=== PATIENT | male | born 1965 | race Caucasian/White ===

== ENCOUNTER 2021-04-04 04:09 | Inpatient (IN) | payer MEDICAID, SELFPAY ==
[2021-04-04] VITALS (10 sets, daily range): BP systolic 115–186; BP diastolic 68–103; PULSE 69–91; RESP 16–21; TEMP 36.3–36.4; O2SAT 98–100; BMI 26.3
--- NOTE | ~2021-04-04 | CT_ITS ---
EXAMINATION: CT CHEST WITH CONTRAST CT THORACIC SPINE CLINICAL INFORMATION: Reason for Exam Fall, intoxicated subcutaneous emphysema . COMPARISON: No pertinent prior studies are available for comparison. TECHNIQUE: Multidetector volumetric imaging was performed from the thoracic inlet to below the diaphragm following the administration of 100 mL Omnipaque 350 intravenous contrast. No contrast reaction reported Sagittal and coronal reformatted images were obtained on the technologist workstation. Additional targeted reformatted images of the thoracic spine are performed in axial, sagittal, and coronal planes. This CT examination was performed using dose optimization techniques as appropriate, variously including the following: *Automated exposure control *Adjustment of mA and/or kV according to patient size (this includes techniques or standardized protocols for targeted exams where dose is matched to indication/reason for exam; i.e. extremities or head) *Use of iterative reconstruction technique Total exam dose-length product 1444 mGy-cm in conjunction with the neck CT FINDINGS: LUNG: The central airways are patent. There is a moderate to large right-sided pneumothorax. Small left pneumothorax. Minimal groundglass opacification seen in both lungs which could represent contusion. Dependent atelectasis on the left posteriorly. No pleural effusion. MEDIASTINUM: Normal heart size. There is extensive pneumomediastinum. No pericardial effusion. No mediastinal lymphadenopathy. Pneumomediastinum extends into the neck as subcutaneous emphysema. VASCULAR: No thoracic aortic aneurysm or dissection. Central pulmonary arteries opacify normally. CHEST WALL/AXILLA: No axillary or internal mammary lymphadenopathy. Extensive subcutaneous emphysema throughout the chest wall. This extends into the left upper extremity and neck. UPPER ABDOMEN: Low-attenuation of the liver suggestive of hepatic steatosis. Colonic diverticulosis noted. OSSEOUS STRUCTURES/THORACIC SPINE: No sternal fracture. Vertebral body height and alignment maintained. Disc spaces are maintained with small multilevel endplate osteophytes. The posterior elements are intact and well aligned. Acute comminuted left posterior third and fourth rib fractures. Healing right lateral seventh and eighth rib fractures. No scapular fracture. CT/CT thoracic spine wo con IMPRESSION: Moderate to large right pneumothorax. Small left pneumothorax. Extensive pneumomediastinum and subcutaneous emphysema. Comminuted fractures of the posterior left third and fourth ribs. No acute right-sided rib fractures are seen. Healing right lateral rib fractures noted. No acute fracture or malalignment of the thoracic spine. This critical result was discussed with Muna Brink MD by telephone at 04/04/2021 5:23 AM and it was ascertained that the content and urgency of the report was understood at the time of direct communication.
--- NOTE | ~2021-04-04 | XR_ITS ---
EXAMINATION: XR CHEST CLINICAL INFORMATION: Follow-up right pleural effusion and left pneumothorax COMPARISON: Previous chest CT from yesterday and chest x-ray most recent 04/14/2021 TECHNIQUE: Frontal view of the chest was obtained. FINDINGS: The cardiac and mediastinal contours are stable. Bilateral chest tubes are unchanged in position. There is elevation of the right hemidiaphragm and right pleural effusion that appears unchanged. There is atelectasis or consolidation at the right lung base as well. There is a small left apical pneumothorax. This measures 1.5 cm in greatest thickness at the lung apex. There is no significant left pleural effusion. The left lung is clear. There is mild emphysema seen in the soft tissues of the left lower neck and chest wall. There are bilateral rib fractures of varying ages. XR/XR chest 1V IMPRESSION: Stable position of bilateral chest tubes. Stable elevation of the right hemidiaphragm/right pleural effusion. Small left apical pneumothorax.
--- NOTE | ~2021-04-04 | XR_ITS ---
EXAMINATION: XR CHEST CLINICAL INFORMATION: Chest tube placement COMPARISON: CT from today TECHNIQUE: Frontal view of the chest was obtained. FINDINGS: Right-sided chest tube extending to the apex. No definite pneumothorax seen, the extent of the subcutaneous emphysema limits evaluation.. Small left-sided pneumothorax. No pleural effusion. The cardiomediastinal silhouette is normal in size with diffuse pneumomediastinum. Subcutaneous emphysema tracks into the neck and along the chest. Left third and fourth rib fractures are again noted. XR/XR chest 1V IMPRESSION: Right-sided chest tube in place with no definite pneumothorax seen. Small left apical pneumothorax remains. Extensive subcutaneous emphysema and pneumomediastinum. Left-sided rib fractures again noted.
--- NOTE | ~2021-04-04 | CT_ITS ---
EXAMINATION: CT HEAD WITHOUT CONTRAST CLINICAL INFORMATION: Fall. Intoxicated. COMPARISON: None. TECHNIQUE: Contiguous axial imaging was performed from the skull base to vertex without intravenous contrast. This CT examination was performed using dose optimization techniques as appropriate, variously including the following: * Automated exposure control * Adjustment of mA and/or kV according to patient size (this includes techniques or standardized protocols for targeted exams where dose is matched to indication/reason for exam; i.e. extremities or head) Use of iterative reconstruction technique DLP: 756 mGy-cm. FINDINGS: There is no evidence of acute intracranial hemorrhage or territorial infarction. No abnormal mass effect or midline shift is seen. Farrell to white matter differentiation is well preserved. No extra-axial fluid collections are identified. No hydrocephalus. Proportional prominence of the ventricles and sulcal spaces is consistent with mild volume loss. Patchy periventricular and deep white matter hypoattenuation is consistent with mild small vessel ischemic changes. Soft tissue gas is again noted at the neck and extending into the left facial region. No acute calvarial fracture. The mastoid air cells and visualized portions of the paranasal sinuses are well aerated. CT/CT head/brain wo con IMPRESSION: No acute intracranial pathology. Volume loss with small vessel ischemic change.
--- NOTE | ~2021-04-04 | XR_ITS ---
EXAMINATION: XR CHEST CLINICAL INFORMATION: Bilateral pneumothorax with right-sided chest tube. COMPARISON: 04/04/2021 TECHNIQUE: Frontal view of the chest was obtained. FINDINGS: Right-sided chest tube in place. Cardiac leads overlie the chest. Extensive subcutaneous emphysema is again noted, limiting the evaluation. Pneumomediastinum present. The lungs are well expanded. No definite right-sided pneumothorax seen. The left-sided pneumothorax is also not well seen. No pleural effusion. The cardiomediastinal silhouette is unchanged. Multiple left-sided rib fractures. XR/XR chest 1V IMPRESSION: Extensive subcutaneous emphysema again noted, limiting evaluation. No pneumothorax visualized on this study.
--- NOTE | ~2021-04-04 | XR_ITS ---
EXAMINATION: XR CHEST CLINICAL INFORMATION: Bilateral pneumothoraces 6. Follow-up after chest tube placement. COMPARISON: Chest radiograph done earlier today at 3:12 PM. TECHNIQUE: AP view of the chest was obtained. FINDINGS: Unchanged appearance of the cardiomediastinal silhouette with similar amount of pneumomediastinum. Stable positioning of a right apically oriented chest tube. No significant residual right apical pneumothorax. Small left apical pneumothorax appears decreased since a few hours earlier. Unchanged mild asymmetric elevation of the right hemidiaphragm with patchy opacities in the medial aspect of the right lower lobe and streaky opacities in the retrocardiac region. Extensive subcutaneous emphysema, minimally decreased since prior. Redemonstration of multiple left-sided rib fractures. XR/XR chest 1V IMPRESSION: Small left apical pneumothorax is decreased. There is no significant right pneumothorax. Mildly decreased pates emphysema. Otherwise, stable study.
--- NOTE | ~2021-04-04 | XR_ITS ---
EXAMINATION: XR CHEST CLINICAL INFORMATION: Bilateral pneumothorax. Subcutaneous air. Left rib fractures. COMPARISON: 04/06/2021 TECHNIQUE: Frontal view of the chest was obtained. FINDINGS: Right-sided chest tube remains in place. Subcutaneous emphysema seen diffusely, similar to prior. The lungs are well expanded. Persistent retrocardiac opacity. Possible small left pleural effusion. Small left-sided pneumothorax is noted. Comparison to prior imaging is limited given the extensive subcutaneous emphysema. This is likely without significant change. The cardiomediastinal silhouette is unchanged with pneumomediastinum again noted. Multiple left-sided rib fractures. XR/XR chest 1V IMPRESSION: Small left-sided pneumothorax is likely without significant change from previous imaging. Extensive subcutaneous emphysema is similar. Pneumomediastinum remains. Right-sided chest tube in place.
--- NOTE | ~2021-04-04 | XR_ITS ---
EXAMINATION: XR CHEST CLINICAL INFORMATION: Follow-up pneumothorax and other multiple findings. COMPARISON: 04/05/2021 and 04/04/2021 portable chest. TECHNIQUE: Frontal view of the chest was obtained. FINDINGS: Support devices: A right-sided chest tube is again seen with tip terminating medially in the right apex without interval change. Extensive subcutaneous emphysema is again seen but appears similar. This confounds evaluation of the underlying lungs. No definitive pneumothorax is seen. The heart and mediastinal structures are unremarkable. Multilevel left rib fractures are again noted. XR/XR chest 1V IMPRESSION: Extensive subcutaneous emphysema without significant change confounding evaluation. No significant new abnormality.
--- NOTE | ~2021-04-04 | XR_ITS ---
EXAMINATION: XR CHEST CLINICAL INFORMATION: Right-sided pneumothorax status post chest tube placement COMPARISON: 04/07/2021 TECHNIQUE: Frontal view of the chest was obtained. FINDINGS: Right-sided chest tube extends towards the apex at the midline, similar to prior. Subcutaneous emphysema wrist along the left chest wall and into the neck. The lungs are well expanded. Persistent retrocardiac opacity. No significant pleural effusion. Small left apical pneumothorax remains, decreased from prior. No definite right pneumothorax. The cardiomediastinal silhouette is unchanged. Pneumomediastinum again noted. Multiple left-sided rib fractures. XR/XR chest 1V IMPRESSION: Small left-sided pneumothorax, decreased from prior. Right-sided chest tube remains in place. No definite right pneumothorax.
--- NOTE | ~2021-04-04 | XR_ITS ---
EXAMINATION: XR CHEST CLINICAL INFORMATION: Right chest tube and bilateral pneumothoraces COMPARISON: Previous chest x-ray from earlier the same day TECHNIQUE: Frontal view of the chest was obtained. FINDINGS: There is a right apical chest tube that appears unchanged in position. There is a tiny right apical pneumothorax. There is a small left pneumothorax. This measures 2.5 cm in greatest thickness at the lung apex. This appears slightly increased in size from exam from earlier the same day. There is pneumomediastinum. There is a extensive subcutaneous emphysema seen. The cardiac and mediastinal contours are stable. There is atelectasis at the left lung base. There is no pleural effusion. There are left posterior third and fourth rib fractures. XR/XR chest 1V IMPRESSION: Stable position of right chest tube. Tiny right apical pneumothorax. Small left pneumothorax increased from exam from earlier today measuring maximum 2.5 cm in thickness at the lung apex. Pneumomediastinum. Extensive subcutaneous emphysema. Subsegmental atelectasis at the left lung base.
--- NOTE | ~2021-04-04 | XR_ITS ---
EXAMINATION: XR CHEST CLINICAL INFORMATION: Shortness of breath COMPARISON: 04/08/2021 TECHNIQUE: Frontal view of the chest was obtained. FINDINGS: Cardiac leads overlie the chest. Removal of the previous right-sided chest tube. Elevated right hemidiaphragm. Persistent extensive subcutaneous emphysema, greatest in the neck and left chest wall. This is slightly improved. Small left-sided pneumothorax is similar to prior. No definite right pneumothorax. Pneumomediastinum remains with the cardiomediastinal silhouette appearing unchanged. Multiple left-sided rib fractures again noted. XR/XR chest 1V IMPRESSION: Similar tiny left pneumothorax. Extensive subcutaneous emphysema is slightly improved.
--- NOTE | ~2021-04-04 | XR_ITS ---
EXAMINATION: XR CHEST CLINICAL INFORMATION: Acute shortness of breath. COMPARISON: Multiple priors, most recent chest radiograph done earlier the same day. TECHNIQUE: Frontal view of the chest was obtained. FINDINGS: Small left apical pneumothorax, unchanged when compared to the prior examination. Prominent diffuse soft tissue emphysema is redemonstrated. Small bilateral pleural effusions with bibasilar airspace opacities, similar when compared to the prior examination. Stable cardiomediastinal silhouette. XR/XR chest 1V IMPRESSION: Small left apical pneumothorax and prominent chest wall emphysema, unchanged. Small bilateral pleural effusions and bibasilar airspace opacities are unchanged.
--- NOTE | ~2021-04-04 | CT_ITS ---
EXAMINATION: CT SOFT TISSUE NECK WITH CONTRAST CLINICAL INFORMATION: Fall with pain COMPARISON: Chest CT from today TECHNIQUE: Following the intravenous administration of 100 mL of Omnipaque 350 intravenous contrast, helical imaging was performed in the axial plane with generation of coronal and sagittal reformatted images. This CT examination was performed using dose optimization techniques as appropriate, variously including the following: *Automated exposure control *Adjustment of mA and/or kV according to patient size (this includes techniques or standardized protocols for targeted exams where dose is matched to indication/reason for exam; i.e. extremities or head) *Use of iterative reconstruction technique DLP: 1444 mGy-cm in conjunction with the chest CT FINDINGS: Extensive subcutaneous emphysema throughout the cervical soft tissues. This tracks along the deep fascial planes. No cervical adenopathy is identified. The parotid glands are homogeneous in attenuation. The submandibular glands are normal. No contour abnormality or pathologic enhancement is seen within the oral cavity or pharyngeal mucosal space. The laryngeal structures are normal. The parapharyngeal fat is preserved. The carotid sheath vasculature opacify normally. No extra mucosal soft tissue mass or fluid collection is seen. No retropharyngeal fluid collection is seen. The thyroid gland is normal. Mediastinum again noted. Bilateral pneumothoraces. The mastoid air cells and visualized portions of the paranasal sinuses are well-aerated. The temporomandibular joints are normal. No periapical disease is identified. No acute cervical spine fracture seen. Posterior left-sided rib fractures again noted.. The imaged portions of the brain parenchyma are unremarkable. CT/CT soft tissue neck w con IMPRESSION: Extensive subcutaneous emphysema throughout the cervical soft tissues. Redemonstration of the bilateral pneumothoraces. Pneumomediastinum.
--- NOTE | 2021-04-04 04:24 | ECG_ITS ---
Test Reason : SOB Blood Pressure : / mmHG Vent. Rate : 072 BPM Atrial Rate : 072 BPM P-R Int : 152 ms QRS Dur : 086 ms QT Int : 476 ms P-R-T Axes : 064 -24 031 degrees QTc Int : 521 ms Normal sinus rhythm Nonspecific ST and T wave abnormality QT Prolongation Abnormal ECG No previous ECGs available Referred By: Muna Brink Electronically Signed By:CHRIS DANIELS
[2021-04-04 05:02] LABS: MANUAL DIFF FLAG NO
[2021-04-04] MEDS: iohexoL 350 MG/ML 100 ML INFUS..BTL IV (05:06)
--- NOTE | 2021-04-04 05:06 | PC.RT ---
pt. s/p fall at home secondary to ETOH. pt found to have bilateral Pneumothorax on Chest CT. Pt on 2 l NC and sats 97% C02 29 HR 73 bp 130/79. pt does not to appear in any resp distress. Will be on standby for ? intubation for airway protection as pt has alot of crepitus upper chest to his neck.
[2021-04-04 05:10] LABS: Basophils Absolute Auto 0.1 X10*3/uL (0.0-0.2); Basophils Percent Auto 0.5 % (0-2); Eosinophils Absolute Auto 0.1 X10*3/uL (0.0-0.4); Eosinophils Percent Auto 0.4 % (0-4); Hematocrit 44.4 % (42-52); Imm Gran Abs Auto 0.12 X10*3/uL (0.00-0.03); Imm Gran Pct Auto 0.9 % (0.0-0.4); Lymphocytes Absolute Auto 1.9 X10*3/uL (1.2-4.9); Lymphocytes Percent Auto 14.6 % (20-40); Mean Corpuscular Hemoglobin 37.9 pg (27.0-33.0); Mean Corpuscular Volume 105.2 fL (80-98); Mean Platelet Volume 8.9 fL (9.4-12.4); Monocytes Absolute Auto 1.1 X10*3/uL (0.1-1.2); Monocytes Percent Auto 8.6 % (2-11); Neutrophils Absolute Auto 9.6 X10*3/uL (2.0-8.3); Platelet Count 239 X10*3/uL (160-400); Red Blood Count 4.22 X10*6/uL (4.60-5.80); Red Cell Distribution Width 11.9 % (11.0-16.0); White Blood Count 12.9 X10*3/uL (4.8-10.8)
[2021-04-04 05:17] LABS: Ethanol 219 mg/dL
[2021-04-04 05:20] LABS: Alanine Aminotransferase 21 U/L (0-40); Albumin Level 3.3 g/dL (3.5-5.0); Alkaline Phosphatase 111 U/L (39-117); Anion Gap 18 (12-20); Aspartate Amino Transferase 43 U/L (5-37); Bilirubin Total 0.9 mg/dL (0.0-1.0); Blood Urea Nitrogen 5 mg/dL (9-16); Calcium 8.7 mg/dL (8.4-10.2); Carbon Dioxide 19 mmol/L (22-29); Chloride 100 mmol/L (96-108); Creatinine Clr Calc Pharmacy 79.6; Estimated Glomerular Filt Rate > 60; Glucose Random 151 mg/dL (60-115); Sodium 134 mmol/L (135-145); Total Protein 5.9 g/dL (6.5-8.0)
[2021-04-04 05:25] LABS: COVID-19 Test Negative (Negative)
--- NOTE | 2021-04-04 05:26 | PC.NURSE ---
this nurse remaining at bedside. pt in bed in low fowlers, pt denies pain at rest but says pain increases to 7/10 during movement-pain located mostly in back and L ribs. pt denies any SOB at this time. able to speak in full sentences. MD at bedside obtaining consent for procedure
--- NOTE | 2021-04-04 05:28 | ED_ITS ---
HPI - Fall General Chief Complaint: Fall Stated Complaint: fall/swollen neck Time Seen by Provider: 04/04/21 04:24 Source: patient and family (Sister) Mode of arrival: ambulatory History of Present Illness HPI Narrative: 56-year-old male with known alcohol dependence and reports a fall earlier in the evening and his sister with whom he lives noted that patient asked her to take him to the emergency room stating that he fell in has signif icant pain and she noted that there was ?a lot of swelling around his neck and patient had taken Motrin?. Patient denies any toothache or dental pain, shortness of breath or chest pain but states he does have significant amount of back pain and denies any difficulty with swallowing but states he does feel like he has a sore throat. Related Data Allergies Allergy/AdvReac Type Severity Reaction Status Date / Time Penicillins Allergy Unknown Verified 04/04/21 04:19 Review of Systems Review of Systems: Pertinent positives and negatives as stated in HPI 10 point review of systems is otherwise negative. [facility] Past Medical History Source: nursing notes reviewed Social History Social History Advance Directives: No Advance Directives Information Provided: Yes Physical Exam Vital Signs: Vital Signs: Last Vital Signs Pulse 78 04/04/21 06:36 Resp 16 04/04/21 06:36 BP 116/72 04/04/21 06:36 Pulse Ox 98 04/04/21 06:36 Body Mass Index 26.3 VITAL SIGNS: Reviewed. GENERAL: Well developed, well nourished, in no acute distress. HEAD: Normocephalic/atraumatic EYES: PERRLA, EOMI EARS: Ext canals without abnormality, TMs non-bulging and non-erythematous NOSE: Nares patent bilateral OROPHARYNX: no oral lesions noted, posterior pharynx clear and without noted edema, no dental caries/abscesses, no lip/tongue swelling NECK: Supple, no adenopathy, but significant subcutaneous emphysema noted circumferentially to neck LUNGS: Normal breath sounds. No adventitious sounds or accessory muscle use. SpO2<98>, sec cutaneous emphysema noted to anterior chest wall and tracking along bilateral shoulders CARDIOVASCULAR: Regular rate and rhythm without noted murmurs ABDOMEN: Soft, non-tender, non-distended with bowel sounds. MUSCULOSKELETAL: No tenderness, deformities, or effusions noted on gross inspection. EXTREMITIES: No cyanosis, clubbing or edema. SKIN: Inspection of the skin reveals no rashes NEUROLOGIC: Alert and oriented x 4. Strength and sensation to light touch were grossly intact x 4. Course Course Course Narrative: This is a 56-year-old male with history and clinical presentation consistent with subcutaneous emphysema and on quick bedside ultrasound suspect pneumothorax but unknown whether due to rib fractures or ruptured bleb. On review of all investigations CT scan showing large right- sided pneumothorax as well as small left-sided pneumothorax in conjunction with fractures left 3rd and 4th ribs that are comminuted and displaced. Patient has remained entirely hemodynamically stable and tolerated chest tube placement well. This case was discussed with the thoracic surgery team who agrees to manage patient in a consultation capacity, and statistical clerk was consulted for appropriateness of admission to the floor. Patient provided with pain medication. Thoracic surgery to follow-up patient on the floor and recommends admission. Showroom Salesperson recommends admission to the floor as well as 100% FiO2 for resolution of left pneumothorax. All updates and recommendations from consultants were provided to the inpatient hospitalist who accepts admission. Procedures Chest Tube Chest Tube 1: Chest Tube Location: right and mid axillary line Size of Tube (cm): 28 Chest Tube Prep: Yes betadine prep and sterile drapes applied Local Anesthetic: lidocaine 2% and with epi Amount of anesthesia used (mL): 10 Incision Made With: #10 blade Post Procedure: sutured to skin and sterile dressing applied Tube Drainage: none Post Procedure CXR?: Yes Patient Tolerated Procedure: Yes MDM - Fall Lab Data Result diagrams: 04/04/21 04:55 04/04/21 04:55 Labs: Lab Results 04/04/21 04/04/21 04/04/21 Range/Units 04:55 04:55 04:55 WBC 12.9 H (4.8-10.8) X10*3/uL RBC 4.22 L (4.60-5.80) X10*6/uL Hgb 16.0 (14.0-18.0) g/dl Hct 44.4 (42-52) % MCV 105.2 H (80-98) fL MCH 37.9 H (27.0-33.0) pg MCHC 36.0 (31.0-36.0) g/dl RDW 11.9 (11.0-16.0) % Plt Count 239 (160-400) X10*3/uL MPV 8.9 L (9.4-12.4) fL Immature Gran % (Auto) 0.9 H (0.0-0.4) % Neut % (Auto) 75.0 H (45-73) % Lymph % (Auto) 14.6 L (20-40) % [place] % (Auto) 8.6 (2-11) % Eos % (Auto) 0.4 (0-4) % Baso % (Auto) 0.5 (0-2) % Lymph # (Auto) 1.9 (1.2-4.9) X10*3/uL [place] # (Auto) 1.1 (0.1-1.2) X10*3/uL Eos # (Auto) 0.1 (0.0-0.4) X10*3/uL Baso # (Auto) 0.1 (0.0-0.2) X10*3/uL Abs Immat Gran (auto) 0.12 H (0.00-0.03) X10*3/uL Absolute Neuts (auto) 9.6 H (2.0-8.3) X10*3/uL Absolute Nucleated RBC 0.000 (0.0-0.012) X10*3/uL Nucleated RBC % (auto) 0.0 (0.0-0.2) /100WBC Sodium 134 L (135-145) mmol/L Potassium 3.0 L (3.3-5.1) mmol/L Chloride 100 (96-108) mmol/L Carbon Dioxide 19 L (22-29) mmol/L Anion Gap 18 (12-20) BUN 5 L (9-16) mg/dL Creatinine 0.98 (0.5-1.4) mg/dL Estim Creat Clear Calc 79.6 Estimated GFR > 60 Random Glucose 151 H (60-115) mg/dL Calcium 8.7 (8.4-10.2) mg/dL Total Bilirubin 0.9 (0.0-1.0) mg/dL AST 43 H (5-37) U/L ALT 21 (0-40) U/L Alkaline Phosphatase 111 (39-117) U/L Total Protein 5.9 L (6.5-8.0) g/dL Albumin 3.3 L (3.5-5.0) g/dL Ethyl Alcohol 219 mg/dL COVID-19 ([facility]UL) (Negative) COVID-19 Clin Com 04/04/21 Range/Units 05:03 WBC (4.8-10.8) X10*3/uL RBC (4.60-5.80) X10*6/uL Hgb (14.0-18.0) g/dl Hct (42-52) % MCV (80-98) fL MCH (27.0-33.0) pg MCHC (31.0-36.0) g/dl RDW (11.0-16.0) % Plt Count (160-400) X10*3/uL MPV (9.4-12.4) fL Immature Gran % (Auto) (0.0-0.4) % Neut % (Auto) (45-73) % Lymph % (Auto) (20-40) % [place] % (Auto) (2-11) % Eos % (Auto) (0-4) % Baso % (Auto) (0-2) % Lymph # (Auto) (1.2-4.9) X10*3/uL [place] # (Auto) (0.1-1.2) X10*3/uL Eos # (Auto) (0.0-0.4) X10*3/uL Baso # (Auto) (0.0-0.2) X10*3/uL Abs Immat Gran (auto) (0.00-0.03) X10*3/uL Absolute Neuts (auto) (2.0-8.3) X10*3/uL Absolute Nucleated RBC (0.0-0.012) X10*3/uL Nucleated RBC % (auto) (0.0-0.2) /100WBC Sodium (135-145) mmol/L Potassium (3.3-5.1) mmol/L Chloride (96-108) mmol/L Carbon Dioxide (22-29) mmol/L Anion Gap (12-20) BUN (9-16) mg/dL Creatinine (0.5-1.4) mg/dL Estim Creat Clear Calc Estimated GFR Random Glucose (60-115) mg/dL Calcium (8.4-10.2) mg/dL Total Bilirubin (0.0-1.0) mg/dL AST (5-37) U/L ALT (0-40) U/L Alkaline Phosphatase (39-117) U/L Total Protein (6.5-8.0) g/dL Albumin (3.5-5.0) g/dL Ethyl Alcohol mg/dL COVID-19 ([facility]UL) Negative (Negative) COVID-19 Clin Com See Note Discharge Plan Discharge Clinical Impression: Bilateral pneumothoraces, Multiple fractures of ribs of left side, Alcohol dependence Patient Disposition: Admitted As Inpatient
--- NOTE | 2021-04-04 06:15 | PC.NURSE ---
MD, RT, care technicianelicia Lees and this nurse at bedside for chest tube insertion. Time out done by staff and confirmed correct pt, correct equipment and size, correct side for chest tube insertion
--- NOTE | 2021-04-04 06:20 | PC.NURSE ---
MD at bedside securing chest tube after insertion pt tolerated procedure well xray ordered to confirm chest tube placement
--- NOTE | 2021-04-04 06:33 | PM.CCN ---
Critical Care Event Note Summary Date of Service: 04/04/21 Code activated: No Narrative: Chart reviewed, case discussed with ER physician Dr. Juarez. In brief, 56 y/o gentleman with alcohol abuse presenting with subcutaneous emphysema, large right , and small left pneumothorax after a fall. Now s/p right sided chest tube with re-expansion of the right lung. Hemodynamically stable. On 2l of supplemental O2 with O2 sat of 98%. Agree with 100% supplemental O2 for small left pneumothorax. At this time does not require ICU level of care. Please notify for re-evaluation, if patient condition changes. Critical Care Time (minutes): 0
[2021-04-04] MEDS: Ketorolac Tromethamine 15 MG/ML VIAL IVPUSH (06:35)
[2021-04-04] MEDS: Lidocaine HCl 2%/Epi 1:100,000 20 ML VIAL INFILTRATI (06:35)
[2021-04-04] MEDS: fentaNYL citrate/PF 100 MCG/2 ML VIAL 25 MCG IVPUSH ×2 (07:13→16:09)
--- NOTE | 2021-04-04 07:34 | PC.NURSE ---
Pt is alert/oriented, reports falling frequently at home with fall last night after leaning forward to far. Pt reports 8/10 back pain and chest discomfort, fentanyl given as ordered for pain control. Pt speaking full sentences. Chest tube in place to right chest on low wall suction. NRB on 100% 02 placed on pt per Dr Brink to improve left lung. Skin pwd. Pt does report etoh use daily, no h/o etoh withdrawal. 0 on CIWA at this time. Sister at bedside. Awaiting admission
[2021-04-04] MEDS: PHENobarbitaL sodium 130 MG/ML VIAL 264 MG IM (08:23)
--- NOTE | 2021-04-04 10:14 | PC.NURSE ---
NSR on monitor
--- NOTE | 2021-04-04 10:24 | PC.NURSE ---
Pt back and forth to stretcher and chair, reports inability to become comfortable. Non compliant with nrb mask, redirected with good effect. Chest tube remains in place with no changes
--- NOTE | 2021-04-04 10:53 | PC.NURSE ---
cardiothoracic pa at bedside at this time
--- NOTE | 2021-04-04 11:15 | PC.NURSE ---
Incentive spirometer given/instructed. Pt noted with clear ls on right throughout, left sided with crackles throughout. crepitus and swelling around neck and chest has improved but mild crepitus remains on palpation
[2021-04-04] MEDS: PHENobarbitaL sodium 130 MG/ML VIAL 198 MG IM ×2 (11:42→16:10)
--- NOTE | 2021-04-04 11:53 | P.HPHOSP_ITS ---
History of Present Illness Date of Service: 04/04/21 Chief Complaint: pain and neck swelling This is a 56 yo M with a PMH of HTN, Heavy alcohol use, Tobacco use, prior falls, Depression/anxiety who presents to the hospital with complaints of neck pain and generalized chest pains for several hours duration. The history of is obtained from the patient as well as the patients sister (and HCP), whom he lives with. Pt endorses that around 10-11pm on the evening prior to ED arrival, he sustained a mechanical fall after he tripped over something. He denies any loss of consciousness. He reports that he had some pain on the L side after this fall, but it was not severe so he took some Motirin. However, as the night progressed, he began having trouble breathing, worsening pain and when his neck started swelling up significantly, he presented to the ED. In the ED his work up showed a large R pneumothorax/pneumomediastinum/small apical L pneumo with acute rib fractures on the L and chronic on the R. A chest tube was placed by the ED provider and subsequently imaging showed resoluation of the R-sided pneuo, but persistent L small apical pneumothorax. A level of care eval was completed by the intensivitst and he deemded not to require ICU level of care at this time. 100% NRM mask was recommended to help with resolution of any residdual pneumothorax. He was subsequently evaluated by Thoracic Surgery in the ED who recommended admission to the medical services and they will folow the patient for management of his chest tube. Patient is seen and examined in the ED around 1130 AM. He appears to be in no respiratory distress. Vitals are stable. He does complain of left sided chest pain near the rib fractures. His sister reports that his neck swelling is significantly reduced. Review of Systems Review of Systems: General - denies fevers or chills, denies weakness or fatigue HEENT -denies blurred vision, denies headache, denies sore throat, +neck swelling Cardiovascular - denies chest pain or palpitations, denies edema Respiratory - breathing improved post chest pain Gastrointestinal - denies abdominal pain, nausea, vomiting, diarrhea - denies flank pain, denies dysuria, denies frequency or urgency Musculoskeletal - denies back pain, denies hip pain, denies knee pain, denies shoulder pain; +falls; L sided chest pain, MSK in nature Neurological - denies any focal weakness or numbness Skin, denies any bruising or redness Psychiatric - denies any suicidal ideation, hallucinations, homicidal ideation Endocrinology - denies intolerance to hot / cold temperatures [facility] Medical History (Updated 04/04/21 @ 12:53 by Devon Huang MD) Alcohol dependence Bilateral pneumothoraces (~04/2021) Multiple fractures of ribs of left side (~04/2021) Personal history of nicotine dependence Family History (Updated 04/04/21 @ 12:36 by Devon Huang MD) Father No problems noted. Mother No problems noted. Pertinent family history: . Surgical History (Updated 04/04/21 @ 12:37 by Devon Huang MD) H/O rhinoplasty History of chest tube placement (~04/2021) Social History (Updated 04/04/21 @ 12:37 by Devon Huang MD) Alcohol intake: current Alcohol intake frequency: 3 or more drinks per day Patient Tobacco Use Status: Current everyday Tobacco user Use of substances other than those prescribed or required for medical reasons: No Advance Directives: No Advance Directives Information Provided: Yes Meds Allergies Allergy/AdvReac Type Severity Reaction Status Date / Time Penicillins Allergy Unknown Verified 04/04/21 04:19 Active Medications: Current Medications Acetaminophen (Acetaminophen 325 Mg Tablet) 650 mg PO Q6H PRN PRN Reason: Pain, Mild (Pain Scale 1-3) Fentanyl (Fentanyl Citrate/Pf 100 Mcg/2 Ml Vial) 25 mcg IVPUSH Q2H PRN; Protocol PRN Reason: Pain, Severe (Pain Scale 7-10) Dextrose/Sodium Chloride (D5ns) 1,000 mls @ 100 mls/hr IVCONT .Q10H IESHA Ketorolac Tromethamine (Ketorolac Tromethamine 30 Mg/Ml Vial) 30 mg IVPUSH Q6H IESHA Stop: 04/05/21 06:01 Medication (No Benzodiazepines) 1 each MISCELLANE DAILY [facility] Ondansetron HCl (Ondansetron Hcl 4 Mg/2 Ml Vial) 4 mg IVPUSH Q8H PRN PRN Reason: Nausea and Vomiting Pharmacy Consult (Consult Rx Perform Med Rec) 1 each MISCELLANE STAT STA Stop: 04/04/21 11:45 Phenobarbital (Phenobarbital 15 Mg Tablet) 45 mg PO BID IESHA; Protocol Stop: 04/06/21 09:01 Phenobarbital (Phenobarbital 15 Mg Tablet) 15 mg PO BID [facility]; Protocol Stop: 04/08/21 09:01 Phenobarbital (Phenobarbital 15 Mg Tablet) 15 mg PO DAILY [facility]; Protocol Stop: 04/10/21 09:01 Phenobarbital Sodium (Phenobarbital Sodium 130 Mg/Ml Vial) 198 mg IM Q3H [facility]; Protocol Stop: 04/04/21 14:01 Last Admin: 04/04/21 11:42 Dose: 198 mg Documented by: Potassium Chloride (Potassium Chloride Er 20 Meq Tab.Er.Prt) 40 meq PO ONCE ONE Stop: 04/04/21 11:51 Sodium Chloride (0.9 % Sodium Chloride Flush 3 Ml Syringe) 3 ml IVFLUSH QSHIFT [facility] Thiamine HCl (Thiamine Hcl 100 Mg Tablet) 100 mg PO DAILY [facility] Home Medications Medication Instructions Recorded Confirmed Last Taken Type atenolol 50 mg tablet 1 tab PO DAILY 04/04/21 04/04/21 04/03/21 History citalopram 40 mg tablet 1 tab PO DAILY 04/04/21 04/04/21 04/03/21 History lisinopril 40 mg tablet 1 tab PO DAILY 04/04/21 04/04/21 04/03/21 History Physical Exam Vital Signs and Narrative: Vital Signs: Last Vital Signs Pulse 85 04/04/21 10:22 Resp 20 04/04/21 10:22 BP 138/85 04/04/21 10:22 Pulse Ox 99 04/04/21 10:22 Body Mass Index 26.3 Const: Other: Constitutional - Awake and Alert, No apparent distress HEENT - PERRLA, EOMI, neck swelling, +minimal subcut. emphysema; Trachea midline Cardiovascular - S1S2, RRR, No edema Respiratory - +subcut. emphysema palpable on the back; no respiratory distress, on 100% NRM with saturations 99; Pig tail catheter R chest with dressing c/d/i attached to [employer] device Gastrointestinal - NT / ND; +BS; No rebound or guarding - No CVA tenderness Extremities - no calf tenderness bilaterally, no swelling Musculoskeletal - Normal inspection, normal ROM Skin - Warm/Dry Neurological - Alert & oriented x3, No focal deficit Psychological - Appropriate affect Results Labs CBC and Chem 7: 04/04/21 04:55 04/04/21 04:55 Labs: Laboratory Results - last 24 hr 04/04/21 04/04/21 04/04/21 04:55 04:55 04:55 MCV 105.2 H MCH 37.9 H MCHC 36.0 RDW 11.9 Plt Count 239 MPV 8.9 L Immature Gran % (Auto) 0.9 H Neut % (Auto) 75.0 H Lymph % (Auto) 14.6 L [place] % (Auto) 8.6 Eos % (Auto) 0.4 Baso % (Auto) 0.5 Lymph # (Auto) 1.9 [place] # (Auto) 1.1 Eos # (Auto) 0.1 Baso # (Auto) 0.1 Abs Immat Gran (auto) 0.12 H Absolute Neuts (auto) 9.6 H Absolute Nucleated RBC 0.000 Nucleated RBC % (auto) 0.0 Anion Gap 18 Estim Creat Clear Calc 79.6 Estimated GFR > 60 Random Glucose 151 H Calcium 8.7 Total Bilirubin 0.9 AST 43 H ALT 21 Alkaline Phosphatase 111 Total Protein 5.9 L Albumin 3.3 L Ethyl Alcohol 219 COVID-19 ([facility]) COVID-19 Clin Com 04/04/21 05:03 MCV MCH MCHC RDW Plt Count MPV Immature Gran % (Auto) Neut % (Auto) Lymph % (Auto) [place] % (Auto) Eos % (Auto) Baso % (Auto) Lymph # (Auto) [place] # (Auto) Eos # (Auto) Baso # (Auto) Abs Immat Gran (auto) Absolute Neuts (auto) Absolute Nucleated RBC Nucleated RBC % (auto) Anion Gap Estim Creat Clear Calc Estimated GFR Random Glucose Calcium Total Bilirubin AST ALT Alkaline Phosphatase Total Protein Albumin Ethyl Alcohol COVID-19 ([facility]UL) Negative COVID-19 Clin Com See Note Imaging Radiologist's Impressions: Impressions Chest CT 04/04/21 04:24 IMPRESSION: Moderate to large right pneumothorax. Small left pneumothorax. Extensive pneumomediastinum and subcutaneous emphysema. Comminuted fractures of the posterior left third and fourth ribs. No acute right-sided rib fractures are seen. Healing right lateral rib fractures noted. No acute fracture or malalignment of the thoracic spine. This critical result was discussed with Muna Brink MD by telephone at 04/04/2021 5:23 AM and it was ascertained that the content and urgency of the report was understood at the time of direct communication. Head CT 04/04/21 04:24 IMPRESSION: No acute intracranial pathology. Volume loss with small vessel ischemic change. Thoracic Spine CT 04/04/21 04:27 IMPRESSION: Moderate to large right pneumothorax. Small left pneumothorax. Extensive pneumomediastinum and subcutaneous emphysema. Comminuted fractures of the posterior left third and fourth ribs. No acute right-sided rib fractures are seen. Healing right lateral rib fractures noted. No acute fracture or malalignment of the thoracic spine. This critical result was discussed with Muna Brink MD by telephone at 04/04/2021 5:23 AM and it was ascertained that the content and urgency of the report was understood at the time of direct communication. Soft Tissue Neck CT 04/04/21 04:34 IMPRESSION: Extensive subcutaneous emphysema throughout the cervical soft tissues. Redemonstration of the bilateral pneumothoraces. Pneumomediastinum. Chest X-Ray 04/04/21 06:25 IMPRESSION: Right-sided chest tube in place with no definite pneumothorax seen. Small left apical pneumothorax remains. Extensive subcutaneous emphysema and pneumomediastinum. Left-sided rib fractures again noted. Assessment and Plan (1) Bilateral pneumothoraces: Status: Acute This is a 56 yo M with a PMH of heavy daily alcohol use (denies any prior withdrawal symptoms), anxiety/depression, tobacco smoking, hypertension who presents to the hospital after a mechanical fall (no LOC) resulting in acute L rib fractures, a small apical L pneumothorax, large R pneumothorax with evidence of tension pneumo on imaging. He is s/p pig tail cath placement on the R with resolution of his pneumon. He will be admitted for further treatment. 1. Traumatic R tension pneumothorax and L small apical pneumothorax 1a. Pneumomediastinum s/p pig tail cath on R with resolution of pneumothroax. L small apical pneu mothorax persists CT surg managing his chest tube. See their notes for full details. Repeat CXR tomorrow (or sooner if thoracic recommends) 100 % NRM mask to help with any residual pneumo IV fentayl (shorter acting) for pain control. Scheduled IV toradol 30mg x 4 doses q6 hours. Continue telemonitor, continue continuous pulse ox 2. Alcohol abuse and dependence EtOH level >200 upon ED arrival. Not in active withdrawal now, but high risk for decomepnsation. Has been started on phenobarb -- will continue Complete alcohol cessation as been encouraged. 3. Mechanical Fall suspected due to EtOH intoxication at home. Consider PT eval prior to discharge if any issues 4. HTN med rec pending, but BP normotensive thus far. Will hold antihypertensives for now 5. Anxiety/Depression med rec pending, continue home meds once completed Full Code DVT pptx, mechanical device Quality Stroke Does the patient have a stroke diagnosis?: No VTE Prior VTE?: No VTE Risk Level:: Medical - moderate - high VTE Device Contraindication: N/A - Device Ordered VTE Drug Contraindication: Treatment Not Indicated
--- NOTE | 2021-04-04 11:57 | PM.CNGS ---
History of Present Illness Consult details Consult date: 04/04/21 Reason for consult: other (Bilateral pneumothorax) Narrative: Patient is a 56-year-old male with a past medical history of alcohol dependence who drinks approximately 1 pt of liquor per day, current smoker 0.5 packs per day reports that he fell while drinking yesterday, reports it was a forward fall, denies any head or neck trauma, or LOC. who presented to the emergency department today with complaints of a swollen neck. Patient had denied any shortness of breath at rest or with exertion upon arrival to had oxygen saturations in the mid 90s on room air. A CT of the chest was performed which showed bilateral pneumothoraces with right side being large and left side being small. Also left 3rd and 4th posterior comminuted rib fractures and right lateral 7th and 8th healing rib fractures. Also noted was extensive subcutaneous emphysema and pneumomediastinum. A right-sided chest tube was placed with a follow-up chest x-ray showing resolution of right-sided pneumothorax. Patient remains on non-rebreather to evacuate remaining left-sided pneumothoraces. Upon my interview with patient patient was found to have a right-sided pigtail catheter attached to Atrium device on -20 low wall suction with minimal serous fluid output. No detectable air leak noted. He denies any shortness of breath however admits to some tenderness surrounding chest tube site as well as left side of the chest. Patient denies any dizziness, lightheadedness, fever, chills, abdominal pain. Review of Systems Review of Systems: Twelve point review of systems negative except for what is listed in the [facility] Past Medical History Medical History (Updated 04/12/21 @ 14:53 by Ana Solares MD) Alcohol dependence Bilateral pneumothoraces (~04/2021) Hypertension Multiple fractures of ribs of left side (~04/2021) Personal history of nicotine dependence Family History Family History Father No problems noted. Mother No problems noted. Surgical History Surgical History H/O rhinoplasty History of chest tube placement (~04/2021) Social History Social History Household Members: Other Household Members Other:: sister Housing: House Do you presently have visiting nurse or other home services: No Alcohol intake: current Alcohol intake frequency: 3 or more drinks per day Patient Tobacco Use Status: Current everyday Tobacco user Tobacco use type: Cigarette Use of substances other than those prescribed or required for medical reasons: No Currently Displaying Signs/Symptoms of Drug Intoxication Withdrawal: No Have you been hit, kicked, punched, or otherwise hurt by someone within the past year? If so, by whom?: No Do you feel safe in your current relationship?: Yes Is there a partner from a previous relationship who is making you feel unsafe now?: No Are you made to feel afraid or neglected: No Advance Directives: No Advance Directives Information Provided: No Advance Directives on File: No Do you have thoughts of harming others: None Do you have a plan to hurt others: No Plan Recently lost weight without trying: No Nutrition Risks: No Nutritional Risk Poor oral hygiene: No service: No Current occupational status: unemployed Meds Allergies Allergy/AdvReac Type Severity Reaction Status Date / Time Penicillins Allergy Unknown Verified 04/11/21 16:08 Active Medications: Current Medications Acetaminophen (Acetaminophen 325 Mg Tablet) 650 mg PO Q6H PRN PRN Reason: Pain, Mild (Pain Scale 1-3) Fentanyl (Fentanyl Citrate/Pf 100 Mcg/2 Ml Vial) 25 mcg IVPUSH Q2H PRN; Protocol PRN Reason: Pain, Severe (Pain Scale 7-10) Dextrose/Sodium Chloride (D5ns) 1,000 mls @ 100 mls/hr IVCONT .Q10H [facility] Ketorolac Tromethamine (Ketorolac Tromethamine 30 Mg/Ml Vial) 30 mg IVPUSH Q6H [facility] Stop: 04/05/21 06:01 Medication (No Benzodiazepines) 1 each MISCELLANE DAILY [facility] Ondansetron HCl (Ondansetron Hcl 4 Mg/2 Ml Vial) 4 mg IVPUSH Q8H PRN PRN Reason: Nausea and Vomiting Pharmacy Consult (Consult Rx Perform Med Rec) 1 each MISCELLANE STAT STA Stop: 04/04/21 11:45 Phenobarbital (Phenobarbital 15 Mg Tablet) 45 mg PO BID [facility]; Protocol Stop: 04/06/21 09:01 Phenobarbital (Phenobarbital 15 Mg Tablet) 15 mg PO BID [facility]; Protocol Stop: 04/08/21 09:01 Phenobarbital (Phenobarbital 15 Mg Tablet) 15 mg PO DAILY [facility]; Protocol Stop: 04/10/21 09:01 Phenobarbital Sodium (Phenobarbital Sodium 130 Mg/Ml Vial) 198 mg IM Q3H [facility]; Protocol Stop: 04/04/21 14:01 Last Admin: 04/04/21 11:42 Dose: 198 mg Documented by: Potassium Chloride (Potassium Chloride Er 20 Meq Tab.Er.Prt) 40 meq PO ONCE ONE Stop: 04/04/21 11:51 Sodium Chloride (0.9 % Sodium Chloride Flush 3 Ml Syringe) 3 ml IVFLUSH QSHIFT [facility] Thiamine HCl (Thiamine Hcl 100 Mg Tablet) 100 mg PO DAILY [facility] Home Medications Medication Instructions Recorded Confirmed Last Taken Type atenolol 50 mg tablet 1 tab PO DAILY 04/04/21 04/12/21 04/10/21 History citalopram 40 mg tablet 1 tab PO DAILY 04/04/21 04/12/21 04/10/21 History lisinopril 40 mg tablet 1 tab PO DAILY 04/04/21 04/12/21 04/10/21 History Physical Exam Vital Signs: Vital Signs: Last Vital Signs Pulse 85 04/04/21 10:22 Resp 20 04/04/21 10:22 BP 138/85 04/04/21 10:22 Pulse Ox 99 04/04/21 10:22 Body Mass Index 26.3 Const: General: cooperative and no acute distress; No acute distress Orientation/consciousness: patient oriented x3 HENMT: Other: Neck appears swollen with bilateral subcutaneous emphysema appreciated along neck, left and right anterior chest which terminates at left and right shoulder. Trachea midline. Head: Yes normal to inspection and Yes normocephalic Eyes: General: appearance normal, both eyes and all related structures Conjunctivae: conjunctivae normal Sclerae: sclerae normal Chest: Other: Left and right anterior/lateral subcutaneous emphysema appreciated along chest wall. A right-sided pigtail catheter remains indwelling and secure with dressing which is clean dry and intact. Atrium device is attached to -20 low wall suction with minimal serous fluid output pleural vac tubing. No detectable air leak. Resp: Other: Breath sounds are clear bilaterally throughout all lung canseco. Cardio: Other: Regular rate and rhythm with S1-S2 appreciated. GI: Inspection: Yes normal to inspection Auscultation: normal bowel sounds Neuro: General: patient oriented x3 Results Labs Result diagrams: 04/07/21 07:58 04/07/21 07:58 Labs: Abnormal lab results 04/04/21 04/04/21 Range/Units 04:55 04:55 WBC 12.9 H (4.8-10.8) X10*3/uL RBC 4.22 L (4.60-5.80) X10*6/uL MCV 105.2 H (80-98) fL MCH 37.9 H (27.0-33.0) pg MPV 8.9 L (9.4-12.4) fL Immature Gran % (Auto) 0.9 H (0.0-0.4) % Neut % (Auto) 75.0 H (45-73) % Lymph % (Auto) 14.6 L (20-40) % Abs Immat Gran (auto) 0.12 H (0.00-0.03) X10*3/uL Absolute Neuts (auto) 9.6 H (2.0-8.3) X10*3/uL Sodium 134 L (135-145) mmol/L Potassium 3.0 L (3.3-5.1) mmol/L Carbon Dioxide 19 L (22-29) mmol/L BUN 5 L (9-16) mg/dL Random Glucose 151 H (60-115) mg/dL AST 43 H (5-37) U/L Total Protein 5.9 L (6.5-8.0) g/dL Albumin 3.3 L (3.5-5.0) g/dL Short CBC 04/04/21 Range/Units 04:55 WBC 12.9 H (4.8-10.8) X10*3/uL Hgb 16.0 (14.0-18.0) g/dl Hct 44.4 (42-52) % Plt Count 239 (160-400) X10*3/uL BMP 04/04/21 04:55 Sodium 134 L Potassium 3.0 L Chloride 100 Carbon Dioxide 19 L BUN 5 L Creatinine 0.98 Calcium 8.7 Liver Function 04/04/21 Range/Units 04:55 Total Bilirubin 0.9 (0.0-1.0) mg/dL AST 43 H (5-37) U/L ALT 21 (0-40) U/L Alkaline Phosphatase 111 (39-117) U/L Albumin 3.3 L (3.5-5.0) g/dL All other labs normal. Imaging Chest x-ray: image reviewed CT scan - chest: image reviewed Assessment and Plan (1) Bilateral pneumothoraces: Status: Acute (2) Multiple fractures of ribs of left side: Status: Acute (3) Alcohol dependence: Status: Acute Patient is a 56-year-old male with a past medical history of alcohol dependence who presents to the emergency department with left-sided posterior 3rd and 4th comminuted rib fractures, bilateral pneumothoraces with right greater than left, pneumomediastinum and extensive subcutaneous emphysema which extends into neck. A right-sided chest tube was placed in emergency department with resolution of right-sided pneumothorax. Patient admitted to [facility] under medicine services. Right-sided pneumothorax. Right-sided Chest tube to remain on -20 low wall suction throughout today and overnight. Chest tube currently has no detectable air leak. Okay for ambulation on water seal. Serial chest x-rays to be obtained to ensure stability of left-sided pneumothorax which is currently being treated with non-rebreather to assist in CO2 evacuation. Patient should be OB in chair for every meal. Patient should ambulate in hallway 3-4 times per day minimum. Nursing should assess the record for air leak as well as monitor fluid output every 8 hours. Left-sided posterior 3rd and 4th comminuted rib fractures. Patient states his pain has been well controlled. Recommend conservative measures. Rib fractures are too posterior for any surgical intervention. Monitor for any sign of hemothorax with chest x-ray. Incentive spirometry and pain analgesics. Recommend CIWA scale for heavy alcohol abuse. This case was discussed with Dr. Jacqui Thakur. Thank you very much for this consult. We will continue to follow each morning over the weekend until the pigtail catheter is removed. Procedures Date of Service Date of Service: 04/04/21
[2021-04-04 12:11] LABS: Magnesium 1.9 mg/dL (1.6-2.6)
[2021-04-04] MEDS: Dextrose 5 % and 0.9 % NaCl 1,000 ML 100 ML IVCONT ×2 (12:58→23:31)
[2021-04-04] MEDS: Potassium Chloride ER 20 MEQ TAB.ER.PRT 40 MEQ PO (13:00)
[2021-04-04] MEDS: Thiamine HCL 100 MG TABLET PO ×2 (13:01→16:09)
[2021-04-04] MEDS: Cyclobenzaprine HCl 5 MG TABLET PO ×2 (13:09→20:17)
[2021-04-04] MEDS: Escitalopram Oxalate 20 MG TABLET PO (13:09)
[2021-04-04] MEDS: Omeprazole 20 MG CAPSULE.DR PO (13:09)
[2021-04-04] MEDS: Ketorolac Tromethamine 30 MG/ML VIAL IVPUSH ×3 (13:09→23:33)
[2021-04-04 14:08] LABS: Folate < 1.6 ng/mL (> or = 4.0); Vitamin B12 495 pg/mL (200-900)
[2021-04-04] MEDS: Folic Acid 1 MG TABLET PO (16:09)
[2021-04-04] MEDS: PHENobarbitaL 15 MG TABLET 45 MG PO (20:17)
[2021-04-04] MEDS: 0.9 % Sodium Chloride Flush 3 ML SYRINGE IVFLUSH (20:17)
[2021-04-05] VITALS (13 sets, daily range): BP systolic 112–172; BP diastolic 77–112; PULSE 58–80; RESP 16–24; TEMP 36.2–36.7; O2SAT 92–100
[2021-04-05] MEDS: fentaNYL citrate/PF 100 MCG/2 ML VIAL 25 MCG IVPUSH ×3 (02:16→17:29)
[2021-04-05] MEDS: Ketorolac Tromethamine 30 MG/ML VIAL IVPUSH (05:26)
[2021-04-05] MEDS: Omeprazole 20 MG CAPSULE.DR PO (05:26)
[2021-04-05 07:00] LABS: MANUAL DIFF FLAG NO
[2021-04-05 07:10] LABS: Basophils Absolute Auto 0.1 X10*3/uL (0.0-0.2); Basophils Percent Auto 0.6 % (0-2); Eosinophils Absolute Auto 0.2 X10*3/uL (0.0-0.4); Eosinophils Percent Auto 2.6 % (0-4); Hematocrit 40.8 % (42-52); Hemoglobin 14.2 g/dl (14.0-18.0); Imm Gran Abs Auto 0.03 X10*3/uL (0.00-0.03); Imm Gran Pct Auto 0.4 % (0.0-0.4); Lymphocytes Absolute Auto 1.4 X10*3/uL (1.2-4.9); Lymphocytes Percent Auto 17.5 % (20-40); Mean Corpuscular HGB Conc 34.8 g/dl (31.0-36.0); Mean Corpuscular Hemoglobin 36.9 pg (27.0-33.0); Mean Platelet Volume 9.3 fL (9.4-12.4); Monocytes Absolute Auto 0.6 X10*3/uL (0.1-1.2); Monocytes Percent Auto 8.3 % (2-11); Neutrophils Absolute Auto 5.4 X10*3/uL (2.0-8.3); Neutrophils Percent Auto 70.6 % (45-73); Platelet Count 174 X10*3/uL (160-400); Red Blood Count 3.85 X10*6/uL (4.60-5.80); Red Cell Distribution Width 11.7 % (11.0-16.0); White Blood Count 7.7 X10*3/uL (4.8-10.8)
[2021-04-05 07:29] LABS: Anion Gap 10 (12-20); Blood Urea Nitrogen 6 mg/dL (9-16); Calcium 8.1 mg/dL (8.4-10.2); Carbon Dioxide 24 mmol/L (22-29); Chloride 103 mmol/L (96-108); Creatinine Clr Calc Pharmacy 102.6; Estimated Glomerular Filt Rate > 60; Glucose Random 102 mg/dL (60-115); Magnesium 1.5 mg/dL (1.6-2.6); Potassium 3.2 mmol/L (3.3-5.1); Sodium 134 mmol/L (135-145)
[2021-04-05] MEDS: Magnesium Sulfate/H2O 2 GM/50 ML PIGGYBACK IV (09:14)
[2021-04-05] MEDS: lisinopriL 40 MG TABLET PO (09:17)
[2021-04-05] MEDS: Potassium Chloride ER 20 MEQ TAB.ER.PRT 40 MEQ PO (09:19)
[2021-04-05] MEDS: atenoloL 50 MG TABLET PO (09:19)
[2021-04-05] MEDS: 0.9 % Sodium Chloride Flush 3 ML SYRINGE IVFLUSH ×2 (09:21→17:31)
[2021-04-05] MEDS: Escitalopram Oxalate 20 MG TABLET PO (11:37)
[2021-04-05] MEDS: PHENobarbitaL 15 MG TABLET 45 MG PO ×2 (11:37→20:21)
[2021-04-05] MEDS: Folic Acid 1 MG TABLET PO (11:38)
[2021-04-05] MEDS: Thiamine HCL 100 MG TABLET PO ×2 (11:38→11:39)
--- NOTE | 2021-04-05 11:44 | P.PNTS_ITS ---
Subjective Subjective Date of Service: 04/05/21 Interval history: Patient remains with right sided chest tube to -20 wall suction without issue. Also continues on NRB not for hypoxia but to aide with reabsorption of air. Patient denies any SOB, cough, sputum production. Only complaint is back pain which is worse with deep breathing, movement, and coughing. Denies any F/C, abdominal pain. Physical Exam Vital Signs: Vital Signs: Last Vital Signs Temp 97.8 F 04/05/21 08:00 Pulse 58 04/05/21 11:21 Resp 22 H 04/05/21 08:00 BP 140/89 H 04/05/21 11:21 Pulse Ox 100 04/05/21 08:00 Body Mass Index 26.3 General: No acute distress, resting comfortably in bed, on NRB Head: Normocephalic, atraumatic, symmetric Eyes: Sclera anicteric, eyelids without edema or erythema, +EOMS intact ENT: Oral mucosa and tongue are moist without lesions or exudates Neck: Soft, supple, symmetric, trachea midline, +crepitus Cardiovascular: Regular rate and rhythm, no murmur/rubs/gallops, BUE and BLE without edema, no calf tenderness bilaterally Respiratory: Lungs CTA B, breathing nonlabored, speaking in full sentences, on oxygen via NRB. No use of accessory muscles. Right chest tube x 1 to [facility] on -20 suction, 40cc total serosang drainage, no air leak. +TTP over left posterior chest wall just inferior to the scapula. No flail chest noted, but there is some abnormal movement to this same tender area with deep breathing corresponding with the known left sided rib fractures. Patient appears to have an abrasion over this area as well. +crepitus anterior chest wall extening to upper arms bilaterally and up to neck bilaterally. Skin: Warm and dry throughout, no rashes. Scattered healing abrasions and scabs. Neurological: Alert and oriented x 3, no focal neurological deficit noted Psychiatric: No agitation, appropriate affect Procedures Date of Service Date of Service: 04/05/21 Progress Note: A&P Assessment and plan (1) Bilateral pneumothoraces: Status: Acute (2) Multiple fractures of ribs of left side: Status: Acute Assessment and Plan: Mr. Andersen is a 56 year old male with EtOH dependence who sustained a fall at home resulting in multiple left sided rib fractures, bilateral pneumothorax R>L, and extensive subcutaneous emphysema. Right sided chest tube placed by ER physician. Bilateral pneumothorax and SQ air * Right chest tube without air leak. CXR today shows no pneumothorax, although study is limited due to the extensive SQ air. * Will change chest tube to water seal today. * Check morning CXR. * Monitor for any increased SOB, hypoxia, or increased SQ air. * SQ air appears to be slowly improving from previous reports and this will take some time to fully reabsorb. * Can take off NRB today from our perspective. Multiple left sided rib fractures, comminuted / * We need to optimize conservative management which includes pulmonary toilet, pain control, and ambulation. Patient is at higher risk for pneumonia based on rib fractures alone. * Fentanyl IV as needed currently ordered. May need to consider increasing this if pain remains to be not managed well. * Added Tylenol ATC, Toradol ATC, and lidocaine patch to be placed at the site of the fractures on the left chest. * Patient needs to be OOB ambulating in the hallways at least 3-4 times daily (if able based on possible EtOH withdrawal) * Patient needs to be OOB to the chair for all meals. * Patient needs to be using IS routinely throughout the day. Fall Risk Details Current Medications: Current Medications Acetaminophen (Acetaminophen 325 Mg Tablet) 650 mg PO Q6H [facility] Atenolol (Atenolol 50 Mg Tablet) 50 mg PO DAILY [facility]; Protocol Last Admin: 04/05/21 09:19 Dose: 50 mg Documented by: Cyclobenzaprine HCl (Cyclobenzaprine Hcl 10 Mg Tablet) 10 mg PO TID PRN PRN Reason: back msucle spasm Escitalopram Oxalate (Escitalopram Oxalate 20 Mg Tablet) 20 mg PO DAILY [facility] Last Admin: 04/05/21 11:37 Dose: 20 mg Documented by: Fentanyl (Fentanyl Citrate/Pf 100 Mcg/2 Ml Vial) 25 mcg IVPUSH Q2H PRN; Protocol PRN Reason: Pain, Severe (Pain Scale 7-10) Last Admin: 04/05/21 02:16 Dose: 25 mcg Documented by: Folic Acid (Folic Acid 1 Mg Tablet) 1 mg PO DAILY [facility] Last Admin: 04/05/21 11:38 Dose: 1 mg Documented by: Dextrose/Sodium Chloride (D5ns) 1,000 mls @ 100 mls/hr IVCONT .Q10H [facility] Last Admin: 04/05/21 09:24 Dose: Not Given Documented by: Ketorolac Tromethamine (Ketorolac Tromethamine 15 Mg/Ml Vial) 15 mg IVPUSH Q6H [facility] Stop: 04/08/21 11:59 Lidocaine (Lidocaine 4 % Patch Adh..Patch) 1 patch TRANSDERMA DAILY [facility]; Protocol Lisinopril (Lisinopril 40 Mg Tablet) 40 mg PO DAILY [facility]; Protocol Last Admin: 04/05/21 09:17 Dose: 40 mg Documented by: Medication (No Benzodiazepines) 1 each MISCELLANE DAILY [facility] Omeprazole (Omeprazole 20 Mg Capsule.Dr) 20 mg PO DAILY@0630 [facility] Last Admin: 04/05/21 05:26 Dose: 20 mg Documented by: Ondansetron HCl (Ondansetron Hcl 4 Mg/2 Ml Vial) 4 mg IVPUSH Q8H PRN PRN Reason: Nausea and Vomiting Phenobarbital (Phenobarbital 15 Mg Tablet) 45 mg PO BID [facility]; Protocol Stop: 04/06/21 09:01 Last Admin: 04/05/21 11:37 Dose: 45 mg Documented by: Phenobarbital (Phenobarbital 15 Mg Tablet) 15 mg PO BID [facility]; Protocol Stop: 04/08/21 09:01 Phenobarbital (Phenobarbital 15 Mg Tablet) 15 mg PO DAILY [facility]; Protocol Stop: 04/10/21 09:01 Sodium Chloride (0.9 % Sodium Chloride Flush 3 Ml Syringe) 3 ml IVFLUSH QSHIFT [facility] Last Admin: 04/05/21 09:21 Dose: 3 ml Documented by: Thiamine HCl (Thiamine Hcl 100 Mg Tablet) 100 mg PO DAILY [facility] Last Admin: 04/05/21 11:38 Dose: 100 mg Documented by: Thiamine HCl (Thiamine Hcl 100 Mg Tablet) 100 mg PO DAILY [facility] Last Admin: 04/05/21 11:39 Dose: 100 mg Documented by: Time Spent With Patient Time: Total time spent is greater than 50% in coordination of care (as documented) at patient's floor/unit and/or counseling patient: Time with patient: 15 - 24 minutes Quality Stroke Does the patient have a stroke diagnosis?: No VTE Prior VTE?: No VTE Risk Level:: Medical - moderate - high VTE Device Contraindication: N/A - Device Ordered VTE Drug Contraindication: Treatment Not Indicated
--- NOTE | 2021-04-05 12:31 | MHC.CM.PN ---
met with pt who lives with his sister pt reports having no ins referal made to [facility] counselor ,hcp filed naming ,[facility] his agency [phone] pt has transportaion home he will be seen by care nteam prior to dc
--- NOTE | 2021-04-05 12:39 | MHC.CM.PN ---
referral sent to [facility] counselor barber simmons
[2021-04-05] MEDS: Ketorolac Tromethamine 15 MG/ML VIAL IVPUSH ×2 (13:55→17:28)
[2021-04-05] MEDS: Acetaminophen 325 MG TABLET 650 MG PO ×2 (13:56→20:22)
[2021-04-05] MEDS: Lidocaine 4 % Patch ADH..PATCH 1 PATCH TRANSDERMA (13:57)
--- NOTE | 2021-04-05 15:05 | PM.IMPN ---
Progress Note: A&P (1) Hypertension: Status: Acute (2) Alcohol dependence: Status: Acute (3) Multiple fractures of ribs of left side: Status: Acute (4) Bilateral pneumothoraces: Status: Acute Assessment and Plan: This is a 56 yo M with a PMH of heavy daily alcohol use (denies any prior withdrawal symptoms), anxiety/depression, tobacco smoking, hypertension who presents to the hospital after a mechanical fall (no LOC) resulting in acute L rib fractures, a small apical L pneumothorax, large R pneumothorax with evidence of tension pneumo on imaging. He is s/p pig tail cath placement on the R with resolution of his pneumon. He will be admitted for further treatment. Traumatic R tension pneumothorax and L small apical pneumothorax 1a. Pneumomediastinum s/p pig tail cath on R with resolution of pneumothroax. L small apical pneumothorax persists CT surg managing his chest tube. See their notes for full details. Repeat CXR daily 100 % NRB mask to help with air reabsorbtion IV fentayl (shorter acting) for pain control. Scheduled IV toradol 30mg x 4 doses q6 hours. Continue telemonitor, continue continuous pulse ox Alcohol abuse and dependence EtOH level >200 upon ED arrival. Not in active withdrawal now, but high risk for decompensation. Has been started on phenobarb Complete alcohol cessation as been encouraged. Mechanical Fall suspected due to EtOH intoxication at home. Consider PT eval prior to discharge if any issues HTN Continue atenol and Lisinopril Anxiety/Depression continue celexa Full Code DVT pptx, mechanical device Attending Dr. Santana Subjective Subjective Date of Service: 04/05/21 Review of Systems Follow up pneumothorax, rib fx, etoh Feeling ok today pain to back breathing is fine Physical Exam Vital Signs: Vital Signs: Last Vital Signs Temp 97.9 F 04/05/21 12:29 Pulse 60 04/05/21 12:29 Resp 24 H 04/05/21 12:29 BP 147/97 H 04/05/21 12:29 Pulse Ox 96 04/05/21 12:29 Body Mass Index 26.3 Appearing in no acute distress lung sounds are clear to auscultation, CT in place, extensive crepitus to the upper chest and bilateral shoulders, some going up the neck on both sides heart regular rate rhythm, clear S1, S2 positive bowel sounds, abdomen is soft, nontender neuro patient is alert x3, no focal deficits Extrem: Shoulder/upper arm images: 1. Chest tube Objective Data Current Medications Acetaminophen (Acetaminophen 325 Mg Tablet) 650 mg PO Q6H [facility] Last Admin: 04/05/21 13:56 Dose: 650 mg Documented by: Atenolol (Atenolol 50 Mg Tablet) 50 mg PO DAILY [facility]; Protocol Last Admin: 04/05/21 09:19 Dose: 50 mg Documented by: Cyclobenzaprine HCl (Cyclobenzaprine Hcl 10 Mg Tablet) 10 mg PO TID PRN PRN Reason: back msucle spasm Escitalopram Oxalate (Escitalopram Oxalate 20 Mg Tablet) 20 mg PO DAILY [facility] Last Admin: 04/05/21 11:37 Dose: 20 mg Documented by: Fentanyl (Fentanyl Citrate/Pf 100 Mcg/2 Ml Vial) 25 mcg IVPUSH Q2H PRN; Protocol PRN Reason: Pain, Severe (Pain Scale 7-10) Last Admin: 04/05/21 11:49 Dose: 25 mcg Documented by: Folic Acid (Folic Acid 1 Mg Tablet) 1 mg PO DAILY [facility] Last Admin: 04/05/21 11:38 Dose: 1 mg Documented by: Dextrose/Sodium Chloride (D5ns) 1,000 mls @ 100 mls/hr IVCONT .Q10H [facility] Last Admin: 04/05/21 09:24 Dose: Not Given Documented by: Ketorolac Tromethamine (Ketorolac Tromethamine 15 Mg/Ml Vial) 15 mg IVPUSH Q6H [facility] Stop: 04/08/21 11:59 Last Admin: 04/05/21 13:55 Dose: 15 mg Documented by: Lidocaine (Lidocaine 4 % Patch Adh..Patch) 1 patch TRANSDERMA DAILY [facility]; Protocol Last Admin: 04/05/21 13:57 Dose: 1 patch Documented by: Lisinopril (Lisinopril 40 Mg Tablet) 40 mg PO DAILY [facility]; Protocol Last Admin: 04/05/21 09:17 Dose: 40 mg Documented by: Medication (No Benzodiazepines) 1 each MISCELLANE DAILY [facility] Omeprazole (Omeprazole 20 Mg Capsule.Dr) 20 mg PO DAILY@0630 [facility] Last Admin: 04/05/21 05:26 Dose: 20 mg Documented by: Ondansetron HCl (Ondansetron Hcl 4 Mg/2 Ml Vial) 4 mg IVPUSH Q8H PRN PRN Reason: Nausea and Vomiting Phenobarbital (Phenobarbital 15 Mg Tablet) 45 mg PO BID [facility]; Protocol Stop: 04/06/21 09:01 Last Admin: 04/05/21 11:37 Dose: 45 mg Documented by: Phenobarbital (Phenobarbital 15 Mg Tablet) 15 mg PO BID [facility]; Protocol Stop: 04/08/21 09:01 Phenobarbital (Phenobarbital 15 Mg Tablet) 15 mg PO DAILY [facility]; Protocol Stop: 04/10/21 09:01 Sodium Chloride (0.9 % Sodium Chloride Flush 3 Ml Syringe) 3 ml IVFLUSH QSHIFT [facility] Last Admin: 04/05/21 09:21 Dose: 3 ml Documented by: Thiamine HCl (Thiamine Hcl 100 Mg Tablet) 100 mg PO DAILY [facility] Last Admin: 04/05/21 11:38 Dose: 100 mg Documented by: Thiamine HCl (Thiamine Hcl 100 Mg Tablet) 100 mg PO DAILY [facility] Last Admin: 04/05/21 11:39 Dose: 100 mg Documented by: Labs CBC & Chem 7: 04/05/21 06:12 04/05/21 06:12 Labs: Laboratory Results - last 24 hr 04/05/21 04/05/21 04/05/21 06:12 06:12 06:12 MCV Cancelled 106.0 H MCH Cancelled 36.9 H MCHC Cancelled 34.8 RDW Cancelled 11.7 Plt Count Cancelled 174 D MPV Cancelled 9.3 L Immature Gran % (Auto) 0.4 Neut % (Auto) 70.6 Lymph % (Auto) 17.5 L [place] % (Auto) 8.3 Eos % (Auto) 2.6 Baso % (Auto) 0.6 Lymph # (Auto) 1.4 [place] # (Auto) 0.6 Eos # (Auto) 0.2 Baso # (Auto) 0.1 Abs Immat Gran (auto) 0.03 Absolute Neuts (auto) 5.4 Absolute Nucleated RBC Cancelled 0.000 Nucleated RBC % (auto) Cancelled 0.0 Anion Gap 10 L Estim Creat Clear Calc 102.6 Estimated GFR > 60 Random Glucose 102 Calcium 8.1 L D Magnesium 1.5 L 04/05/21 06:12 MCV MCH MCHC RDW Plt Count MPV Immature Gran % (Auto) Neut % (Auto) Lymph % (Auto) [place] % (Auto) Eos % (Auto) Baso % (Auto) Lymph # (Auto) [place] # (Auto) Eos # (Auto) Baso # (Auto) Abs Immat Gran (auto) Absolute Neuts (auto) Absolute Nucleated RBC Nucleated RBC % (auto) Anion Gap Cancelled Estim Creat Clear Calc Cancelled Estimated GFR Cancelled Random Glucose Cancelled Calcium Cancelled Magnesium Quality Stroke Does the patient have a stroke diagnosis?: No VTE Prior VTE?: No VTE Risk Level:: Medical - moderate - high VTE Device Contraindication: N/A - Device Ordered VTE Drug Contraindication: Treatment Not Indicated
[2021-04-05] MEDS: fentaNYL citrate/PF 100 MCG/2 ML VIAL 50 MCG IVPUSH (20:25)
[2021-04-06] VITALS (11 sets, daily range): BP systolic 134–160; BP diastolic 86–98; PULSE 51–120; RESP 16–20; TEMP 36.1–36.4; O2SAT 92–97
[2021-04-06] MEDS: Acetaminophen 325 MG TABLET 650 MG PO ×4 (00:38→17:28)
[2021-04-06] MEDS: 0.9 % Sodium Chloride Flush 3 ML SYRINGE IVFLUSH ×3 (00:38→20:37)
[2021-04-06] MEDS: Ketorolac Tromethamine 15 MG/ML VIAL IVPUSH ×5 (00:38→23:16)
[2021-04-06] MEDS: fentaNYL citrate/PF 100 MCG/2 ML VIAL 50 MCG IVPUSH ×7 (00:49→23:27)
--- NOTE | 2021-04-06 00:50 | PC.NURSE ---
ambulated 5 times around unit. CIWA 0. Changed chest tube dressing per PA because it was soiled. CT not tidaling, PA aware. Only 4 ccs of serosanguineous drainage, shift production associate aware. Crepitus to the left upper clavicle area palpable. Lung sounds have a crepitus sounding fine crackles to bilat bases. 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
[2021-04-06] MEDS: Omeprazole 20 MG CAPSULE.DR PO (05:47)
--- NOTE | 2021-04-06 09:53 | MHC.RECOVSUP ---
Recovery Support note: Patient is a 56 year old [place] speaking male who presented to [facility] ED intoxicated after a recent fall. Patient was medically admitted. This aligner typewriter met with patient in to discuss his alcohol use and recovery support options. Patient reports drinking a pint of alcohol a day. Patient states I think its time to cut that down. Discussed with patient the negative health consequences of consuming large amounts of alcohol daily and patient acknowledged. Patient reports this is not the first fall that he has had. Patient reports he attended an AA meeting in the past and did not find it helpful. Patient reports having an outpatient therapist for around ten years and that it was very helpful however the therapist has reduced his case load and no longer able to see patient. Encouraged patient to consider establishing contact with a new therapist to support him in his pursuit to reduce his alcohol consumption. Discussed IOP with patient and provided information on this resource. Patient reports attending an IOP/PHP through [facility] in the past and that it was helpful. Discussed medications for alcohol use disorder and provided patient with information on this. Discussed [facility] and patient accepted information on this resource. Patient asked what brought this consultation on and this aligner typewriter explained the role of the Recovery Support Team. Patient reports no further questions. Provided patient with contact information for this aligner typewriter in the event that he has additional questions after discharge. Discussed case with patient's RN and Bessie Guillen NP.
[2021-04-06] MEDS: PHENobarbitaL 15 MG TABLET 45 MG PO (09:57)
[2021-04-06] MEDS: lisinopriL 40 MG TABLET PO (10:03)
[2021-04-06] MEDS: Thiamine HCL 100 MG TABLET PO ×2 (10:03)
[2021-04-06] MEDS: Cyclobenzaprine HCl 10 MG TABLET PO ×2 (10:06→20:42)
[2021-04-06] MEDS: Lidocaine 4 % Patch ADH..PATCH 1 PATCH TRANSDERMA (10:06)
[2021-04-06] MEDS: Escitalopram Oxalate 20 MG TABLET PO (10:06)
[2021-04-06] MEDS: Folic Acid 1 MG TABLET PO (10:06)
[2021-04-06 10:07] LABS: Anion Gap 11 (12-20); Blood Urea Nitrogen 10 mg/dL (9-16); Calcium 7.9 mg/dL (8.4-10.2); Carbon Dioxide 23 mmol/L (22-29); Chloride 102 mmol/L (96-108); Creatinine Clr Calc Pharmacy 98.7; Estimated Glomerular Filt Rate > 60; Glucose Random 106 mg/dL (60-115); Magnesium 1.9 mg/dL (1.6-2.6); Sodium 133 mmol/L (135-145)
--- NOTE | 2021-04-06 10:28 | PM.IMPN ---
Progress Note: A&P (1) Bilateral pneumothoraces: Status: Acute (2) Alcohol dependence: Status: Acute (3) Hypertension: Status: Acute Assessment and Plan: This is a 56 yo M with a PMH of heavy daily alcohol use (denies any prior withdrawal symptoms), anxiety/depression, tobacco smoking, hypertension who presents to the hospital after a mechanical fall (no LOC) resulting in acute L rib fractures, a small apical L pneumothorax, large R pneumothorax with evidence of tension pneumo on imaging. He is s/p pig tail cath placement on the R with resolution of his pneumon. He will be admitted for further treatment. Traumatic R tension pneumothorax and L small apical pneumothorax still with extensive crepitus Pneumomediastinum s/p pig tail cath on R with resolution of pneumothroax. CT surg managing his chest tube. See their notes for full details. Repeat CXR daily 100 % NRB mask to help with air reabsorbtion IV fentayl (shorter acting) for pain control. Scheduled IV toradol 30mg x 4 doses q6 hours. Continue telemonitor, continue continuous pulse ox Alcohol abuse and dependence EtOH level >200 upon ED arrival. Not in active withdrawal now, but high risk for decompensation. Has been started on phenobarb Complete alcohol cessation as been encouraged. Mechanical Fall suspected due to EtOH intoxication at home. Consider PT eval prior to discharge if any issues HTN Continue atenol and Lisinopril Anxiety/Depression continue celexa Full Code DVT pptx, mechanical device Attending Dr. Santana Subjective Subjective Date of Service: 04/06/21 Review of Systems follow-up pneumothorax Feels better Breathing is better Still with extensive crepitus Physical Exam Vital Signs: Vital Signs: Last Vital Signs Temp 97.4 F 04/06/21 07:35 Pulse 54 04/06/21 10:03 Resp 16 04/06/21 07:35 BP 145/98 H 04/06/21 10:03 Pulse Ox 93 04/06/21 07:35 Body Mass Index 26.3 Appearing in no acute distress lung sounds are clear to auscultation, CT intact heart regular rate rhythm, clear S1, S2 positive bowel sounds, abdomen is soft, nontender neuro patient is alert x3, no focal deficits Objective Data Current Medications Acetaminophen (Acetaminophen 325 Mg Tablet) 650 mg PO Q6H [facility] Last Admin: 04/06/21 05:45 Dose: 650 mg Documented by: Atenolol (Atenolol 50 Mg Tablet) 50 mg PO DAILY [facility]; Protocol Last Admin: 04/06/21 10:05 Dose: Not Given Documented by: Cyclobenzaprine HCl (Cyclobenzaprine Hcl 10 Mg Tablet) 10 mg PO TID PRN PRN Reason: back msucle spasm Last Admin: 04/06/21 10:06 Dose: 10 mg Documented by: Escitalopram Oxalate (Escitalopram Oxalate 20 Mg Tablet) 20 mg PO DAILY [facility] Last Admin: 04/06/21 10:06 Dose: 20 mg Documented by: Fentanyl (Fentanyl Citrate/Pf 100 Mcg/2 Ml Vial) 50 mcg IVPUSH Q2H PRN; Protocol PRN Reason: Pain, Severe (Pain Scale 7-10) Last Admin: 04/06/21 10:01 Dose: 50 mcg Documented by: Folic Acid (Folic Acid 1 Mg Tablet) 1 mg PO DAILY [facility] Last Admin: 04/06/21 10:06 Dose: 1 mg Documented by: Ketorolac Tromethamine (Ketorolac Tromethamine 15 Mg/Ml Vial) 15 mg IVPUSH Q6H [facility] Stop: 04/08/21 11:59 Last Admin: 04/06/21 05:45 Dose: 15 mg Documented by: Lidocaine (Lidocaine 4 % Patch Adh..Patch) 1 patch TRANSDERMA DAILY [facility]; Protocol Last Admin: 04/06/21 10:06 Dose: 1 patch Documented by: Lisinopril (Lisinopril 40 Mg Tablet) 40 mg PO DAILY [facility]; Protocol Last Admin: 04/06/21 10:03 Dose: 40 mg Documented by: Medication (No Benzodiazepines) 1 each MISCELLANE DAILY [facility] Omeprazole (Omeprazole 20 Mg Capsule.Dr) 20 mg PO DAILY@0630 [facility] Last Admin: 04/06/21 05:47 Dose: 20 mg Documented by: Ondansetron HCl (Ondansetron Hcl 4 Mg/2 Ml Vial) 4 mg IVPUSH Q8H PRN PRN Reason: Nausea and Vomiting Phenobarbital (Phenobarbital 15 Mg Tablet) 15 mg PO BID [facility]; Protocol Stop: 04/08/21 09:01 Phenobarbital (Phenobarbital 15 Mg Tablet) 15 mg PO DAILY [facility]; Protocol Stop: 04/10/21 09:01 Sodium Chloride (0.9 % Sodium Chloride Flush 3 Ml Syringe) 3 ml IVFLUSH QSHIFT [facility] Last Admin: 04/06/21 10:05 Dose: 3 ml Documented by: Thiamine HCl (Thiamine Hcl 100 Mg Tablet) 100 mg PO DAILY [facility] Last Admin: 04/06/21 10:03 Dose: 100 mg Documented by: Thiamine HCl (Thiamine Hcl 100 Mg Tablet) 100 mg PO DAILY [facility] Last Admin: 04/06/21 10:03 Dose: 100 mg Documented by: Labs CBC & Chem 7: 04/05/21 06:12 04/06/21 09:09 Labs: Laboratory Results - last 24 hr 04/06/21 09:09 Anion Gap 11 L Estim Creat Clear Calc 98.7 Estimated GFR > 60 Random Glucose 106 Calcium 7.9 L Magnesium 1.9 Quality Stroke Does the patient have a stroke diagnosis?: No VTE Prior VTE?: No VTE Risk Level:: Medical - moderate - high VTE Device Contraindication: N/A - Device Ordered VTE Drug Contraindication: Treatment Not Indicated
[2021-04-06] MEDS: Potassium Chloride ER 20 MEQ TAB.ER.PRT 40 MEQ PO (11:00)
--- NOTE | 2021-04-06 11:24 | MHC.CM.PN ---
spoke with pts brother and pt explined that referral had been made to [facility] ,gave them her phone number to follow up with on mon
[2021-04-06] MEDS: PHENobarbitaL 15 MG TABLET PO (20:36)
[2021-04-07] VITALS (13 sets, daily range): BP systolic 145–178; BP diastolic 88–102; PULSE 54–78; RESP 18–20; TEMP 36.2–37; O2SAT 95–97
[2021-04-07] MEDS: fentaNYL citrate/PF 100 MCG/2 ML VIAL 50 MCG IVPUSH ×5 (03:59→23:29)
[2021-04-07] MEDS: Cyclobenzaprine HCl 10 MG TABLET PO ×2 (04:05→16:16)
[2021-04-07] MEDS: Acetaminophen 325 MG TABLET 650 MG PO ×4 (06:12→23:27)
[2021-04-07] MEDS: Omeprazole 20 MG CAPSULE.DR PO (06:12)
[2021-04-07] MEDS: Ketorolac Tromethamine 15 MG/ML VIAL IVPUSH ×4 (06:12→23:28)
[2021-04-07 08:17] LABS: Hematocrit 37.2 % (42-52); Hemoglobin 13.4 g/dl (14.0-18.0); Mean Corpuscular Volume 105.4 fL (80-98); Mean Platelet Volume 9.2 fL (9.4-12.4); Platelet Count 183 X10*3/uL (160-400); Red Blood Count 3.53 X10*6/uL (4.60-5.80); Red Cell Distribution Width 11.5 % (11.0-16.0)
[2021-04-07 08:32] LABS: Anion Gap 11 (12-20); Blood Urea Nitrogen 9 mg/dL (9-16); Calcium 8.6 mg/dL (8.4-10.2); Carbon Dioxide 24 mmol/L (22-29); Chloride 103 mmol/L (96-108); Creatinine Clr Calc Pharmacy 102.6; Estimated Glomerular Filt Rate > 60; Glucose Random 88 mg/dL (60-115); Potassium 3.7 mmol/L (3.3-5.1); Sodium 134 mmol/L (135-145)
[2021-04-07] MEDS: Lidocaine 4 % Patch ADH..PATCH 1 PATCH TRANSDERMA (08:43)
[2021-04-07] MEDS: Folic Acid 1 MG TABLET PO (08:44)
[2021-04-07] MEDS: PHENobarbitaL 15 MG TABLET PO ×2 (08:44→20:26)
[2021-04-07] MEDS: lisinopriL 40 MG TABLET PO (08:44)
[2021-04-07] MEDS: Thiamine HCL 100 MG TABLET PO (08:45)
[2021-04-07] MEDS: atenoloL 50 MG TABLET PO (08:45)
[2021-04-07] MEDS: Escitalopram Oxalate 20 MG TABLET PO (08:45)
[2021-04-07] MEDS: 0.9 % Sodium Chloride Flush 3 ML SYRINGE IVFLUSH ×3 (08:48→23:31)
--- NOTE | 2021-04-07 10:55 | P.PNIM_ITS ---
Progress Note: A&P (1) Alcohol dependence: Status: Acute (2) Multiple fractures of ribs of left side: Status: Acute (3) Bilateral pneumothoraces: Status: Acute (4) Hypertension: Status: Acute Assessment and Plan: This is a 56 yo M with a PMH of heavy daily alcohol use (denies any prior withdrawal symptoms), anxiety/depression, tobacco smoking, hypertension who presents to the hospital after a mechanical fall (no LOC) resulting in acute L rib fractures, a small apical L pneumothorax, large R pneumothorax with evidence of tension pneumo on imaging. He is s/p pig tail cath placement on the R with resolution of his pneumon. He will be admitted for further treatment. Traumatic R tension pneumothorax and L small apical pneumothorax still with extensive crepitus Pneumomediastinum, s/p pig tail cath on R with resolution of pneumothroax. Repeat CXR daily 100 % NRB mask to help with air reabsorbtion IV fentayl (shorter acting) for pain control. Scheduled IV toradol 30mg x 4 doses q6 hours. Continue telemonitor, continue continuous pulse ox, no hypoxia noted Plan is for CT surgery to clamp chest tube and repeat CXR in the morning Alcohol abuse and dependence EtOH level >200 upon ED arrival. Not in active withdrawal now, but high risk for decompensation. Has been started on phenobarb Complete alcohol cessation as been encouraged. Mechanical Fall suspected due to EtOH intoxication at home. Consider PT eval prior to discharge if any issues HTN Continue atenol and Lisinopril Anxiety/Depression continue celexa Full Code DVT pptx, mechanical device Attending Dr. Huang Subjective Subjective Date of Service: 04/07/21 Review of Systems Follow up pneumothorax No sob Feeling not as good as yesterday OOB to chair and ambulating Physical Exam Vital Signs: Vital Signs: Last Vital Signs Temp 98.2 F 04/07/21 07:48 Pulse 78 04/07/21 09:04 Resp 18 04/07/21 09:04 BP 178/96 H 04/07/21 08:45 Pulse Ox 96 04/07/21 07:48 Body Mass Index 26.3 Appearing in no acute distress lung sounds are clear to auscultation heart regular rate rhythm, clear S1, S2 positive bowel sounds, abdomen is soft, nontender neuro patient is alert x3, no focal deficits Objective Data Current Medications Acetaminophen (Acetaminophen 325 Mg Tablet) 650 mg PO Q6H [facility] Last Admin: 04/07/21 06:12 Dose: 650 mg Documented by: Atenolol (Atenolol 50 Mg Tablet) 50 mg PO DAILY [facility]; Protocol Last Admin: 04/07/21 08:45 Dose: 50 mg Documented by: Cyclobenzaprine HCl (Cyclobenzaprine Hcl 10 Mg Tablet) 10 mg PO TID PRN PRN Reason: back msucle spasm Last Admin: 04/07/21 04:05 Dose: 10 mg Documented by: Escitalopram Oxalate (Escitalopram Oxalate 20 Mg Tablet) 20 mg PO DAILY [facility] Last Admin: 04/07/21 08:45 Dose: 20 mg Documented by: Fentanyl (Fentanyl Citrate/Pf 100 Mcg/2 Ml Vial) 50 mcg IVPUSH Q2H PRN; Protocol PRN Reason: Pain, Severe (Pain Scale 7-10) Last Admin: 04/07/21 08:43 Dose: 50 mcg Documented by: Folic Acid (Folic Acid 1 Mg Tablet) 1 mg PO DAILY [facility] Last Admin: 04/07/21 08:44 Dose: 1 mg Documented by: Ketorolac Tromethamine (Ketorolac Tromethamine 15 Mg/Ml Vial) 15 mg IVPUSH Q6H [facility] Stop: 04/08/21 11:59 Last Admin: 04/07/21 06:12 Dose: 15 mg Documented by: Lidocaine (Lidocaine 4 % Patch Adh..Patch) 1 patch TRANSDERMA DAILY [facility]; Protocol Last Admin: 04/07/21 08:43 Dose: 1 patch Documented by: Lisinopril (Lisinopril 40 Mg Tablet) 40 mg PO DAILY [facility]; Protocol Last Admin: 04/07/21 08:44 Dose: 40 mg Documented by: Medication (No Benzodiazepines) 1 each MISCELLANE DAILY [facility] Omeprazole (Omeprazole 20 Mg Capsule.Dr) 20 mg PO DAILY@0630 [facility] Last Admin: 04/07/21 06:12 Dose: 20 mg Documented by: Ondansetron HCl (Ondansetron Hcl 4 Mg/2 Ml Vial) 4 mg IVPUSH Q8H PRN PRN Reason: Nausea and Vomiting Phenobarbital (Phenobarbital 15 Mg Tablet) 15 mg PO BID [facility]; Protocol Stop: 04/08/21 09:01 Last Admin: 04/07/21 08:44 Dose: 15 mg Documented by: Phenobarbital (Phenobarbital 15 Mg Tablet) 15 mg PO DAILY [facility]; Protocol Stop: 04/10/21 09:01 Sodium Chloride (0.9 % Sodium Chloride Flush 3 Ml Syringe) 3 ml IVFLUSH QSHIFT [facility] Last Admin: 04/07/21 08:48 Dose: 3 ml Documented by: Thiamine HCl (Thiamine Hcl 100 Mg Tablet) 100 mg PO DAILY [facility] Last Admin: 04/07/21 08:45 Dose: 100 mg Documented by: Thiamine HCl (Thiamine Hcl 100 Mg Tablet) 100 mg PO DAILY [facility] Last Admin: 04/07/21 08:46 Dose: Not Given Documented by: Labs CBC & Chem 7: 04/07/21 07:58 04/07/21 07:58 Labs: Laboratory Results - last 24 hr 04/07/21 04/07/21 07:58 07:58 MCV 105.4 H MCH 38.0 H MCHC 36.0 RDW 11.5 Plt Count 183 MPV 9.2 L Absolute Nucleated RBC 0.000 Nucleated RBC % (auto) 0.0 Anion Gap 11 L Estim Creat Clear Calc 102.6 Estimated GFR > 60 Random Glucose 88 Calcium 8.6 D Quality Stroke Does the patient have a stroke diagnosis?: No VTE Prior VTE?: No VTE Risk Level:: Medical - moderate - high VTE Device Contraindication: N/A - Device Ordered VTE Drug Contraindication: Treatment Not Indicated
--- NOTE | 2021-04-07 12:42 | MHC.CM.PN ---
Male 56 DX s/p fall L pneumothorax. Patient is not yet ready for discharge. He will have the CT clamped today, per MD. A F/U CXR tomorrow. DP Home with resouce information provided by care team. Pt will arrange for transport. CM will follow.
--- NOTE | 2021-04-07 13:45 | PM.PNTS ---
Subjective Subjective Date of Service: 04/07/21 Interval history: Patient seen and examined this am. Doing well. No events overnight. Right chest tube to waterseal. Using I/S as instructed. Up to 1750 per patient report. Ambulating frequently in hallways. Patient reports he has 8/10 pain to left ribs , well managed with current pain regimen. Physical Exam Vital Signs: Vital Signs: Last Vital Signs Temp 97.5 F 04/07/21 11:08 Pulse 55 04/07/21 11:08 Resp 18 04/07/21 11:08 BP 155/88 H 04/07/21 11:08 Pulse Ox 95 04/07/21 11:08 Body Mass Index 26.3 Const: General: cooperative, healthy appearing, comfortable and no acute distress Nutritional Appearance: well nourished Orientation/consciousness: oriented to person, oriented to place, oriented to time and patient oriented x3 Limitations: no limitations HENMT: Head: Yes normal to inspection, Yes normocephalic and Yes atraumatic Mouth: Normal oral and palatal mucosa present Eyes: Visual Canseco: normal visual canseco by confrontation Alignment and Position: alignment normal Periorbital: periorbital findings normal Conjunctivae: conjunctivae normal Sclerae: sclerae normal Pupils: Equal, round and reactive pupils present and Pupil accommodation reflex normal EOM: EOMs intact bilaterally Neck: Neck: Yes normal visual inspection, Yes full ROM, Yes no lymphadenopathy, Yes trachea midline, Yes supple, No lymphadenopathy, No tender and No tracheal deviation Lymphatic: no lymphadenopathy noted Chest: Chest palpation & inspection: normal inspection of the chest and no crepitus Resp: Other: Right chest tube to waterseal. No air leak detected. Draining serousanguinous drainage. SQ air to anterior, posterior, and lateral chest. SQ air extends to neck and down left arm to elbow. No SQ air to right arm. No extension of SQ air to cheeks or mandaeism. No flail chest noted. Effort & Inspection: normal respiratory effort, able to speak in complete sentences, normal respiratory pattern, no audible wheezes, no cough, no pursed lip breathing, no respiratory distress, no stridor, not tachypneic and no tracheal deviation Auscultation: clear to auscultation bilaterally Cardio: Jugular venous distension: no JVD Palpation: normal PMI Rate: regular rate Rhythm: regular rhythm Heart sounds: S1 normal heart sound present, S2 normal heart sound present, no click, no gallops, no murmurs and no rubs GI: Inspection: Yes normal to inspection Auscultation: normal bowel sounds : General: Yes no CVA tenderness Back/Spine/Pelvis: Back: no CVA tenderness Thoracic/Lumbar Spine: thoracic and lumbar spine normal to inspection Skin: General skin exam: no rashes or lesions noted and dry skin Lesions: no lesions Rashes: no rashes Neuro: General: oriented to person, oriented to place, oriented to time, patient oriented x3 and gait normal Cranial nerves: Yes Equal, round and reactive pupils present Extrem: General: Yes normal to inspection, Yes full ROM, Yes capillary refill normal, Yes no clubbing, cyanosis or edema, Yes no pedal edema and Yes normal gait Psych: Appearance: grossly normal and well kempt Mental Status: mental status grossly normal Speech and movement: Normal speech and movement present and Clear speech present Affect: normal affect Attitude: cooperative Thought process: Normal thought process present Thought content: Normal thought content present Procedures Date of Service Date of Service: 04/07/21 Progress Note: A&P Assessment and plan (1) Bilateral pneumothoraces: Status: Acute (2) Multiple fractures of ribs of left side: Status: Acute Assessment and Plan: Mr. Andersen is a 56 year old male with EtOH dependence who sustained a fall at home resulting in multiple left sided rib fractures, bilateral pneumothorax R>L, and extensive subcutaneous emphysema.? Right sided chest tube placed by ER physician. Bilateral pneumothorax and SQ air Right chest tube without air leak.? CXR today shows small left stable pneumothorax w/o significant change. Extensive SQ air. Pneumomediastinum remains. Right chest tube in place. Chest tube to waterseal. Plan to clamp chest tube at midnight. Check morning CXR. Monitor for any increased SOB, hypoxia, or increased SQ air. SQ air appears to be slowly improving from previous reports and this will take some time to fully reabsorb. Multiple left sided rib fractures, comminuted 3rd / 4th We need to optimize conservative management which includes pulmonary toilet, pain control, and ambulation.? Patient is at higher risk for pneumonia based on rib fractures alone. Currently on IV Fentanyl as needed currently. Will need to transition to oral pain medication prior to discharge. So far, patient states his pain is being well managed with this. Added Tylenol ATC, Toradol ATC, and lidocaine patch to be placed at the site of the fractures on the left chest. Patient needs to be OOB ambulating in the hallways at least 3-4 times daily Patient needs to be OOB to the chair for all meals. Patient needs to be using IS routinely throughout the day. No plan for surgery, reviewed CT of chest with Dr Thakur today and no thoracic surgical intervention recommended at this time. Fall Risk Details Current Medications: Current Medications Acetaminophen (Acetaminophen 325 Mg Tablet) 650 mg PO Q6H [facility] Last Admin: 04/07/21 13:18 Dose: 650 mg Documented by: Atenolol (Atenolol 50 Mg Tablet) 50 mg PO DAILY [facility]; Protocol Last Admin: 04/07/21 08:45 Dose: 50 mg Documented by: Cyclobenzaprine HCl (Cyclobenzaprine Hcl 10 Mg Tablet) 10 mg PO TID PRN PRN Reason: back msucle spasm Last Admin: 04/07/21 04:05 Dose: 10 mg Documented by: Escitalopram Oxalate (Escitalopram Oxalate 20 Mg Tablet) 20 mg PO DAILY [facility] Last Admin: 04/07/21 08:45 Dose: 20 mg Documented by: Fentanyl (Fentanyl Citrate/Pf 100 Mcg/2 Ml Vial) 50 mcg IVPUSH Q2H PRN; Protocol PRN Reason: Pain, Severe (Pain Scale 7-10) Last Admin: 04/07/21 08:43 Dose: 50 mcg Documented by: Folic Acid (Folic Acid 1 Mg Tablet) 1 mg PO DAILY [facility] Last Admin: 04/07/21 08:44 Dose: 1 mg Documented by: Ketorolac Tromethamine (Ketorolac Tromethamine 15 Mg/Ml Vial) 15 mg IVPUSH Q6H [facility] Stop: 04/08/21 11:59 Last Admin: 04/07/21 13:19 Dose: 15 mg Documented by: Lidocaine (Lidocaine 4 % Patch Adh..Patch) 1 patch TRANSDERMA DAILY [facility]; Protocol Last Admin: 04/07/21 08:43 Dose: 1 patch Documented by: Lisinopril (Lisinopril 40 Mg Tablet) 40 mg PO DAILY [facility]; Protocol Last Admin: 04/07/21 08:44 Dose: 40 mg Documented by: Medication (No Benzodiazepines) 1 each MISCELLANE DAILY [facility] Omeprazole (Omeprazole 20 Mg Capsule.) 20 mg PO DAILY@0630 [facility] Last Admin: 04/07/21 06:12 Dose: 20 mg Documented by: Ondansetron HCl (Ondansetron Hcl 4 Mg/2 Ml Vial) 4 mg IVPUSH Q8H PRN PRN Reason: Nausea and Vomiting Phenobarbital (Phenobarbital 15 Mg Tablet) 15 mg PO BID [facility]; Protocol Stop: 04/08/21 09:01 Last Admin: 04/07/21 08:44 Dose: 15 mg Documented by: Phenobarbital (Phenobarbital 15 Mg Tablet) 15 mg PO DAILY [facility]; Protocol Stop: 04/10/21 09:01 Sodium Chloride (0.9 % Sodium Chloride Flush 3 Ml Syringe) 3 ml IVFLUSH QSHIFT [facility] Last Admin: 04/07/21 08:48 Dose: 3 ml Documented by: Thiamine HCl (Thiamine Hcl 100 Mg Tablet) 100 mg PO DAILY [facility] Last Admin: 04/07/21 08:45 Dose: 100 mg Documented by: Thiamine HCl (Thiamine Hcl 100 Mg Tablet) 100 mg PO DAILY [facility] Last Admin: 04/07/21 08:46 Dose: Not Given Documented by: Time Spent With Patient Time: Total time spent is greater than 50% in coordination of care (as documented) at patient's floor/unit and/or counseling patient: Time with patient: less than 15 minutes Quality Stroke Does the patient have a stroke diagnosis?: No VTE Prior VTE?: No VTE Risk Level:: Medical - moderate - high VTE Device Contraindication: N/A - Device Ordered VTE Drug Contraindication: Treatment Not Indicated
[2021-04-08] VITALS (10 sets, daily range): BP systolic 116–126; BP diastolic 63–84; PULSE 64–75; RESP 16–20; TEMP 36.2–37; O2SAT 90–96
[2021-04-08] MEDS: Cyclobenzaprine HCl 10 MG TABLET PO ×2 (01:51→11:50)
[2021-04-08] MEDS: fentaNYL citrate/PF 100 MCG/2 ML VIAL 50 MCG IVPUSH (01:52)
[2021-04-08] MEDS: Acetaminophen 325 MG TABLET 650 MG PO ×3 (05:40→18:16)
[2021-04-08] MEDS: Ketorolac Tromethamine 15 MG/ML VIAL IVPUSH (05:40)
[2021-04-08] MEDS: Omeprazole 20 MG CAPSULE.DR PO (05:40)
[2021-04-08] MEDS: HYDROmorphone HCl 1 MG/ML SYRINGE IVPUSH (06:06)
[2021-04-08] MEDS: atenoloL 50 MG TABLET PO (08:02)
[2021-04-08] MEDS: PHENobarbitaL 15 MG TABLET PO ×2 (08:03)
[2021-04-08] MEDS: lisinopriL 40 MG TABLET PO (08:04)
[2021-04-08] MEDS: Thiamine HCL 100 MG TABLET PO (08:04)
[2021-04-08] MEDS: 0.9 % Sodium Chloride Flush 3 ML SYRINGE IVFLUSH ×2 (08:04→14:24)
[2021-04-08] MEDS: Escitalopram Oxalate 20 MG TABLET PO (08:04)
[2021-04-08] MEDS: Folic Acid 1 MG TABLET PO (08:04)
[2021-04-08] MEDS: Lidocaine 4 % Patch ADH..PATCH 1 PATCH TRANSDERMA (08:07)
--- NOTE | 2021-04-08 09:42 | PM.IMPN ---
Progress Note: A&P (1) Bilateral pneumothoraces: Status: Acute (2) Alcohol dependence: Status: Acute (3) Multiple fractures of ribs of left side: Status: Acute Assessment and Plan: This is a 56 yo M with a PMH of heavy daily alcohol use (denies any prior withdrawal symptoms), anxiety/depression, tobacco smoking, hypertension who presents to the hospital after a mechanical fall (no LOC) resulting in acute L rib fractures, a small apical L pneumothorax, large R pneumothorax with evidence of tension pneumo on imaging. He is s/p pig tail cath placement on the R with resolution of his pneumon. He will be admitted for further treatment. Traumatic R tension pneumothorax and L small apical pneumothorax still with extensive crepitus Pneumomediastinum, s/p pig tail cath on R with resolution of pneumothroax. Repeat CXR daily 100 % NRB mask to help with air reabsorbtion Scheduled IV toradol 30mg x 4 doses q6 hours and dilaudid Continue telemonitor, continue continuous pulse ox, no hypoxia noted Chest tube clamped. cxr showing Small left-sided pneumothorax, decreased from prior. Right-sided chest tube remains in place. No definite right pneumothorax. Rib fractures Pain management splinting techniques ? Alcohol abuse and dependence EtOH level >200 upon ED arrival. Not in active withdrawal now, but high risk for decompensation. Has been started on phenobarb Complete alcohol cessation as been encouraged. Mechanical Fall suspected due to EtOH intoxication at home. Consider PT eval prior to discharge if any issues HTN Continue atenol and Lisinopril Anxiety/Depression continue celexa DISPO possible dc tomorrow if medically stable Full Code DVT pptx, mechanical device Attending Dr. Zhu Subjective Subjective Date of Service: 04/08/21 Review of Systems Follow up pneumothorax Feeling better today sitting up on side of bed chest tube clamped Physical Exam Vital Signs: Vital Signs: Last Vital Signs Temp 97.8 F 04/08/21 07:26 Pulse 71 04/08/21 08:04 Resp 20 04/08/21 07:26 BP 125/81 04/08/21 08:04 Pulse Ox 95 04/08/21 07:26 Body Mass Index 26.3 Appearing in no acute distress lung sounds are clear to auscultation, right side CT clamped heart regular rate rhythm, clear S1, S2 positive bowel sounds, abdomen is soft, nontender neuro patient is alert x3, no focal deficits Objective Data Current Medications Acetaminophen (Acetaminophen 325 Mg Tablet) 650 mg PO Q6H [facility] Last Admin: 04/08/21 05:40 Dose: 650 mg Documented by: Atenolol (Atenolol 50 Mg Tablet) 50 mg PO DAILY [facility]; Protocol Last Admin: 04/08/21 08:02 Dose: 50 mg Documented by: Cyclobenzaprine HCl (Cyclobenzaprine Hcl 10 Mg Tablet) 10 mg PO TID PRN PRN Reason: back msucle spasm Last Admin: 04/08/21 01:51 Dose: 10 mg Documented by: Escitalopram Oxalate (Escitalopram Oxalate 20 Mg Tablet) 20 mg PO DAILY [facility] Last Admin: 04/08/21 08:04 Dose: 20 mg Documented by: Fentanyl (Fentanyl Citrate/Pf 100 Mcg/2 Ml Vial) 50 mcg IVPUSH Q2H PRN; Protocol PRN Reason: Pain, Severe (Pain Scale 7-10) Last Admin: 04/08/21 01:52 Dose: 50 mcg Documented by: Folic Acid (Folic Acid 1 Mg Tablet) 1 mg PO DAILY [facility] Last Admin: 04/08/21 08:04 Dose: 1 mg Documented by: Ketorolac Tromethamine (Ketorolac Tromethamine 15 Mg/Ml Vial) 15 mg IVPUSH Q6H [facility] Stop: 04/08/21 11:59 Last Admin: 04/08/21 05:40 Dose: 15 mg Documented by: Lidocaine (Lidocaine 4 % Patch Adh..Patch) 1 patch TRANSDERMA DAILY [facility]; Protocol Last Admin: 04/08/21 08:07 Dose: 1 patch Documented by: Lisinopril (Lisinopril 40 Mg Tablet) 40 mg PO DAILY [facility]; Protocol Last Admin: 04/08/21 08:04 Dose: 40 mg Documented by: Medication (No Benzodiazepines) 1 each MISCELLANE DAILY [facility] Omeprazole (Omeprazole 20 Mg Capsule.Dr) 20 mg PO DAILY@0630 [facility] Last Admin: 04/08/21 05:40 Dose: 20 mg Documented by: Ondansetron HCl (Ondansetron Hcl 4 Mg/2 Ml Vial) 4 mg IVPUSH Q8H PRN PRN Reason: Nausea and Vomiting Phenobarbital (Phenobarbital 15 Mg Tablet) 15 mg PO DAILY [facility]; Protocol Stop: 04/10/21 09:01 Last Admin: 04/08/21 08:03 Dose: 15 mg Documented by: Sodium Chloride (0.9 % Sodium Chloride Flush 3 Ml Syringe) 3 ml IVFLUSH QSHIFT [facility] Last Admin: 04/08/21 08:04 Dose: 3 ml Documented by: Thiamine HCl (Thiamine Hcl 100 Mg Tablet) 100 mg PO DAILY [facility] Last Admin: 04/08/21 08:04 Dose: 100 mg Documented by: Thiamine HCl (Thiamine Hcl 100 Mg Tablet) 100 mg PO DAILY [facility] Last Admin: 04/08/21 08:11 Dose: Not Given Documented by: Labs CBC & Chem 7: 04/07/21 07:58 04/07/21 07:58 Quality Stroke Does the patient have a stroke diagnosis?: No VTE Prior VTE?: No VTE Risk Level:: Medical - moderate - high VTE Device Contraindication: N/A - Device Ordered VTE Drug Contraindication: Treatment Not Indicated
[2021-04-08] MEDS: HYDROmorphone HCl 2 MG/ML VIAL IVPUSH ×4 (10:17→22:35)
--- NOTE | 2021-04-08 14:04 | P.PNTS_ITS ---
Subjective Subjective Date of Service: 04/08/21 Interval history: Patient seen and examined. Doing well. Right chest tube clamped at midnight. Tolerated well. No respiratory distress or difficulty breathing following chest tube clamping. Physical Exam Vital Signs: Vital Signs: Last Vital Signs Temp 98.5 F 04/08/21 10:56 Pulse 68 04/08/21 10:56 Resp 20 04/08/21 10:56 BP 116/63 04/08/21 10:56 Pulse Ox 92 04/08/21 10:56 Body Mass Index 26.3 Const: General: cooperative, healthy appearing, comfortable and no acute distress Nutritional Appearance: well nourished Orientation/consciousness: oriented to person, oriented to place, oriented to time and patient oriented x3 Limitations: no limitations HENMT: Head: Yes normal to inspection, Yes normocephalic and Yes atraumatic Mouth: Normal oral and palatal mucosa present Eyes: Visual Kauffman: normal visual kauffman by confrontation Alignment and Position: alignment normal Periorbital: periorbital findings normal Conjunctivae: conjunctivae normal Sclerae: sclerae normal Pupils: Equal, round and reactive pupils present and Pupil accommodation reflex normal EOM: EOMs intact bilaterally Neck: Neck: Yes normal visual inspection, Yes full ROM, Yes no lymphadenopathy, Yes trachea midline, Yes supple, No lymphadenopathy, No tender and No tracheal deviation Lymphatic: no lymphadenopathy noted Chest: Chest palpation & inspection: normal inspection of the chest and no crepitus Resp: Other: Right lateral chest tube clamped. No ocampo of air leak noted following unclamping of tube prior to chest tube removal. Chest tube removed without incident. Dry sterile occlusive dressing applied to chest tube site. SQ emphysema to bilateral anterior, lateral, and posterior chest extending down to left elbow and neck. No extension to face or rastafari. No flail chest noted or fluctuance in chest expansion. Effort & Inspection: normal respiratory effort, able to speak in complete sentences, normal respiratory pattern, no audible wheezes, no cough, no pursed lip breathing, no respiratory distress, no stridor, not tachypneic and no tracheal deviation Auscultation: clear to auscultation bilaterally Cardio: Jugular venous distension: no JVD Palpation: normal PMI Rate: regular rate Rhythm: regular rhythm Heart sounds: S1 normal heart sound present, S2 normal heart sound present, no click, no gallops, no murmurs and no rubs GI: Inspection: Yes normal to inspection Auscultation: normal bowel sounds : General: Yes no CVA tenderness Back/Spine/Pelvis: Back: no CVA tenderness Thoracic/Lumbar Spine: thoracic and lumbar spine normal to inspection Skin: General skin exam: no rashes or lesions noted and dry skin Lesions: no lesions Rashes: no rashes Neuro: General: oriented to person, oriented to place, oriented to time, patient oriented x3 and gait normal Cranial nerves: Yes Equal, round and reactive pupils present Extrem: General: Yes normal to inspection, Yes full ROM, Yes capillary refill normal, Yes no clubbing, cyanosis or edema, Yes no pedal edema and Yes normal gait Psych: Appearance: grossly normal and well kempt Mental Status: mental status grossly normal Speech and movement: Normal speech and movement present and Clear speech present Affect: normal affect Attitude: cooperative Thought process: Normal thought process present Thought content: Normal thought content present Procedures Date of Service Date of Service: 04/08/21 Progress Note: A&P Assessment and plan (1) Multiple fractures of ribs of left side: Status: Acute (2) Bilateral pneumothoraces: Status: Acute Assessment and Plan: Mr. Andersen is a 56 year old male with EtOH dependence who sustained a fall at home resulting in multiple left sided rib fractures, bilateral pneumothorax R>L, and extensive subcutaneous emphysema.? Right sided chest tube placed by ER physician. Bilateral pneumothorax and SQ air * Right chest tube clamped at midnight 04/08/21 0000. Chest x-ray reviewed this am showed small left-sided pneumothorax, decreased from prior. Right-sided chest tube remains in place. No definite right pneumothorax.. * SQ air appears to be slowly improving from previous reports and this will take some time to fully reabsorb. * Right chest tube removed today with dry occlusive dressing placed at chest tube site. May remove chest tube dressing in 48 hours (04/10/21) and leave open to air. Sponge bath only until then. May shower once chest tube dressing is removed. * Patient has a silk stitch in place. Will need removal of this stitch in 1 week. An appointment has been made at the [facility] Thoracic Surgery office ([address] [place] [address], [address], [place] [address]) on 04/15/21 with Christopher Dean, PA-C @ 3pm Multiple left sided rib fractures, comminuted / 4th * We need to optimize conservative management which includes pulmonary toilet, pain control, and ambulation.? Patient is at higher risk for pneumonia based on rib fractures alone. * Currently on IV pain medications. Will need to transition to oral pain medication prior to discharge. So far, patient states his pain is being well managed with this. * Continue pain meds as needed * Patient needs to be OOB ambulating in the hallways at least 3-4 times daily * Patient needs to be OOB to the chair for all meals. * Patient needs to be using IS routinely throughout the day. * No plan for surgery, reviewed CT of chest with Dr Thakur today and no thoracic surgical intervention recommended at this time. Case discussed with Dr. Thakur. Will sign off at this time. Fall Risk Details Current Medications: Current Medications Acetaminophen (Acetaminophen 325 Mg Tablet) 650 mg PO Q6H [facility] Last Admin: 04/08/21 11:48 Dose: 650 mg Documented by: Atenolol (Atenolol 50 Mg Tablet) 50 mg PO DAILY [facility]; Protocol Last Admin: 04/08/21 08:02 Dose: 50 mg Documented by: Cyclobenzaprine HCl (Cyclobenzaprine Hcl 10 Mg Tablet) 10 mg PO TID PRN PRN Reason: back msucle spasm Last Admin: 04/08/21 11:50 Dose: 10 mg Documented by: Escitalopram Oxalate (Escitalopram Oxalate 20 Mg Tablet) 20 mg PO DAILY [facility] Last Admin: 04/08/21 08:04 Dose: 20 mg Documented by: Folic Acid (Folic Acid 1 Mg Tablet) 1 mg PO DAILY [facility] Last Admin: 04/08/21 08:04 Dose: 1 mg Documented by: Hydromorphone HCl (Hydromorphone Hcl 2 Mg/Ml Vial) 2 mg IVPUSH Q4H PRN; Protocol PRN Reason: Pain, Mild (Pain Scale 1-3) Last Admin: 04/08/21 10:17 Dose: 2 mg Documented by: Lidocaine (Lidocaine 4 % Patch Adh..Patch) 1 patch TRANSDERMA DAILY [facility]; Protocol Last Admin: 04/08/21 08:07 Dose: 1 patch Documented by: Lisinopril (Lisinopril 40 Mg Tablet) 40 mg PO DAILY [facility]; Protocol Last Admin: 04/08/21 08:04 Dose: 40 mg Documented by: Medication (No Benzodiazepines) 1 each MISCELLANE DAILY [facility] Omeprazole (Omeprazole 20 Mg Capsule.Dr) 20 mg PO DAILY@0630 [facility] Last Admin: 04/08/21 05:40 Dose: 20 mg Documented by: Ondansetron HCl (Ondansetron Hcl 4 Mg/2 Ml Vial) 4 mg IVPUSH Q8H PRN PRN Reason: Nausea and Vomiting Phenobarbital (Phenobarbital 15 Mg Tablet) 15 mg PO DAILY [facility]; Protocol Stop: 04/10/21 09:01 Last Admin: 04/08/21 08:03 Dose: 15 mg Documented by: Sodium Chloride (0.9 % Sodium Chloride Flush 3 Ml Syringe) 3 ml IVFLUSH QSHIFT [facility] Last Admin: 04/08/21 08:04 Dose: 3 ml Documented by: Thiamine HCl (Thiamine Hcl 100 Mg Tablet) 100 mg PO DAILY [facility] Last Admin: 04/08/21 08:04 Dose: 100 mg Documented by: Thiamine HCl (Thiamine Hcl 100 Mg Tablet) 100 mg PO DAILY [facility] Last Admin: 04/08/21 08:11 Dose: Not Given Documented by: Time Spent With Patient Time: Total time spent is greater than 50% in coordination of care (as documented) at patient's floor/unit and/or counseling patient: Time with patient: less than 15 minutes Quality Stroke Does the patient have a stroke diagnosis?: No VTE Prior VTE?: No VTE Risk Level:: Medical - moderate - high VTE Device Contraindication: N/A - Device Ordered VTE Drug Contraindication: Treatment Not Indicated
[2021-04-09] VITALS (10 sets, daily range): BP systolic 124–140; BP diastolic 63–77; PULSE 70–86; RESP 18–24; TEMP 36.4–37.1; O2SAT 93–96
[2021-04-09] MEDS: 0.9 % Sodium Chloride Flush 3 ML SYRINGE IVFLUSH ×4 (00:45→23:33)
[2021-04-09] MEDS: Acetaminophen 325 MG TABLET 650 MG PO ×4 (01:28→23:32)
[2021-04-09] MEDS: HYDROmorphone HCl 2 MG/ML VIAL IVPUSH ×6 (01:30→23:49)
[2021-04-09] MEDS: Benzonatate 100 MG CAPSULE PO (01:54)
[2021-04-09] MEDS: Omeprazole 20 MG CAPSULE.DR PO (05:58)
[2021-04-09 07:28] LABS: Glucose, Whole Blood 115 mg/dL (60-115)
[2021-04-09] MEDS: Escitalopram Oxalate 20 MG TABLET PO (09:56)
[2021-04-09] MEDS: lisinopriL 40 MG TABLET PO (09:56)
[2021-04-09] MEDS: Folic Acid 1 MG TABLET PO (10:00)
[2021-04-09] MEDS: atenoloL 50 MG TABLET PO (10:00)
[2021-04-09] MEDS: Lidocaine 4 % Patch ADH..PATCH 1 PATCH TRANSDERMA (10:01)
[2021-04-09] MEDS: Thiamine HCL 100 MG TABLET PO (10:03)
--- NOTE | 2021-04-09 11:28 | MHC.CM.PN ---
Male 56 DX Fall rib fx CT DC He is discharged to home today. He has arranged for transportation.
[2021-04-09] MEDS: Cyclobenzaprine HCl 10 MG TABLET PO ×3 (12:21→20:13)
[2021-04-09] MEDS: PHENobarbitaL 15 MG TABLET PO (13:26)
--- NOTE | 2021-04-09 14:40 | HO.PM.IMPN ---
Subjective Subjective Date of Service: 04/09/21 Review of Systems Complains of mild chest pain with deep inspiration Mild short of breath with exertion No nausea vomiting diarrhea Physical Exam Vital Signs: Vital Signs: Last Vital Signs Temp 98.8 F 04/09/21 11:14 Pulse 82 04/09/21 11:14 Resp 24 H 04/09/21 11:14 BP 140/68 H 04/09/21 11:14 Pulse Ox 96 04/09/21 11:14 Body Mass Index 26.3 Const: Other: Somnolent but arousable. Able speak in full sentences lying supine. HENMT: Other: Mucous membranes moist; Chest: Other: Mild crepitance anterior and lateral chest wall Resp: Other: Diminished breath sounds with rhonchi and coarse crackles right base. Bilateral lobes with diffuse expiratory wheezes Cardio: Other: No S4; positive S1-S2; no S3; no murmurs rubs or gallops GI: Other: Soft nontender nondistended; normoactive bowel sounds x4 quadrants no rebound Neuro: Other: Age-appropriate nonfocal Extrem: Other: No edema bilaterally Objective Data Active Medications Acetaminophen (Acetaminophen 325 Mg Tablet) 650 mg PO Q6H [facility] Last Admin: 04/09/21 12:17 Dose: 650 mg Documented by: DEVON Albuterol/Ipratropium (Albuterol/Iprat 2.5/0.5mg 3 Ml Ampul.Neb) 3 ml INHALE RQ4H PRN PRN Reason: Shortness of Breath Atenolol (Atenolol 50 Mg Tablet) 50 mg PO DAILY [facility]; Protocol Last Admin: 04/09/21 10:00 Dose: 50 mg Documented by: MARIELLA Benzonatate (Benzonatate 100 Mg Capsule) 100 mg PO TID PRN PRN Reason: Cough Last Admin: 04/09/21 01:54 Dose: 100 mg Documented by: PADMA Cyclobenzaprine HCl (Cyclobenzaprine Hcl 10 Mg Tablet) 10 mg PO TID PRN PRN Reason: back msucle spasm Last Admin: 04/09/21 12:21 Dose: 10 mg Documented by: DEVON Escitalopram Oxalate (Escitalopram Oxalate 20 Mg Tablet) 20 mg PO DAILY [facility] Last Admin: 04/09/21 09:56 Dose: 20 mg Documented by: MARIELLA Folic Acid (Folic Acid 1 Mg Tablet) 1 mg PO DAILY [facility] Last Admin: 04/09/21 10:00 Dose: 1 mg Documented by: MARIELLA Hydromorphone HCl (Hydromorphone Hcl 2 Mg/Ml Vial) 2 mg IVPUSH Q4H PRN; Protocol PRN Reason: Pain, Mild (Pain Scale 1-3) Last Admin: 04/09/21 10:15 Dose: 2 mg Documented by: MARIELLA Lidocaine (Lidocaine 4 % Patch Adh..Patch) 1 patch TRANSDERMA DAILY [facility]; Protocol Last Admin: 04/09/21 10:01 Dose: 1 patch Documented by: MARIELLA Lisinopril (Lisinopril 40 Mg Tablet) 40 mg PO DAILY [facility]; Protocol Last Admin: 04/09/21 09:56 Dose: 40 mg Documented by: MARIELLA Medication (No Benzodiazepines) 1 each MISCELLANE DAILY [facility] Omeprazole (Omeprazole 20 Mg Capsule.Dr) 20 mg PO DAILY@0630 [facility] Last Admin: 04/09/21 05:58 Dose: 20 mg Documented by: PADMA Ondansetron HCl (Ondansetron Hcl 4 Mg/2 Ml Vial) 4 mg IVPUSH Q8H PRN PRN Reason: Nausea and Vomiting Phenobarbital (Phenobarbital 15 Mg Tablet) 15 mg PO DAILY [facility]; Protocol Stop: 04/10/21 09:01 Last Admin: 04/09/21 13:26 Dose: 15 mg Documented by: MARIELLA Comments: per pharm, adm unscheduled dose in place this am Sodium Chloride (0.9 % Sodium Chloride Flush 3 Ml Syringe) 3 ml IVFLUSH QSHIFT [facility] Last Admin: 04/09/21 10:02 Dose: 3 ml Documented by: MARIELLA Thiamine HCl (Thiamine Hcl 100 Mg Tablet) 100 mg PO DAILY [facility] Last Admin: 04/09/21 10:03 Dose: 100 mg Documented by: MARIELLA Thiamine HCl (Thiamine Hcl 100 Mg Tablet) 100 mg PO DAILY [facility] Last Admin: 04/09/21 10:03 Dose: Not Given Documented by: MARIELLA Non-Admin Reason: Duplicate Order Labs CBC & Chem 7: 04/07/21 07:58 04/07/21 07:58 Labs: Laboratory Results - last 24 hr 04/09/21 07:24 POC Glucose 115 Assessment and Plan (1) Bilateral pneumothoraces: Status: Acute (2) Alcohol dependence: Status: Acute Assessment and Plan: This is a 56 yo M with a PMH of heavy daily alcohol use (denies any prior withdrawal symptoms), anxiety/depression, tobacco smoking, hypertension who presents to the hospital after a mechanical fall (no LOC) resulting in acute L rib fractures, a small apical L pneumothorax, large R pneumothorax with evidence of tension pneumo on imaging. He is s/p pig tail cath placement on the Right.. 1.Traumatic R tension pneumothorax and L small apical pneumothorax still with extensive crepitus: Chest tube removed on right last evening without incident. Repeat chest x-ray done today secondary to symptoms of worsening shortness of breath: No acute changes Encouraged albuterol inhaler and its incentive spirometry . 2.Rib fractures: Pain management Splinting techniques ? 3.Alcohol abuse and dependence: Continues on phenobarb protocol without active signs of withdrawal. Counseled on alcohol cessation. Not interesting 4.HTN: Continue Atenolol andLisinopril as per outpatient dosing 5.Anxiety/Depression continue celexa Full Code DVT pptx, mechanical device Quality Stroke Does the patient have a stroke diagnosis?: No VTE Prior VTE?: No VTE Risk Level:: Medical - moderate - high VTE Device Contraindication: N/A - Device Ordered VTE Drug Contraindication: Treatment Not Indicated
[2021-04-09] MEDS: Albuterol/Iprat 2.5/0.5MG 3 ML AMPUL.NEB INHALE (17:44)
[2021-04-10] MEDS: HYDROmorphone HCl 2 MG/ML VIAL IVPUSH ×2 (03:43→08:55)
[2021-04-10 04:00] VITALS: PULSE 76; O2SAT 93
[2021-04-10] MEDS: Acetaminophen 325 MG TABLET 650 MG PO ×2 (05:02→11:57)
[2021-04-10] MEDS: Omeprazole 20 MG CAPSULE.DR PO (05:02)
[2021-04-10] MEDS: Cyclobenzaprine HCl 10 MG TABLET PO (05:06)
[2021-04-10 07:45] VITALS: BP 129/68; PULSE 80; RESP 20; TEMP 36.7; O2SAT 92
[2021-04-10] MEDS: Lidocaine 4 % Patch ADH..PATCH 1 PATCH TRANSDERMA (08:52)
[2021-04-10] MEDS: 0.9 % Sodium Chloride Flush 3 ML SYRINGE IVFLUSH (08:54)
[2021-04-10] MEDS: Thiamine HCL 100 MG TABLET PO ×2 (08:54)
[2021-04-10 08:55] VITALS: BP 129/68; PULSE 80
[2021-04-10] MEDS: Folic Acid 1 MG TABLET PO (08:55)
[2021-04-10] MEDS: lisinopriL 40 MG TABLET PO (08:55)
[2021-04-10] MEDS: Escitalopram Oxalate 20 MG TABLET PO (08:55)
[2021-04-10 08:56] VITALS: BP 129/68; PULSE 80
[2021-04-10] MEDS: atenoloL 50 MG TABLET PO (08:56)
[2021-04-10 11:10] VITALS: BP 120/69; PULSE 76; RESP 18; TEMP 36.8; O2SAT 91
[2021-04-10] MEDS: predniSONE 20 MG TABLET 60 MG PO (11:57)
--- NOTE | 2021-04-10 12:37 | P.DS_ITS ---
DS: Providers Provider Date of Service: 04/10/21 Date of admission: 04/04/21 11:46 Date of discharge: 04/10/21 Primary care physician: Holden Bailey MD Consults: 04/04/21 11:47 Consult to Care Team Routine Comment: Reason for consultation: etoh 04/04/21 11:49 Consult to Thoracic Surgery Routine Consulting Provider: Kevin Moran Reason for consultation: pneumothorax/pneumomediastinum Consult to Thoracic Surgery Routine Consulting Provider: [facility] Reason for consultation: pneumothorax, pneumomediastinum, chest tube DS: Diagnosis Discharge Diagnosis (1) Bilateral pneumothoraces: Status: Acute (2) Alcohol dependence: Status: Acute DS: Summary Hospital Course Hospital Course: This is a 56 yo M with a PMH of heavy daily alcohol use (denies any prior withdrawal symptoms), anxiety/depression, tobacco smoking, hypertension who presents to the hospital after a mechanical fall (no LOC) resulting in acute L rib fractures, a small apical L pneumothorax, large R pneumothorax with evidence of tension pneumo on imaging. He is s/p pig tail cath placement on the Right.. ?1.Traumatic R tension pneumothorax and L small apical pneumothorax still with extensive crepitus: ? ?Bilateral pneumothorax and SQ air * Right chest tube clamped at midnight 04/08/21 0000. Chest x-ray reviewed this am showed small left-sided pneumothorax, decreased from prior. Right-sided chest tube remains in place. No definite right pneumothorax.. * SQ air appears to be slowly improving from previous reports and this will take some time to fully reabsorb. * Right chest tube removed today with dry occlusive dressing placed at chest tube site. May remove chest tube dressing in 48 hours (04/10/21) and leave open to air. Sponge bath only until then. May shower once chest tube dressing is removed. * Patient has a silk stitch in place. Will need removal of this stitch in 1 week. An appointment has been made at the [facility] Thoracic Surgery office ([address] [place] [address], [address], [place] [address]) on 04/15/21 with Mustapha Moran PA-C @ 3pm Multiple left sided rib fractures, comminuted 3rd / 4th * We need to optimize conservative management which includes pulmonary toilet, pain control, and ambulation.? Patient is at higher risk for pneumonia based on rib fractures alone. * Currently on IV pain medications. Will need to transition to oral pain medica tion prior to discharge. So far, patient states his pain is being well managed with this. * Continue pain meds as needed * Patient needs to be OOB ambulating in the hallways at least 3-4 times daily * Patient needs to be OOB to the chair for all meals. * Patient needs to be using IS routinely throughout the day. * No plan for surgery, reviewed CT of chest with Dr Thakur today and no thoracic surgical intervention recommended at this time. . ?2.Rib fractures: ? ? Pain management... Oral oxycodone ? ? Splinting techniques ? ?3.Alcohol abuse and dependence: ? ? Counseled on cessation ?4.HTN: ?? Continue Atenolol andLisinopril as per outpatient dosing ?5.Anxiety/Depression continue celexa ? Status at Discharge Cognitive/behavioral status at discharge: Improved Time Spent with Patient Time attestation: Total time spent providing and/or coordinating discharge services: Discharge coordination time: Greater than 30 minutes Quality: Stroke Does the patient have a stroke diagnosis?: No Physical Exam Vital Signs: Vital Signs: Last Vital Signs Temp 98.2 F 04/10/21 11:10 Pulse 76 04/10/21 11:10 Resp 18 04/10/21 11:10 BP 120/69 04/10/21 11:10 Pulse Ox 91 L 04/10/21 11:10 Body Mass Index 26.3 Const: Other: Awake alert oriented x3 no acute distress. Able speak in full sentences while supine HENMT: Other: Mucous membranes moist; oropharynx clear Resp: Other: Diminished throughout with dense expiratory wheezes. Coarse rhonchi that clear with cough Cardio: Other: No S4; positive S1-S2; no S3 murmurs rubs or gallops GI: Other: Soft nontender nondistended with normoactive bowel sounds. There is no appreciable hepatosplenomegaly Neuro: Other: Age-appropriate nonfocal Extrem: Other: No edema Discharge Plan Discharge Patient Disposition: Home, Self-Care Discharge Diagnosis: Bilateral Pneumothorax Referrals: Holden Bailey MD [Primary Care Provider] - 1 Week Discharge Medications: New oxycodone 10 mg tablet 10 mg PO Q6H PRN (Reason: pain) Qty: 20 RF: 0 albuterol sulfate [Ventolin HFA] 90 mcg/actuation HFA aerosol inhaler 2 puff inhalation Q6H PRN (Reason: shortness of breath or wheezing) Qty: 8.5 RF: 0 prednisone 10 mg tablet See Rx Instructions .ROUTE .COMPLEX Qty: 45 RF: 0 Continued citalopram 40 mg tablet 1 tab PO DAILY RF: 0 lisinopril 40 mg tablet 1 tab PO DAILY RF: 0 atenolol 50 mg tablet 1 tab PO DAILY RF: 0 Discharge Orders: Discharge Order (Routine); Ordered 04/10/21 Ordered By: Jon Salguero Activity on Discharge: As tolerated Stand Alone Forms: Patient Portal Discharge page Care Plan Goals: pain control Health Concerns: Abstain from alcohol Plan of Treatment: Pain management Assessment: Improved
[2021-04-10] MEDS: oxyCODONE HCl Immed Release 5 MG TABLET 10 MG PO (13:25)
--- NOTE | 2021-04-10 15:01 | MHC.CM.PN ---
Male 56 s/p fall rib fxs pneumothorax. He is discharged today to home. No services have been ordered. Family provided transportation.
--- NOTE | 2021-04-15 15:53 | P.PNTS_ITS ---
Subjective Subjective Date of Service: 04/16/21 Interval history: Patient seen and examined this afternoon. No events overnight. Doing well. Denies fevers, chills, or resp distress. Bilateral chest tubes in place, left tube to waterseal, right tube to -20cm continuous LWS. using I/S. Continues to report 8/10 pain to left ribs. Physical Exam Vital Signs: Vital Signs: Last Vital Signs Temp 98.2 F 04/10/21 11:10 Pulse 76 04/10/21 11:10 Resp 18 04/10/21 11:10 BP 120/69 04/10/21 11:10 Pulse Ox 91 L 04/10/21 11:10 Body Mass Index 26.3 Const: General: cooperative, healthy appearing, comfortable and no acute distress Nutritional Appearance: well nourished Orientation/consciousness: oriented to person, oriented to place, oriented to time and patient oriented x3 Limitations: no limitations HENMT: Head: Yes normal to inspection, Yes normocephalic and Yes atraumatic Mouth: Normal oral and palatal mucosa present Eyes: Visual Canseco: normal visual canseco by confrontation Alignment and Position: alignment normal Periorbital: periorbital findings normal Conjunctivae: conjunctivae normal Sclerae: sclerae normal Pupils: Equal, round and reactive pupils present and Pupil accommodation reflex normal EOM: EOMs intact bilaterally Neck: Neck: Yes normal visual inspection, Yes full ROM, Yes no lymphadenopathy, Yes trachea midline, Yes supple, No lymphadenopathy, No tender and No tracheal deviation Lymphatic: no lymphadenopathy noted Chest: Chest palpation & inspection: normal inspection of the chest and no crepitus Resp: Other: Right chest tube to -20cm continuous LWS. Left chest tube to wate rseal. No air leak noted to either atrium at rest or with cough. 700cc of yellow serous/cream colored drainage in right chest tube atrium, 790cc of serousanguinous drainage in left chest tube atrium. Chest tube flushed to maintain patency. SQ air noted to anterior chest, L>R. No extension to neck, face, or arms. Lung sounds diminished to right lung base. Right previous chest tube site appears to be reddened but blanchable. No visible drainage to chest tube site. Stay stitch in place. Effort & Inspection: normal respiratory effort, able to speak in complete sentences, normal respiratory pattern, no audible wheezes, no cough, no pursed lip breathing, no respiratory distress, no stridor, not tachypneic and no tracheal deviation Cardio: Jugular venous distension: no JVD Palpation: normal PMI Rate: regular rate Rhythm: regular rhythm Heart sounds: S1 normal heart sound present, S2 normal heart sound present, no click, no gallops, no murmurs and no rubs GI: Inspection: Yes normal to inspection Auscultation: normal bowel sounds : General: Yes no CVA tenderness Back/Spine/Pelvis: Back: no CVA tenderness Thoracic/Lumbar Spine: thoracic and lumbar spine normal to inspection Skin: General skin exam: no rashes or lesions noted and dry skin Lesions: no lesions Rashes: no rashes Neuro: General: oriented to person, oriented to place, oriented to time, patient oriented x3 and gait normal Cranial nerves: Yes Equal, round and reactive pupils present Extrem: General: Yes normal to inspection, Yes full ROM, Yes capillary refill normal, Yes no clubbing, cyanosis or edema, Yes no pedal edema and Yes normal gait Psych: Appearance: grossly normal and well kempt Mental Status: mental status grossly normal Speech and movement: Normal speech and movement present and Clear speech present Affect: normal affect Attitude: cooperative Thought process: Normal thought process present Thought content: Normal thought content present Procedures Date of Service Date of Service: 04/15/21 Progress Note: A&P Assessment and plan (1) Empyema lung: Status: Acute Assessment and Plan: Mr. Andersen is a 56-year-old male with a past medical history of alcohol dependence.? Sustained a fall on April 03 and was admitted to [facility] on 04/04 for treatment of a right-sided pneumothorax and sub sequently discharged.? Patient returns to [facility] with worsening of left-sided pneumothorax, comminuted left-sided posterior rib fractures which were present on previous admission, and right-sided pleural effusion. Left-sided pneumothorax: * Left anterior pigtail to waterseal. Drained 790cc dark serousanguinous drainage. * Chest x-ray yesterday shows resolution of left-sided pneumothorax. * Keep to waterseal at this time Right-sided pleural effusion. * Pleural fluid culture positive for streptococci likely a result from his right-sided chest wound from previous chest tube site. * Right-sided chest tube remains on -20 low wall suction and should remain on - 20 low wall suction. Flushed to maintain patency. No visible air leak. 700cc of serous/cream colored drainage in atrium * Chest CT scan this am showed New right chest tube anterior to the atelectatic right lower lobe. Loculated right pleural effusion not appreciably changed. Stable oval-shaped density in the posterior medial right upper lobe, question related to old chest tube tract. Stable position of left chest tube. Trace left apical pneumothorax measuring 3 mm in thickness. Small stable left pleural effusion. Pneumomediastinum and subcutaneous and chest wall emphysema decreased from 04/11/2021 exam . * Will plan for tPA and DNase instillation intrapleurally tomorrow * Currently on vancomycin IV. Left-sided comminuted rib fractures. * No surgical intervention is justified at this time due to the posterior position of rib fractures lying close to the spine and behind left scapula. * Conservative measures with adequate pain control and incentive spirometry. Case discussed with Dr. Thakur. Thank you for this consult. will continue to follow along. Time Spent With Patient Time: Total time spent is greater than 50% in coordination of care (as documented) at patient's floor/unit and/or counseling patient: Time with patient: less than 15 minutes Quality Stroke Does the patient have a stroke diagnosis?: No VTE Prior VTE?: No VTE Risk Level:: Medical - moderate - high VTE Device Contraindication: N/A - Device Ordered VTE Drug Contraindication: Treatment Not Indicated
== END 2021-04-10 14:42 | disposition home or self-care (01) | DRG 135 ==
LOC: HO.ED 07:17 → HO.EDOVER 12:19 → HO.IMC 13:19
PROVIDERS: Family Medicine; Nurse Practitioner Acute Care; Admitting Provider Family Medicine; Emergency Provider Student in an Organized Health Care Education/Training Program; PCP Internal Medicine; Visit Provider Hospitalist
DX: S27.0XXA Traumatic pneumothorax, initial encounter (principal); S22.42XA Multiple fractures of ribs, left side, initial encounter for closed fracture; T79.7XXA Traumatic subcutaneous emphysema, initial encounter; F10.20 Alcohol dependence, uncomplicated; W19.XXXA Unspecified fall, initial encounter; I10 Essential (primary) hypertension; F41.9 Anxiety disorder, unspecified; F32.9 Major depressive disorder, single episode, unspecified; Y93.9 Activity, unspecified; Y92.009 Unspecified place in unspecified non-institutional (private) residence as the place of occurrence of the external cause; Y99.9 Unspecified external cause status; F17.210 Nicotine dependence, cigarettes, uncomplicated; Z20.822 Contact with and (suspected) exposure to COVID-19; Z71.6 Tobacco abuse counseling; Z79.899 Other long term (current) drug therapy
CPT/HCPCS: 36415; 70450; 70491; 71045; 71260; 72128; 80048; 80053; 82077; 82607; 82746; 82947; 83735; 85025; 85027; 87635; 93005; 94640; 96372; 96374; 96375; 99285; J1170; J1885; J2560; J3010; J3475; Q9967

== ENCOUNTER 2021-04-11 16:02 | Inpatient (IN) | payer MEDICAID, SELFPAY ==
[2021-04-11] VITALS (15 sets, daily range): BP systolic 115–137; BP diastolic 69–90; PULSE 65–126; RESP 16–34; TEMP 36.6–41.2; O2SAT 93–100; BMI 27.3
--- NOTE | ~2021-04-11 | XR_ITS ---
EXAMINATION: XR CHEST CLINICAL INFORMATION: Post chest tube placement COMPARISON: Previous chest x-rays from most recent from earlier the same day TECHNIQUE: Frontal view of the chest was obtained. FINDINGS: The cardiac and mediastinal contours are stable. There is a new pigtail chest tube at the right lung base. There is a left chest tube with pigtail projecting over the mid left lung that appears unchanged. The cardiac and mediastinal contours are stable. There is elevation of the right hemidiaphragm. There is blunting of the right lateral costophrenic angle suggestive of a pleural effusion. There is no pneumothorax. There is chest wall and neck subcutaneous emphysema on the left. There are bilateral rib fractures. XR/XR chest 1V IMPRESSION: New chest tube at the right lung base. No pneumothorax seen. Stable elevation of the right hemidiaphragm and right pleural effusion. Stable left chest and neck soft tissue emphysema.
--- NOTE | ~2021-04-11 | US_ITS ---
EXAMINATION: US CHEST CLINICAL INFORMATION: Right-sided pneumothorax. COMPARISON: Chest radiograph done earlier today at 5:[address] chest done earlier today at 4:27 PM. TECHNIQUE: Targeted sonographic evaluation of the right chest wall. FINDINGS: There is moderate amount of right-sided pleural fluid with some internal echogenicities of uncertain etiology. The left pleural spaces clear. US/US chest IMPRESSION: Moderate volume of right-sided pleural fluid which is somewhat complicated in appearance with internal debris. Differentials include proteinaceous debris, blood products or pus. Correlate clinically. Very small amount of left-sided pleural fluid.
--- NOTE | ~2021-04-11 | XR_ITS ---
EXAMINATION: XR CHEST CLINICAL INFORMATION: Follow-up right effusion COMPARISON: Previous chest x-rays most recent from yesterday TECHNIQUE: Frontal view of the chest was obtained. FINDINGS: Bilateral chest tubes are unchanged in position. The cardiac and mediastinal contours are stable. There is elevation of the right hemidiaphragm and blunting at the right lateral costophrenic angle suggestive of a pleural effusion. 2. This represents elevation of the right hemidiaphragm versus effusion is difficult to assess on chest x-ray. There is atelectasis at the lung bases. There is left small amount of left chest wall edema. This appears decreased from previous exam. No pneumothorax is seen. There is no appreciable left pleural effusion. Bilateral rib fractures are noted. XR/XR chest 1V IMPRESSION: Stable position of bilateral chest tubes. Persistent elevation of the right hemidiaphragm and blunting at the right lateral costophrenic angle. How much of this represents right pleural effusion versus elevation of the right hemidiaphragm and atelectasis is difficult to determine by chest x-ray. No pneumothorax.
--- NOTE | ~2021-04-11 | XR_ITS ---
EXAMINATION: XR CHEST CLINICAL INFORMATION: Chest tube COMPARISON: 04/12/2021 TECHNIQUE: Frontal view of the chest was obtained. FINDINGS: Left-sided chest tube remains in place. Right basilar chest tube noted. Persistent elevation of the right hemidiaphragm. Hazy opacity at both lung bases. Small right pleural effusion. No definite pneumothorax identified. The cardiomediastinal silhouette is unchanged. Improving subcutaneous emphysema. XR/XR chest 1V IMPRESSION: Bilateral chest tubes in place. No pneumothorax identified. Persistent small right effusion with basilar opacity.
--- NOTE | ~2021-04-11 | XR_ITS ---
EXAMINATION: XR CHEST CLINICAL INFORMATION: Evaluation of pneumothorax, effusion. COMPARISON: Chest x-ray April 19, 2021 TECHNIQUE: Frontal view of the chest was obtained. FINDINGS: Cardiac silhouette is mildly enlarged, likely accentuated due to technique and low lung volumes. Lung volumes have decreased from yesterday's x-ray. Subtle linear bibasilar opacities are most suggestive of atelectasis. Unchanged blunting of both costophrenic angles suggests tiny pleural effusions bilaterally. No pneumothorax appreciated. Bilateral rib fractures again identified. XR/XR chest 1V IMPRESSION: -Hypoinflated lungs. -Tiny bilateral pleural effusions again suspected. -No pneumothorax appreciated.
--- NOTE | ~2021-04-11 | CT_ITS ---
EXAMINATION: CT CHEST WITHOUT CONTRAST CLINICAL INFORMATION: Follow-up right pleural effusion and left pneumothorax COMPARISON: Previous chest CT 04/11/2021 and chest x-rays most recent from yesterday TECHNIQUE: Multidetector volumetric CT imaging of the chest was done. Axial MIP volume rendering provided. Sagittal and coronal reformatted images were obtained. This CT examination was performed using dose optimization techniques as appropriate, variously including the following: *Automated exposure control *Adjustment of mA and/or kV according to patient size (this includes techniques or standardized protocols for targeted exams where dose is matched to indication/reason for exam; i.e. extremities or head) *Use of iterative reconstruction technique DLP: 450 mGy-cm FINDINGS: LUNGS: There is a new pigtail chest tube at the right lung base. Pigtail is positioned anterior to the atelectatic right lower lobe. There is a left chest tube adjacent to the left pleural fissure. There is a complete atelectasis of the right lower lobe. There is a peripheral or subpleural oval-shaped density in the medial right upper lobe measuring 2.5 x 3 cm with air bronchograms. This is similar to previous exam and again may be related to prior right chest tube. There is some groundglass attenuation seen anteriorly in the left upper lobe. The lungs are otherwise clear. MEDIASTINUM: There is a small amount of pneumomediastinum. There are small mediastinal lymph nodes. No enlarged lymph nodes are seen. The heart does not appear enlarged. There is no pericardial effusion. PLEURA: There is a loculated right pleural effusion. This does not appear appreciably changed from 04/11/2021 exam. There is a very small left pleural effusion that is unchanged. There is a tiny left apical pneumothorax. This measures 3 mm in greatest thickness. No right pneumothorax is seen. AXILLA: No lymphadenopathy. There is left chest wall subcutaneous emphysema. UPPER ABDOMEN: There is fatty infiltration of the liver. OSSEOUS STRUCTURES: There are multiple bilateral rib fractures of varying ages. These appear unchanged. There are degenerative changes of the spine. CT/CT chest wo con IMPRESSION: New right chest tube anterior to the atelectatic right lower lobe. Loculated right pleural effusion not appreciably changed. Stable oval-shaped density in the posterior medial right upper lobe, question related to old chest tube tract. Stable position of left chest tube. Trace left apical pneumothorax measuring 3 mm in thickness. Small stable left pleural effusion. Pneumomediastinum and subcutaneous and chest wall emphysema decreased from 04/11/2021 exam.
--- NOTE | ~2021-04-11 | CT_ITS ---
EXAMINATION: CT CHEST WITHOUT CONTRAST CLINICAL INFORMATION: Right-sided pleural effusion. COMPARISON: Multiple priors, most recent chest radiograph done earlier the same day. Most recent CT chest dated 04/15/2021. TECHNIQUE: Multidetector volumetric CT imaging of the chest was done. Axial MIP volume rendering provided. Sagittal and coronal reformatted images were obtained. This CT examination was performed using dose optimization techniques as appropriate, variously including the following: *Automated exposure control *Adjustment of mA and/or kV according to patient size (this includes techniques or standardized protocols for targeted exams where dose is matched to indication/reason for exam; i.e. extremities or head) *Use of iterative reconstruction technique DLP: 476 mGy-cm FINDINGS: GUIDANCE SERVICES COORDINATOR: Small bilateral pleural effusions. LUNGS/PLEURA: Small, somewhat loculated right-sided pleural effusion, decreased when compared to the recent chest CT. Small foci of air within the right-sided pleural effusion. The posterior right-sided chest tube has been retracted with the tip of the tube approximately 2.3 cm deep to the chest wall. Advancement of the tube is recommended. Patchy right lower lobe atelectasis versus infiltrates, slightly decreased when compared to the prior examination. Interval removal of the previously seen left-sided chest tube. Small left-sided pleural effusion, increased when compared to the prior examination. No new large pulmonary mass or confluent airspace consolidation. MEDIASTINUM: No cardiomegaly. No pericardial effusion. No thoracic aortic dilatation. No superior mediastinal or hilar lymphadenopathy. CHEST WALL/AXILLA: Left chest wall soft tissue emphysema, decreased when compared to the prior examination and likely related to the left-sided chest tube. UPPER ABDOMEN: Heterogeneous parenchymal hypoattenuation redemonstrated throughout the liver, unchanged. OSSEOUS STRUCTURES: Redemonstration of left 3rd and 4th rib fractures. Redemonstration of healing right 7th and 8th rib fractures. CT/CT chest wo con IMPRESSION: 1. Small, slightly loculated right-sided pleural effusion, decreased when compared to the chest CT dated 04/15/2021. Small foci of air within the effusion, increased. Redemonstration of a right basilar chest tube which appears to have been retracted when compared to the prior examination. Adjacent right lung airspace opacities have decreased. 2. Interval removal of the previously seen left-sided chest tube. Small left-sided pleural effusion, increased when compared to the prior examination. Left chest wall soft tissue emphysema, decreased when compared to the prior examination. This critical result was discussed with MCKENNA Moran at 3:03 PM on 04/18/2021 and it was ascertained that the content and urgency of the report was understood at the time of direct communication.
--- NOTE | ~2021-04-11 | CT_ITS ---
EXAMINATION: CT CHEST WITHOUT CONTRAST CLINICAL INFORMATION: Low O2 sat saturation. Post chest tube. Pneumothorax. COMPARISON: Previous chest x-rays most recent from earlier the same day and chest CT 04/04/2021 TECHNIQUE: Multidetector volumetric CT imaging of the chest was done. Axial MIP volume rendering provided. Sagittal and coronal reformatted images were obtained. This CT examination was performed using dose optimization techniques as appropriate, variously including the following: *Automated exposure control *Adjustment of mA and/or kV according to patient size (this includes techniques or standardized protocols for targeted exams where dose is matched to indication/reason for exam; i.e. extremities or head) *Use of iterative reconstruction technique DLP: 376 mGy-cm FINDINGS: LUNGS: There is a [id number] left pneumothorax. This measures 3 cm at the left lung apex and left lung base. There is a atelectasis and consolidation seen in the left lower lobe. There is dependent atelectasis seen in the right lower lobe. There is a peripheral or subpleural density seen in the medial peripheral or subpleural right upper lobe. This may be related to previous chest tube tract. MEDIASTINUM: There is pneumomediastinum. There are no enlarged lymph nodes. The heart does not appear enlarged. There is no pericardial effusion. There is no pneumopericardium. PLEURA: There is a moderate-sized right pleural effusion and a small left pleural effusion. There is no right pneumothorax. There is a small to moderate left pneumothorax and collapse of the left upper lobe measuring 3 cm at the left lung apex 2.5 cm the left heart border. No chest tube is seen. AXILLA: There is extensive chest wall subcutaneous emphysema. There is extensive bilateral chest wall emphysema. There is emphysema seen in the bilateral lower neck. This greater on the left. UPPER ABDOMEN: There is fatty infiltration of the liver. OSSEOUS STRUCTURES: There are comminuted displaced left posterior third and fourth rib fractures. There is adjacent pleural thickening. There are left anterior 6- 8 rib fractures that do not appear as acute. There are recent appearing right lateral seventh and eighth rib fractures. CT/CT chest wo con IMPRESSION: [id number] left pneumothorax. No right pneumothorax. Bilateral pleural effusions, right greater than left. Extensive chest wall emphysema and pneumomediastinum. Bilateral rib fractures of varying ages. Bilateral lower lobe atelectasis/consolidation. Atelectasis or consolidation in the medial right upper lobe, question related to old chest tube tract.
--- NOTE | ~2021-04-11 | XR_ITS ---
EXAMINATION: XR CHEST CLINICAL INFORMATION: Right pleural effusion. Left pneumothorax. Bilateral pigtail chest tubes. COMPARISON: Previous chest x-ray most recent from earlier the same day TECHNIQUE: Frontal view of the chest was obtained. FINDINGS: The cardiac and mediastinal contours are stable. There is a pigtail chest tube at the right lung base. This is not appear appreciably changed from chest x-ray from earlier the same day. There is elevation of the right hemidiaphragm and right pleural effusion. There is atelectasis or consolidation in the right lower lung. Left pigtail chest tube projects over the left upper lung. Small left apical pneumothorax seen earlier today is not appreciated. The left lung is clear. There is no left pleural effusion. There are bilateral rib fractures of varying ages. XR/XR chest 1V IMPRESSION: No change from earlier exam. Stable position of bilateral chest tubes.
--- NOTE | ~2021-04-11 | XR_ITS ---
EXAMINATION: XR CHEST CLINICAL INFORMATION: Right-sided pleural effusion. COMPARISON: 04/18/[address] and portable chest. TECHNIQUE: Frontal view of the chest was obtained. FINDINGS: There is persistent mild bibasilar opacification and superjacent linear opacities. The upper lung canseco are clear. There is no definitive pneumothorax. Bilateral left superior and right inferior rib fractures are again noted. XR/XR chest 1V IMPRESSION: Small bilateral pleural effusions and superjacent atelectasis without significant interval change.
--- NOTE | ~2021-04-11 | XR_ITS ---
EXAMINATION: XR CHEST CLINICAL INFORMATION: Status post pigtail catheter COMPARISON: 04/17/2021 TECHNIQUE: Frontal view of the chest was obtained. FINDINGS: Low lung volumes. Bibasilar streaky airspace opacities, likely subsegmental atelectasis. Trace bilateral pleural effusions. No pneumothorax. Normal heart size and pulmonary vascularity. XR/XR chest 1V IMPRESSION: Stable exam demonstrating low lung volumes, bibasilar subsegmental atelectasis and trace bilateral pleural effusions
--- NOTE | ~2021-04-11 | XR_ITS ---
EXAMINATION: XR CHEST CLINICAL INFORMATION: Chest tube placement. Respiratory distress. COMPARISON: None TECHNIQUE: Frontal view of the chest was obtained. FINDINGS: Again visualized is a pigtail at the right lung base with moderate opacity in the right lower lobe the left lung is expanded with minimal blunting of left CP angle. Heart size and pulmonary vascularity is normal. No gross bony abnormality. XR/XR chest 1V IMPRESSION: Position of pigtail catheter along the right lung base with the moderate opacity right lung base and elevated right hemidiaphragm, stable compared to earlier exam at 6:08:AM
--- NOTE | ~2021-04-11 | XR_ITS ---
EXAMINATION: XR CHEST CLINICAL INFORMATION: Status post chest tube placement. COMPARISON: Chest radiograph dated from 04/11/2021. TECHNIQUE: AP view of the chest was obtained. FINDINGS: Unchanged appearance of the cardiomediastinal silhouette. Interval placement of a left chest tube projecting over the medial aspect of the left lower lobe. The left pneumothorax is decreased in size. Stable right greater than left pleural effusions and bibasilar opacities. Redemonstration of multiple left-sided rib fractures with subcutaneous emphysema predominantly in the left chest wall. XR/XR chest 1V IMPRESSION: Decreased left pneumothorax following placement of a chest tube. Otherwise, stable study.
--- NOTE | ~2021-04-11 | XR_ITS ---
EXAMINATION: XR CHEST CLINICAL INFORMATION: SOB. COMPARISON: None TECHNIQUE: Frontal view of the chest was obtained. FINDINGS: The lungs are hypoexpanded with small to moderate pneumothorax approximately 20% of left lung volume.. There is no midline shift. The right lung is hypoexpanded with atelectatic changes in the right lung base. Heart size and the great vessels are normal caliber. There are fractures involving left third and fourth lateral ribs with extensive subcutaneous emphysema extending to the superior neck. No other bony abnormality seen. XR/XR chest 1V IMPRESSION: Slight increased left pneumothorax. Now approximately 20% of left lung volume. There are left third and fourth rib fractures visualized. Bilateral subcutaneous emphysema is present and unchanged.
--- NOTE | ~2021-04-11 | XR_ITS ---
EXAMINATION: XR CHEST CLINICAL INFORMATION: Chest tube. Pneumothorax. COMPARISON: 04/11/2021 TECHNIQUE: AP portable upright view of the chest was obtained. FINDINGS: Left-sided pigtail catheter remains in place. Lung volumes are low. No definite pneumothorax seen at this time. Persistent hazy opacity of the left base. No pleural effusion. Subcutaneous emphysema along the left chest wall most prominently. XR/XR chest 1V IMPRESSION: Left-sided pigtail catheter remains in place with no definite pneumothorax seen. Lung volumes are low.
--- NOTE | ~2021-04-11 | XR_ITS ---
EXAMINATION: XR CHEST CLINICAL INFORMATION: Pain COMPARISON: Earlier same date TECHNIQUE: Frontal view of the chest was obtained. FINDINGS: Low lung volumes. Left pleural catheter is been removed. Right pleural catheter remains. Bibasilar subsegmental atelectasis. Small bilateral pleural effusions suspected. Trace left apical pneumothorax is stable. Normal heart size and pulmonary vascularity. No acute or suspicious osseous abnormalities. XR/XR chest 1V IMPRESSION: * Left pleural catheter is been removed. Trace left apical pneumothorax, stable from the prior chest x-ray performed at 12:30 PM same date, but decrease in size from chest x-ray performed at 5:55 AM same date. * Small bilateral pleural effusions with accompanying atelectasis, stable from prior.
--- NOTE | ~2021-04-11 | XR_ITS ---
EXAMINATION: XR CHEST CLINICAL INFORMATION: Right pleural effusion COMPARISON: Previous chest x-rays most recent from yesterday TECHNIQUE: Frontal view of the chest was obtained. FINDINGS: The cardiac and mediastinal contours are stable. Pigtail catheter at the right lung base is unchanged in position. There is still elevation of the right hemidiaphragm. There is interval decrease in the right pleural effusion. There is no pneumothorax. There is atelectasis at the right lung base. The left lung is clear. There are bilateral rib fractures of varying ages. XR/XR chest 1V IMPRESSION: Stable position of right pigtail chest tube. Stable elevation of the right hemidiaphragm. There will decrease in the right pleural effusion.
--- NOTE | 2021-04-11 16:13 | ED_ITS ---
HPI - SOB/Dyspnea General Chief Complaint: Dyspnea Stated Complaint: diff breathing Time Seen by Provider: 04/11/21 16:08 Source: patient and EMS Mode of arrival: EMS Limitations: no limitations History of Present Illness HPI Narrative: 56-year-old male presents via EMS for shortness of breath. Patient presented to the ED on 04/04/2021 for a fall with multiple rib fractures and left-sided pneumothorax requiring chest tube placement. MD elicited complaint: shortness of breath Pertinent past history: other (Pneumothorax) Onset (ago): day(s) (1) Timing: constant Severity: severe Relieving factors: nothing Associated symptoms: denies other symptoms Treatment prior to arrival: oxygen and other (Solu-Medrol) Related Data Home oxygen amount: none Home Medications Medication Instructions Recorded Confirmed atenolol 50 mg tablet 1 tab PO DAILY 04/04/21 04/04/21 citalopram 40 mg tablet 1 tab PO DAILY 04/04/21 04/04/21 lisinopril 40 mg tablet 1 tab PO DAILY 04/04/21 04/04/21 Previous Rx's Medication Instructions Recorded albuterol sulfate 90 mcg/actuation 2 puff INHALATION Q6H PRN #8.5 g 04/10/21 aerosol inhaler (Ventolin HFA) oxycodone 10 mg tablet 10 mg PO Q6H PRN #20 tab 04/10/21 prednisone 10 mg tablet See Rx Instructions .ROUTE 04/10/21 .COMPLEX #45 tab Allergies Allergy/AdvReac Type Severity Reaction Status Date / Time Penicillins Allergy Unknown Verified 04/11/21 16:08 Review of Systems Review of Systems: Constitutional: No Fever, No Chills, positive diaphoresis ENT/Mouth: No sore throat, No Rhinorrhea, No Swallowing Difficulty Eyes: No Eye Pain, No Swelling, No Redness Cardiovascular: Positive chest wall Pain, positive SOB, No Orthopnea, positive subcutaneous emphysema Respiratory: No Cough, No Sputum, No Wheezing, positive dyspnea Gastrointestinal: No Nausea, No Vomiting, No Diarrhea, No abdominal Pain, No Hematochezia, No Melena Genitourinary: No Dysuria, No Urinary Frequency, No Hematuria Musculoskeletal: No joint pain, No Myalgias Skin: No Skin Lesions, No rash Neuro: No Weakness, No Numbness, No Dizziness, No Headache Psych: No Anxiety/Panic, No Depression Heme/Lymph: No Bruising, No Lymphadenopathy Endocrine: No Polyuria, No Polydipsia Yes all other systems are reviewed and are negative [facility], LAT[facility] Past Medical History Attestation statement: The following information was validated with the patient. Source: old records reviewed Medical History Alcohol dependence Bilateral pneumothoraces (~04/2021) Multiple fractures of ribs of left side (~04/2021) Personal history of nicotine dependence Surgical History H/O rhinoplasty History of chest tube placement (~04/2021) Family History Family History Father No problems noted. Mother No problems noted. Social History Social History Household Members: Family Housing: House Alcohol intake: current Alcohol intake frequency: 3 or more drinks per day Patient Tobacco Use Status: Current everyday Tobacco user Tobacco use type: Cigarette Advance Directives: No Advance Directives Information Provided: No service: No Physical Exam Vital Signs: Vital Signs: Last Vital Signs Temp 97.8 F 04/11/21 16:08 Pulse 82 04/11/21 19:14 Resp 22 H 04/11/21 19:14 BP 123/80 04/11/21 19:14 Pulse Ox 98 04/11/21 19:14 Body Mass Index 27.3 Appearance: Alert. Oriented X3. Moderate respiratory distress. Eyes: Pupils equal, round and reactive to light. Sclera nonicteric. ENT: Pharynx normal. Dry mucous membranes. Neck: Normal inspection. Neck supple. CVS: Tachycardic heart rate and rhythm. Pulses normal. Respiratory: Moderate respiratory distress. Diminished lung sounds at the bases. Tachypneic at 44 respirations per minute. Abdomen: Soft and nontender. Crepitus noted to the abdomen, chest wall, neck, and left upper extremity to the biceps. Skin: Skin warm and diaphoretic. Pale skin color. Normal skin turgor. Extremities: No lower extremity edema. Moves all extremities against resistance. Gait not assessed for safety. Neuro: No motor deficit. No sensory deficit. Cranial nerves 2-12 intact. Course Course Course Narrative: 56-year-old male presents with shortness of breath, had chest tube placed to the right chest wall on 04/09/2021, stated that when he woke up this morning he had some increased shortness of breath. Unable to catch his breath throughout the day, presented to the emergency department via EMS with crepitus noted to the chest wall, neck, to the abdomen, and left upper extremity . Decreased lung sounds to the bilateral lower lobes. 4:[address] Feliciano and Dr Solares reviewed x-ray. Text out to thoracic. 4:22 p.m. thoracic unable to consult. Discussion with Dr. Solares, patient can be managed at this facility. Will plan on ICU admission. 5:32 p.m. chest tube in place to the left 2nd intercostal space to the midclavicular line. Placed by Dr. Feliciano, Dr Solares at bedside. Patient will be admitted to ICU. MDM - SOB/Dyspnea MDM Narrative Medical decision making narrative: Pneumothorax, hemothorax Differential Diagnosis Differential diagnosis: Likely pleural effusion Medical Records Attestation: I reviewed the patient's medical records. Lab Data Attestation: I reviewed the patient's lab results. Result diagrams: 04/11/21 16:20 04/11/21 16:20 Labs: Lab Results 04/11/21 04/11/21 04/11/21 Range/Units 16:20 16:20 17:54 WBC 14.2 H (4.8-10.8) X10*3/uL RBC 3.84 L (4.60-5.80) X10*6/uL Hgb 14.1 (14.0-18.0) g/dl Hct 40.6 L (42-52) % MCV 105.7 H (80-98) fL MCH 36.7 H (27.0-33.0) pg MCHC 34.7 (31.0-36.0) g/dl RDW 12.2 (11.0-16.0) % Plt Count 304 D (160-400) X10*3/uL MPV 8.7 L (9.4-12.4) fL Immature Gran % (Auto) 0.7 H (0.0-0.4) % Neut % (Auto) 77.5 H (45-73) % Lymph % (Auto) 7.2 L (20-40) % [place] % (Auto) 10.8 (2-11) % Eos % (Auto) 3.5 (0-4) % Baso % (Auto) 0.3 (0-2) % Lymph # (Auto) 1.0 L (1.2-4.9) X10*3/uL [place] # (Auto) 1.5 H (0.1-1.2) X10*3/uL Eos # (Auto) 0.5 H (0.0-0.4) X10*3/uL Baso # (Auto) 0.0 (0.0-0.2) X10*3/uL Abs Immat Gran (auto) 0.10 H (0.00-0.03) X10*3/uL Absolute Neuts (auto) 11.0 H (2.0-8.3) X10*3/uL Absolute Nucleated RBC 0.000 (0.0-0.012) X10*3/uL Nucleated RBC % (auto) 0.0 (0.0-0.2) /100WBC Smear Tech's Comments VERIFIED PT 12.7 (9.9-13.0) SEC INR 1.1 (0.9-1.1) Sodium 132 L (135-145) mmol/L Potassium 4.4 (3.3-5.1) mmol/L Chloride 99 (96-108) mmol/L Carbon Dioxide 19 L (22-29) mmol/L Anion Gap 18 (12-20) BUN 12 (9-16) mg/dL Creatinine 0.73 (0.5-1.4) mg/dL Estim Creat Clear Calc 110.6 Estimated GFR > 60 Random Glucose 99 (60-115) mg/dL Lactic Acid (0.5-2.0) mmol/L Calcium 9.0 (8.4-10.2) mg/dL Total Bilirubin 1.4 H (0.0-1.0) mg/dL AST 42 H (5-37) U/L ALT 29 (0-40) U/L Alkaline Phosphatase 110 (39-117) U/L Total Protein 5.9 L (6.5-8.0) g/dL Albumin 3.1 L (3.5-5.0) g/dL 04/11/21 Range/Units 17:54 WBC (4.8-10.8) X10*3/uL RBC (4.60-5.80) X10*6/uL Hgb (14.0-18.0) g/dl Hct (42-52) % MCV (80-98) fL MCH (27.0-33.0) pg MCHC (31.0-36.0) g/dl RDW (11.0-16.0) % Plt Count (160-400) X10*3/uL MPV (9.4-12.4) fL Immature Gran % (Auto) (0.0-0.4) % Neut % (Auto) (45-73) % Lymph % (Auto) (20-40) % [place] % (Auto) (2-11) % Eos % (Auto) (0-4) % Baso % (Auto) (0-2) % Lymph # (Auto) (1.2-4.9) X10*3/uL [place] # (Auto) (0.1-1.2) X10*3/uL Eos # (Auto) (0.0-0.4) X10*3/uL Baso # (Auto) (0.0-0.2) X10*3/uL Abs Immat Gran (auto) (0.00-0.03) X10*3/uL Absolute Neuts (auto) (2.0-8.3) X10*3/uL Absolute Nucleated RBC (0.0-0.012) X10*3/uL Nucleated RBC % (auto) (0.0-0.2) /100WBC Smear Tech's Comments PT (9.9-13.0) SEC INR (0.9-1.1) Sodium (135-145) mmol/L Potassium (3.3-5.1) mmol/L Chloride (96-108) mmol/L Carbon Dioxide (22-29) mmol/L Anion Gap (12-20) BUN (9-16) mg/dL Creatinine (0.5-1.4) mg/dL Estim Creat Clear Calc Estimated GFR Random Glucose (60-115) mg/dL Lactic Acid 1.7 (0.5-2.0) mmol/L Calcium (8.4-10.2) mg/dL Total Bilirubin (0.0-1.0) mg/dL AST (5-37) U/L ALT (0-40) U/L Alkaline Phosphatase (39-117) U/L Total Protein (6.5-8.0) g/dL Albumin (3.5-5.0) g/dL Imaging Data Chest x-ray: Attestation: I personally reviewed and interpreted this imaging study as follows: Radiologist's impression: TECHNIQUE: Frontal view of the chest was obtained. FINDINGS: The lungs are hypoexpanded with small to moderate pneumothorax approximately 20% of left lung volume.. There is no midline shift. The right lung is hypoexpanded with atelectatic changes in the right lung base. Heart size and the great vessels are normal caliber. There are fractures involving left third and fourth lateral ribs with extensive subcutaneous emphysema extending to the superior neck. No other bony abnormality seen. XR/XR chest 1V IMPRESSION: Slight increased left pneumothorax. Now approximately 20% of left lung volume. There are left third and fourth rib fractures visualized. ? Bilateral subcutaneous emphysema is present and unchanged. ? CT scan - chest: Attestation: I personally reviewed and interpreted this imaging study as follows: Radiologist's impression: EXAMINATION: CT CHEST WITHOUT CONTRAST CLINICAL INFORMATION: Low O2 sat saturation. Post chest tube. Pneumothorax.? COMPARISON: Previous chest x-rays most recent from earlier the same day and chest CT 04/04/2021? TECHNIQUE: Multidetector volumetric CT imaging of the chest was done. Axial MIP volume rendering provided. Sagittal and coronal reformatted images were obtained.? This CT examination was performed using dose optimization techniques as appropriate, variously including the following: *Automated exposure control *Adjustment of mA and/or kV according to patient size (this includes techniques or standardized protocols for targeted exams where dose is matched to indication/reason for exam; i.e. extremities or head) *Use of iterative reconstruction technique DLP: 376 ?mGy-cm FINDINGS: LUNGS: There is a [id number] left pneumothorax. This measures 3 cm at the left lung apex and left lung base. There is a atelectasis and consolidation seen in the left lower lobe. There is dependent atelectasis seen in the right lower lobe. There is a peripheral or subpleural density seen in the medial peripheral or subpleural right upper lobe. This may be related to previous chest tube tract. MEDIASTINUM: There is pneumomediastinum. There are no enlarged lymph nodes. The heart does not appear enlarged. There is no pericardial effusion. There is no pneumopericardium.? PLEURA: There is a moderate-sized right pleural effusion and a small left pleural effusion. There is no right pneumothorax. There is a small to moderate left pneumothorax and collapse of the left upper lobe measuring 3 cm at the left lung apex 2.5 cm the left heart border. No chest tube is seen. AXILLA: There is extensive chest wall subcutaneous emphysema. There is extensive bilateral chest wall emphysema. There is emphysema seen in the bilateral lower neck. This greater on the left. UPPER ABDOMEN: There is fatty infiltration of the liver.? OSSEOUS STRUCTURES: There are comminuted displaced left posterior third and fourth rib fractures. There is adjacent pleural thickening. There are? left anterior 6- 8 rib fractures that do not appear as acute. There are recent appearing right lateral seventh and eighth rib fractures.? CT/CT chest wo con IMPRESSION: [id number] left pneumothorax. No right pneumothorax. Bilateral pleural effusions, right greater than left. Extensive chest wall emphysema and pneumomediastinum. Bilateral rib fractures of varying ages. Bilateral lower lobe atelectasis/consolidation. Atelectasis or consolidation in the medial right upper lobe, question related to old chest tube tract. Repeat chest x-ray: Attestation: I personally reviewed and interpreted this imaging study as follows: Radiologist's impression: EXAMINATION: XR CHEST CLINICAL INFORMATION: Status post chest tube placement. COMPARISON: Chest radiograph dated from 04/11/2021. TECHNIQUE: AP view of the chest was obtained. FINDINGS: Unchanged appearance of the cardiomediastinal silhouette. Interval placement of a left chest tube projecting over the medial aspect of the left lower lobe. The left pneumothorax is decreased in size. Stable right greater than left pleural effusions and bibasilar opacities. Redemonstration of multiple left-sided rib fractures with subcutaneous emphysema predominantly in the left chest wall. XR/XR chest 1V IMPRESSION: Decreased left pneumothorax following placement of a chest tube. Otherwise, stable study. ? ECG Data ECG interpretation date: 04/11/21 ECG interpretation time: 18:25 Prior ECG tracings: available for review Interpretation: Vent. Rate : 083 BPM ? ? Atrial Rate : 083 BPM ?? P-R Int : 156 ms? QRS Dur : 098 ms ? ? QT Int : 382 ms ? ? ? P-R-T Axes : 012 -07 -03 degrees ?? QTc Int : 448 ms ? Normal sinus rhythm Incomplete right bundle branch block Nonspecific ST and T wave abnormality Abnormal ECG When compared with ECG of 04-APR-2021 04:51, Inverted T waves have replaced nonspecific T wave abnormality in Inferior leads Nonspecific T wave abnormality no longer evident in Lateral leads QT has shortened ? Critical Care Time Critical Care Time Critical Care Time: Yes Total Critical Care Time: 65 Attestation: I have personally provided critical care time exclusive of time spent on separately billable procedures. Time includes review of laboratory data, radiology results, discussion with consultants, and monitoring for potential decompensation. Interventions were performed as documented. Discharge Plan Discharge Clinical Impression: Bilateral pleural effusion, Pneumomediastinum, Pneumothorax, left Emphysema, traumatic, subcutaneous Qualifiers: Encounter type: subsequent encounter Qualified Code(s): T79.7XXD - Traumatic subcutaneous emphysema, subsequent encounter Patient Disposition: Admitted As Inpatient
[2021-04-11 16:29] LABS: Basophils Percent Auto 0.3 % (0-2); Eosinophils Absolute Auto 0.5 X10*3/uL (0.0-0.4); Eosinophils Percent Auto 3.5 % (0-4); Hematocrit 40.6 % (42-52); Hemoglobin 14.1 g/dl (14.0-18.0); Imm Gran Pct Auto 0.7 % (0.0-0.4); Lymphocytes Percent Auto 7.2 % (20-40); MANUAL DIFF FLAG SCAN; Mean Corpuscular HGB Conc 34.7 g/dl (31.0-36.0); Mean Corpuscular Hemoglobin 36.7 pg (27.0-33.0); Mean Corpuscular Volume 105.7 fL (80-98); Mean Platelet Volume 8.7 fL (9.4-12.4); Monocytes Absolute Auto 1.5 X10*3/uL (0.1-1.2); Monocytes Percent Auto 10.8 % (2-11); Neutrophils Percent Auto 77.5 % (45-73); Platelet Count 304 X10*3/uL (160-400); Red Blood Count 3.84 X10*6/uL (4.60-5.80); Red Cell Distribution Width 12.2 % (11.0-16.0); SCAN SMEAR FLAG 1; White Blood Count 14.2 X10*3/uL (4.8-10.8)
[2021-04-11] MEDS: Lidocaine HCl 2%/Epi 1:100,000 20 ML VIAL INFILTRATI ×2 (16:31)
[2021-04-11 16:50] LABS: SLIDE REVIEW VERIFIED
[2021-04-11] MEDS: fentaNYL citrate/PF 100 MCG/2 ML VIAL 50 MCG IVPUSH ×3 (16:50→17:15)
[2021-04-11] MEDS: Midazolam HCl/PF 2 MG/2 ML VIAL IVPUSH (16:50)
[2021-04-11 16:52] LABS: Alanine Aminotransferase 29 U/L (0-40); Albumin Level 3.1 g/dL (3.5-5.0); Alkaline Phosphatase 110 U/L (39-117); Anion Gap 18 (12-20); Aspartate Amino Transferase 42 U/L (5-37); Bilirubin Total 1.4 mg/dL (0.0-1.0); Blood Urea Nitrogen 12 mg/dL (9-16); Carbon Dioxide 19 mmol/L (22-29); Chloride 99 mmol/L (96-108); Creatinine Clr Calc Pharmacy 110.6; Estimated Glomerular Filt Rate > 60; Glucose Random 99 mg/dL (60-115); Potassium 4.4 mmol/L (3.3-5.1); Sodium 132 mmol/L (135-145); Total Protein 5.9 g/dL (6.5-8.0)
--- NOTE | 2021-04-11 17:32 | PC.NURSE ---
VERBAL ORDERS FROM MD HERNÁNDEZ DURING CHEST TUBE PLACEMENT 1650 2MG VERSED 50[facility] FENTANYL 1655 50[facility] FENTANYL 1715 [facility] FENTANYL
--- NOTE | 2021-04-11 17:48 | PM.CCHP ---
History of Present Illness Date of Service: 04/11/21 Attending physician on admission: Christiane Feliciano Chief Complaint: Increased shortness of breath PMFSH Past Medical History Medical History Alcohol dependence Bilateral pneumothoraces (~04/2021) Multiple fractures of ribs of left side (~04/2021) Personal history of nicotine dependence Family History Family History (Updated 04/04/21 @ 12:36 by Devon Huang MD) Father No problems noted. Mother No problems noted. Surgical History Surgical History H/O rhinoplasty History of chest tube placement (~04/2021) Social History Social History (Updated 04/04/21 @ 12:37 by Devon Huang MD) Household Members: Family Housing: House Alcohol intake: current Alcohol intake frequency: 3 or more drinks per day Patient Tobacco Use Status: Current everyday Tobacco user Tobacco use type: Cigarette Advance Directives: No Advance Directives Information Provided: No service: No Meds Allergies Allergy/AdvReac Type Severity Reaction Status Date / Time Penicillins Allergy Unknown Verified 04/11/21 16:08 Active Medications: Current Medications Vancomycin HCl 1,000 mg/ (Sodium Chloride) 270 mls @ 270 mls/hr IV ONCE ONE Stop: 04/11/21 18:24 Sodium Chloride (Ns) 1,000 mls @ 999 mls/hr IVCONT .Q1H1M IESHA Stop: 04/11/21 18:45 Home Medications Medication Instructions Recorded Confirmed Last Taken Type atenolol 50 mg tablet 1 tab PO DAILY 04/04/21 04/04/21 04/03/21 History citalopram 40 mg tablet 1 tab PO DAILY 04/04/21 04/04/21 04/03/21 History lisinopril 40 mg tablet 1 tab PO DAILY 04/04/21 04/04/21 04/03/21 History Physical Exam Vital Signs: Vital Signs: Last Vital Signs Temp 97.8 F 04/11/21 16:08 Pulse 100 04/11/21 16:08 Resp 34 H 04/11/21 16:08 Pulse Ox 95 04/11/21 16:08 Body Mass Index 27.3 Results Labs CBC and Chem 7: 04/11/21 16:20 04/11/21 16:20 Labs: Laboratory Results - last 24 hr 04/11/21 04/11/21 16:20 16:20 MCV 105.7 H MCH 36.7 H MCHC 34.7 RDW 12.2 Plt Count 304 D MPV 8.7 L Immature Gran % (Auto) 0.7 H Neut % (Auto) 77.5 H Lymph % (Auto) 7.2 L [place] % (Auto) 10.8 Eos % (Auto) 3.5 Baso % (Auto) 0.3 Lymph # (Auto) 1.0 L [place] # (Auto) 1.5 H Eos # (Auto) 0.5 H Baso # (Auto) 0.0 Abs Immat Gran (auto) 0.10 H Absolute Neuts (auto) 11.0 H Absolute Nucleated RBC 0.000 Nucleated RBC % (auto) 0.0 Smear Tech's Comments VERIFIED Anion Gap 18 Estim Creat Clear Calc 110.6 Estimated GFR > 60 Random Glucose 99 Calcium 9.0 Total Bilirubin 1.4 H AST 42 H ALT 29 Alkaline Phosphatase 110 Total Protein 5.9 L Albumin 3.1 L Imaging Radiologist's Impressions: Impressions Chest X-Ray 04/11/21 16:04 IMPRESSION: Slight increased left pneumothorax. Now approximately 20% of left lung volume. There are left third and fourth rib fractures visualized. Bilateral subcutaneous emphysema is present and unchanged. Chest CT 04/11/21 16:12 IMPRESSION: Oemjh-fj-mewvzaft left pneumothorax. No right pneumothorax. Bilateral pleural effusions, right greater than left. Extensive chest wall emphysema and pneumomediastinum. Bilateral rib fractures of varying ages. Bilateral lower lobe atelectasis/consolidation. Atelectasis or consolidation in the medial right upper lobe, question related to old chest tube tract.
[2021-04-11] MEDS: 0.9 % Sodium Chloride 1,000 ML 999 ML IVCONT (17:49)
--- NOTE | 2021-04-11 18:01 | ECG_ITS ---
Test Reason : DYSPNEA Blood Pressure : / mmHG Vent. Rate : 083 BPM Atrial Rate : 083 BPM P-R Int : 156 ms QRS Dur : 098 ms QT Int : 382 ms P-R-T Axes : 012 -07 -03 degrees QTc Int : 448 ms Normal sinus rhythm Incomplete right bundle branch block Nonspecific ST and T wave abnormality Anterior leads Abnormal ECG When compared with ECG of 04-APR-2021 04:51, Inverted T waves have replaced nonspecific T wave abnormality in Inferior leads Nonspecific T wave abnormality no longer evident in Lateral leads QT has shortened Referred By: Lizeth Olsen Electronically Signed By:BENJAMIN CHENEY MD
[2021-04-11 18:11] LABS: INTERNATIONAL NORM RATIO 1.1 (0.9-1.1); Prothrombin Time 12.7 SEC (9.9-13.0)
--- NOTE | 2021-04-11 18:14 | PC.NURSE ---
CALL PLACED TO ICU FOR REPORT
[2021-04-11 18:15] LABS: Lactic Acid 1.7 mmol/L (0.5-2.0)
[2021-04-11] MEDS: PHENobarbitaL sodium 130 MG/ML VIAL 328 MG IM (18:24)
[2021-04-11] MEDS: cefEPime HCl 2 GM in 0.9 % Sodium Chloride 50 ML IV (18:27)
[2021-04-11 18:41] LABS: Venous Blood Gas Refer to POC result
[2021-04-11] MEDS: vancomycin HCL 1,000 MG in 0.9 % Sodium Chloride 250 ML 270 MG IV (18:42)
[2021-04-11 18:45] LABS: VBG Base Excess -4.9 mmol/L; VBG HCO3 19 mmol/L (22-26); VBG pCO2 33 mmHg; VBG pH 7.37 (7.32-7.43); VBG pO2 47 mmHg
[2021-04-11] MEDS: Lactated Ringers 1,000 ML 100 ML IVCONT (19:05)
[2021-04-11 19:10] LABS: Troponin-I High Sensitivity < 3.5 ng/L (<3.5-35.0)
[2021-04-11 19:23] LABS: Ethanol < 10 mg/dL
[2021-04-11 19:24] LABS: Magnesium 1.8 mg/dL (1.6-2.6)
[2021-04-11] MEDS: HYDROmorphone HCl 0.5 MG/0.5 ML SYRINGE IVPUSH (19:28)
[2021-04-11] MEDS: Albuterol/Iprat 2.5/0.5MG 3 ML AMPUL.NEB INHALE (20:02)
[2021-04-11] MEDS: HYDROmorphone HCl 0.5 MG/0.5 ML SYRINGE 1 MG IVPUSH (22:14)
[2021-04-11] MEDS: PHENobarbitaL sodium 130 MG/ML VIAL 246 MG IM (22:16)
[2021-04-11] MEDS: Famotidine/PF 20 MG/2 ML VIAL IVPUSH (22:17)
[2021-04-11] MEDS: Cyclobenzaprine HCl 5 MG TABLET PO (22:17)
[2021-04-12] VITALS (29 sets, daily range): BP systolic 108–142; BP diastolic 60–97; PULSE 73–98; RESP 17–94; TEMP 36.4–37.1; O2SAT 87–99; BMI 29.5
[2021-04-12] MEDS: Albuterol/Iprat 2.5/0.5MG 3 ML AMPUL.NEB INHALE ×5 (00:31→20:16)
[2021-04-12 01:24] LABS: Influenza A PCR NEGATIVE (Negative); Influenza B PCR NEGATIVE (Negative); Resp Syncy Virus RNA Qual PCR NEGATIVE (Negative); SARS COV2 PCR INHOUSE NEGATIVE (Negative)
[2021-04-12] MEDS: PHENobarbitaL sodium 130 MG/ML VIAL 246 MG IM (01:37)
[2021-04-12] MEDS: Lactated Ringers 1,000 ML 100 ML IVCONT ×3 (04:15→23:56)
[2021-04-12] MEDS: HYDROmorphone HCl 0.5 MG/0.5 ML SYRINGE 1 MG IVPUSH ×5 (04:17→22:34)
[2021-04-12 05:00] LABS: MANUAL DIFF FLAG NO
[2021-04-12 05:06] LABS: Venous Blood Gas Refer to POC result
[2021-04-12 05:07] LABS: VBG Base Excess -0.5 mmol/L; VBG HCO3 21 mmol/L (22-26); VBG pCO2 29 mmHg; VBG pH 7.48 (7.32-7.43); VBG pO2 91 mmHg
[2021-04-12 05:08] LABS: Basophils Percent Auto 0.1 % (0-2); Hematocrit 33.5 % (42-52); Hemoglobin 11.7 g/dl (14.0-18.0); Imm Gran Abs Auto 0.13 X10*3/uL (0.00-0.03); Imm Gran Pct Auto 0.9 % (0.0-0.4); Lymphocytes Absolute Auto 0.5 X10*3/uL (1.2-4.9); Lymphocytes Percent Auto 3.5 % (20-40); Mean Corpuscular HGB Conc 34.9 g/dl (31.0-36.0); Mean Corpuscular Hemoglobin 36.9 pg (27.0-33.0); Mean Corpuscular Volume 105.7 fL (80-98); Mean Platelet Volume 8.7 fL (9.4-12.4); Monocytes Absolute Auto 1.3 X10*3/uL (0.1-1.2); Monocytes Percent Auto 8.5 % (2-11); Neutrophils Absolute Auto 12.8 X10*3/uL (2.0-8.3); Platelet Count 258 X10*3/uL (160-400); Red Blood Count 3.17 X10*6/uL (4.60-5.80); Red Cell Distribution Width 12.2 % (11.0-16.0); White Blood Count 14.8 X10*3/uL (4.8-10.8)
[2021-04-12 05:13] LABS: Ammonia 24 umol/L (13-55)
[2021-04-12 05:19] LABS: Alanine Aminotransferase 22 U/L (0-40); Albumin Level 2.7 g/dL (3.5-5.0); Alkaline Phosphatase 89 U/L (39-117); Anion Gap 15 (12-20); Aspartate Amino Transferase 26 U/L (5-37); Bilirubin Total 0.9 mg/dL (0.0-1.0); Blood Urea Nitrogen 10 mg/dL (9-16); Calcium 8.1 mg/dL (8.4-10.2); Carbon Dioxide 20 mmol/L (22-29); Chloride 99 mmol/L (96-108); Creatinine Clr Calc Pharmacy 115.3; Estimated Glomerular Filt Rate > 60; Glucose Random 137 mg/dL (60-115); Phosphorus 4.1 mg/dL (2.7-4.5); Potassium 4.2 mmol/L (3.3-5.1); Sodium 130 mmol/L (135-145); Total Protein 4.9 g/dL (6.5-8.0)
[2021-04-12] MEDS: PHENobarbitaL 15 MG TABLET 45 MG PO ×2 (08:53→20:00)
[2021-04-12] MEDS: Famotidine/PF 20 MG/2 ML VIAL IVPUSH ×2 (08:53→20:01)
[2021-04-12] MEDS: Folic Acid 1 MG TABLET PO (11:29)
[2021-04-12] MEDS: Thiamine HCL 100 MG TABLET PO (11:29)
[2021-04-12] MEDS: Acetylcysteine 10 % 400 MG/4 ML VIAL INHALE (12:04)
--- NOTE | 2021-04-12 14:46 | W.PM.CCHP ---
Procedures Date of Service Date of Service: 04/12/21 Chest Tube Chest Tube 2: Chest tube location: Posterior Chest Size of tube: 14 Chest tube procedure: Yes betadine prep Tube sutured to skin: Yes Sterile dressing applied: Yes Anesthesia: 1% Lidocaine Incision made with: #11 blade Post procedure: sutured to skin and sterile dressing applied Parker of air heard: No Tube Drainage: fluid Amount of initial drainage (ml): 500
--- NOTE | 2021-04-12 14:48 | PM.CCPN ---
Subjective Subjective Date of Service: 04/12/21 Interval History: 56-year-old male who has a chronic alcoholic and his last drink is now over 30-36 hours ago and he is still oriented able to answer questions appropriately but every once in awhile talks and a little funny tangent almost in self sensing something hallucinatory but he had also did receive for pain some Dilaudid and he has also been getting and initial load of phenobarb So basically doing well he still has this significant atelectasis at least of the entire right lower lobe and what looks like a loculated moderate maybe 1 L size effusion at best dose and not familiar with the nature of the of the effusion yet the abdomen looked relatively benign outside of the fairly replaced looking liver not know if it cirrhotic or or fatty replacement Bedside echo shows normal LV and RV function with no primary valve or pericardial disease Still remains mildly hyponatremic otherwise benign pattern Critical Care Time (minutes): 60 Physical Exam Vital Signs: Vital Signs: Last Vital Signs Temp 98.3 F 04/12/21 09:00 Pulse 91 04/12/21 13:00 Resp 22 H 04/12/21 13:00 BP 108/60 04/12/21 13:00 Pulse Ox 91 L 04/12/21 13:00 Oxygen Flow Rate 100 04/11/21 17:49 Body Mass Index 29.5 Still awake alert but having some some periods where he he even believes he is hallucinating but again this could be Dilaudid currently appropriate Cardiac exam is normal by bedside echo Chest fully re-expanded no residual pneumothorax on the left on the right side moderate maybe 1 L loculated pleural effusion and right lower lobe atelectasis Skin intact Abdomen soft nontender no distinct hepatosplenomegaly Objective Data Labs CBC & Chem 7: 04/12/21 04:55 04/12/21 04:55 Labs: Laboratory Results - last 24 hr 04/11/21 04/11/21 04/11/21 16:20 16:20 17:54 WBC 14.2 H RBC 3.84 L Hgb 14.1 Hct 40.6 L MCV 105.7 H MCH 36.7 H MCHC 34.7 RDW 12.2 Plt Count 304 D MPV 8.7 L Immature Gran % (Auto) 0.7 H Neut % (Auto) 77.5 H Lymph % (Auto) 7.2 L [place] % (Auto) 10.8 Eos % (Auto) 3.5 Baso % (Auto) 0.3 Lymph # (Auto) 1.0 L [place] # (Auto) 1.5 H Eos # (Auto) 0.5 H Baso # (Auto) 0.0 Abs Immat Gran (auto) 0.10 H Absolute Neuts (auto) 11.0 H Absolute Nucleated RBC 0.000 Nucleated RBC % (auto) 0.0 Smear Tech's Comments VERIFIED PT 12.7 INR 1.1 VBG pH VBG pCO2 VBG pO2 VBG HCO3 VBG O2 Saturation VBG Base Excess Sodium 132 L Potassium 4.4 Chloride 99 Carbon Dioxide 19 L Anion Gap 18 BUN 12 Creatinine 0.73 Estim Creat Clear Calc 110.6 Estimated GFR > 60 Random Glucose 99 Lactic Acid Calcium 9.0 Phosphorus Magnesium Total Bilirubin 1.4 H AST 42 H ALT 29 Alkaline Phosphatase 110 Ammonia Troponin I High Sens Total Protein 5.9 L Albumin 3.1 L Ethyl Alcohol Coronavirus (PCR) Influenza Type A (PCR) Influenza Type B (PCR) RSV RNA Qual (PCR) 04/11/21 04/11/21 04/11/21 17:54 18:35 18:35 WBC RBC Hgb Hct MCV MCH MCHC RDW Plt Count MPV Immature Gran % (Auto) Neut % (Auto) Lymph % (Auto) [place] % (Auto) Eos % (Auto) Baso % (Auto) Lymph # (Auto) [place] # (Auto) Eos # (Auto) Baso # (Auto) Abs Immat Gran (auto) Absolute Neuts (auto) Absolute Nucleated RBC Nucleated RBC % (auto) Smear Tech's Comments PT INR VBG pH VBG pCO2 VBG pO2 VBG HCO3 VBG O2 Saturation VBG Base Excess Sodium Potassium Chloride Carbon Dioxide Anion Gap BUN Creatinine Estim Creat Clear Calc Estimated GFR Random Glucose Lactic Acid 1.7 Calcium Phosphorus Magnesium Total Bilirubin AST ALT Alkaline Phosphatase Ammonia Troponin I High Sens < 3.5 Total Protein Albumin Ethyl Alcohol < 10 Coronavirus (PCR) Influenza Type A (PCR) Influenza Type B (PCR) RSV RNA Qual (PCR) 04/11/21 04/11/21 04/12/21 18:35 18:39 00:21 WBC RBC Hgb Hct MCV MCH MCHC RDW Plt Count MPV Immature Gran % (Auto) Neut % (Auto) Lymph % (Auto) [place] % (Auto) Eos % (Auto) Baso % (Auto) Lymph # (Auto) [place] # (Auto) Eos # (Auto) Baso # (Auto) Abs Immat Gran (auto) Absolute Neuts (auto) Absolute Nucleated RBC Nucleated RBC % (auto) Smear Tech's Comments PT INR VBG pH 7.37 VBG pCO2 33 VBG pO2 47 VBG HCO3 19 L VBG O2 Saturation 72.0 VBG Base Excess -4.9 Sodium Potassium Chloride Carbon Dioxide Anion Gap BUN Creatinine Estim Creat Clear Calc Estimated GFR Random Glucose Lactic Acid Calcium Phosphorus Magnesium 1.8 Total Bilirubin AST ALT Alkaline Phosphatase Ammonia Troponin I High Sens Total Protein Albumin Ethyl Alcohol Coronavirus (PCR) NEGATIVE Influenza Type A (PCR) NEGATIVE Influenza Type B (PCR) NEGATIVE RSV RNA Qual (PCR) NEGATIVE 04/12/21 04/12/21 04/12/21 04:55 04:55 04:55 WBC 14.8 H RBC 3.17 L Hgb 11.7 L Hct 33.5 L MCV 105.7 H MCH 36.9 H MCHC 34.9 RDW 12.2 Plt Count 258 MPV 8.7 L Immature Gran % (Auto) 0.9 H Neut % (Auto) 87.0 H Lymph % (Auto) 3.5 L [place] % (Auto) 8.5 Eos % (Auto) 0.0 Baso % (Auto) 0.1 Lymph # (Auto) 0.5 L [place] # (Auto) 1.3 H Eos # (Auto) 0.0 Baso # (Auto) 0.0 Abs Immat Gran (auto) 0.13 H Absolute Neuts (auto) 12.8 H Absolute Nucleated RBC 0.000 Nucleated RBC % (auto) 0.0 Smear Tech's Comments PT INR VBG pH VBG pCO2 VBG pO2 VBG HCO3 VBG O2 Saturation VBG Base Excess Sodium 130 L Potassium 4.2 Chloride 99 Carbon Dioxide 20 L Anion Gap 15 BUN 10 Creatinine 0.70 Estim Creat Clear Calc 115.3 Estimated GFR > 60 Random Glucose 137 H D Lactic Acid Calcium 8.1 L D Phosphorus 4.1 Magnesium Total Bilirubin 0.9 AST 26 ALT 22 Alkaline Phosphatase 89 Ammonia 24 Troponin I High Sens Total Protein 4.9 L Albumin 2.7 L Ethyl Alcohol Coronavirus (PCR) Influenza Type A (PCR) Influenza Type B (PCR) RSV RNA Qual (PCR) 04/12/21 04:58 WBC RBC Hgb Hct MCV MCH MCHC RDW Plt Count MPV Immature Gran % (Auto) Neut % (Auto) Lymph % (Auto) [place] % (Auto) Eos % (Auto) Baso % (Auto) Lymph # (Auto) [place] # (Auto) Eos # (Auto) Baso # (Auto) Abs Immat Gran (auto) Absolute Neuts (auto) Absolute Nucleated RBC Nucleated RBC % (auto) Smear Tech's Comments PT INR VBG pH 7.48 H VBG pCO2 29 VBG pO2 91 VBG HCO3 21 L VBG O2 Saturation 97.0 VBG Base Excess -0.5 Sodium Potassium Chloride Carbon Dioxide Anion Gap BUN Creatinine Estim Creat Clear Calc Estimated GFR Random Glucose Lactic Acid Calcium Phosphorus Magnesium Total Bilirubin AST ALT Alkaline Phosphatase Ammonia Troponin I High Sens Total Protein Albumin Ethyl Alcohol Coronavirus (PCR) Influenza Type A (PCR) Influenza Type B (PCR) RSV RNA Qual (PCR) Quality Stroke Does the patient have a stroke diagnosis?: No VTE Prior VTE?: No VTE Risk Level:: Medical - moderate - high VTE Device Contraindication: N/A - Device Ordered VTE Drug Contraindication: Treatment Not Tolerated Progress Note: A&P Assessment and plan (1) Hypertension: Status: Acute (2) Bilateral pleural effusion: Status: Acute (3) Pneumomediastinum: Status: Acute (4) Pneumothorax, left: Status: Acute (5) Emphysema, traumatic, subcutaneous: Status: Acute (6) Alcohol dependence: Status: Acute (7) Personal history of nicotine dependence: Status: Acute (8) Multiple fractures of ribs of left side: Status: Acute (9) Bilateral pneumothoraces: Status: Acute (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
--- NOTE | 2021-04-12 15:03 | MHC.CM.PN ---
pt lives c his sister in her home. he is a very recent readmit who had gone home s any services. this admission patient has a pleurex catheter and may be going home c it . if this is the case he may benefit from having vna svcs. however patient does not have a pcp making vna svcs an impossibility at this time. patient sister will transport at dc. dc plan at this time is dc home no svcs. cm to cont. to follow..
--- NOTE | 2021-04-12 16:01 | PC.NURSE ---
Around 1400 right posterior chest tube placed bedside my MD. Dry suction at -20 per MD. Draining serous fluid. Specimen set for gram stain and culture. Patient tolerate procedure well. Medicated for post procedural pain 10/10 pain with 1mg IV Dilaudid, frequency increased to Q4H prn from Q8H Prn per MD. Patient states some pain relive but appears restless. Repositioned for comfort. High fall risk precautions in place including bed alarms and telesitter camera as patient is impulsive and tries to sit on edge of bed frequently despite being asked to use call boss for assistance. Patient educated on safety precautions and verbalizes understanding but continues to be impulsive. Patient also note to have increasing CIWA scale. Patient confused and hallucinating at times requiring requiring redirection. Also unsteady during ambulation with mild tremors noted. Remains on Phenobarbital protocol. MD aware.
[2021-04-12] MEDS: Cyclobenzaprine HCl 5 MG TABLET PO (20:00)
[2021-04-13] VITALS (27 sets, daily range): BP systolic 114–153; BP diastolic 67–103; PULSE 85–104; RESP 15–37; TEMP 36.4–37.2; O2SAT 88–99
[2021-04-13] MEDS: Albuterol/Iprat 2.5/0.5MG 3 ML AMPUL.NEB INHALE ×4 (01:04→20:46)
[2021-04-13] MEDS: HYDROmorphone HCl 0.5 MG/0.5 ML SYRINGE 1 MG IVPUSH ×5 (02:33→21:32)
[2021-04-13 05:16] LABS: MANUAL DIFF FLAG NO
[2021-04-13 05:16] LABS: VBG Base Excess -0.2 mmol/L; VBG HCO3 22 mmol/L (22-26); VBG pCO2 30 mmHg; VBG pH 7.48 (7.32-7.43); VBG pO2 69 mmHg
[2021-04-13 05:24] LABS: Ammonia 28 umol/L (13-55)
[2021-04-13 05:41] LABS: Basophils Percent Auto 0.3 % (0-2); Eosinophils Absolute Auto 0.1 X10*3/uL (0.0-0.4); Hematocrit 32.6 % (42-52); Hemoglobin 11.4 g/dl (14.0-18.0); Imm Gran Abs Auto 0.34 X10*3/uL (0.00-0.03); Lymphocytes Absolute Auto 0.9 X10*3/uL (1.2-4.9); Lymphocytes Percent Auto 8.1 % (20-40); Mean Corpuscular Hemoglobin 36.9 pg (27.0-33.0); Mean Corpuscular Volume 105.5 fL (80-98); Mean Platelet Volume 8.8 fL (9.4-12.4); Monocytes Percent Auto 8.4 % (2-11); Neutrophils Absolute Auto 9.1 X10*3/uL (2.0-8.3); Neutrophils Percent Auto 79.2 % (45-73); Platelet Count 271 X10*3/uL (160-400); Red Blood Count 3.09 X10*6/uL (4.60-5.80); Red Cell Distribution Width 12.8 % (11.0-16.0); White Blood Count 11.5 X10*3/uL (4.8-10.8)
[2021-04-13 05:51] LABS: Venous Blood Gas Refer to POC result
[2021-04-13 06:12] LABS: Alanine Aminotransferase 20 U/L (0-40); Albumin Level 2.5 g/dL (3.5-5.0); Alkaline Phosphatase 94 U/L (39-117); Anion Gap 15 (12-20); Aspartate Amino Transferase 40 U/L (5-37); Bilirubin Total 0.9 mg/dL (0.0-1.0); Blood Urea Nitrogen 5 mg/dL (9-16); Calcium 7.8 mg/dL (8.4-10.2); Carbon Dioxide 21 mmol/L (22-29); Chloride 97 mmol/L (96-108); Creatinine Clr Calc Pharmacy 145.2; Estimated Glomerular Filt Rate > 60; Glucose Random 67 mg/dL (60-115); Magnesium 1.8 mg/dL (1.6-2.6); Phosphorus 3.8 mg/dL (2.7-4.5); Potassium 3.4 mmol/L (3.3-5.1); Sodium 130 mmol/L (135-145); Total Protein 4.7 g/dL (6.5-8.0)
[2021-04-13] MEDS: Potassium Chloride Packet 20 MEQ PACKET PO (07:32)
[2021-04-13] MEDS: PHENobarbitaL 15 MG TABLET 45 MG PO ×2 (07:32→20:07)
[2021-04-13] MEDS: Thiamine HCL 100 MG TABLET PO (07:32)
[2021-04-13] MEDS: Folic Acid 1 MG TABLET PO (07:32)
[2021-04-13] MEDS: Famotidine/PF 20 MG/2 ML VIAL IVPUSH ×2 (07:33→20:06)
[2021-04-13] MEDS: Acetylcysteine 10 % 400 MG/4 ML VIAL INHALE (08:24)
--- NOTE | 2021-04-13 09:24 | MHC.CM.PN ---
patient's sister requested my presence in the icu to talk about pt's etoh addiction and detox. pt lives c his sister in her house. she tells me patient has been drinking since he was 16 y/o, he has no job, been through two marriages and is extremely disruptive to her life and her family . she says that he is killing himself c this drinking and his life has been spiraling out of control for yrs. he has said he will never go to detox voluntarily, that is why now she is strongly considering a section 35. i discussed some of the process c her and the steps, she is going to talk c her other brother, who is a managed services sales consultant, about it to gain support. she will let angelito , surinder and /or [email or web address]. in the icu know the plan c regard to sect. 35 by wednesday or wednesday of this week. cm to cont. to follow.
[2021-04-13] MEDS: Lactated Ringers 1,000 ML 100 ML IVCONT ×2 (10:11→19:57)
[2021-04-13] MEDS: Lidocaine HCl 4 % MPF 5 ML AMPUL 3 ML INHALE (12:24)
--- NOTE | 2021-04-13 12:30 | P.CONPL_ITS ---
History of Present Illness History of Present Illness Consult date: 04/13/21 Chief complaint: Shortness of breath/hypoxia/25% left pneumothorax Narrative: THis is a inpt pulmonary consultation. The patient is a 56 y/o man with a known h/o ETOH dependence s/p fall c/b rib fractures. Initially presented with a right sided pneumothorax and treated with a c hest tube and thoracic surgery. The chest tube was successfully removed and the patient was discharged. The patient then presents with worsening SOB. Came back to the ER and found to have a new Left sided PTX and right sided loculated effusion. He his s/p pig tail to the left and the right. The fluid from the right had +4polys and appx 700ml removed. Unfortunately, the right hemithorax is worsening ?pneumomia ?atelectasis. Will plan for bronchoscopy. Review of Systems Constitutional: Constitutional: Denies night sweats ENT: Denies change in voice, Denies lip swelling, Denies mouth pain, Reports nasal congestion, Reports nasal discharge and Denies tongue swelling Cardiovascular: Cardiovascular: Reports chest pain Respiratory: Respiratory: Reports cough, Denies hemoptysis, Reports pain on inspiration and Reports pain with cough Gastrointestinal: Gastrointestinal: Denies abdominal pain Musculoskeletal: Musculoskeletal: Denies no additional musculoskeletal complaints Neurologic: Denies Neuro-related abnormal movements Psychiatric: Psychiatric: Denies no additional psychiatric complaints Hematologic/Lymphatic: Hematologic/Lymphatic: Denies easy bleeding and Denies lymphadenopathy Allergic/Immunologic: Allergic/Immunologic: Denies lip swelling and Denies tongue swelling PMFSH Past Medical History Medical History (Updated 04/13/21 @ 12:38 by Schuyler Shea MD) Alcohol dependence Atelectasis Bilateral pneumothoraces (~04/2021) Empyema lung Hypertension Multiple fractures of ribs of left side (~04/2021) Personal history of nicotine dependence Family History Family History Father No problems noted. Mother No problems noted. Surgical History Surgical History H/O rhinoplasty History of chest tube placement (~04/2021) Social History Social History Household Members: Other Household Members Other:: sister Housing: House Do you presently have visiting nurse or other home services: No Alcohol intake: current Alcohol intake frequency: 3 or more drinks per day Patient Tobacco Use Status: Current everyday Tobacco user Tobacco use type: Cigarette Use of substances other than those prescribed or required for medical reasons: No Currently Displaying Signs/Symptoms of Drug Intoxication Withdrawal: No Have you been hit, kicked, punched, or otherwise hurt by someone within the past year? If so, by whom?: No Do you feel safe in your current relationship?: Yes Is there a partner from a previous relationship who is making you feel unsafe now?: No Are you made to feel afraid or neglected: No Advance Directives: No Advance Directives Information Provided: No Advance Directives on File: No Do you have thoughts of harming others: None Do you have a plan to hurt others: No Plan Recently lost weight without trying: No Nutrition Risks: No Nutritional Risk Poor oral hygiene: No service: No Current occupational status: unemployed Meds Allergies Allergy/AdvReac Type Severity Reaction Status Date / Time Penicillins Allergy Unknown Verified 04/11/21 16:08 Active Medications: Current Medications Albuterol/Ipratropium (Albuterol/Iprat 2.5/0.5mg 3 Ml Ampul.Neb) 3 ml INHALE RQ4H [facility] Last Admin: 04/13/21 12:24 Dose: 3 ml Documented by: Cyclobenzaprine HCl (Cyclobenzaprine Hcl 5 Mg Tablet) 5 mg PO BEDTIME [facility] Last Admin: 04/12/21 20:00 Dose: 5 mg Documented by: Famotidine (Famotidine/Pf 20 Mg/2 Ml Vial) 20 mg IVPUSH BID [facility] Last Admin: 04/13/21 07:33 Dose: 20 mg Documented by: Folic Acid (Folic Acid 1 Mg Tablet) 1 mg PO DAILY [facility] Last Admin: 04/13/21 07:32 Dose: 1 mg Documented by: Hydromorphone HCl (Hydromorphone Hcl 0.5 Mg/0.5 Ml Syringe) 1 mg IVPUSH Q4H PRN; Protocol PRN Reason: Pain, Severe (Pain Scale 7-10) Last Admin: 04/13/21 07:32 Dose: 1 mg Documented by: Lactated Ringer's (Lr) 1,000 mls @ 100 mls/hr IVCONT .Q10H [facility] Last Admin: 04/13/21 10:11 Dose: 100 mls/hr Documented by: Vancomycin HCl 1,250 mg/ (Sodium Chloride) 250 mls @ 166.667 mls/hr IV Q12H [facility] Medication (No Benzodiazepines) 1 each MISCELLANE DAILY [facility] Pharmacy Consult (Consult Rx Vancomycin Dosing) 1 each MISCELLANE DAILY PRN PRN Reason: Consult order Phenobarbital (Phenobarbital 15 Mg Tablet) 45 mg PO BID [facility] Stop: 04/13/21 21:01 Last Admin: 04/13/21 07:32 Dose: 45 mg Documented by: Phenobarbital (Phenobarbital 30 Mg Tablet) 30 mg PO BID [facility] Stop: 04/15/21 21:01 Phenobarbital (Phenobarbital 15 Mg Tablet) 15 mg PO DAILY [facility] Stop: 04/17/21 09:01 Thiamine HCl (Thiamine Hcl 100 Mg Tablet) 100 mg PO DAILY [facility] Last Admin: 04/13/21 07:32 Dose: 100 mg Documented by: Home Medications Medication Instructions Recorded Confirmed Last Taken Type atenolol 50 mg tablet 1 tab PO DAILY 04/04/21 04/12/21 04/10/21 History citalopram 40 mg tablet 1 tab PO DAILY 04/04/21 04/12/21 04/10/21 History lisinopril 40 mg tablet 1 tab PO DAILY 04/04/21 04/12/21 04/10/21 History Physical Exam Vital Signs: Vital Signs: Last Vital Signs Temp 98.6 F 04/13/21 12:00 Pulse 92 04/13/21 12:00 Resp 30 H 04/13/21 12:00 BP 136/90 H 04/13/21 12:00 Pulse Ox 96 04/13/21 12:00 Oxygen Flow Rate 100 04/11/21 17:49 Body Mass Index 29.5 Const: General: alert Neck: Neck: Yes normal visual inspection, Yes full ROM and Yes no lymphadenopathy Chest: Chest palpation & inspection: normal inspection of the chest Resp: Auscultation: diminished lung sounds Cardio: Rate: regular rate Rhythm: regular rhythm Heart sounds: S1 normal heart sound present and S2 normal heart sound present GI: Palpation (GI): Soft to palpation and nontender Auscultation: normal bowel sounds Skin: General skin exam: rashes and/or lesions noted Results Laboratory Findings CBC and BMP: 04/13/21 05:01 04/13/21 05:01 ABG, PT/INR, D-dimer: PT/INR, D-dimer PT 12.7 SEC (9.9-13.0) 04/11/21 17:54 INR 1.1 (0.9-1.1) 04/11/21 17:54 Abnormal lab findings: Abnormal Labs 04/11/21 04/11/21 04/11/21 16:20 16:20 18:39 WBC 14.2 H RBC 3.84 L Hgb Hct 40.6 L MCV 105.7 H MCH 36.7 H MPV 8.7 L Immature Gran % (Auto) 0.7 H Neut % (Auto) 77.5 H Lymph % (Auto) 7.2 L Lymph # (Auto) 1.0 L [place] # (Auto) 1.5 H Eos # (Auto) 0.5 H Abs Immat Gran (auto) 0.10 H Absolute Neuts (auto) 11.0 H VBG pH VBG HCO3 19 L Sodium 132 L Carbon Dioxide 19 L BUN Random Glucose Calcium Total Bilirubin 1.4 H AST 42 H Total Protein 5.9 L Albumin 3.1 L 04/12/21 04/12/21 04/12/21 04:55 04:55 04:58 WBC 14.8 H RBC 3.17 L Hgb 11.7 L Hct 33.5 L MCV 105.7 H MCH 36.9 H MPV 8.7 L Immature Gran % (Auto) 0.9 H Neut % (Auto) 87.0 H Lymph % (Auto) 3.5 L Lymph # (Auto) 0.5 L [place] # (Auto) 1.3 H Eos # (Auto) Abs Immat Gran (auto) 0.13 H Absolute Neuts (auto) 12.8 H VBG pH 7.48 H VBG HCO3 21 L Sodium 130 L Carbon Dioxide 20 L BUN Random Glucose 137 H D Calcium 8.1 L D Total Bilirubin AST Total Protein 4.9 L Albumin 2.7 L 04/13/21 04/13/21 04/13/21 05:01 05:01 05:11 WBC 11.5 H RBC 3.09 L Hgb 11.4 L Hct 32.6 L MCV 105.5 H MCH 36.9 H MPV 8.8 L Immature Gran % (Auto) 3.0 H Neut % (Auto) 79.2 H Lymph % (Auto) 8.1 L Lymph # (Auto) 0.9 L [place] # (Auto) Eos # (Auto) Abs Immat Gran (auto) 0.34 H Absolute Neuts (auto) 9.1 H VBG pH 7.48 H VBG HCO3 Sodium 130 L Carbon Dioxide 21 L BUN 5 L Random Glucose Calcium 7.8 L Total Bilirubin AST 40 H D Total Protein 4.7 L Albumin 2.5 L Microbiology: Microbiology 04/12/21 15:19 Thoracentesis Fluid Gram Stain - Final 04/12/21 15:19 Thoracentesis Fluid Anaerobic Culture - Preliminary Culture in progress. 04/12/21 15:19 Thoracentesis Fluid Body Fluid Culture - Preliminary Culture in progress. 04/11/21 17:54 Blood - Venous Blood Culture - Preliminary No growth after 24 hours. 04/11/21 17:52 Blood - Venous Blood Culture - Preliminary No growth after 24 hours. Assessment and Plan (1) Bilateral pleural effusion: Status: Acute (2) Atelectasis: Status: Acute (3) Empyema lung: Status: Acute Plan for bronchoscopy Start empiric abx send for additional pleural fluid specimens Reassess imaging after the therapeutic suctioning Procedures Date of Service Date of Service: 04/13/21
--- NOTE | 2021-04-13 12:40 | MHC.SHP ---
Pre-Procedural Eval Section A Date of Service: 04/13/21 The patient is an INPATIENT: Yes The History & Physical has been completed within 30 days and I have reviewed it.: Yes Section B Chief Complaint: Shortness of breath/hypoxia/25% left pneumothorax Allergies: Allergies Allergy/AdvReac Type Severity Reaction Status Date / Time Penicillins Allergy Unknown Verified 04/11/21 16:08 Plan I have reviewed the history and physical and performed a pertinent physical examination on my patient. No changes have occurred unless specified.
[2021-04-13] MEDS: Lidocaine HCl 2 % MPF 5 ML VIAL INFILTRATI (13:05)
--- NOTE | 2021-04-13 13:41 | PHA.PROG ---
Admission Date/Time: April 11, 2021 18:02 Indication:respiratory Weight in k.1 kg Adjusted body weight in K.28 Pine body weight in K.4 Obesity Dosing Indication % IBW: Serum Creatinine - Last 168 Hours 04/11/21 04/12/21 04/13/21 16:20 04:55 05:01 Creatinine 0.73 0.70 0.62 Estimated CrCl and GFR - Last 168 Hours 04/11/21 04/12/21 04/13/21 16:20 04:55 05:01 Estim Creat Clear Calc 110.6 115.3 145.2 Estimated GFR > 60 > 60 > 60 Vancomycin Loading Dose: N/A Current Vancomycin Dosing Regimen: 1250MG Q12H Vancomycin Monitoring using AUC goal of 400 - 600 range with trough as surrogate marker: AUC 459, TROUGH 13.5 Date and Time for next Vancomycin Level to be drawn: 04/15/21 @0100 Pharmacist Comments on Vancomycin Plan: PT received 1x vancomycin 1000mg dose in ED on 04/11. New infiltrate requiring empiric vanco starting 04/13. Vancomycin dosing will take advantage of [employer] as a clinical decision support tool that uses Bayesian modeling to calculate individual patient's pharmacokinetic parameters and forecast the patient's drug concentration time course with the target goal AUC 24 range of 400 - 600 mg/L/hr.
--- NOTE | 2021-04-13 14:17 | PM.CCPN ---
Subjective Subjective Date of Service: 04/13/21 Interval History: 56-year-old male who was a chronic alcoholic and a few weeks ago fell and had a rib fractures on the left at least ribs 3 4 and possibly even 5 and sustained a lung contusion as well as a left-sided no new a pneumothorax and had bilateral chest tubes placed came back in short of breath after 24 hours at home and had a recurrent left-sided pneumothorax about 25% chest tube was placed anteriorly with with good subjective as well as objective results no sign of a leaky even with with coughing and he is fully re-expanded on that side that day he came in there was 1 temperature spike to 106 and so the following morning on the imaging I noted that there was Demetris small volume but loculated right-sided effusion were previous chest tube had been so I placed a pigtail chest tube there fluid was clear and serous but I just sent a sample down for culture repairing Harriet growing Gram-positive cocci and loaded with polys but pH was 7.3 so he is currently on vancomycin pending the results of the culture and the looking at the complexity by ultrasound of that fluid on the right he may very well need thoracoscopy at some point that a be up to Pulmonary but I engaged pulmonary and I asked him to do a bronchoscopy which we did do and both right and left side although all was clean down to all subsegments so he has not atelectatic because of endobronchial obstruction His chest film looks like he might have both right middle as well as right lower lobe and atelectasis but certainly at least right lower and therefore this loculated effusions taking on a little bit more importance mechanically so they may have to engage thoracic surgery He remains oriented with a comfortable CIWA score on the phenobarb regimen Critical Care Time (minutes): 45 Physical Exam Vital Signs: Vital Signs: Last Vital Signs Temp 98.6 F 04/13/21 12:00 Pulse 98 04/13/21 14:00 Resp 30 H 04/13/21 14:00 BP 133/80 04/13/21 14:00 Pulse Ox 94 04/13/21 14:00 Oxygen Flow Rate 100 04/11/21 17:49 Body Mass Index 29.5 Oriented with no signs of withdrawal Cardiac with good bilateral carotid upstrokes no neck veins Chest without adventitious sounds no accessory muscle use Abdomen soft no organomegaly Skin intact Objective Data Labs CBC & Chem 7: 04/13/21 05:01 04/13/21 05:01 Labs: Laboratory Results - last 24 hr 04/13/21 04/13/21 04/13/21 05:01 05:01 05:01 WBC 11.5 H RBC 3.09 L Hgb 11.4 L Hct 32.6 L MCV 105.5 H MCH 36.9 H MCHC 35.0 RDW 12.8 Plt Count 271 MPV 8.8 L Immature Gran % (Auto) 3.0 H Neut % (Auto) 79.2 H Lymph % (Auto) 8.1 L [place] % (Auto) 8.4 Eos % (Auto) 1.0 Baso % (Auto) 0.3 Lymph # (Auto) 0.9 L [place] # (Auto) 1.0 Eos # (Auto) 0.1 Baso # (Auto) 0.0 Abs Immat Gran (auto) 0.34 H Absolute Neuts (auto) 9.1 H Absolute Nucleated RBC 0.000 Nucleated RBC % (auto) 0.0 VBG pH VBG pCO2 VBG pO2 VBG HCO3 VBG O2 Saturation VBG Base Excess Sodium 130 L Potassium 3.4 Chloride 97 Carbon Dioxide 21 L Anion Gap 15 BUN 5 L Creatinine 0.62 Estim Creat Clear Calc 145.2 Estimated GFR > 60 Random Glucose 67 D Calcium 7.8 L Phosphorus 3.8 Magnesium 1.8 Total Bilirubin 0.9 AST 40 H D ALT 20 Alkaline Phosphatase 94 Ammonia 28 Total Protein 4.7 L Albumin 2.5 L 04/13/21 05:11 WBC RBC Hgb Hct MCV MCH MCHC RDW Plt Count MPV Immature Gran % (Auto) Neut % (Auto) Lymph % (Auto) [place] % (Auto) Eos % (Auto) Baso % (Auto) Lymph # (Auto) [place] # (Auto) Eos # (Auto) Baso # (Auto) Abs Immat Gran (auto) Absolute Neuts (auto) Absolute Nucleated RBC Nucleated RBC % (auto) VBG pH 7.48 H VBG pCO2 30 VBG pO2 69 VBG HCO3 22 VBG O2 Saturation 91.0 VBG Base Excess -0.2 Sodium Potassium Chloride Carbon Dioxide Anion Gap BUN Creatinine Estim Creat Clear Calc Estimated GFR Random Glucose Calcium Phosphorus Magnesium Total Bilirubin AST ALT Alkaline Phosphatase Ammonia Total Protein Albumin Microbiology Microbiology Results: Microbiology 04/12/21 15:19 Thoracentesis Fluid Gram Stain - Final 04/12/21 15:19 Thoracentesis Fluid Anaerobic Culture - Preliminary Culture in progress. 04/12/21 15:19 Thoracentesis Fluid Body Fluid Culture - Preliminary Culture in progress. 04/11/21 17:54 Blood - Venous Blood Culture - Preliminary No growth after 24 hours. 04/11/21 17:52 Blood - Venous Blood Culture - Preliminary No growth after 24 hours. Quality Stroke Does the patient have a stroke diagnosis?: No VTE Prior VTE?: No VTE Risk Level:: Medical - moderate - high VTE Device Contraindication: N/A - Device Ordered VTE Drug Contraindication: Treatment Not Tolerated Progress Note: A&P Assessment and plan (1) Empyema lung: Status: Acute (2) Atelectasis: Status: Acute (3) Alcohol withdrawal hallucinosis: Status: Acute (4) Hypertension: Status: Acute (5) Bilateral pleural effusion: Status: Acute (6) Pneumomediastinum: Status: Acute (7) Pneumothorax, left: Status: Acute (8) Emphysema, traumatic, subcutaneous: Status: Acute (9) Alcohol dependence: Status: Acute (10) Personal history of nicotine dependence: Status: Acute (11) Multiple fractures of ribs of left side: Status: Acute (12) Bilateral pneumothoraces: Status: Acute (13) Hyponatremia: Status: Acute Assessment and Plan: Sewn going to cover with vancomycin pending the results of the culture from the right-sided pleural effusion and pulmonary will probably speak 2 engage cardiothoracic surgery and will continue to watch him on the CIWA scale and phenobarb regimen
[2021-04-13] MEDS: vancomycin HCL 1,250 MG in 0.9 % Sodium Chloride 250 ML 166.67 MG IV (15:20)
--- NOTE | 2021-04-13 19:36 | PC.NURSE ---
VSS, pt on 4L NC. A&O x4, confused at times, easily redirectable. Bronchoscopy done bedside with MD, bronchial washing obtained. Chest tubes patent. Pt to bedside commode 1 assist or urinal. SR on tele. Sister Betzy updated.
[2021-04-13] MEDS: Cyclobenzaprine HCl 5 MG TABLET PO (20:08)
[2021-04-14] VITALS (23 sets, daily range): BP systolic 121–149; BP diastolic 67–93; PULSE 86–111; RESP 19–47; TEMP 36.8–37; O2SAT 91–98; BMI 29.5
[2021-04-14] MEDS: Albuterol/Iprat 2.5/0.5MG 3 ML AMPUL.NEB INHALE ×6 (00:42→19:33)
[2021-04-14] MEDS: HYDROmorphone HCl 0.5 MG/0.5 ML SYRINGE 1 MG IVPUSH ×8 (01:51→23:55)
[2021-04-14] MEDS: vancomycin HCL 1,250 MG in 0.9 % Sodium Chloride 250 ML 166.67 MG IV ×2 (02:28→14:27)
[2021-04-14 05:32] LABS: VBG Base Excess -3.3 mmol/L; VBG HCO3 18 mmol/L (22-26); VBG pCO2 26 mmHg; VBG pH 7.46 (7.32-7.43); VBG pO2 102 mmHg
[2021-04-14 05:42] LABS: MANUAL DIFF FLAG NO
[2021-04-14 05:44] LABS: Basophils Absolute Auto 0.1 X10*3/uL (0.0-0.2); Basophils Percent Auto 0.4 % (0-2); Eosinophils Absolute Auto 0.1 X10*3/uL (0.0-0.4); Eosinophils Percent Auto 0.5 % (0-4); Hematocrit 32.7 % (42-52); Hemoglobin 11.6 g/dl (14.0-18.0); Imm Gran Abs Auto 0.63 X10*3/uL (0.00-0.03); Imm Gran Pct Auto 4.2 % (0.0-0.4); Lymphocytes Absolute Auto 0.9 X10*3/uL (1.2-4.9); Lymphocytes Percent Auto 5.6 % (20-40); Mean Corpuscular HGB Conc 35.5 g/dl (31.0-36.0); Mean Corpuscular Hemoglobin 37.3 pg (27.0-33.0); Mean Corpuscular Volume 105.1 fL (80-98); Mean Platelet Volume 8.7 fL (9.4-12.4); Monocytes Absolute Auto 1.2 X10*3/uL (0.1-1.2); Monocytes Percent Auto 7.7 % (2-11); Neutrophils Absolute Auto 12.3 X10*3/uL (2.0-8.3); Neutrophils Percent Auto 81.6 % (45-73); Platelet Count 286 X10*3/uL (160-400); Red Blood Count 3.11 X10*6/uL (4.60-5.80); Red Cell Distribution Width 13.1 % (11.0-16.0); White Blood Count 15.1 X10*3/uL (4.8-10.8)
[2021-04-14 06:03] LABS: Ammonia 28 umol/L (13-55)
[2021-04-14 06:08] LABS: Alanine Aminotransferase 23 U/L (0-40); Albumin Level 2.5 g/dL (3.5-5.0); Alkaline Phosphatase 105 U/L (39-117); Anion Gap 17 (12-20); Aspartate Amino Transferase 46 U/L (5-37); Bilirubin Total 1.2 mg/dL (0.0-1.0); Blood Urea Nitrogen 5 mg/dL (9-16); Calcium 7.7 mg/dL (8.4-10.2); Carbon Dioxide 19 mmol/L (22-29); Chloride 98 mmol/L (96-108); Creatinine Clr Calc Pharmacy 152.6; Estimated Glomerular Filt Rate > 60; Glucose Random 83 mg/dL (60-115); Magnesium 1.8 mg/dL (1.6-2.6); Phosphorus 3.1 mg/dL (2.7-4.5); Potassium 3.6 mmol/L (3.3-5.1); Sodium 130 mmol/L (135-145); Total Protein 4.7 g/dL (6.5-8.0)
[2021-04-14] MEDS: Lactated Ringers 1,000 ML 100 ML IVCONT ×2 (06:08→16:02)
[2021-04-14 06:44] LABS: Venous Blood Gas Refer to POC result
--- NOTE | 2021-04-14 07:00 | CA_ITS ---
Transthoracic Echocardiogram Limited Patient (Last, First, Middle): Jeff Andersen J Gender: Male Date of : 1965 Age: 56 Procedure Date: 04/14/2021 Procedure Type: Transthoracic Echocardiogram Limited Location: ICU Height: 172.72 cm Weight: 88. kg BSA: 2.02 m2 Heart Rate: bpm BP: 131 / 80 mmHg Pug Machine Operator: AVERY Referring MD: Erin Collins NP Certified Composites Technician: Santo Lozada MD Symptoms: Frequent pneumos, frequent collapsed lung, assess RV Study Quality: Fair ECG Rhythm: Sinus Conclusions: - 1. Normal LV systolic and diastolic function 2. Off axis RV views but with normal RV systolic function and normal RV systolic pressure Findings Left Ventricle Normal left ventricular size, thickness, and systolic function. The visually estimated ejection fraction is between 65-70%. Spectral Doppler is indicative of a normal filling pattern. Right Ventricle Normal right ventricular cavity size. There is normal right ventricular systolic function. TAPSE is 3.64 cm, within normal limits Tricuspid Valve There is trace tricuspid valve regurgitation. The right ventricular systolic pressure is normal. Prior Study Comparison No prior study available for comparison. Measurements 2D Linear Measurements IVSd: 1.22 0.6-0.9/0.6-1.0 cm LVIDd: 4.50 3.9-5.3/4.2-5.9 cm LVIDd Index: 2.23 2.4-3.2/2.2-3.1 cm/m2 LVIDs: 2.59 2.0-3.6 cm LVPWd: 1.23 0.7-1.1 cm LV Mass: 254.36 67-162/88-224 g LV Mass Index: 125.92 43-95/49-115 g/m2 Mitral Valve MV Pk E: 0.75 MV PK A: 0.63 MV Decel Time: 167.00 E/A: 1.20 E'Lateral: 7.51 E'Medial: 7.83 E/E' Med: 9.60 E/E' Lat: 10.00 PHT: 49.00 MVA PHT: 4.49 Decel Cecil: 4.50 Diastolic Function MV Pk E: 0.75 MV Pk A: 0.63 E/A: 1.20 E'Medial: 7.83 E/E' Med: 9.60 E' Laterial: 7.51 E/E' Lat: 10.00 Tricuspid Valve TR Pk Binh: 2.85 TR Pk Grad: 32.00 Updated in Other Vendor System with Status of Final Santo Lozada MD electronically signed on 04/15/2021 8:38:22 AM with status of Final
[2021-04-14] MEDS: Thiamine HCL 100 MG TABLET PO (08:57)
[2021-04-14] MEDS: Folic Acid 1 MG TABLET PO (08:57)
[2021-04-14] MEDS: PHENobarbitaL 30 MG TABLET PO (08:57)
[2021-04-14] MEDS: Famotidine/PF 20 MG/2 ML VIAL IVPUSH ×2 (08:57→19:51)
--- NOTE | 2021-04-14 14:35 | PM.CCPN ---
Subjective Subjective Date of Service: 04/14/21 Interval History: Mr. Andersen was admitted to the ICU on April 11 after placement of a left-sided chest tube in the ED for a pneumothorax. The patient is a 56-year-old male with a history of alcohol and tobacco abuse, hypertension, prior falls, and depression/anxiety. He originally presented to [facility] on April 04 following a mechanical fall while he was bringing.? All he was drinking.? He presented to the ED with pain and difficulty breathing and swelling of his neck.? Workup showed pneumomediastinum and extensive subcutaneous emphysema, with a large right pneumothorax and a small apical left pneumothorax.? He also had acute posterior left 3rd and 4th rib fractures, and older rib fractures on both the right and the left. A number 28 chest tube was placed in the right mid axillary line by the ER doc.? Follow chest x-ray showed complete resolution of the right-sided pneumothorax. ?He was admitted to the medical service, with thoracic surgery following.? The left-sided pneumothorax was treated with observation and oxygen via non-rebreather face mask. The right-sided chest tube was clamped on April 07.? Chest x-ray the next morning showed no recurrence of the pneumothorax, so the right-sided chest tube was removed at that time.? Follow-up chest x-ray the next day showed no pneumothorax on the right and a smaller apical pneumothorax on the left, with minimally blunted costophrenic angles bilat, suggesting small pleural effusions. ?The patient was discharged on April 10. HISTORY OF PRESENT ILLNESS:? The patient re-presented to the ED the following day, April 11, with worsening SOB.? Found to have a much larger left sided PTX, and larger, moderate sized right sided effusion.? A Jermain pneumothorax drainage catheter was placed in the left 2nd intercostal space/midclavicular line to drain the left-sided pneumothorax, and the patient was admitted to the ICU (no thoracic coverage was available to follow the patient on the medical service).? He was also noted to be mildly hyponatremic, and was also started on the [facility] pheonobarbital protocol for alcohol withdrawal. The next day, Apr 12, the left-sided PTX was no longer seen on CXR.? A pigtail catheter was placed posteriorly into the right thorax to drain the effusion.? 500 cc of serous-appearing fluid was obtained.? The pH was 7.3.? Gram stain showed 4+ polys with no organisms. On Apr 13, the pleural fluid culture grew out Staph aureus.? The patient was started on vancomycin.? Because of concern for a possible right sided pneumonia w empyema, the patient underwent bronchoscopy by Dr. Shea, which was negative (no evidence of pneumonia). This morning, the patient is fully awake, completely oriented and appropriate.? He?s been getting Dilaudid 1mg IV q4hr for pain, but says he still has severe left sided pleuritic pain, allan w cough or deep breathing.? He pulled 1000cc on the incentive spirometer.? HR 92, BP 136/82.? Breathing easy at rest, sat 89-91% on room air, 94-96% on 2L NC oxygen.? He?s afebrile.? 3 cm JVD at 40?.? Chest has some Velcro sounds on the left, and tubular BS on the right.? RRR, soft heart tones.? Abdomen benign.? No edema. CHEST TUBES:? Left sided pigtail has no air leak, and is draining small amounts of serous fluid.? Right-sided pigtail has drained about 50 cc of serous fluid over last 24 hours. LABORATORY DATA:? As below. IMAGING:? Chest x-ray is unchanged from yesterday, with marked elevation of the right hemidiaphragm, and appearing to show a large residual right pleural effusion. ECHOCARDIOGRAM done at the bedside by the tech:? Both right and left heart grossly normal, no significant valvular dz. IMPRESSION:? 56-year-old alcoholic presented with bilateral pneumothoraces after a fall.? Right-sided pneumothorax treated at his 1st admission earlier this month.? Re-presented on April 11 with larger left-sided pneumothorax and with larger right pleural effusion. 1. Alcoholism/alcohol withdrawal.? Treated prophylactically with [facility] phenobarbital protocol mental status now is completely normal.? I have discontinued this as the phenobarbital protocol. 2. Left-sided pneumothorax.? Appears to be fully drained.? Thoracic Surgery is now following and has seen him today. ?We have put the left-sided pneumothorax drainage catheter to water-seal this afternoon.? We?ll check a chest CT at 8am tomorrow morning to see if there is residual pneumothorax.? If not, Thoracic will pull that pigtail. 3. Right-sided pleural effusion.? The follow-up chest x-rays after insertion of the pigtail drainage catheter are confounding.? The chest x-rays suggest that the pleural effusion is larger, but not that much is draining. ?We?ll check a CT scan tomorrow morning for a definitive answer.? If there is significant residual fluid, Thoracic Surgery will address it. 4. ID:? The pleural fluid is growing Staph, sensitivity pending.? For now continue on vancomycin.? It is not at all certain that he has pneumonia.? (He?s not coughing, has no fever.) ?For now continue with just vancomycin. 5. Rib fx?s w pleuritic chest pain.? I have him on Dilaudid 1 mg q2 hour prn.? Needs to be OOB most of the day and using the IS. 6. Hyponatramia.? Have him on normal saline at 50 cc/hour. Stable for transfer to [facility]. I will sign out to the hospitalists. Time (including extended review of hospital records and all roentgenograms, hospital course summary, extended consultation and review at the bedside with thoracic Surgery, and review of echocrdiogram: ?110 min.? ([id number] [id number]) Critical Care Time (minutes): 0 Physical Exam Vital Signs: Vital Signs: Last Vital Signs Temp 98.2 F 04/14/21 12:00 Pulse 92 04/14/21 14:00 Resp 28 H 04/14/21 14:00 BP 131/80 04/14/21 14:00 Pulse Ox 91 L 04/14/21 14:00 Oxygen Flow Rate 100 04/11/21 17:49 Body Mass Index 29.5 Objective Data Labs CBC & Chem 7: 04/14/21 05:18 04/14/21 05:18 Labs: Laboratory Results - last 24 hr 04/14/21 04/14/21 04/14/21 05:18 05:18 05:18 WBC 15.1 H RBC 3.11 L Hgb 11.6 L Hct 32.7 L MCV 105.1 H MCH 37.3 H MCHC 35.5 RDW 13.1 Plt Count 286 MPV 8.7 L Immature Gran % (Auto) 4.2 H Neut % (Auto) 81.6 H Lymph % (Auto) 5.6 L Barren % (Auto) 7.7 Eos % (Auto) 0.5 Baso % (Auto) 0.4 Lymph # (Auto) 0.9 L Barren # (Auto) 1.2 Eos # (Auto) 0.1 Baso # (Auto) 0.1 Abs Immat Gran (auto) 0.63 H Absolute Neuts (auto) 12.3 H Absolute Nucleated RBC 0.000 Nucleated RBC % (auto) 0.0 VBG pH VBG pCO2 VBG pO2 VBG HCO3 VBG O2 Saturation VBG Base Excess Sodium 130 L Potassium 3.6 Chloride 98 Carbon Dioxide 19 L Anion Gap 17 BUN 5 L Creatinine 0.59 Estim Creat Clear Calc 152.6 Estimated GFR > 60 Random Glucose 83 Calcium 7.7 L Phosphorus 3.1 Magnesium 1.8 Total Bilirubin 1.2 H AST 46 H ALT 23 Alkaline Phosphatase 105 Ammonia 28 Total Protein 4.7 L Albumin 2.5 L 04/14/21 05:25 WBC RBC Hgb Hct MCV MCH MCHC RDW Plt Count MPV Immature Gran % (Auto) Neut % (Auto) Lymph % (Auto) Barren % (Auto) Eos % (Auto) Baso % (Auto) Lymph # (Auto) Barren # (Auto) Eos # (Auto) Baso # (Auto) Abs Immat Gran (auto) Absolute Neuts (auto) Absolute Nucleated RBC Nucleated RBC % (auto) VBG pH 7.46 H VBG pCO2 26 VBG pO2 102 VBG HCO3 18 L VBG O2 Saturation 98.0 VBG Base Excess -3.3 Sodium Potassium Chloride Carbon Dioxide Anion Gap BUN Creatinine Estim Creat Clear Calc Estimated GFR Random Glucose Calcium Phosphorus Magnesium Total Bilirubin AST ALT Alkaline Phosphatase Ammonia Total Protein Albumin Microbiology Microbiology Results: Microbiology 04/13/21 13:09 Bronchial Washings Gram Stain - Final 04/13/21 13:09 Bronchial Washings - Preliminary Culture in progress. 04/12/21 15:19 Thoracentesis Fluid Gram Stain - Final 04/12/21 15:19 Thoracentesis Fluid Anaerobic Culture - Preliminary Culture in progress. 04/12/21 15:19 Thoracentesis Fluid Body Fluid Culture - Preliminary Staphylococcus aureus 04/11/21 17:54 Blood - Venous Blood Culture - Preliminary No growth after 48 hours. 04/11/21 17:52 Blood - Venous Blood Culture - Preliminary No growth after 48 hours. Quality Stroke Does the patient have a stroke diagnosis?: No VTE Prior VTE?: No VTE Risk Level:: Medical - moderate - high VTE Device Contraindication: N/A - Device Ordered VTE Drug Contraindication: Treatment Not Tolerated
--- NOTE | 2021-04-14 14:39 | P.CONGS_ITS ---
History of Present Illness Consult details Consult date: 04/14/21 Narrative: Patient is a 56-year-old male with a past medical history of alcohol dependency drinks approximately 1 pt of liquor per day, current smoker 0.5 packs per day who was previously admitted to [facility] on 04/04 after a fall on previous day and sustained bilateral pneumothoraces with right side being large requiring pigtail catheter insertion and left side being small not requiring any intervention. Also left 3rd and 4th posterior commuted rib fractures and right lateral and 8th healing rib fractures. His right-sided chest tube was removed on 04/08 after resolution of his right-sided pneumothorax. Patient was left with a silk stitch in place where previous chest tube had resided which was due to be removed tomorrow on 04/15. No surgical intervention was performed for left-sided rib fractures as they too posterior. Patient was discharged home on 04/10 and returned back to emergency department complaining of increased shortness of breath. Upon arrival to ED a CT of the chest was performed and was found to have a left-sided pneumothorax which required chest tube insertion, which resulted in resolution of left-sided pneumothorax. Patient was also noted to have a moderate right-sided pleural effusion. Patient was transferred to ICU for further care and observation. On 9 patient had a 2nd pigtail catheter placed on right side by ICU overnight caregiver for his moderate right pleural effusion with preliminary cultures testing positive for Staph aureus. Patient was placed on vancomycin on 04/13 and thoracic surgery was consulted today for further management of bilateral chest tubes. Review of Systems Review of Systems: Patient states his shortness of breath has improved since left and right chest tube insertion. He denies any cough, fever, chills. He does admit to some left-sided posterior chest pain attributed to his comminuted rib fractures. Yes all other systems are reviewed and are negative PMFSH Past Medical History Medical History (Updated 04/13/21 @ 14:25 by Ana Solares MD) Alcohol dependence Atelectasis Bilateral pneumothoraces (~04/2021) Empyema lung Hypertension Multiple fractures of ribs of left side (~04/2021) Personal history of nicotine dependence Family History Family History Father No problems noted. Mother No problems noted. Surgical History Surgical History H/O rhinoplasty History of chest tube placement (~04/2021) Social History Social History Household Members: Other Household Members Other:: sister Housing: House Do you presently have visiting nurse or other home services: No Alcohol intake: current Alcohol intake frequency: 3 or more drinks per day Patient Tobacco Use Status: Current everyday Tobacco user Tobacco use type: Cigarette Use of substances other than those prescribed or required for medical reasons: No Currently Displaying Signs/Symptoms of Drug Intoxication Withdrawal: No Have you been hit, kicked, punched, or otherwise hurt by someone within the past year? If so, by whom?: No Do you feel safe in your current relationship?: Yes Is there a partner from a previous relationship who is making you feel unsafe now?: No Are you made to feel afraid or neglected: No Advance Directives: No Advance Directives Information Provided: No Advance Directives on File: No Do you have thoughts of harming others: None Do you have a plan to hurt others: No Plan Recently lost weight without trying: No Nutrition Risks: No Nutritional Risk Poor oral hygiene: No service: No Current occupational status: unemployed Meds Allergies Allergy/AdvReac Type Severity Reaction Status Date / Time Penicillins Allergy Unknown Verified 04/11/21 16:08 Active Medications: Current Medications Albuterol/Ipratropium (Albuterol/Iprat 2.5/0.5mg 3 Ml Ampul.Neb) 3 ml INHALE RQ4H [facility] Last Admin: 04/14/21 12:30 Dose: 3 ml Documented by: Cyclobenzaprine HCl (Cyclobenzaprine Hcl 5 Mg Tablet) 5 mg PO BEDTIME IESHA Last Admin: 04/13/21 20:08 Dose: 5 mg Documented by: Famotidine (Famotidine/Pf 20 Mg/2 Ml Vial) 20 mg IVPUSH BID [facility] Last Admin: 04/14/21 08:57 Dose: 20 mg Documented by: Folic Acid (Folic Acid 1 Mg Tablet) 1 mg PO DAILY [facility] Last Admin: 04/14/21 08:57 Dose: 1 mg Documented by: Hydromorphone HCl (Hydromorphone Hcl 0.5 Mg/0.5 Ml Syringe) 1 mg IVPUSH Q2H PRN; Protocol PRN Reason: Pain, Severe (Pain Scale 7-10) Last Admin: 04/14/21 14:25 Dose: 1 mg Documented by: Lactated Ringer's (Lr) 1,000 mls @ 100 mls/hr IVCONT .Q10H [facility] Last Admin: 04/14/21 06:08 Dose: 100 mls/hr Documented by: Vancomycin HCl 1,250 mg/ (Sodium Chloride) 250 mls @ 166.667 mls/hr IV Q12H [facility] Last Admin: 04/14/21 14:27 Dose: 166.67 mls/hr Documented by: Medication (No Benzodiazepines) 1 each MISCELLANE DAILY [facility] Pharmacy Consult (Consult Rx Vancomycin Dosing) 1 each MISCELLANE DAILY PRN PRN Reason: Consult order Thiamine HCl (Thiamine Hcl 100 Mg Tablet) 100 mg PO DAILY [facility] Last Admin: 04/14/21 08:57 Dose: 100 mg Documented by: Home Medications Medication Instructions Recorded Confirmed Last Taken Type atenolol 50 mg tablet 1 tab PO DAILY 04/04/21 04/12/21 04/10/21 History citalopram 40 mg tablet 1 tab PO DAILY 04/04/21 04/12/21 04/10/21 History lisinopril 40 mg tablet 1 tab PO DAILY 04/04/21 04/12/21 04/10/21 History Physical Exam Vital Signs: Vital Signs: Last Vital Signs Temp 98.2 F 04/14/21 12:00 Pulse 92 04/14/21 14:00 Resp 28 H 04/14/21 14:00 BP 131/80 04/14/21 14:00 Pulse Ox 91 L 04/14/21 14:00 Oxygen Flow Rate 100 04/11/21 17:49 Body Mass Index 29.5 Const: General: no acute distress Nutritional Appearance: overweight Orientation/consciousness: patient oriented x3 Eyes: General: appearance normal, both eyes and all related structures Conjunctivae: conjunctivae normal Sclerae: sclerae normal Neck: Other: trachea midline with no evidence of subcutaneous emphysema Chest: Other: Left-sided anterior pigtail catheter remains in place with dressing clean dry and intact. Chest tube remained on -20 low wall suction o vernight with approximately 50 cc of serosanguineous fluid output. Right-sided posterior pigtail catheter remains in place on a -20 low wall suction with approximately 50 cc of serous fluid output subcutaneous crepitus along chest wall. Previous chest tube site on right anterior chest appears to be erythematous and edematous. A silk suture remains in place Resp: Effort & Inspection: normal respiratory effort and able to speak in c omplete sentences Auscultation: clear to auscultation bilaterally Cardio: Jugular venous distension: no JVD Rate: regular rate Rhythm: regular rhythm Heart sounds: S1 normal heart sound present and S2 normal heart sound present GI: Inspection: Yes normal to inspection Palpation (GI): Soft to palpation and nontender Neuro: General: patient oriented x3 Extrem: General: Yes normal to inspection and Yes capillary refill normal Results Labs Result diagrams: 04/14/21 05:18 04/14/21 05:18 Labs: Abnormal lab results 04/14/21 04/14/21 04/14/21 Range/Units 05:18 05:18 05:25 WBC 15.1 H (4.8-10.8) X10*3/uL RBC 3.11 L (4.60-5.80) X10*6/uL Hgb 11.6 L (14.0-18.0) g/dl Hct 32.7 L (42-52) % MCV 105.1 H (80-98) fL MCH 37.3 H (27.0-33.0) pg MPV 8.7 L (9.4-12.4) fL Immature Gran % (Auto) 4.2 H (0.0-0.4) % Neut % (Auto) 81.6 H (45-73) % Lymph % (Auto) 5.6 L (20-40) % Lymph # (Auto) 0.9 L (1.2-4.9) X10*3/uL Abs Immat Gran (auto) 0.63 H (0.00-0.03) X10*3/uL Absolute Neuts (auto) 12.3 H (2.0-8.3) X10*3/uL VBG pH 7.46 H (7.32-7.43) VBG HCO3 18 L (22-26) mmol/L Sodium 130 L (135-145) mmol/L Carbon Dioxide 19 L (22-29) mmol/L BUN 5 L (9-16) mg/dL Calcium 7.7 L (8.4-10.2) mg/dL Total Bilirubin 1.2 H (0.0-1.0) mg/dL AST 46 H (5-37) U/L Total Protein 4.7 L (6.5-8.0) g/dL Albumin 2.5 L (3.5-5.0) g/dL Short CBC 04/14/21 Range/Units 05:18 WBC 15.1 H (4.8-10.8) X10*3/uL Hgb 11.6 L (14.0-18.0) g/dl Hct 32.7 L (42-52) % Plt Count 286 (160-400) X10*3/uL BMP 04/14/21 05:18 Sodium 130 L Potassium 3.6 Chloride 98 Carbon Dioxide 19 L BUN 5 L Creatinine 0.59 Calcium 7.7 L Liver Function 04/14/21 Range/Units 05:18 Total Bilirubin 1.2 H (0.0-1.0) mg/dL AST 46 H (5-37) U/L ALT 23 (0-40) U/L Alkaline Phosphatase 105 (39-117) U/L Albumin 2.5 L (3.5-5.0) g/dL All other labs normal. Imaging Chest x-ray: image reviewed CT scan - chest: image reviewed Assessment and Plan (1) Pneumothorax, left: Status: Acute (2) Multiple fractures of ribs of left side: Status: Acute (3) Bilateral pleural effusion: Status: Acute Patient is a 56-year-old male with a past medical history of alcohol dependence. Sustained a fall on April 03 and was admitted to [facility] on 04/04 for treatment of a right-sided pneumothorax and subsequently discharged. Patient returns to [facility] with worsening of left-sided pneumothorax, comminuted left-sided posterior rib fractures which were present on previous admission, and right-sided pleural effusion. Left-sided pneumothorax Left anterior pigtail remained on -20 low wall suction overnight and was placed to waterseal at approximately 4 PM this afternoon. Chest x-ray shows resolution of left-sided pneumothorax. Plan to keep chest tube on waterseal overnight with follow-up chest CT in a.m. Right-sided pleural effusion. Pleural fluid culture positive for streptococci likely a result from his right- sided chest wound from previous chest tube site. Right-sided chest tube remains on -20 low wall suction and should remain on -20 low wall suction overnight. Follow-up with chest CT in a.m. to assess for any areas of loculation. Currently on vancomycin IV. Left-sided comminuted rib fractures. No surgical intervention is justified at this time due to the posterior position of rib fractures lying close to the spine and behind left scapula. Conservative measures with adequate pain control and incentive spirometry. Procedures Date of Service Date of Service: 04/14/21
[2021-04-14] MEDS: 0.9 % Sodium Chloride 1,000 ML 50 ML IVCONT (16:56)
[2021-04-14] MEDS: Cyclobenzaprine HCl 5 MG TABLET PO (19:52)
--- NOTE | 2021-04-14 22:46 | P.BOP_ITS ---
Brief Operative Note Date of Service: 04/13/21 Pre-op diagnosis: atelectasis, pleural effusion Post-op diagnosis: same Procedure: Bronchoscopy with washings Surgeon: Schuyler Shea MD Anesthesia: local Was an [employer]ias Machine Operator used for this Procedure?: No Estimated blood loss (mL): 0 Pathology: none sent Condition: stable Disposition: no change
[2021-04-15] VITALS (12 sets, daily range): BP systolic 128–157; BP diastolic 72–96; PULSE 84–98; RESP 4–24; TEMP 36.6–37.2; O2SAT 90–95; BMI 27.3
[2021-04-15] MEDS: Albuterol/Iprat 2.5/0.5MG 3 ML AMPUL.NEB INHALE ×6 (00:03→19:37)
[2021-04-15 01:56] LABS: Vancomycin Trough 7.5 mcg/mL (10.0-20.0)
[2021-04-15] MEDS: vancomycin HCL 1,250 MG in 0.9 % Sodium Chloride 250 ML 166.67 MG IV (02:42)
[2021-04-15] MEDS: HYDROmorphone HCl 0.5 MG/0.5 ML SYRINGE 1 MG IVPUSH ×6 (02:54→20:39)
--- NOTE | 2021-04-15 03:26 | PC.NURSE ---
CARE ASSUMED 23:15...NAPPING INTERMITTANTLY...AWAKENED EASILY...ALERT..ORIENTED X3...VAGUE AT TIMES...LEFT ANTERIOR CHEST TUBE TO H20 SEAL/GRAVITY...RIGHT POSTERIOR CHEST TUBE TO -20CM DRY SUCTION...NO AIR-LEAKS...O2 3 L/M...RESPIRATIONS EASY...AC WHEN STANDS TO VOID...C/O 8/10 RIB/CHEST PAIN WITH MOVEMENT/COUGH...VANCOMYCIN TROUGH=7.5...ICU PA AWARE...NO CHANGES TO VANCOMYCIN DOSING PER PA....PRN DILAUDID FOR C/O RIB/CHEST PAIN WITH EFFECT
--- NOTE | 2021-04-15 06:23 | PC.NURSE ---
TRANSFERRED TO [facility] VIA BED
[2021-04-15] MEDS: Famotidine/PF 20 MG/2 ML VIAL IVPUSH ×2 (08:39→20:39)
[2021-04-15] MEDS: Folic Acid 1 MG TABLET PO (08:39)
[2021-04-15] MEDS: Thiamine HCL 100 MG TABLET PO (08:39)
--- NOTE | 2021-04-15 09:51 | OP_ITS ---
SURGEON: Schuyler Shea MD PREOPERATIVE DIAGNOSIS: POSTOPERATIVE DIAGNOSIS: PROCEDURE PERFORMED: Bronchoscopy with washings. ESTIMATED BLOOD LOSS: COMPLICATIONS: None. ANESTHESIA: Local. The patient was already on phenobarbital for his alcohol withdrawal and received his p.r.n. dose of Dilaudid. ASSISTANTS: None. SPECIMENS: PREOPERATIVE DIAGNOSES: Atelectasis and pleural effusion. POSTOPERATIVE DIAGNOSES: Atelectasis and pleural effusion. STATUS AT DISCHARGE: No change. Stable. DESCRIPTION OF PROCEDURE: After the patient was anesthetized with 4% lidocaine nebulized solution and viscous 2% lidocaine, the bronchoscope was navigated via the left nostril to the level of the larynx. The vocal cords moved symmetrically to the midline without any lesions or masses. After instilling additional lidocaine, the bronchoscope was then navigated past the vocal cords to the level of the trachea. Tracheal mucosa appeared normal, appeared to be slightly narrow secondary to likely his smoking, his hyperinflation of the lungs. The bronchoscope then was navigated to the entire tracheobronchial tree up to the subsegmental level. No evidence of any endobronchial lesions or masses. No bleeding noted. No obstructions. No foreign bodies noted. The airways appeared to be edematous. The bronchoscope was navigated to the right lower lobe, where bronchial washings were collected and some mucus plugs that come up yellowish in color, sent to microbiology. The bronchoscope was then removed. The total endoscopic time approximately 8 minutes. The patient tolerated the procedure well. Vital signs were stable throughout the procedure. INTERPRETATION: Diagnostic bronchoscopy with bronchial washings. MD GLORY Rios/JOE / [id number]
[2021-04-15 10:00] LABS: Anion Gap 17 (12-20); Blood Urea Nitrogen 4 mg/dL (9-16); Calcium 7.7 mg/dL (8.4-10.2); Carbon Dioxide 19 mmol/L (22-29); Chloride 99 mmol/L (96-108); Creatinine Clr Calc Pharmacy 157.9; Estimated Glomerular Filt Rate > 60; Glucose Random 74 mg/dL (60-115); Potassium 3.7 mmol/L (3.3-5.1); Sodium 131 mmol/L (135-145)
--- NOTE | 2021-04-15 11:12 | PM.IMPN ---
Progress Note: A&P (1) MSSA (methicillin susceptible Staphylococcus aureus): Status: Acute (2) Hyponatremia: Status: Acute (3) Hypertension: Status: Acute (4) Bilateral pleural effusion: Status: Acute (5) Pneumomediastinum: Status: Acute (6) Multiple fractures of ribs of left side: Status: Acute Assessment and Plan: 56-year-old man admitted to the ICU on April 11 with worsening shortness of breath found to have large left-sided pneumothorax and large moderate right-sided effusion. He had a chest tube placed and patient was admitted to ICU because there had been no thoracic surgery coverage. At the time was also noted to be hyponatremic with a history of heavy alcohol abuse. Of note he was originally admitted on April 04 following a mechanical fall after heavily drinking. At that time he presented with a pneumomediastinum with extensive subcutaneous emphysema, large right pneumothorax and small apical left pneumothorax. He had 3rd and 4th rib fractures noted as well. He had chest tube placed to the right side and subsequently was clamped and removed and patient was discharged home. MSSA- Thoracic fluid Ancef 2 g every 8 hours ID following Pneumothorax. Bilateral chest tubes Thoracic surgery following Pain management Chest CT finding loculated right pleural effusion, trace left apical pneumothorax, small left pleural effusion Right sided loculated effusion, status post bronchoscopy Effusion fluid showing MSSA Ancef 2gm Q8h started ID to follow Hyponatremia. down to 128 IV fluids Nephrology consultation recheck BMP this afternoon. Alcohol abuse care team consult encouraged alcohol cessation DVT prophylaxis with SCD boots Attending Dr. Huang Subjective Subjective Date of Service: 04/15/21 Review of Systems Follow up pneumothorax no sob some pain with inspiration Physical Exam Vital Signs: Vital Signs: Last Vital Signs Temp 98 F 04/15/21 08:00 Pulse 84 04/15/21 08:00 Resp 4 L 04/15/21 08:00 BP 138/72 04/15/21 08:00 Pulse Ox 93 04/15/21 08:00 Oxygen Flow Rate 100 04/11/21 17:49 Body Mass Index 29.5 Appearing in no acute distress lung sounds dim, bilateral Chest tube heart regular rate rhythm, clear S1, S2 positive bowel sounds, abdomen is soft, nontender neuro patient is alert x3, no focal deficits Objective Data Current Medications Albuterol/Ipratropium (Albuterol/Iprat 2.5/0.5mg 3 Ml Ampul.Neb) 3 ml INHALE RQ4H [facility] Last Admin: 04/15/21 08:00 Dose: 3 ml Documented by: Cyclobenzaprine HCl (Cyclobenzaprine Hcl 5 Mg Tablet) 5 mg PO BEDTIME [facility] Last Admin: 04/14/21 19:52 Dose: 5 mg Documented by: Diphenhydramine HCl (Diphenhydramine Hcl 50 Mg/Ml Vial) 25 mg IVPUSH Q6H PRN PRN Reason: Hives Famotidine (Famotidine/Pf 20 Mg/2 Ml Vial) 20 mg IVPUSH BID [facility] Last Admin: 04/15/21 08:39 Dose: 20 mg Documented by: Folic Acid (Folic Acid 1 Mg Tablet) 1 mg PO DAILY [facility] Last Admin: 04/15/21 08:39 Dose: 1 mg Documented by: Hydromorphone HCl (Hydromorphone Hcl 0.5 Mg/0.5 Ml Syringe) 1 mg IVPUSH Q4H PRN; Protocol PRN Reason: Pain, Severe (Pain Scale 7-10) Sodium Chloride (Ns) 1,000 mls @ 100 mls/hr IVCONT .Q10H [facility] Last Infusion: 04/15/21 08:54 Dose: 100 mls/hr Documented by: Cefazolin Sodium/Dextrose (Ancef) 2 gm in 50 mls @ 100 mls/hr IV Q8H [facility] Medication (No Benzodiazepines) 1 each MISCELLANE DAILY [facility] Oxycodone HCl (Oxycodone Hcl Immed Release 5 Mg Tablet) 10 mg PO Q4H PRN PRN Reason: Pain, Mild (Pain Scale 1-3) Pharmacy Consult (Consult Rx Vancomycin Dosing) 1 each MISCELLANE DAILY PRN PRN Reason: Consult order Thiamine HCl (Thiamine Hcl 100 Mg Tablet) 100 mg PO DAILY [facility] Last Admin: 04/15/21 08:39 Dose: 100 mg Documented by: Labs CBC & Chem 7: 04/14/21 05:18 04/15/21 14:07 Labs: Laboratory Results - last 24 hr 04/15/21 04/15/21 00:49 00:49 Anion Gap 17 Estim Creat Clear Calc 157.9 Estimated GFR > 60 Random Glucose 74 Calcium 7.7 L Vancomycin Trough 7.5 L Microbiology Microbiology Results: Microbiology 04/12/21 15:19 Thoracentesis Fluid Gram Stain - Final 04/12/21 15:19 Thoracentesis Fluid Anaerobic Culture - Preliminary Culture in progress. 04/12/21 15:19 Thoracentesis Fluid Body Fluid Culture - Final Staphylococcus aureus 04/13/21 13:09 Bronchial Washings Gram Stain - Final 04/13/21 13:09 Bronchial Washings - Preliminary Staphylococcus aureus 04/11/21 17:54 Blood - Venous Blood Culture - Preliminary No growth after 48 hours. 04/11/21 17:52 Blood - Venous Blood Culture - Preliminary No growth after 48 hours. Quality Stroke Does the patient have a stroke diagnosis?: No VTE Prior VTE?: No VTE Risk Level:: Medical - moderate - high VTE Device Contraindication: N/A - Device Ordered VTE Drug Contraindication: Treatment Not Tolerated
[2021-04-15] MEDS: 0.9 % Sodium Chloride 1,000 ML 100 ML IVCONT (11:32)
[2021-04-15] MEDS: ceFAZolin Sodium/Dextrose,Iso 2 GM/50 ML PIGGYBACK IV ×2 (11:35→17:46)
--- NOTE | 2021-04-15 12:07 | MHC.CM.PN ---
CM received a message that Patient's family (2 Sisters, one of whom is Talita/CLEOPATRA at [phone], and Brother/Melchor @ [phone]) is interested in information on a Section 35. Medical has put in an order for a Care Team consult regarding Patient's ETOH. CM spoke with trousseau consultant/Kristi, who will reach out to family and provide information about a Section 35. CM will follow.
--- NOTE | 2021-04-15 12:26 | MHC.CM.PN ---
ADDENDUM to previous CM PN- CM has left a message for Brother/Melchor AT [phone], informing him to expect a call from the adult and pediatric neurologist/Kristi.
[2021-04-15] MEDS: oxyCODONE HCl Immed Release 5 MG TABLET 10 MG PO ×3 (13:41→21:54)
[2021-04-15 15:19] LABS: Anion Gap 18 (12-20); Blood Urea Nitrogen 5 mg/dL (9-16); Calcium 7.8 mg/dL (8.4-10.2); Carbon Dioxide 16 mmol/L (22-29); Chloride 97 mmol/L (96-108); Creatinine Clr Calc Pharmacy 128.1; Estimated Glomerular Filt Rate > 60; Glucose Random 80 mg/dL (60-115); Potassium 3.3 mmol/L (3.3-5.1); Sodium 128 mmol/L (135-145)
--- NOTE | 2021-04-15 15:53 | PM.PNTS ---
Subjective Subjective Date of Service: 05/22/21 Interval history: Patient seen and examined this afternoon. No events overnight. Doing well. Denies fevers, chills, or resp distress. Bilateral chest tubes in place, left tube to waterseal, right tube to -20cm continuous LWS. using I/S. Continues to report 8/10 pain to left ribs. Physical Exam Vital Signs: Vital Signs: Last Vital Signs Temp 98.2 F 04/10/21 11:10 Pulse 76 04/10/21 11:10 Resp 18 04/10/21 11:10 BP 120/69 04/10/21 11:10 Pulse Ox 91 L 04/10/21 11:10 Body Mass Index 26.3 Const: General: cooperative, healthy appearing, comfortable and no acute distress Nutritional Appearance: well nourished Orientation/consciousness: oriented to person, oriented to place, oriented to time and patient oriented x3 Limitations: no limitations HENMT: Head: Yes normal to inspection, Yes normocephalic and Yes atraumatic Mouth: Normal oral and palatal mucosa present Eyes: Visual Canseco: normal visual canseco by confrontation Alignment and Position: alignment normal Periorbital: periorbital findings normal Conjunctivae: conjunctivae normal Sclerae: sclerae normal Pupils: Equal, round and reactive pupils present and Pupil accommodation reflex normal EOM: EOMs intact bilaterally Neck: Neck: Yes normal visual inspection, Yes full ROM, Yes no lymphadenopathy, Yes trachea midline, Yes supple, No lymphadenopathy, No tender and No tracheal deviation Lymphatic: no lymphadenopathy noted Chest: Chest palpation & inspection: normal inspection of the chest and no crepitus Resp: Other: Right chest tube to -20cm continuous LWS. Left chest tube to waterseal. No air leak noted to either atrium at rest or with cough. 700cc of yellow serous/cream colored drainage in right chest tube atrium, 790cc of serousanguinous drainage in left chest tube atrium. Chest tube flushed to maintain patency. SQ air noted to anterior chest, L>R. No extension to neck, face, or arms. Lung sounds diminished to right lung base. Right previous chest tube site appears to be reddened but blanchable. No visible drainage to chest tube site. Stay stitch in place. Effort & Inspection: normal respiratory effort, able to speak in complete sentences, normal respiratory pattern, no audible wheezes, no cough, no pursed lip breathing, no respiratory distress, no stridor, not tachypneic and no tracheal deviation Cardio: Jugular venous distension: no JVD Palpation: normal PMI Rate: regular rate Rhythm: regular rhythm Heart sounds: S1 normal heart sound present, S2 normal heart sound present, no click, no gallops, no murmurs and no rubs GI: Inspection: Yes normal to inspection Auscultation: normal bowel sounds : General: Yes no CVA tenderness Back/Spine/Pelvis: Back: no CVA tenderness Thoracic/Lumbar Spine: thoracic and lumbar spine normal to inspection Skin: General skin exam: no rashes or lesions noted and dry skin Lesions: no lesions Rashes: no rashes Neuro: General: oriented to person, oriented to place, oriented to time, patient oriented x3 and gait normal Cranial nerves: Yes Equal, round and reactive pupils present Extrem: General: Yes normal to inspection, Yes full ROM, Yes capillary refill normal, Yes no clubbing, cyanosis or edema, Yes no pedal edema and Yes normal gait Psych: Appearance: grossly normal and well kempt Mental Status: mental status grossly normal Speech and movement: Normal speech and movement present and Clear speech present Affect: normal affect Attitude: cooperative Thought process: Normal thought process present Thought content: Normal thought content present Procedures Date of Service Date of Service: 04/15/21 Progress Note: A&P Assessment and plan (1) Empyema lung: Status: Resolved Assessment and Plan: Mr. Andersen is a 56-year-old male with a past medical history of alcohol dependence.? Sustained a fall on April 03 and was admitted to [facility] on 04/04 for treatment of a right-sided pneumothorax and subsequently discharged.? Patient returns to [facility] with worsening of left-sided pneumothorax, comminuted left-sided posterior rib fractures which were present on previous admission, and right-sided pleural effusion. Left-sided pneumothorax: Left anterior pigtail to waterseal. Drained 790cc dark serousanguinous drainage. Chest x-ray yesterday shows resolution of left-sided pneumothorax. Keep to waterseal at this time Right-sided pleural effusion. Pleural fluid culture positive for streptococci likely a result from his right-sided chest wound from previous chest tube site. Right-sided chest tube remains on -20 low wall suction and should remain on -20 low wall suction. Flushed to maintain patency. No visible air leak. 700cc of serous/cream colored drainage in atrium Chest CT scan this am showed New right chest tube anterior to the atelectatic right lower lobe. Loculated right pleural effusion not appreciably changed. Stable oval-shaped density in the posterior medial right upper lobe, question related to old chest tube tract. Stable position of left chest tube. Trace left apical pneumothorax measuring 3 mm in thickness. Small stable left pleural effusion. Pneumomediastinum and subcutaneous and chest wall emphysema decreased from 04/11/2021 exam . Will plan for tPA and DNase instillation intrapleurally tomorrow Currently on vancomycin IV. Left-sided comminuted rib fractures. No surgical intervention is justified at this time due to the posterior position of rib fractures lying close to the spine and behind left scapula. Conservative measures with adequate pain control and incentive spirometry. Case discussed with Dr. Thakur. Thank you for this consult. will continue to follow along. Time Spent With Patient Time: Total time spent is greater than 50% in coordination of care (as documented) at patient's floor/unit and/or counseling patient: Time with patient: less than 15 minutes Quality Stroke Does the patient have a stroke diagnosis?: No VTE Prior VTE?: No VTE Risk Level:: Medical - moderate - high VTE Device Contraindication: N/A - Device Ordered VTE Drug Contraindication: Treatment Not Indicated
[2021-04-15] MEDS: Cyclobenzaprine HCl 5 MG TABLET PO (20:39)
[2021-04-16] VITALS (13 sets, daily range): BP systolic 120–152; BP diastolic 70–91; PULSE 89–118; RESP 16–22; TEMP 36.6–37.4; O2SAT 92–98; BMI 30.1
[2021-04-16] MEDS: Albuterol/Iprat 2.5/0.5MG 3 ML AMPUL.NEB INHALE ×5 (00:39→20:16)
[2021-04-16] MEDS: HYDROmorphone HCl 0.5 MG/0.5 ML SYRINGE 1 MG IVPUSH ×6 (00:52→20:54)
[2021-04-16] MEDS: ceFAZolin Sodium/Dextrose,Iso 2 GM/50 ML PIGGYBACK IV ×3 (00:55→17:09)
[2021-04-16] MEDS: Melatonin 3 MG TABLET 6 MG PO ×2 (01:23→21:10)
[2021-04-16] MEDS: oxyCODONE HCl Immed Release 5 MG TABLET 10 MG PO ×5 (02:04→20:07)
--- NOTE | 2021-04-16 07:10 | P.CDIC_ITS ---
CDI Concurrent Query Documentation Clarification: PHYSICIAN'S DOCUMENTATION REQUEST Date of Query: 04/16/21 0711 Patient Name: Jeff Andersen Admit Date: 04/11/21 Dear Doctor, A review of the medical record indicates additional documentation may be needed. Please review below and update the documentation accordingly. Clinical Indicators: Respiratory failure was documented on [insert date]. Risk Factors/Clinical Indicators/Treatments Dyspnea, moderate respiratory distress Respiratory rate 34 - 18 Oxygen at 4L nasal cannula Pulmonary note 04/13/21: Hypoxia If possible, please further clarify the type and acuity of respiratory failure: Type: * Respiratory failure with hypoxia * Respiratory failure with hypercapnia * Respiratory failure with hypoxia and hypercapnia * Other (please specify) * Unable to determine Acuity: * Acute * Chronic * Acute on chronic * Unable to determine Use of terms such as suspected, likely, concern for, or probable (associated with a specific diagnosis that is being evaluated, monitored, or treated as if it exists) are acceptable and can be coded in the inpatient setting, when documented at the time of discharge. Thank you, Anel Lewis RN Extension: [phone] Please use your independent medical judgment in providing your response. THIS QUERY IS PART OF THE PERMANENT MEDICAL RECORD Provider Response: Other Other Diagnosis: Acute Respiratory Failure with hypoxia
[2021-04-16 08:26] LABS: Hemoglobin 11.4 g/dl (14.0-18.0); Mean Corpuscular HGB Conc 35.6 g/dl (31.0-36.0); Mean Corpuscular Hemoglobin 37.4 pg (27.0-33.0); Mean Corpuscular Volume 104.9 fL (80-98); Mean Platelet Volume 8.6 fL (9.4-12.4); Platelet Count 335 X10*3/uL (160-400); Red Blood Count 3.05 X10*6/uL (4.60-5.80); Red Cell Distribution Width 13.1 % (11.0-16.0); White Blood Count 15.2 X10*3/uL (4.8-10.8)
[2021-04-16 08:39] LABS: Anion Gap 13 (12-20); Blood Urea Nitrogen 3 mg/dL (9-16); Calcium 7.6 mg/dL (8.4-10.2); Carbon Dioxide 20 mmol/L (22-29); Chloride 99 mmol/L (96-108); Creatinine Clr Calc Pharmacy 153.9; Estimated Glomerular Filt Rate > 60; Glucose Random 98 mg/dL (60-115); Potassium 3.3 mmol/L (3.3-5.1); Sodium 129 mmol/L (135-145)
[2021-04-16] MEDS: Thiamine HCL 100 MG TABLET PO (09:01)
[2021-04-16] MEDS: Folic Acid 1 MG TABLET PO (09:02)
[2021-04-16] MEDS: Famotidine/PF 20 MG/2 ML VIAL IVPUSH ×2 (09:02→20:55)
--- NOTE | 2021-04-16 09:16 | MHC.RECOVRN ---
Addendum entered by Kristi Lozoya 04/16/21 09:28: Meeting with pt occurred on 04/15 at 1330. Original Note: Met with pt in 467 after consult placed to CARE Team for alcohol use. Pt had recently been hospitalized (on 04/04) and discharged. During that admission, pt met with Recovery Collator and was not ready to engage with recovery supports. Upon entering pts room, pt in bed stating I said no. T/w inquired what pt was referring to, pt stated Oh, I was just having a daydream. Pt focused on pain medication regimen that is being established and began explaining to t/w the rotating medication schedule. When t/w inquired about pts alcohol use, pt states I have other things to think about right now. Pt reports drinking 1 pint daily on and off since age 13. Pt reports occasional 6 month periods of time in recovery. Pt states I never had the epiphany that they said I would when I stopped so I just started again. Pt has completed IOP, has not engaged in other AUD treatment, including ATS. Pt does not plan on abstaining at this time, however, is interested in decreasing alcohol use. Pt educated regarding medications for AUD and their ability to decrease cravings. Pt not currently interested, states I have too much going on to add something else. T/w educated pt regarding current medical issues and how they are related to alcohol use, pt states I wasn't even that drunk when I fell. Pt rapidly deflects any conversation regarding alcohol use or supports. Pt states I have all of this stuff already, I will think about it after. T/w provided pt with resources as well as t/w contact information if questions or concerns arise. Discussed with Bessie Guillen APRN.
--- NOTE | 2021-04-16 09:29 | MHC.RECOVRN ---
Spoke with pts sister, Talita, (pts HCP) on 04/15 after request from CM. Sister interested in Section 35. Educated regarding process and provided with t/w contact information if further questions arise.
--- NOTE | 2021-04-16 10:48 | P.PNNP_ITS ---
Subjective Subjective Date of Service: 04/16/21 Interval history: Seen and examined, events noted cont to drink alot of water Physical Exam Vital Signs: Vital Signs: Last Vital Signs Temp 98.3 F 04/16/21 07:32 Pulse 89 04/16/21 07:32 Resp 18 04/16/21 09:03 BP 149/89 H 04/16/21 07:32 Pulse Ox 92 04/16/21 07:32 Oxygen Flow Rate 100 04/11/21 17:49 Body Mass Index 30.1 Const: General: no acute distress and alert Nutritional Appearance: overweight Orientation/consciousness: patient oriented x3 Eyes: General: appearance normal, both eyes and all related structures Conjunctivae: conjunctivae normal Sclerae: sclerae normal Neck: Other: trachea midline with no evidence of subcutaneous emphysema Neck: Yes normal visual inspection, Yes full ROM and Yes no lymphadenopathy Chest: Other: Left-sided anterior pigtail catheter remains in place with dressing clean dry and intact. Chest tube remained on -20 low wall suction overnight with approximately 50 cc of serosanguineous fluid output. Right-sided posterior pigtail catheter remains in place on a -20 low wall suction with approximately 50 cc of serous fluid output subcutaneous crepitus along chest wall. Previous chest tube site on right anterior chest appears to be erythematous and edematous. A silk suture remains in place Chest palpation & inspection: normal inspection of the chest Resp: Effort & Inspection: normal respiratory effort and able to speak in complete sentences Auscultation: clear to auscultation bilaterally and diminished lung sounds Cardio: Jugular venous distension: no JVD Rate: regular rate Rhythm: regular rhythm Heart sounds: S1 normal heart sound present and S2 normal heart sound present GI: Inspection: Yes normal to inspection Palpation (GI): Soft to palpation and nontender Auscultation: normal bowel sounds Skin: General skin exam: rashes and/or lesions noted Neuro: General: patient oriented x3 Extrem: General: Yes normal to inspection and Yes capillary refill normal Objective Data Labs CBC & Chem 7: 04/16/21 08:12 04/16/21 08:12 Labs: Laboratory Results - last 24 hr 04/15/21 04/16/21 04/16/21 14:07 08:12 08:12 WBC 15.2 H RBC 3.05 L Hgb 11.4 L Hct 32.0 L MCV 104.9 H MCH 37.4 H MCHC 35.6 RDW 13.1 Plt Count 335 MPV 8.6 L Absolute Nucleated RBC 0.000 Nucleated RBC % (auto) 0.0 Sodium 128 L 129 L Potassium 3.3 3.3 Chloride 97 99 Carbon Dioxide 16 L 20 L Anion Gap 18 13 BUN 5 L 3 L Creatinine 0.63 0.59 Estim Creat Clear Calc 128.1 153.9 Estimated GFR > 60 > 60 Random Glucose 80 98 Calcium 7.8 L 7.6 L Microbiology Microbiology Results: Microbiology 04/13/21 13:09 Bronchial Washings Gram Stain - Final 04/13/21 13:09 Bronchial Washings - Final Staphylococcus aureus 04/12/21 15:19 Thoracentesis Fluid Gram Stain - Final 04/12/21 15:19 Thoracentesis Fluid Anaerobic Culture - Preliminary Culture in progress. 04/12/21 15:19 Thoracentesis Fluid Body Fluid Culture - Final Staphylococcus aureus 04/11/21 17:54 Blood - Venous Blood Culture - Preliminary No growth after 48 hours. 04/11/21 17:52 Blood - Venous Blood Culture - Preliminary No growth after 48 hours. Procedures Date of Service Date of Service: 04/16/21 Assessment & Plan Assessment and plan (1) MSSA (methicillin susceptible Staphylococcus aureus): Status: Acute (2) Hyponatremia: Status: Acute (3) Hypertension: Status: Acute (4) Bilateral pleural effusion: Status: Acute (5) Pneumomediastinum: Status: Acute (6) Multiple fractures of ribs of left side: Status: Acute Assessment and Plan: Euvolemic HypoNatremia: most c/w non-osm ADH release related to pain and pulm in jury and excess PO fluid intake REC: restrict po fluids to 1800 pwer 24 hrs; urine studies and TSH and cortisol level will follwow with team Time Spent With Patient Time: Total time spent is greater than 50% in coordination of care (as documented) at patient's floor/unit and/or counseling patient: Progress Note: Quality Stroke Does the patient have a stroke diagnosis?: No
--- NOTE | 2021-04-16 11:14 | CONS_ITS ---
DATE OF SERVICE: 04/15/2021 REASON FOR CONSULTATION: I was asked to see this patient to assist in evaluation and management of the patient's hyponatremia with a serum sodium of 128. HISTORY OF PRESENT ILLNESS: In summary, the patient is a 56-year-old gentleman with chronic alcohol abuse, admitted to the hospital on April 11 to the ICU with shortness of breath and found to have a large left-sided pneumothorax and moderate right-sided effusion. He had a chest tube placed. There is a mention made that he actually was in the hospital on April 04 with a fall, pneumomediastinum, and right pneumothorax at that time. He is noted to have 2 fractures in ribs 3 and 4. PAST MEDICAL HISTORY: Notable for alcohol dependence. MEDICATIONS: He is on no medications on admission. Although, there is a mention made that he had been on atenolol, , and lisinopril. It was unclear whether he was taking these. Current medications are noted in the MAR. ALLERGIES: HE HAS AN ALLERGY TO PENICILLIN. SOCIAL HISTORY: As mentioned, he is a heavy alcohol user and abuser, and he is a smoker. REVIEW OF SYSTEMS: As noted above. The patient does state that he drinks a lot of water routinely. PHYSICAL EXAMINATION: VITAL SIGNS: Blood pressure of 140/80 and heart rate in the 70s. HEENT: Head is atraumatic and normocephalic. Mucous membranes are moist. NECK: Supple. LUNGS: Breath sounds bilaterally. CARDIAC: Regular rate and rhythm. ABDOMEN: Soft. EXTREMITIES: No edema. LABORATORY DATA: Sodium 128, potassium 3.3, chloride 97, bicarb 16, BUN 5, and creatinine 0.6. No urine studies. I do not see a TSH or cortisol level. IMPRESSION: Euvolemic hyponatremia in a patient with alcohol abuse history and chest tube in. 1. Euvolemic hyponatremia. This is most likely due to combination of factors. He may have increased ADH release related to pain in combination with increased p.o. fluid intake causing the hyponatremia. He does not appear to have hypervolemic hyponatremia, which we can see sometimes in patients with liver cirrhosis. Need to rule out adrenal insufficiency and hypothyroidism as well. SUGGESTIONS: At this time include restrict his p.o. fluid intake to 1800 mL. Check urine studies, urine osms, urine sodium, and urine uric acid. We will check a.m. TSH and cortisol level. We will follow the patient with the team. MD SAMIR Paul/JOE / [phone]
--- NOTE | 2021-04-16 13:14 | PM.IMPN ---
Progress Note: A&P (1) MSSA (methicillin susceptible Staphylococcus aureus): Status: Acute (2) Hyponatremia: Status: Acute (3) Multiple fractures of ribs of left side: Status: Acute (4) Alcohol dependence: Status: Acute (5) Bilateral pneumothoraces: Status: Acute Assessment and Plan: 56-year-old man admitted to the ICU on April 11 with worsening shortness of breath found to have large left-sided pneumothorax and large moderate right-sided effusion.? He had a chest tube placed and patient was admitted to ICU because there had been no thoracic surgery coverage.? At the time was also noted to be hyponatremic with a history of heavy alcohol abuse.? Of note he was originally admitted on April 04 following a mechanical fall after heavily drinking.? At that time he presented with a pneumomediastinum with extensive subcutaneous emphysema, large right pneumothorax and small apical left pneumothorax.? He had 3rd and 4th rib fractures noted as well.? He had chest tube placed to the right side and subsequently was clamped and removed and patient was discharged home. MSSA- Thoracic fluid Ancef 2 g every 8 hours ID following Pneumothorax.? Bilateral chest tubes Left pigtail ct clamped at 0830 right pigtail cr to -20cm continuous LWS Thoracic surgery following Pain management CXR daily Right sided loculated effusion, status post bronchoscopy Effusion fluid showing MSSA Ancef 2gm Q8h Euvolemic Hyponatremia. down to 128 IV fluids stopped fluid restriction check urine studies, TSH and cortisol Nephrology following Alcohol abuse care team consult encouraged alcohol cessation DVT prophylaxis with SCD boots Attending Dr. Huang Subjective Subjective Date of Service: 04/16/21 Review of Systems Follow up pneumothorax no sob some pain with inspiration Physical Exam Vital Signs: Vital Signs: Last Vital Signs Temp 98.2 F 04/16/21 11:47 Pulse 94 04/16/21 12:10 Resp 20 04/16/21 11:47 BP 150/89 H 04/16/21 11:47 Pulse Ox 94 04/16/21 11:47 Oxygen Flow Rate 100 04/11/21 17:49 Body Mass Index 30.1 Appearing in no acute distress lung sounds are clear to auscultation/diminished, right pigatail ct draining thick yellow no air leaks noted, currently on room air heart regular rate rhythm, clear S1, S2 positive bowel sounds, abdomen is soft, nontender neuro patient is alert x3, no focal deficits Objective Data Current Medications Albuterol/Ipratropium (Albuterol/Iprat 2.5/0.5mg 3 Ml Ampul.Neb) 3 ml INHALE RQ4H [facility] Last Admin: 04/16/21 12:10 Dose: 3 ml Documented by: Cyclobenzaprine HCl (Cyclobenzaprine Hcl 5 Mg Tablet) 5 mg PO BEDTIME [facility] Last Admin: 04/15/21 20:39 Dose: 5 mg Documented by: Diphenhydramine HCl (Diphenhydramine Hcl 50 Mg/Ml Vial) 25 mg IVPUSH Q6H PRN PRN Reason: Hives Famotidine (Famotidine/Pf 20 Mg/2 Ml Vial) 20 mg IVPUSH BID [facility] Last Admin: 04/16/21 09:02 Dose: 20 mg Documented by: Folic Acid (Folic Acid 1 Mg Tablet) 1 mg PO DAILY [facility] Last Admin: 04/16/21 09:02 Dose: 1 mg Documented by: Hydromorphone HCl (Hydromorphone Hcl 0.5 Mg/0.5 Ml Syringe) 1 mg IVPUSH Q4H PRN; Protocol PRN Reason: Pain, Severe (Pain Scale 7-10) Last Admin: 04/16/21 13:07 Dose: 1 mg Documented by: Cefazolin Sodium/Dextrose (Ancef) 2 gm in 50 mls @ 100 mls/hr IV Q8H [facility] Last Infusion: 04/16/21 11:15 Dose: Infused Documented by: Dornase Bret 5 mg/ Sodium (Chloride) 30 mls @ 7.5 mls/hr INTRAPLEUR ONCE ONE Stop: 04/16/21 18:59 Medication (No Benzodiazepines) 1 each MISCELLANE DAILY [facility] Melatonin (Melatonin 3 Mg Tablet) 6 mg PO BEDTIME PRN PRN Reason: Insomnia Last Admin: 04/16/21 01:23 Dose: 6 mg Documented by: Oxycodone HCl (Oxycodone Hcl Immed Release 5 Mg Tablet) 10 mg PO Q4H PRN PRN Reason: Pain, Mild (Pain Scale 1-3) Last Admin: 04/16/21 11:14 Dose: 10 mg Documented by: Pharmacy Consult (Consult Rx Vancomycin Dosing) 1 each MISCELLANE DAILY PRN PRN Reason: Consult order Thiamine HCl (Thiamine Hcl 100 Mg Tablet) 100 mg PO DAILY [facility] Last Admin: 04/16/21 09:01 Dose: 100 mg Documented by: Labs CBC & Chem 7: 04/16/21 08:12 04/16/21 08:12 Labs: Laboratory Results - last 24 hr 04/15/21 04/16/21 04/16/21 14:07 08:12 08:12 MCV 104.9 H MCH 37.4 H MCHC 35.6 RDW 13.1 Plt Count 335 MPV 8.6 L Absolute Nucleated RBC 0.000 Nucleated RBC % (auto) 0.0 Anion Gap 18 13 Estim Creat Clear Calc 128.1 153.9 Estimated GFR > 60 > 60 Random Glucose 80 98 Calcium 7.8 L 7.6 L Microbiology Microbiology Results: Microbiology 04/12/21 15:19 Thoracentesis Fluid Gram Stain - Final 04/12/21 15:19 Thoracentesis Fluid Anaerobic Culture - Preliminary 04/12/21 15:19 Thoracentesis Fluid Body Fluid Culture - Final Staphylococcus aureus 04/13/21 13:09 Bronchial Washings Gram Stain - Final 04/13/21 13:09 Bronchial Washings - Final Staphylococcus aureus 04/11/21 17:54 Blood - Venous Blood Culture - Preliminary No growth after 48 hours. 04/11/21 17:52 Blood - Venous Blood Culture - Preliminary No growth after 48 hours. Quality Stroke Does the patient have a stroke diagnosis?: No VTE Prior VTE?: No VTE Risk Level:: Medical - moderate - high VTE Device Contraindication: N/A - Device Ordered VTE Drug Contraindication: Treatment Not Tolerated
--- NOTE | 2021-04-16 13:27 | P.PNTS_ITS ---
Subjective Subjective Date of Service: 04/18/21 Interval history: Patient seen and examined this afternoon. Appears comfortable. Denies fevers, chills, shortness of breath, or respiratory distress. Bilateral chest tubes in place. Left pigtail chest tube clamped at 0830 by nursing as instructed. Right pigtail chest tube to -20cm continuous LWS. Physical Exam Vital Signs: Vital Signs: Last Vital Signs Temp 98.2 F 04/16/21 11:47 Pulse 94 04/16/21 12:10 Resp 20 04/16/21 11:47 BP 150/89 H 04/16/21 11:47 Pulse Ox 94 04/16/21 11:47 Oxygen Flow Rate 100 04/11/21 17:49 Body Mass Index 30.1 Const: General: cooperative, healthy appearing, comfortable and no acute distress Nutritional Appearance: well nourished Orientation/consciousness: oriented to person, oriented to place, oriented to time and patient oriented x3 Limitations: no limitations HENMT: Head: Yes normal to inspection, Yes normocephalic and Yes atraumatic Mouth: Normal oral and palatal mucosa present Eyes: Visual Kauffman: normal visual kauffman by confrontation Alignment and Position: alignment normal Periorbital: periorbital findings normal Conjunctivae: conjunctivae normal Sclerae: sclerae normal Pupils: Equal, round and reactive pupils present and Pupil accommodation reflex normal EOM: EOMs intact bilaterally Neck: Neck: Yes normal visual inspection, Yes full ROM, Yes no lymphadenopathy, Yes trachea midline, Yes supple, No lymphadenopathy, No tender and No tracheal deviation Lymphatic: no lymphadenopathy noted Chest: Chest palpation & inspection: normal inspection of the chest and no crepitus Resp: Other: Right pigtail chest tube to -20cm continuous LWS. Left pigtail chest tube clamped at time of my exam. Right pigtail draining yellow thick drainage, minimal output overnight. No visible air leak. Anterior chest crepitus to left chest. No extension posteriorly or to neck. Patient is breathing without difficulty. Currently on room air. Effort & Inspection: normal respiratory effort, able to speak in complete sentences, normal respiratory pattern, no audible wheezes, no cough, no pursed lip breathing, no respiratory distress, no stridor, not tachypneic, no tracheal deviation and other (Patient speaking in full sentences on room air. Chest tube to *waterseal/tavera) Cardio: Jugular venous distension: no JVD Palpation: normal PMI Rate: regular rate Rhythm: regular rhythm Heart sounds: S1 normal heart sound present, S2 normal heart sound present, no click, no gallops, no murmurs and no rubs GI: Inspection: Yes normal to inspection Auscultation: normal bowel sounds : General: Yes no CVA tenderness Back/Spine/Pelvis: Back: no CVA tenderness Thoracic/Lumbar Spine: thoracic and lumbar spine normal to inspection Skin: General skin exam: no rashes or lesions noted and dry skin Lesions: no lesions Rashes: no rashes Neuro: General: oriented to person, oriented to place, oriented to time, patient oriented x3 and gait normal Cranial nerves: Yes Equal, round and reactive pupils present Extrem: General: Yes normal to inspection, Yes full ROM, Yes capillary refill normal, Yes no clubbing, cyanosis or edema, Yes no pedal edema and Yes normal gait Psych: Appearance: grossly normal and well kempt Mental Status: mental status grossly normal Speech and movement: Normal speech and movement present and Clear speech present Affect: normal affect Attitude: cooperative Thought process: Normal thought process present Thought content: Normal thought content present Procedures Date of Service Date of Service: 04/16/21 Progress Note: A&P Assessment and plan (1) Pneumothorax, left: Status: Acute Assessment and Plan: * (2) Empyema lung: Status: Acute Assessment and Plan: EXAMINATION: XR CHEST CLINICAL INFORMATION: Right pleural effusion. Left pneumothorax. Bilateral pigtail chest tubes. COMPARISON: Previous chest x-ray most recent from earlier the same day TECHNIQUE: Frontal view of the chest was obtained. FINDINGS: The cardiac and mediastinal contours are stable. There is a pigtail chest tube at the right lung base. This is not appear appreciably changed from chest x-ray from earlier the same day. There is elevation of the right hemidiaphragm and right pleural effusion. There is atelectasis or consolidation in the right lower lung. Left pigtail chest tube projects over the left upper lung. Small left apical pneumothorax seen earlier today is not appreciated. The left lung is clear. There is no left pleural effusion. There are bilateral rib fractures of varying ages. XR/XR chest 1V IMPRESSION: No change from earlier exam. Stable position of bilateral chest tubes. EXAMINATION: XR CHEST CLINICAL INFORMATION: Follow-up right pleural effusion and left pneumothorax COMPARISON: Previous chest CT from yesterday and chest x-ray most recent 04/14/2021 TECHNIQUE: Frontal view of the chest was obtained. FINDINGS: The cardiac and mediastinal contours are stable. Bilateral chest tubes are unchanged in position. There is elevation of the right hemidiaphragm and right pleural effusion that appears unchanged. There is atelectasis or consolidation at the right lung base as well. There is a small left apical pneumothorax. This measures 1.5 cm in greatest thickness at the lung apex. There is no significant left pleural effusion. The left lung is clear. There is mild emphysema seen in the soft tissues of the left lower neck and chest wall. There are bilateral rib fractures of varying ages. XR/XR chest 1V IMPRESSION: Stable position of bilateral chest tubes. Stable elevation of the right hemidiaphragm/right pleural effusion. Small left apical pneumothorax. ? Mr. Andersen is a 56-year-old male with a past medical history of alcohol dependence.? Sustained a fall on April 03 and was admitted to [facility] on 04/04 for treatment of a right-sided pneumothorax and subsequently discharged.? Patient returns to [facility] with worsening of left-sided pneumothorax, comminuted left-sided posterior rib fractures which were present on previous admission, and right-sided pleural effusion. Left-sided pneumothorax: * Left anterior pigtail clamped this am by nursing. * Chest x-ray this am showed small left-sided pneumothorax. Repeat CXR this afternoon showed resolution of left small apical pneumothorax following 4 hour clamping trial. * Left pigtail chest tube removed this afternoon without incident. Dry sterile occlusive dressing placed. Keep dressing in place for 48 hours. May remove and leave open to air on 04/18/21. Right-sided pleural effusion. * Pleural fluid culture positive for streptococci likely a result from his right-sided chest wound from previous chest tube site. * Right-sided chest tube remains on -20 low wall suction. Flushed to maintain patency. No visible air leak. 700cc of serous/cream colored drainage in atrium * Chest CT scan this am showed New right chest tube anterior to the atelectatic right lower lobe. Loculated right pleural effusion not appreciably changed. Stable oval-shaped density in the posterior medial right upper lobe, question related to old chest tube tract. Stable position of left chest tube. Trace left apical pneumothorax measuring 3 mm in thickness. Small stable left pleural effusion. Pneumomediastinum and subcutaneous and chest wall emphysema decreased from 04/11/2021 exam . * Patient received first dose of Alteplase * Continue with IV abx Left-sided comminuted rib fractures. * No surgical intervention is justified at this time due to the posterior position of rib fractures lying close to the spine and behind left scapula. * Conservative measures with adequate pain control and incentive spirometry. Case discussed with Dr. Thakur. Thank you for this consult. will continue to follow along. ? Fall Risk Details Current Medications: Current Medications Albuterol/Ipratropium (Albuterol/Iprat 2.5/0.5mg 3 Ml Ampul.Neb) 3 ml INHALE RQ4H [facility] Last Admin: 04/16/21 12:10 Dose: 3 ml Documented by: Cyclobenzaprine HCl (Cyclobenzaprine Hcl 5 Mg Tablet) 5 mg PO BEDTIME [facility] Last Admin: 04/15/21 20:39 Dose: 5 mg Documented by: Diphenhydramine HCl (Diphenhydramine Hcl 50 Mg/Ml Vial) 25 mg IVPUSH Q6H PRN PRN Reason: Hives Famotidine (Famotidine/Pf 20 Mg/2 Ml Vial) 20 mg IVPUSH BID [facility] Last Admin: 04/16/21 09:02 Dose: 20 mg Documented by: Folic Acid (Folic Acid 1 Mg Tablet) 1 mg PO DAILY [facility] Last Admin: 04/16/21 09:02 Dose: 1 mg Documented by: Hydromorphone HCl (Hydromorphone Hcl 0.5 Mg/0.5 Ml Syringe) 1 mg IVPUSH Q4H PRN; Protocol PRN Reason: Pain, Severe (Pain Scale 7-10) Last Admin: 04/16/21 13:07 Dose: 1 mg Documented by: Cefazolin Sodium/Dextrose (Ancef) 2 gm in 50 mls @ 100 mls/hr IV Q8H [facility] Last Infusion: 04/16/21 11:15 Dose: Infused Documented by: Dornase Bret 5 mg/ Sodium (Chloride) 30 mls @ 7.5 mls/hr INTRAPLEUR ONCE ONE Stop: 04/16/21 18:59 Medication (No Benzodiazepines) 1 each MISCELLANE DAILY [facility] Melatonin (Melatonin 3 Mg Tablet) 6 mg PO BEDTIME PRN PRN Reason: Insomnia Last Admin: 04/16/21 01:23 Dose: 6 mg Documented by: Oxycodone HCl (Oxycodone Hcl Immed Release 5 Mg Tablet) 10 mg PO Q4H PRN PRN Reason: Pain, Mild (Pain Scale 1-3) Last Admin: 04/16/21 11:14 Dose: 10 mg Documented by: Pharmacy Consult (Consult Rx Vancomycin Dosing) 1 each MISCELLANE DAILY PRN PRN Reason: Consult order Thiamine HCl (Thiamine Hcl 100 Mg Tablet) 100 mg PO DAILY [facility] Last Admin: 04/16/21 09:01 Dose: 100 mg Documented by: Time Spent With Patient Time: Total time spent is greater than 50% in coordination of care (as documented) at patient's floor/unit and/or counseling patient: Time with patient: less than 15 minutes Quality Stroke Does the patient have a stroke diagnosis?: No VTE Prior VTE?: No VTE Risk Level:: Medical - moderate - high VTE Device Contraindication: N/A - Device Ordered VTE Drug Contraindication: Treatment Not Tolerated
--- NOTE | 2021-04-16 13:33 | P.EN_ITS ---
Event Note Date of Service: 04/16/21 Event Note: THORACIC SURGERY: * Alteplase 5mg in 60mL NS instilled intrapleurally on 04/16/21 to right pigtail chest tube @ 1:20pm. * DO NOT UNCLAMP CHEST TUBE. Keep clamped. * Encourage frequent movement in bed or ambulation while medication indwells. DNase to be given at 3:20pm on 04/16/21. * Call Thoracic Surgery if patient exhibits: Shortness of breath, chest pain, or respiratory distress
--- NOTE | 2021-04-16 13:33 | PM.EVENT ---
Event Note Date of Service: 04/16/21 Event Note: THORACIC SURGERY: Alteplase 5mg in 60mL NS instilled intrapleurally on 04/16/21 to right pigtail chest tube @ 1:20pm. DO NOT UNCLAMP CHEST TUBE. Keep clamped. Encourage frequent movement in bed or ambulation while medication indwells. DNase to be given at 3:20pm on 04/16/21. Call Thoracic Surgery if patient exhibits: Shortness of breath, chest pain, or respiratory distress
[2021-04-16] MEDS: Dornase Alfa 5 MG in 0.9 % Sodium Chloride 25 ML 7.5 MG INTRAPLEUR (15:00)
--- NOTE | 2021-04-16 15:41 | P.EN_ITS ---
Event Note Date of Service: 04/16/21 Event Note: THORACIC SURGERY: * DNase 5mg in 30ML NS instilled intrapleurally to right pigtail chest tube at 3:25pm on 04/16/21. * Keep chest tube CLAMPED until 7:20pm on 04/16/21. * Unclamp chest tube (stop cock and blue clamp on tubing) at 7:20pm on 04/16/[address] -20cm continuous LWS. * CALL THORACIC IF: BENJAMIN RED BLOOD > 100cc an hour or BENJAMIN RED BLOOD 400cc in 8hr. * Call Thoracic Surgery if patient exhibits respiratory distress, shortness of breath, or chest pain. Encourage frequent movement in bed and ambulation.
--- NOTE | 2021-04-16 15:41 | PM.EVENT ---
Event Note Date of Service: 04/16/21 Event Note: THORACIC SURGERY: DNase 5mg in 30ML NS instilled intrapleurally to right pigtail chest tube at 3:25pm on 04/16/21. Keep chest tube CLAMPED until 7:20pm on 04/16/21. Unclamp chest tube (stop cock and blue clamp on tubing) at 7:20pm on 04/16/[address] -20cm continuous LWS. CALL THORACIC IF: BENJAMIN RED BLOOD > 100cc an hour or BENJAMIN RED BLOOD 400cc in 8hr. Call Thoracic Surgery if patient exhibits respiratory distress, shortness of breath, or chest pain. Encourage frequent movement in bed and ambulation.
--- NOTE | 2021-04-16 20:12 | PC.NURSE ---
chest tube unclamped at 1720. Chest tube started draining copious amount of serosanguinous drainage. at 2013 is 1380cc. Thoracic oncall notified. Instructed that this was a normal amount for not previously draining for 24hrs, and that the cathflow administered earlier was working. PT experiencing shortness of breath. O2 sat 82% RA. Put on 4L O2 sat came up to 94%. RR increased at 28-30 breaths/min. HR 110 sinus rhythm. Lung sounds dim to right lung base, otherwise lungs are clear. Dressing to insertion site clean dry and intact. No crepedus felt around insertion site. Respiratory therapist giving breathing treatment. Pt given oxycodone for 8/10 pain to right lung base. MD instructed if output reaches 1800cc+ to clamp. Will continue to closely monitor
[2021-04-16] MEDS: Cyclobenzaprine HCl 5 MG TABLET PO (20:55)
[2021-04-17] VITALS (12 sets, daily range): BP systolic 104–139; BP diastolic 70–80; PULSE 86–114; RESP 17–24; TEMP 36.6–37.4; O2SAT 92–95
[2021-04-17] MEDS: HYDROmorphone HCl 0.5 MG/0.5 ML SYRINGE 1 MG IVPUSH ×6 (01:12→23:19)
[2021-04-17] MEDS: ceFAZolin Sodium/Dextrose,Iso 2 GM/50 ML PIGGYBACK IV ×3 (01:13→18:11)
[2021-04-17] MEDS: oxyCODONE HCl Immed Release 5 MG TABLET 10 MG PO ×5 (03:46→22:01)
--- NOTE | 2021-04-17 03:59 | PC.NURSE ---
pt chest tube has not drained any fluid since 011. Pt continues to have 8/10 sharp pain in right lower lobe. GIven prn pain medications. Right lung remains dim. Chest tube dressing is cdi.
[2021-04-17] MEDS: Albuterol/Iprat 2.5/0.5MG 3 ML AMPUL.NEB INHALE ×4 (07:45→20:30)
[2021-04-17 08:05] LABS: TSH reflex Free T4 2.02 uIU/mL (0.32-4.0)
[2021-04-17] MEDS: Thiamine HCL 100 MG TABLET PO (08:42)
[2021-04-17] MEDS: Famotidine/PF 20 MG/2 ML VIAL IVPUSH (08:42)
[2021-04-17] MEDS: Folic Acid 1 MG TABLET PO (08:43)
[2021-04-17 08:51] LABS: Cortisol Random 12.1 ug/dL
--- NOTE | 2021-04-17 11:21 | P.PNIM_ITS ---
Subjective Subjective Date of Service: 04/17/21 Interval History: Seen and examined this morning Follow-up for pneumothorax/pleural effusion Left chest tube removed, Dnase given through right chest tube yesterday Pain with inspiration at right chest tube site. Shortness of breath with amb ulation Review of Systems Review of Systems: Yes all other systems are reviewed and are negative Constitutional Constitutional: Denies chills and Denies fever(s) Cardiovascular Cardiovascular: Reports chest pain (around site of chest tube) Respiratory Respiratory: Denies cough Gastrointestinal Gastrointestinal: Denies abdominal pain Physical Exam Vital Signs: Vital Signs: Last Vital Signs Temp 98.2 F 04/17/21 11:09 Pulse 99 04/17/21 11:09 Resp 17 04/17/21 11:09 BP 137/79 04/17/21 11:09 Pulse Ox 94 04/17/21 11:09 Oxygen Flow Rate 100 04/11/21 17:49 Body Mass Index 30.1 Const: General: alert and awake Nutritional Appearance: well nourished Orientation/consciousness: patient oriented x3 HENMT: Head: Yes normocephalic and Yes atraumatic Eyes: Sclerae: sclerae normal Pupils: Equal, round and reactive pupils present Chest: Other: mild crepitus left anterior chest wall; right chest tube in place Resp: Effort & Inspection: no respiratory distress Auscultation: diminished lung sounds Cardio: Rate: regular rate Rhythm: regular rhythm GI: Palpation (GI): Soft to palpation and nontender Neuro: General: patient oriented x3 Cranial nerves: Yes CN's II-XII intact bilaterally, Yes Equal, round and reactive pupils present and Yes Bilaterally intact EOM present Objective Data Active Medications Albuterol/Ipratropium (Albuterol/Iprat 2.5/0.5mg 3 Ml Ampul.Neb) 3 ml INHALE RQ4H [facility] Last Admin: 04/17/21 07:45 Dose: 3 ml Documented by: CICI Cyclobenzaprine HCl (Cyclobenzaprine Hcl 5 Mg Tablet) 5 mg PO BEDTIME [facility] Last Admin: 04/16/21 20:55 Dose: 5 mg Documented by: MARILEE Diphenhydramine HCl (Diphenhydramine Hcl 50 Mg/Ml Vial) 25 mg IVPUSH Q6H PRN PRN Reason: Hives Famotidine (Famotidine/Pf 20 Mg/2 Ml Vial) 20 mg IVPUSH BID [facility] Last Admin: 04/17/21 08:42 Dose: 20 mg Documented by: JENNIFER Folic Acid (Folic Acid 1 Mg Tablet) 1 mg PO DAILY [facility] Last Admin: 04/17/21 08:43 Dose: 1 mg Documented by: JENNIFER Hydromorphone HCl (Hydromorphone Hcl 0.5 Mg/0.5 Ml Syringe) 1 mg IVPUSH Q4H PRN; Protocol PRN Reason: Pain, Severe (Pain Scale 7-10) Last Admin: 04/17/21 10:41 Dose: 1 mg Documented by: JENNIFER Cefazolin Sodium/Dextrose (Ancef) 2 gm in 50 mls @ 100 mls/hr IV Q8H [facility] Last Infusion: 04/17/21 10:23 Dose: 0 mls/hr Documented by: JENNIFER Medication (No Benzodiazepines) 1 each MISCELLANE DAILY [facility] Melatonin (Melatonin 3 Mg Tablet) 6 mg PO BEDTIME PRN PRN Reason: Insomnia Last Admin: 04/16/21 21:10 Dose: 6 mg Documented by: MARILEE Oxycodone HCl (Oxycodone Hcl Immed Release 5 Mg Tablet) 10 mg PO Q4H PRN PRN Reason: Pain, Mild (Pain Scale 1-3) Last Admin: 04/17/21 08:41 Dose: 10 mg Documented by: JENNIFER Pharmacy Consult (Consult Rx Vancomycin Dosing) 1 each MISCELLANE DAILY PRN PRN Reason: Consult order Thiamine HCl (Thiamine Hcl 100 Mg Tablet) 100 mg PO DAILY [facility] Last Admin: 04/17/21 08:42 Dose: 100 mg Documented by: JENNIFER Labs CBC & Chem 7: 04/16/21 08:12 04/16/21 08:12 Labs: Laboratory Results - last 24 hr 04/17/21 04/17/21 06:37 06:37 TSH 2.02 Random Cortisol 12.1 Microbiology Microbiology Results: Microbiology 04/12/21 15:19 Gram Stain - Final Thoracentesis Fluid Anaerobic Culture - Final Body Fluid Culture - Final Staphylococcus aureus 04/11/21 17:54 Blood Culture - Final Blood - Venous No growth after 5 days. 04/11/21 17:52 Blood Culture - Final Blood - Venous No growth after 5 days. 04/13/21 13:09 Gram Stain - Final Bronchial Washings - Final Staphylococcus aureus Assessment and Plan (1) MSSA (methicillin susceptible Staphylococcus aureus): Status: Acute (2) Bilateral pleural effusion: Status: Acute Assessment and Plan: 56-year-old man admitted to the ICU on April 11 with worsening shortness of breath found to have large left-sided pneumothorax and large moderate right- sided effusion.? He had a chest tube placed and patient was admitted to ICU because there had been no thoracic surgery coverage.? At the time was also noted to be hyponatremic with a history of heavy alcohol abuse.? Of note he was originally admitted on April 04 following a mechanical fall after heavily drinking.? At that time he presented with a pneumomediastinum with extensive subcutaneous emphysema, large right pneumothorax and small apical left pneumothorax.? He had 3rd and 4th rib fractures noted as well.? He had chest tube placed to the right side and subsequently was clamped and removed and patient was discharged home. Right sided loculated effusion, status post bronchoscopy Effusion fluid growing MSSA Continue Ancef 2gm Q8h Pneumothorax. Left chest tube removed 04/[address], cxr stable Thoracic surgery following Pain management CXR daily Euvolemic Hyponatremia. Na 129 IV fluids stopped fluid restriction check urine studies, TSH and cortisol Nephrology following Alcohol abuse seen by care team encouraged alcohol cessation Continue thiamine, folic acid supplementation HTN BP controlled Atenolol, lisinopril has been on hold admission, if BP trends up can resume Mood citalopram has been on hold since admission, will hold for hyponatremia DVT prophylaxis with SCD boots Attending Dr. Huang Quality Stroke Does the patient have a stroke diagnosis?: No VTE Prior VTE?: No VTE Risk Level:: Medical - moderate - high VTE Device Contraindication: N/A - Device Ordered VTE Drug Contraindication: Treatment Not Tolerated
--- NOTE | 2021-04-17 13:50 | PM.PNTS ---
Subjective Subjective Date of Service: 04/18/21 Interval history: Patient seen and examined this afternoon. S/p left pigtail chest tube removal. Had 1st dose of tPA/DNase yesterday in to right pigtail chest tube. Responded well and drained 1200cc serousanguinous drainage. Physical Exam Vital Signs: Vital Signs: Last Vital Signs Temp 98.2 F 04/17/21 11:09 Pulse 94 04/17/21 11:31 Resp 17 04/17/21 11:09 BP 137/79 04/17/21 11:09 Pulse Ox 94 04/17/21 11:09 Oxygen Flow Rate 100 04/11/21 17:49 Body Mass Index 30.1 Const: General: cooperative, healthy appearing, comfortable and no acute distress Nutritional Appearance: well nourished Orientation/consciousness: oriented to person, oriented to place, oriented to time and patient oriented x3 Limitations: no limitations HENMT: Head: Yes normal to inspection, Yes normocephalic and Yes atraumatic Mouth: Normal oral and palatal mucosa present Eyes: Visual Canseco: normal visual canseco by confrontation Alignment and Position: alignment normal Periorbital: periorbital findings normal Conjunctivae: conjunctivae normal Sclerae: sclerae normal Pupils: Equal, round and reactive pupils present and Pupil accommodation reflex normal EOM: EOMs intact bilaterally Neck: Neck: Yes normal visual inspection, Yes full ROM, Yes no lymphadenopathy, Yes trachea midline, Yes supple, No lymphadenopathy, No tender and No tracheal deviation Lymphatic: no lymphadenopathy noted Chest: Chest palpation & inspection: normal inspection of the chest and no crepitus Resp: Other: Patient is speaking in full sentences. Currently on room air. Right pigtail chest tube to -20cm continuous LWS. Draining serousanguinous drainage. No air leak detected. No SQ air to chest. Left pigtail chest tube dressing is c/d/i. Effort & Inspection: normal respiratory effort, able to speak in complete sentences, normal respiratory pattern, no audible wheezes, no cough, no pursed lip breathing, no respiratory distress, no stridor, not tachypneic and no tracheal deviation Auscultation: clear to auscultation bilaterally Cardio: Jugular venous distension: no JVD Palpation: normal PMI Rate: regular rate Rhythm: regular rhythm Heart sounds: S1 normal heart sound present, S2 normal heart sound present, no click, no gallops, no murmurs and no rubs GI: Inspection: Yes normal to inspection Auscultation: normal bowel sounds : General: Yes no CVA tenderness Back/Spine/Pelvis: Back: no CVA tenderness Thoracic/Lumbar Spine: thoracic and lumbar spine normal to inspection Skin: General skin exam: no rashes or lesions noted and dry skin Lesions: no lesions Rashes: no rashes Neuro: General: oriented to person, oriented to place, oriented to time, patient oriented x3 and gait normal Cranial nerves: Yes Equal, round and reactive pupils present Extrem: General: Yes normal to inspection, Yes full ROM, Yes capillary refill normal, Yes no clubbing, cyanosis or edema, Yes no pedal edema and Yes normal gait Psych: Appearance: grossly normal and well kempt Mental Status: mental status grossly normal Speech and movement: Normal speech and movement present and Clear speech present Affect: normal affect Attitude: cooperative Thought process: Normal thought process present Thought content: Normal thought content present Procedures Date of Service Date of Service: 04/17/21 Progress Note: A&P Assessment and plan (1) Empyema lung: Status: Acute Assessment and Plan: Mr. Andersen is a 56-year-old male with a past medical history of alcohol dependence.? Sustained a fall on April 03 and was admitted to [facility] on 04/04 for treatment of a right-sided pneumothorax and subsequently discharged.? Patient returns to [facility] with worsening of left-sided pneumothorax, comminuted left-sided posterior rib fractures which were present on previous admission, and right-sided pleural effusion. Left-sided pneumothorax: CXR revealed stable tiny left apical PTX s/p pigtail chest tube removal on 04/16/21 Right-sided pleural effusion. Pleural fluid culture positive for streptococci likely a result from his right-sided chest wound from previous chest tube site. Right-sided chest tube remains on -20 low wall suction. Flushed to maintain patency. No visible air leak. Patient received 2nd dose of Alteplase and DNase today. Responded well to first dose yesterday, drained 1200cc immediately following unclamping of chest tube of serousanguinous drainage. Continue with IV abx Repeat CXR in am Left-sided comminuted rib fractures. No surgical intervention is justified at this time due to the posterior position of rib fractures lying close to the spine and behind left scapula. Conservative measures with adequate pain control and incentive spirometry. Case discussed with Dr. Thakur. Thank you for this consult. will continue to follow along. (2) Multiple fractures of ribs of left side: Fall Risk Details Current Medications: Current Medications Albuterol/Ipratropium (Albuterol/Iprat 2.5/0.5mg 3 Ml Ampul.Neb) 3 ml INHALE RQ4H [facility] Last Admin: 04/17/21 11:31 Dose: 3 ml Documented by: Cyclobenzaprine HCl (Cyclobenzaprine Hcl 5 Mg Tablet) 5 mg PO BEDTIME [facility] Last Admin: 04/16/21 20:55 Dose: 5 mg Documented by: Diphenhydramine HCl (Diphenhydramine Hcl 50 Mg/Ml Vial) 25 mg IVPUSH Q6H PRN PRN Reason: Hives Folic Acid (Folic Acid 1 Mg Tablet) 1 mg PO DAILY [facility] Last Admin: 04/17/21 08:43 Dose: 1 mg Documented by: Hydromorphone HCl (Hydromorphone Hcl 0.5 Mg/0.5 Ml Syringe) 1 mg IVPUSH Q4H PRN; Protocol PRN Reason: Pain, Severe (Pain Scale 7-10) Last Admin: 04/17/21 10:41 Dose: 1 mg Documented by: Cefazolin Sodium/Dextrose (Ancef) 2 gm in 50 mls @ 100 mls/hr IV Q8H [facility] Last Infusion: 04/17/21 10:23 Dose: Infused Documented by: Dornase Bret 5 mg/ Sodium (Chloride) 30 mls @ 7.5 mls/hr INTRAPLEUR ONCE ONE Stop: 04/17/21 16:59 Medication (No Benzodiazepines) 1 each MISCELLANE DAILY [facility] Melatonin (Melatonin 3 Mg Tablet) 6 mg PO BEDTIME PRN PRN Reason: Insomnia Last Admin: 04/16/21 21:10 Dose: 6 mg Documented by: Oxycodone HCl (Oxycodone Hcl Immed Release 5 Mg Tablet) 10 mg PO Q4H PRN PRN Reason: Pain, Mild (Pain Scale 1-3) Last Admin: 04/17/21 12:31 Dose: 10 mg Documented by: Pharmacy Consult (Consult Rx Vancomycin Dosing) 1 each MISCELLANE DAILY PRN PRN Reason: Consult order Thiamine HCl (Thiamine Hcl 100 Mg Tablet) 100 mg PO DAILY [facility] Last Admin: 04/17/21 08:42 Dose: 100 mg Documented by: Time Spent With Patient Time: Total time spent is greater than 50% in coordination of care (as documented) at patient's floor/unit and/or counseling patient: Time with patient: less than 15 minutes Quality Stroke Does the patient have a stroke diagnosis?: No VTE Prior VTE?: No VTE Risk Level:: Medical - moderate - high VTE Device Contraindication: N/A - Device Ordered VTE Drug Contraindication: Treatment Not Tolerated
--- NOTE | 2021-04-17 13:52 | P.EN_ITS ---
Event Note Date of Service: 04/17/21 Event Note: THORACIC SURGERY: * Alteplase 5mg in 60mL NS instilled intrapleurally on 04/17/21 to right pigtail chest tube @ 1:40pm. * DO NOT UNCLAMP CHEST TUBE. Keep clamped. * Encourage frequent movement in bed or ambulation while medication indwells. DNase to be given at 3:40pm on 04/17/21. * Call Thoracic Surgery if patient exhibits: Shortness of breath, chest pain, or respiratory distress
--- NOTE | 2021-04-17 13:52 | PM.EVENT ---
Event Note Date of Service: 04/17/21 Event Note: THORACIC SURGERY: Alteplase 5mg in 60mL NS instilled intrapleurally on 04/17/21 to right pigtail chest tube @ 1:40pm. DO NOT UNCLAMP CHEST TUBE. Keep clamped. Encourage frequent movement in bed or ambulation while medication indwells. DNase to be given at 3:40pm on 04/17/21. Call Thoracic Surgery if patient exhibits: Shortness of breath, chest pain, or respiratory distress
[2021-04-17] MEDS: Dornase Alfa 5 MG in 0.9 % Sodium Chloride 25 ML 7.5 MG INTRAPLEUR (14:46)
--- NOTE | 2021-04-17 15:39 | P.EN_ITS ---
Event Note Date of Service: 04/18/21 Event Note: THORACIC SURGERY: * DNase 5mg in 30ML NS instilled intrapleurally to right pigtail chest tube at 3:40pm on 04/17/21. * Keep chest tube CLAMPED until 7:40pm on 04/17/21. Unclamp chest tube (stop cock and blue clamp in tubing) at 7:40pm on 04/17/[address] to -20cm continuous LWS. * CALL THORACIC IF: BENJAMIN RED BLOOD > 100cc an hour or BENJAMIN RED BLOOD 400cc in 8hr. * Call Thoracic Surgery if patient exhibits respiratory distress, shortness of breath, or chest pain. Encourage frequent movement in bed and ambulation.
--- NOTE | 2021-04-17 15:39 | PM.EVENT ---
Event Note Date of Service: 04/18/21 Event Note: THORACIC SURGERY: DNase 5mg in 30ML NS instilled intrapleurally to right pigtail chest tube at 3:40pm on 04/17/21. Keep chest tube CLAMPED until 7:40pm on 04/17/21. Unclamp chest tube (stop cock and blue clamp in tubing) at 7:40pm on 04/17/[address] to -20cm continuous LWS. CALL THORACIC IF: BENJAMIN RED BLOOD > 100cc an hour or BENJAMIN RED BLOOD 400cc in 8hr. Call Thoracic Surgery if patient exhibits respiratory distress, shortness of breath, or chest pain. Encourage frequent movement in bed and ambulation.
--- NOTE | 2021-04-17 18:44 | PM.PNNEP ---
Subjective Subjective Date of Service: 04/17/21 Interval history: Seen and examined, events noted Physical Exam Vital Signs: Vital Signs: Last Vital Signs Temp 98.9 F 04/17/21 15:17 Pulse 90 04/17/21 15:40 Resp 18 04/17/21 15:17 BP 130/75 04/17/21 15:17 Pulse Ox 92 04/17/21 15:17 Oxygen Flow Rate 100 04/11/21 17:49 Body Mass Index 30.1 Const: General: no acute distress and alert Nutritional Appearance: overweight Orientation/consciousness: patient oriented x3 Eyes: General: appearance normal, both eyes and all related structures Conjunctivae: conjunctivae normal Sclerae: sclerae normal Neck: Other: trachea midline with no evidence of subcutaneous emphysema Neck: Yes normal visual inspection, Yes full ROM and Yes no lymphadenopathy Chest: Other: Left-sided anterior pigtail catheter remains in place with dressing clean dry and intact. Chest tube remained on -20 low wall suction overnight with approximately 50 cc of serosanguineous fluid output. Right-sided posterior pigtail catheter remains in place on a -20 low wall suction with approximately 50 cc of serous fluid output subcutaneous crepitus along chest wall. Previous chest tube site on right anterior chest appears to be erythematous and edematous. A silk suture remains in place Chest palpation & inspection: normal inspection of the chest Resp: Effort & Inspection: normal respiratory effort and able to speak in complete sentences Auscultation: clear to auscultation bilaterally and diminished lung sounds Cardio: Jugular venous distension: no JVD Rate: regular rate Rhythm: regular rhythm Heart sounds: S1 normal heart sound present and S2 normal heart sound present GI: Inspection: Yes normal to inspection Palpation (GI): Soft to palpation and nontender Auscultation: normal bowel sounds Skin: General skin exam: rashes and/or lesions noted Neuro: General: patient oriented x3 Extrem: General: Yes normal to inspection and Yes capillary refill normal Objective Data Labs CBC & Chem 7: 04/16/21 08:12 04/16/21 08:12 Labs: Laboratory Results - last 24 hr 04/17/21 04/17/21 06:37 06:37 TSH 2.02 Random Cortisol 12.1 Microbiology Microbiology Results: Microbiology Procedures Date of Service Date of Service: 04/17/21 Assessment & Plan Assessment and plan (1) MSSA (methicillin susceptible Staphylococcus aureus): Status: Acute (2) Hyponatremia: Status: Acute (3) Hypertension: Status: Acute (4) Bilateral pleural effusion: Status: Acute (5) Pneumomediastinum: Status: Acute (6) Multiple fractures of ribs of left side: Status: Acute Assessment and Plan: Euvolemic HypoNatremia: most c/w non-osm ADH release related to pain and pulm injury and excess PO fluid intake and lowsolute intake ( low BUN) REC: recheck lytes, restrict po fluids to 1800 pwer 24 hrs; urine studies; may need Urea to incr slute load will follwow with team Time Spent With Patient Time: Total time spent is greater than 50% in coordination of care (as documented) at patient's floor/unit and/or counseling patient: Progress Note: Quality Stroke Does the patient have a stroke diagnosis?: No
[2021-04-17] MEDS: Cyclobenzaprine HCl 5 MG TABLET PO (19:42)
[2021-04-17] MEDS: Melatonin 3 MG TABLET 6 MG PO (22:01)
[2021-04-18] VITALS (14 sets, daily range): BP systolic 119–141; BP diastolic 67–80; PULSE 88–106; RESP 16–22; TEMP 36.2–37.2; O2SAT 90–97; BMI 29.5
[2021-04-18] MEDS: ceFAZolin Sodium/Dextrose,Iso 2 GM/50 ML PIGGYBACK IV ×3 (01:43→17:36)
--- NOTE | 2021-04-18 01:53 | PC.NURSE ---
Per MD note chest tube unclamped at 1940. Immediately after unclamped 320 dark red blood drained, pt in resp. distresss - coughing, SOB, requesting oxygen. Chest tube re-clamped at this time. Once clamped resp distress improved, VSS, sats 94% on 2L NC. Bloody drainage to dressing reinforced. Message sent to Tamiko Kelly, CXR ordered to eval position of tube. Pictures of CXR images sent to Tamiko Kelly - okay to unclamp chest tube at this time, monitor out put and monitor pt closely. at 2230: Chest tube output at 1300, continues to drain dark red fluid. Pt states his pain is the worst it's been. Tamiko Kelly notified. Okay to leave unclamped and okay to give dilaudid a little early. approx 2250: Pt called to say he feels like he may have pulled the chest tube out. This RN noted that the stitches appeared to be approx 8cm from insertion site. Tamiko Kelly notified again - will see patient in the morning.
[2021-04-18] MEDS: oxyCODONE HCl Immed Release 5 MG TABLET 10 MG PO ×2 (02:46→10:47)
[2021-04-18] MEDS: HYDROmorphone HCl 0.5 MG/0.5 ML SYRINGE 1 MG IVPUSH ×5 (04:15→21:06)
[2021-04-18] MEDS: Albuterol/Iprat 2.5/0.5MG 3 ML AMPUL.NEB INHALE ×3 (07:37→19:27)
[2021-04-18 07:53] LABS: Anion Gap 14 (12-20); Blood Urea Nitrogen 5 mg/dL (9-16); Calcium 7.5 mg/dL (8.4-10.2); Carbon Dioxide 22 mmol/L (22-29); Chloride 94 mmol/L (96-108); Creatinine Clr Calc Pharmacy 157.9; Estimated Glomerular Filt Rate > 60; Glucose Random 109 mg/dL (60-115); Potassium 3.6 mmol/L (3.3-5.1); Sodium 126 mmol/L (135-145)
[2021-04-18 08:03] LABS: Hematocrit 30.7 % (42-52); Hemoglobin 10.7 g/dl (14.0-18.0); Mean Corpuscular HGB Conc 34.9 g/dl (31.0-36.0); Mean Corpuscular Hemoglobin 35.8 pg (27.0-33.0); Mean Corpuscular Volume 102.7 fL (80-98); Mean Platelet Volume 9.2 fL (9.4-12.4); Platelet Count 394 X10*3/uL (160-400); Red Blood Count 2.99 X10*6/uL (4.60-5.80); Red Cell Distribution Width 13.3 % (11.0-16.0); White Blood Count 15.6 X10*3/uL (4.8-10.8)
[2021-04-18] MEDS: Folic Acid 1 MG TABLET PO (08:14)
[2021-04-18] MEDS: Thiamine HCL 100 MG TABLET PO (08:15)
[2021-04-18] MEDS: Calcium Carbonate 750 MG TAB.CHEW PO ×2 (10:46→18:08)
--- NOTE | 2021-04-18 11:11 | MHC.CM.PN ---
Per ROUNDS discussion, Patient is not yet medically cleared for dc (PT eval needed, pain and some SOB). Home (no PCP) VS STR pending PT eval is the goal and CM will continue to follow.
--- NOTE | 2021-04-18 12:21 | PM.PNTS ---
Subjective Subjective Date of Service: 04/18/21 Interval history: Patient was seen and examined today. Patient does seem mildly confused. He is alert to person place and time. He denies any shortness of breath, cough or hemoptysis. Physical Exam Vital Signs: Vital Signs: Last Vital Signs Temp 98.9 F 04/18/21 11:30 Pulse 92 04/18/21 11:30 Resp 20 04/18/21 11:30 BP 138/80 04/18/21 11:30 Pulse Ox 96 04/18/21 11:30 Oxygen Flow Rate 100 04/11/21 17:49 Body Mass Index 29.5 Const: General: no acute distress Nutritional Appearance: overweight Orientation/consciousness: patient oriented x3 Eyes: General: appearance normal, both eyes and all related structures Conjunctivae: conjunctivae normal Sclerae: sclerae normal Neck: Other: trachea midline with no evidence of subcutaneous emphysema Resp: Effort & Inspection: normal respiratory effort and able to speak in complete sentences Auscultation: clear to auscultation bilaterally Cardio: Jugular venous distension: no JVD Rate: regular rate Rhythm: regular rhythm Heart sounds: S1 normal heart sound present and S2 normal heart sound present GI: Inspection: Yes normal to inspection Palpation (GI): Soft to palpation and nontender Neuro: General: patient oriented x3 Extrem: General: Yes normal to inspection and Yes capillary refill normal Procedures Date of Service Date of Service: 04/18/21 Progress Note: A&P Assessment and plan (1) Empyema lung: Status: Acute Assessment and Plan: Mr. Andersen is a 56-year-old male with a past medical history of alcohol dependence.? Sustained a fall on April 03 and was admitted to [facility] on 04/04 for treatment of a right-sided pneumothorax and subsequently discharged.? Patient returns to [facility] with worsening of left-sided pneumothorax, comminuted left-sided posterior rib fractures which were present on previous admission, and right-sided pleural effusion. Right-sided pleural effusion. Pleural fluid culture positive for streptococci likely a result from his right-sided chest wound from previous chest tube site. This morning's CXR chest x-ray reveals right-sided pigtail catheter may have migrated downward compared to previous exam. There is trace bilateral pleural effusions with subsegmental atelectasis. Patient has received 2 rounds of alteplase and dornase to chest cavity through right-sided chest tube. Ordering a chest CT for today to assess for any remaining loculated areas of pleural effusion. Right-sided chest tube remains on -20 low wall suction. Flushed to maintain patency. No visible air leak. Continue with IV abx Repeat CXR in am Left-sided comminuted rib fractures. No surgical intervention is justified at this time due to the posterior position of rib fractures lying close to the spine and behind left scapula. Conservative measures with adequate pain control and incentive spirometry. Case discussed with Dr. Thakur. Thank you for this consult. will continue to follow along. (2) Multiple fractures of ribs of left side: Fall Risk Details Current Medications: Current Medications Albuterol/Ipratropium (Albuterol/Iprat 2.5/0.5mg 3 Ml Ampul.Neb) 3 ml INHALE RQ4H [facility] Last Admin: 04/18/21 11:24 Dose: Not Given Documented by: Calcium Carbonate (Calcium Carbonate 750 Mg Tab.Chew) 750 mg PO Q6H PRN PRN Reason: Indigestion Last Admin: 04/18/21 10:46 Dose: 750 mg Documented by: Cyclobenzaprine HCl (Cyclobenzaprine Hcl 5 Mg Tablet) 5 mg PO BEDTIME [facility] Last Admin: 04/17/21 19:42 Dose: 5 mg Documented by: Diphenhydramine HCl (Diphenhydramine Hcl 50 Mg/Ml Vial) 25 mg IVPUSH Q6H PRN PRN Reason: Hives Folic Acid (Folic Acid 1 Mg Tablet) 1 mg PO DAILY [facility] Last Admin: 04/18/21 08:14 Dose: 1 mg Documented by: Hydromorphone HCl (Hydromorphone Hcl 0.5 Mg/0.5 Ml Syringe) 1 mg IVPUSH Q4H PRN; Protocol PRN Reason: Pain, Severe (Pain Scale 7-10) Last Admin: 04/18/21 08:15 Dose: 1 mg Documented by: Cefazolin Sodium/Dextrose (Ancef) 2 gm in 50 mls @ 100 mls/hr IV Q8H [facility] Last Infusion: 04/18/21 11:41 Dose: Infused Documented by: Medication (No Benzodiazepines) 1 each MISCELLANE DAILY [facility] Melatonin (Melatonin 3 Mg Tablet) 6 mg PO BEDTIME PRN PRN Reason: Insomnia Last Admin: 04/17/21 22:01 Dose: 6 mg Documented by: Oxycodone HCl (Oxycodone Hcl Immed Release 5 Mg Tablet) 10 mg PO Q4H PRN PRN Reason: Pain, Mild (Pain Scale 1-3) Last Admin: 04/18/21 10:47 Dose: 10 mg Documented by: Pharmacy Consult (Consult Rx Vancomycin Dosing) 1 each MISCELLANE DAILY PRN PRN Reason: Consult order Thiamine HCl (Thiamine Hcl 100 Mg Tablet) 100 mg PO DAILY [facility] Last Admin: 04/18/21 08:15 Dose: 100 mg Documented by: Time Spent With Patient Time: Total time spent is greater than 50% in coordination of care (as documented) at patient's floor/unit and/or counseling patient: Time with patient: 15 - 24 minutes Quality Stroke Does the patient have a stroke diagnosis?: No VTE Prior VTE?: No VTE Risk Level:: Medical - moderate - high VTE Device Contraindication: N/A - Device Ordered VTE Drug Contraindication: Treatment Not Tolerated
--- NOTE | 2021-04-18 12:45 | PC.NURSE ---
THORACIC PA SAYS IT IS OKAY TO REMOVE PATIENT FROM TELE AND WALL SUCTION FOR CHEST TUBE FOR IMAGING.
--- NOTE | 2021-04-18 15:06 | HO.PM.IMPN ---
Subjective Subjective Date of Service: 04/18/21 Interval History: seen and examined this morning follow up for pneumohorax/pleural effusion overnight chest tube unclamped. Patient then reported shortness of breath and coughing. Chest tube every clamped and respiratory distress improved. Chest x-ray was done to evaluate position of tube which was noted be unchanged. Chest tube was then unclamped again with 1300 cc output. Later on patient called nurse that he may have pulled out chest tube. CT surgery was updated overnight. CXR from this morning shows likely migration of chest tube. This morning patient reports ongoing pain at chest tube site as well as shortness of breath. Review of Systems Review of Systems: Yes all other systems are reviewed and are negative Constitutional Constitutional: Denies chills and Denies fever(s) Cardiovascular Cardiovascular: Reports chest pain Gastrointestinal Gastrointestinal: Denies abdominal pain Physical Exam Vital Signs: Vital Signs: Last Vital Signs Temp 97.5 F 04/18/21 14:56 Pulse 93 04/18/21 14:56 Resp 20 04/18/21 14:56 BP 119/67 04/18/21 14:56 Pulse Ox 91 L 04/18/21 14:56 Oxygen Flow Rate 100 04/11/21 17:49 Body Mass Index 29.5 Const: General: alert and awake Nutritional Appearance: well nourished Orientation/consciousness: patient oriented x3 HENMT: Head: Yes normocephalic and Yes atraumatic Eyes: Sclerae: sclerae normal Pupils: Equal, round and reactive pupils present Chest: Other: mild crepitus left anterior chest wall; right chest tube in place Resp: Effort & Inspection: no respiratory distress Auscultation: diminished lung sounds Cardio: Rate: regular rate Rhythm: regular rhythm GI: Palpation (GI): Soft to palpation and nontender Neuro: General: patient oriented x3 Cranial nerves: Yes CN's II-XII intact bilaterally, Yes Equal, round and reactive pupils present and Yes Bilaterally intact EOM present Objective Data Active Medications Albuterol/Ipratropium (Albuterol/Iprat 2.5/0.5mg 3 Ml Ampul.Neb) 3 ml INHALE RQ4H [facility] Last Admin: 04/18/21 11:24 Dose: Not Given Documented by: MARA Non-Admin Reason: Patient Asleep Calcium Carbonate (Calcium Carbonate 750 Mg Tab.Chew) 750 mg PO Q6H PRN PRN Reason: Indigestion Last Admin: 04/18/21 10:46 Dose: 750 mg Documented by: MIRELA Cyclobenzaprine HCl (Cyclobenzaprine Hcl 5 Mg Tablet) 5 mg PO BEDTIME [facility] Last Admin: 04/17/21 19:42 Dose: 5 mg Documented by: DELORES Diphenhydramine HCl (Diphenhydramine Hcl 50 Mg/Ml Vial) 25 mg IVPUSH Q6H PRN PRN Reason: Hives Folic Acid (Folic Acid 1 Mg Tablet) 1 mg PO DAILY [facility] Last Admin: 04/18/21 08:14 Dose: 1 mg Documented by: MIRELA Hydromorphone HCl (Hydromorphone Hcl 0.5 Mg/0.5 Ml Syringe) 1 mg IVPUSH Q4H PRN; Protocol PRN Reason: Pain, Severe (Pain Scale 7-10) Last Admin: 04/18/21 12:30 Dose: 1 mg Documented by: MIRELA Cefazolin Sodium/Dextrose (Ancef) 2 gm in 50 mls @ 100 mls/hr IV Q8H [facility] Last Infusion: 04/18/21 11:41 Dose: 0 mls/hr Documented by: MIRELA Medication (No Benzodiazepines) 1 each MISCELLANE DAILY [facility] Melatonin (Melatonin 3 Mg Tablet) 6 mg PO BEDTIME PRN PRN Reason: Insomnia Last Admin: 04/17/21 22:01 Dose: 6 mg Documented by: DELORES Oxycodone HCl (Oxycodone Hcl Immed Release 5 Mg Tablet) 10 mg PO Q4H PRN PRN Reason: Pain, Mild (Pain Scale 1-3) Last Admin: 04/18/21 10:47 Dose: 10 mg Documented by: MIRELA Pharmacy Consult (Consult Rx Vancomycin Dosing) 1 each MISCELLANE DAILY PRN PRN Reason: Consult order Thiamine HCl (Thiamine Hcl 100 Mg Tablet) 100 mg PO DAILY [facility] Last Admin: 04/18/21 08:15 Dose: 100 mg Documented by: MIRELA Labs CBC & Chem 7: 04/18/21 06:54 04/18/21 06:54 Labs: Laboratory Results - last 24 hr 04/18/21 04/18/21 06:54 06:54 MCV 102.7 H MCH 35.8 H MCHC 34.9 RDW 13.3 Plt Count 394 MPV 9.2 L Absolute Nucleated RBC 0.000 Nucleated RBC % (auto) 0.0 Anion Gap 14 Estim Creat Clear Calc 157.9 Estimated GFR > 60 Random Glucose 109 Calcium 7.5 L Assessment and Plan (1) MSSA (methicillin susceptible Staphylococcus aureus): Status: Acute (2) Hyponatremia: Status: Acute (3) Pneumothorax, left: Status: Acute (4) Bilateral pleural effusion: Status: Acute Assessment and Plan: 56-year-old man admitted to the ICU on April 11 with worsening shortness of breath found to have large left-sided pneumothorax and large moderate right-sided effusion.? He had a chest tube placed and patient was admitted to ICU because there had been no thoracic surgery coverage.? At the time was also noted to be hyponatremic with a history of heavy alcohol abuse.? Of note he was originally admitted on April 04 following a mechanical fall after heavily drinking.? At that time he presented with a pneumomediastinum with extensive subcutaneous emphysema, large right pneumothorax and small apical left pneumothorax.? He had 3rd and 4th rib fractures noted as well.? He had chest tube placed to the right side and subsequently was clamped and removed and patient was discharged home. Right sided loculated effusion, status post bronchoscopy Effusion fluid growing MSSA Continue Ancef 2gm Q8h Pneumothorax. Left chest tube removed 04/[address] (s/p 2 doses of alteplase and dornase) looks like it may have migrated downward overnight repeat chest CT Thoracic surgery following Pain management CXR daily rib fractures: no surgical intervention symptomatic management Euvolemic Hyponatremia. Na back down to 126 continue fluid restriction TSH and cortisol wnl, urine studies still pending Nephrology following Alcohol abuse seen by care team encouraged alcohol cessation Continue thiamine, folic acid supplementation HTN BP controlled Atenolol, lisinopril has been on hold admission, if BP trends up can resume Mood citalopram has been on hold since admission, will hold for hyponatremia DVT prophylaxis with SCD boots Attending Dr. Huang Quality Stroke Does the patient have a stroke diagnosis?: No VTE Prior VTE?: No VTE Risk Level:: Medical - moderate - high VTE Device Contraindication: N/A - Device Ordered VTE Drug Contraindication: Treatment Not Tolerated
--- NOTE | 2021-04-18 15:11 | PM.PNNEP ---
Subjective Subjective Date of Service: 04/18/21 Interval history: Seen and examined, events noted Physical Exam Vital Signs: Vital Signs: Last Vital Signs Temp 97.5 F 04/18/21 14:56 Pulse 93 04/18/21 14:56 Resp 20 04/18/21 14:56 BP 119/67 04/18/21 14:56 Pulse Ox 91 L 04/18/21 14:56 Oxygen Flow Rate 100 04/11/21 17:49 Body Mass Index 29.5 Const: General: no acute distress and alert Nutritional Appearance: overweight Orientation/consciousness: patient oriented x3 Eyes: General: appearance normal, both eyes and all related structures Conjunctivae: conjunctivae normal Sclerae: sclerae normal Neck: Other: trachea midline with no evidence of subcutaneous emphysema Neck: Yes normal visual inspection, Yes full ROM and Yes no lymphadenopathy Chest: Other: Left-sided anterior pigtail catheter remains in place with dressing clean dry and intact. Chest tube remained on -20 low wall suction overnight with approximately 50 cc of serosanguineous fluid output. Right-sided posterior pigtail catheter remains in place on a -20 low wall suction with approximately 50 cc of serous fluid output subcutaneous crepitus along chest wall. Previous chest tube site on right anterior chest appears to be erythematous and edematous. A silk suture remains in place Chest palpation & inspection: normal inspection of the chest Resp: Effort & Inspection: normal respiratory effort and able to speak in complete sentences Auscultation: clear to auscultation bilaterally and diminished lung sounds Cardio: Jugular venous distension: no JVD Rate: regular rate Rhythm: regular rhythm Heart sounds: S1 normal heart sound present and S2 normal heart sound present GI: Inspection: Yes normal to inspection Palpation (GI): Soft to palpation and nontender Auscultation: normal bowel sounds Skin: General skin exam: rashes and/or lesions noted Neuro: General: patient oriented x3 Extrem: General: Yes normal to inspection and Yes capillary refill normal Objective Data Labs CBC & Chem 7: 04/18/21 06:54 04/18/21 06:54 Labs: Laboratory Results - last 24 hr 04/18/21 04/18/21 06:54 06:54 WBC 15.6 H RBC 2.99 L Hgb 10.7 L Hct 30.7 L MCV 102.7 H MCH 35.8 H MCHC 34.9 RDW 13.3 Plt Count 394 MPV 9.2 L Absolute Nucleated RBC 0.000 Nucleated RBC % (auto) 0.0 Sodium 126 L Potassium 3.6 Chloride 94 L Carbon Dioxide 22 Anion Gap 14 BUN 5 L D Creatinine 0.57 Estim Creat Clear Calc 157.9 Estimated GFR > 60 Random Glucose 109 Calcium 7.5 L Microbiology Microbiology Results: Microbiology 04/12/21 15:19 Thoracentesis Fluid Gram Stain - Final 04/12/21 15:19 Thoracentesis Fluid Anaerobic Culture - Final 04/12/21 15:19 Thoracentesis Fluid Body Fluid Culture - Final Staphylococcus aureus 04/11/21 17:54 Blood - Venous Blood Culture - Final No growth after 5 days. 04/11/21 17:52 Blood - Venous Blood Culture - Final No growth after 5 days. 04/13/21 13:09 Bronchial Washings Gram Stain - Final 04/13/21 13:09 Bronchial Washings - Final Staphylococcus aureus Procedures Date of Service Date of Service: 04/18/21 Assessment & Plan Assessment and plan (1) MSSA (methicillin susceptible Staphylococcus aureus): Status: Acute (2) Hyponatremia: Status: Acute Assessment and Plan: Euvolemic HypoNa: still needurinedstudies to complete the evaluation but suspect SIADH frompain and chest tubes and excess PO fluid intake REC: enforce po fluid restriction, check urine studies nad start UREA 15 gm bid will follow with team (3) Hypertension: (4) Bilateral pleural effusion: Status: Acute (5) Pneumomediastinum: Status: Acute (6) Multiple fractures of ribs of left side: Assessment and Plan: Euvolemic HypoNatremia: most c/w non-osm ADH release related to pain and pulm injury and excess PO fluid intake and lowsolute intake ( low BUN) REC: recheck lytes, restrict po fluids to 1800 pwer 24 hrs; urine studies; may need Urea to incr slute load will follwow with team Time Spent With Patient Time: Total time spent is greater than 50% in coordination of care (as documented) at patient's floor/unit and/or counseling patient: Progress Note: Quality Stroke Does the patient have a stroke diagnosis?: No
[2021-04-18] MEDS: Urea 15 GM POWDER PO (15:30)
[2021-04-18] MEDS: Sennosides/Docusate Sodium TABLET 1 TAB PO (15:36)
--- NOTE | 2021-04-18 17:19 | PC.NURSE ---
CHEST TUBE REMOVED BY THORACIC PA. XEROFORM, GAUZE, AND TEGADERM APPLIED BY MCKENNA, RN ASSISTED. PATIENT TOLERATED PROCEDURE WELL. PATIENT BACK TO BED AND RESTING COMFORTABLY.
[2021-04-18 17:31] LABS: Sodium Urine Random < 20.0 mmol/L
[2021-04-18 17:33] LABS: Osmolality Urine 418 mosm/kg (373-1093)
[2021-04-18] MEDS: Melatonin 3 MG TABLET 6 MG PO (21:06)
[2021-04-18] MEDS: Cyclobenzaprine HCl 5 MG TABLET PO (21:06)
[2021-04-19] VITALS (9 sets, daily range): BP systolic 110–149; BP diastolic 60–82; PULSE 82–96; RESP 16–22; TEMP 36.4–37; O2SAT 91–93; BMI 29.5
[2021-04-19] MEDS: oxyCODONE HCl Immed Release 5 MG TABLET 10 MG PO ×6 (00:25→23:16)
[2021-04-19] MEDS: ceFAZolin Sodium/Dextrose,Iso 2 GM/50 ML PIGGYBACK IV ×3 (01:06→18:12)
[2021-04-19] MEDS: HYDROmorphone HCl 0.5 MG/0.5 ML SYRINGE 1 MG IVPUSH ×5 (01:40→19:59)
[2021-04-19] MEDS: Calcium Carbonate 750 MG TAB.CHEW PO ×2 (05:14→11:27)
[2021-04-19 05:48] LABS: Hematocrit 29.6 % (42-52); Hemoglobin 10.3 g/dl (14.0-18.0); Mean Corpuscular HGB Conc 34.8 g/dl (31.0-36.0); Mean Corpuscular Hemoglobin 35.4 pg (27.0-33.0); Mean Corpuscular Volume 101.7 fL (80-98); Mean Platelet Volume 9.2 fL (9.4-12.4); Platelet Count 423 X10*3/uL (160-400); Red Blood Count 2.91 X10*6/uL (4.60-5.80); Red Cell Distribution Width 13.2 % (11.0-16.0); White Blood Count 11.2 X10*3/uL (4.8-10.8)
[2021-04-19] MEDS: Albuterol/Iprat 2.5/0.5MG 3 ML AMPUL.NEB INHALE (05:50)
[2021-04-19 06:18] LABS: Anion Gap 13 (12-20); Blood Urea Nitrogen 7 mg/dL (9-16); Calcium 7.7 mg/dL (8.4-10.2); Carbon Dioxide 25 mmol/L (22-29); Chloride 93 mmol/L (96-108); Estimated Glomerular Filt Rate > 60; Glucose Random 90 mg/dL (60-115); Potassium 3.3 mmol/L (3.3-5.1); Sodium 128 mmol/L (135-145)
[2021-04-19] MEDS: Folic Acid 1 MG TABLET PO (09:52)
[2021-04-19] MEDS: Thiamine HCL 100 MG TABLET PO (09:52)
[2021-04-19] MEDS: Sennosides/Docusate Sodium TABLET 1 TAB PO (09:52)
[2021-04-19] MEDS: Urea 15 GM POWDER PO (11:27)
--- NOTE | 2021-04-19 11:59 | PM.PNNEP ---
Subjective Subjective Date of Service: 04/19/21 Interval history: seen and examined no complaints Physical Exam Vital Signs: Vital Signs: Last Vital Signs Temp 98.5 F 04/19/21 11:32 Pulse 93 04/19/21 11:32 Resp 18 04/19/21 11:32 BP 133/71 04/19/21 11:32 Pulse Ox 92 04/19/21 11:32 Oxygen Flow Rate 100 04/11/21 17:49 Body Mass Index 29.5 Const: General: no acute distress and alert Nutritional Appearance: overweight Orientation/consciousness: patient oriented x3 Eyes: General: appearance normal, both eyes and all related structures Conjunctivae: conjunctivae normal Sclerae: sclerae normal Neck: Other: trachea midline with no evidence of subcutaneous emphysema Neck: Yes normal visual inspection, Yes full ROM and Yes no lymphadenopathy Chest: Other: Left-sided anterior pigtail catheter remains in place with dressing clean dry and intact. Chest tube remained on -20 low wall suction overnight with approximately 50 cc of serosanguineous fluid output. Right-sided posterior pigtail catheter remains in place on a -20 low wall suction with approximately 50 cc of serous fluid output subcutaneous crepitus along chest wall. Previous chest tube site on right anterior chest appears to be erythematous and edematous. A silk suture remains in place Chest palpation & inspection: normal inspection of the chest Resp: Effort & Inspection: normal respiratory effort and able to speak in complete sentences Auscultation: clear to auscultation bilaterally and diminished lung sounds Cardio: Jugular venous distension: no JVD Rate: regular rate Rhythm: regular rhythm Heart sounds: S1 normal heart sound present and S2 normal heart sound present GI: Inspection: Yes normal to inspection Palpation (GI): Soft to palpation and nontender Auscultation: normal bowel sounds Skin: General skin exam: rashes and/or lesions noted Neuro: General: patient oriented x3 Extrem: General: Yes normal to inspection and Yes capillary refill normal Objective Data Labs CBC & Chem 7: 04/19/21 05:12 04/19/21 05:11 Labs: Laboratory Results - last 24 hr 04/18/21 04/18/21 04/19/21 16:21 16:21 05:11 WBC RBC Hgb Hct MCV MCH MCHC RDW Plt Count MPV Absolute Nucleated RBC Nucleated RBC % (auto) Sodium 128 L Potassium 3.3 Chloride 93 L Carbon Dioxide 25 Anion Gap 13 BUN 7 L Creatinine 0.50 Estim Creat Clear Calc 180.0 Estimated GFR > 60 Random Glucose 90 Calcium 7.7 L Urine Osmolality 418 Ur Random Sodium < 20.0 04/19/21 05:12 WBC 11.2 H RBC 2.91 L Hgb 10.3 L Hct 29.6 L MCV 101.7 H MCH 35.4 H MCHC 34.8 RDW 13.2 Plt Count 423 H MPV 9.2 L Absolute Nucleated RBC 0.000 Nucleated RBC % (auto) 0.0 Sodium Potassium Chloride Carbon Dioxide Anion Gap BUN Creatinine Estim Creat Clear Calc Estimated GFR Random Glucose Calcium Urine Osmolality Ur Random Sodium Microbiology Microbiology Results: Microbiology 04/12/21 15:19 Thoracentesis Fluid Gram Stain - Final 04/12/21 15:19 Thoracentesis Fluid Anaerobic Culture - Final 04/12/21 15:19 Thoracentesis Fluid Body Fluid Culture - Final Staphylococcus aureus 04/11/21 17:54 Blood - Venous Blood Culture - Final No growth after 5 days. 04/11/21 17:52 Blood - Venous Blood Culture - Final No growth after 5 days. 04/13/21 13:09 Bronchial Washings Gram Stain - Final 04/13/21 13:09 Bronchial Washings - Final Staphylococcus aureus Procedures Date of Service Date of Service: 04/19/21 Assessment & Plan Assessment and plan (1) Hyponatremia: Status: Acute Assessment and Plan: Sna better euvolemic hyponatremia elevated Uosm and low Roselia multifactorial: -excessive free water intake -high ADH state -hypovolemia REC reinforce fluid restriction hold off urea for now follow sodium Time Spent With Patient Time: Total time spent is greater than 50% in coordination of care (as documented) at patient's floor/unit and/or counseling patient: Progress Note: Quality Stroke Does the patient have a stroke diagnosis?: No
--- NOTE | 2021-04-19 14:54 | P.PNIM_ITS ---
Progress Note: A&P (1) Hyponatremia: Status: Acute (2) MSSA (methicillin susceptible Staphylococcus aureus): Status: Acute Assessment and Plan: 56-year-old man admitted to the ICU on April 11 with worsening shortness of breath found to have large left-sided pneumothorax and large moderate right- sided effusion.? He had a chest tube placed and patient was admitted to ICU because there had been no thoracic surgery coverage.? At the time was also noted to be hyponatremic with a history of heavy alcohol abuse.? Of note he was orig inally admitted on April 04 following a mechanical fall after heavily drinking.? At that time he presented with a pneumomediastinum with extensive subcutaneous emphysema, large right pneumothorax and small apical left pneumothorax.? He had 3rd and 4th rib fractures noted as well.? He had chest tu be placed to the right side and subsequently was clamped and removed and patient was discharged home. Right sided loculated effusion, status post bronchoscopy Effusion fluid growing MSSA Continue Ancef 2gm Q8h, will transition to Linezolid for 4 weeks Pneumothorax. Both chest tubes removed s/p 2 doses of alteplase and dnase Some residual discomfort CXR today with no further pneumothorax Thoracic surgery following Pain management CXR daily rib fractures no surgical intervention symptomatic management Euvolemic Hyponatremia. continue fluid restriction 1.8L TSH and cortisol wnl, urine studies ok Nephrology following Alcohol abuse seen by care team encouraged alcohol cessation Continue thiamine, folic acid supplementation HTN BP controlled Atenolol, lisinopril has been on hold since admission, if BP trends up can resume Mood citalopram has been on hold since admission, will hold for hyponatremia DVT prophylaxis with SCD boots Attending Dr. Mcnulty Quality Subjective Subjective Date of Service: 04/19/21 Review of Systems Follow up pneumothorax Both chest tubes out Some residual pain from chest tube sites No shortness of breath but shallow breathing and coughing Physical Exam Vital Signs: Vital Signs: Last Vital Signs Temp 98.5 F 04/19/21 11:32 Pulse 93 04/19/21 11:32 Resp 18 04/19/21 11:32 BP 133/71 04/19/21 11:32 Pulse Ox 92 04/19/21 11:32 Oxygen Flow Rate 100 04/11/21 17:49 Body Mass Index 29.5 Appearing in no acute distress lung sounds are clear to auscultation heart regular rate rhythm, clear S1, S2 positive bowel sounds, abdomen is soft, nontender neuro patient is alert x3, no focal deficits Objective Data Current Medications Albuterol/Ipratropium (Albuterol/Iprat 2.5/0.5mg 3 Ml Ampul.Neb) 3 ml INHALE RQ4H PRN PRN Reason: Shortness of Breath/Wheezing Last Admin: 04/19/21 05:50 Dose: 3 ml Documented by: Calcium Carbonate (Calcium Carbonate 750 Mg Tab.Chew) 750 mg PO Q6H PRN PRN Reason: Indigestion Last Admin: 04/19/21 11:27 Dose: 750 mg Documented by: Cyclobenzaprine HCl (Cyclobenzaprine Hcl 5 Mg Tablet) 5 mg PO BEDTIME [facility] Last Admin: 04/18/21 21:06 Dose: 5 mg Documented by: Diphenhydramine HCl (Diphenhydramine Hcl 50 Mg/Ml Vial) 25 mg IVPUSH Q6H PRN PRN Reason: Hives Folic Acid (Folic Acid 1 Mg Tablet) 1 mg PO DAILY [facility] Last Admin: 04/19/21 09:52 Dose: 1 mg Documented by: Hydromorphone HCl (Hydromorphone Hcl 0.5 Mg/0.5 Ml Syringe) 1 mg IVPUSH Q4H PRN; Protocol PRN Reason: Pain, Severe (Pain Scale 7-10) Last Admin: 04/19/21 11:09 Dose: 1 mg Documented by: Cefazolin Sodium/Dextrose (Ancef) 2 gm in 50 mls @ 100 mls/hr IV Q8H [facility] Last Infusion: 04/19/21 11:09 Dose: Infused Documented by: Medication (No Benzodiazepines) 1 each MISCELLANE DAILY [facility] Melatonin (Melatonin 3 Mg Tablet) 6 mg PO BEDTIME PRN PRN Reason: Insomnia Last Admin: 04/18/21 21:06 Dose: 6 mg Documented by: Oxycodone HCl (Oxycodone Hcl Immed Release 5 Mg Tablet) 10 mg PO Q4H PRN PRN Reason: Pain, Mild (Pain Scale 1-3) Last Admin: 04/19/21 14:03 Dose: 10 mg Documented by: Pharmacy Consult (Consult Rx Vancomycin Dosing) 1 each MISCELLANE DAILY PRN PRN Reason: Consult order Senna/Docusate Sodium (Sennosides/Docusate Sodium Tablet) 1 tab PO DAILY [facility] Last Admin: 04/19/21 09:52 Dose: 1 tab Documented by: Thiamine HCl (Thiamine Hcl 100 Mg Tablet) 100 mg PO DAILY [facility] Last Admin: 04/19/21 09:52 Dose: 100 mg Documented by: Urea (Urea 15 Gm Powder) 15 gm PO BID [facility] Last Admin: 04/19/21 11:27 Dose: 15 gm Documented by: Labs CBC & Chem 7: 04/19/21 05:12 04/19/21 05:11 Labs: Laboratory Results - last 24 hr 04/18/21 04/18/21 04/19/21 16:21 16:21 05:11 MCV MCH MCHC RDW Plt Count MPV Absolute Nucleated RBC Nucleated RBC % (auto) Anion Gap 13 Estim Creat Clear Calc 180.0 Estimated GFR > 60 Random Glucose 90 Calcium 7.7 L Urine Osmolality 418 Ur Random Sodium < 20.0 04/19/21 05:12 MCV 101.7 H MCH 35.4 H MCHC 34.8 RDW 13.2 Plt Count 423 H MPV 9.2 L Absolute Nucleated RBC 0.000 Nucleated RBC % (auto) 0.0 Anion Gap Estim Creat Clear Calc Estimated GFR Random Glucose Calcium Urine Osmolality Ur Random Sodium Microbiology Microbiology Results: Microbiology 04/12/21 15:19 Thoracentesis Fluid Gram Stain - Final 04/12/21 15:19 Thoracentesis Fluid Anaerobic Culture - Final 04/12/21 15:19 Thoracentesis Fluid Body Fluid Culture - Final Staphylococcus aureus 04/11/21 17:54 Blood - Venous Blood Culture - Final No growth after 5 days. 04/11/21 17:52 Blood - Venous Blood Culture - Final No growth after 5 days. 04/13/21 13:09 Bronchial Washings Gram Stain - Final 04/13/21 13:09 Bronchial Washings - Final Staphylococcus aureus Quality Stroke Does the patient have a stroke diagnosis?: No VTE Prior VTE?: No VTE Risk Level:: Medical - moderate - high VTE Device Contraindication: N/A - Device Ordered VTE Drug Contraindication: Treatment Not Tolerated
[2021-04-19] MEDS: Cyclobenzaprine HCl 5 MG TABLET PO (19:59)
[2021-04-19] MEDS: Melatonin 3 MG TABLET 6 MG PO (23:17)
[2021-04-20] VITALS (9 sets, daily range): BP systolic 112–162; BP diastolic 62–94; PULSE 83–99; RESP 15–20; TEMP 36.1–37; O2SAT 91–97; BMI 28.4
[2021-04-20] MEDS: HYDROmorphone HCl 0.5 MG/0.5 ML SYRINGE 1 MG IVPUSH ×6 (00:17→22:36)
[2021-04-20] MEDS: ceFAZolin Sodium/Dextrose,Iso 2 GM/50 ML PIGGYBACK IV ×3 (01:46→18:24)
[2021-04-20] MEDS: Calcium Carbonate 750 MG TAB.CHEW PO ×2 (02:55→20:42)
--- NOTE | 2021-04-20 08:25 | PM.PNNEP ---
Subjective Subjective Date of Service: 04/20/21 Interval history: seen and examined no complaints discussed with medical attending Physical Exam Vital Signs: Vital Signs: Last Vital Signs Temp 97.9 F 04/20/21 07:15 Pulse 87 04/20/21 07:15 Resp 17 04/20/21 07:15 BP 119/74 04/20/21 07:15 Pulse Ox 95 04/20/21 07:15 Oxygen Flow Rate 100 04/11/21 17:49 Body Mass Index 29.5 Const: General: no acute distress and alert Nutritional Appearance: overweight Orientation/consciousness: patient oriented x3 Neck: Other: trachea midline with no evidence of subcutaneous emphysema Resp: Auscultation: clear to auscultation bilaterally Cardio: Rate: regular rate Rhythm: regular rhythm Heart sounds: S1 normal heart sound present and S2 normal heart sound present GI: Inspection: Yes normal to inspection Palpation (GI): Soft to palpation and nontender Auscultation: normal bowel sounds Neuro: General: patient oriented x3 Extrem: General: Yes normal to inspection Objective Data Labs CBC & Chem 7: 04/19/21 05:12 04/19/21 05:11 Microbiology Microbiology Results: Microbiology 04/12/21 15:19 Thoracentesis Fluid Gram Stain - Final 04/12/21 15:19 Thoracentesis Fluid Anaerobic Culture - Final 04/12/21 15:19 Thoracentesis Fluid Body Fluid Culture - Final Staphylococcus aureus 04/11/21 17:54 Blood - Venous Blood Culture - Final No growth after 5 days. 04/11/21 17:52 Blood - Venous Blood Culture - Final No growth after 5 days. 04/13/21 13:09 Bronchial Washings Gram Stain - Final 04/13/21 13:09 Bronchial Washings - Final Staphylococcus aureus Procedures Date of Service Date of Service: 04/20/21 Assessment & Plan Assessment and plan (1) Hyponatremia: Status: Acute Assessment and Plan: Sna better euvolemic hyponatremia elevated Uosm and low Roselia multifactorial: -excessive free water intake -high ADH state -hypovolemia REC reinforce fluid restriction hold off urea for now follow sodium can discharge on sodium chloride tablet 1 gram bid x 5 days if Sna >=128 Time Spent With Patient Time: Total time spent is greater than 50% in coordination of care (as documented) at patient's floor/unit and/or counseling patient: Progress Note: Quality Stroke Does the patient have a stroke diagnosis?: No
[2021-04-20] MEDS: Thiamine HCL 100 MG TABLET PO (08:28)
[2021-04-20] MEDS: Folic Acid 1 MG TABLET PO (08:28)
[2021-04-20] MEDS: Sennosides/Docusate Sodium TABLET 1 TAB PO (08:28)
[2021-04-20 08:46] LABS: Hematocrit 31.4 % (42-52); Hemoglobin 10.8 g/dl (14.0-18.0); Mean Corpuscular HGB Conc 34.4 g/dl (31.0-36.0); Mean Corpuscular Hemoglobin 35.4 pg (27.0-33.0); Mean Platelet Volume 9.1 fL (9.4-12.4); Platelet Count 483 X10*3/uL (160-400); Red Blood Count 3.05 X10*6/uL (4.60-5.80); Red Cell Distribution Width 13.2 % (11.0-16.0); White Blood Count 9.3 X10*3/uL (4.8-10.8)
[2021-04-20 08:54] LABS: Anion Gap 12 (12-20); Blood Urea Nitrogen 3 mg/dL (9-16); Calcium 7.8 mg/dL (8.4-10.2); Carbon Dioxide 30 mmol/L (22-29); Chloride 94 mmol/L (96-108); Creatinine Clr Calc Pharmacy 160.7; Estimated Glomerular Filt Rate > 60; Glucose Random 93 mg/dL (60-115); Potassium 3.7 mmol/L (3.3-5.1); Sodium 132 mmol/L (135-145)
--- NOTE | 2021-04-20 10:04 | PM.DS ---
DS: Providers Provider Date of Service: 04/21/21 Date of admission: 04/11/21 18:02 Primary care physician: Unknown Physician Consults: 04/12/21 11:00 Consult to Pulmonology Routine Consulting Provider: Ana Solares Reason for consultation: atelectasis of RLL Has provider been notified: Yes 04/13/21 10:28 Consult to Pulmonology Routine Consulting Provider: Schuyler Shea Reason for consultation: RML/RLL atelectasiis-? bronchoscopy Has provider been notified: Yes 04/14/21 14:39 Consult to Thoracic Surgery Routine Consulting Provider: Jacqui Thakur Reason for consultation: Left pneumothorax. Loculated Rt. pleural effusion. 04/15/21 11:12 Consult to Care Team Routine Comment: Reason for consultation: alcohol abuse 04/15/21 15:58 Consult to Nephrology Routine Consulting Provider: Casey Hussein Reason for consultation: hyponatremia Has provider been notified: No 04/18/21 15:16 Consult to Infectious Diseases Routine Consulting Provider: Cheryl Montgomery Reason for consultation: empyema ?duration of abx Has provider been notified: No Attending physician on discharge: Devon Huang Discharging clinician: Puja Shea DS: Diagnosis Discharge Diagnosis (1) Hyponatremia: Status: Acute (2) Pneumothorax on left: Status: Acute (3) Pneumothorax on right: Status: Acute (4) MSSA (methicillin susceptible Staphylococcus aureus): Status: Acute (5) Pneumomediastinum: Status: Acute (6) Alcohol abuse: Status: Acute DS: Summary Hospital Course Hospital Course: HP as per admitting provider 56-year-old male who has a chronic alcoholic and his last drink is now over 30-36 hours ago and he is still oriented able to answer questions appropriately but every once in awhile talks and a little funny tangent almost in self sensing something hallucinatory but he had also did receive for pain some Dilaudid and he has also been getting and initial load of phenobarb. So basically doing well he still has this significant atelectasis at least of the entire right lower lobe and what looks like a loculated moderate maybe 1 L size effusion at best dose and not familiar with the nature of the of the effusion yet the abdomen looked relatively benign outside of the fairly replaced looking liver not know if it cirrhotic or or fatty replacement. Bedside echo shows normal LV and RV function with no primary valve or pericardial disease. Still remains mildly hyponatremic otherwise benign pattern . Initial admission on 04/04/21 after sustaining a traumatic fall secondary to intoxication. Treated for right tension pneumothorax and L small apical pneumothorax with extensive crepitus. Treated by Thoracic surgery and subsequently sent home. He returned on 04/11/21 with sob and bilateral pneumothoraces, loculated pleural effusion and atelectasis. He had chest tubes bilaterally and was still noted to have left-sided comminuted rib fractures which were treated conservatively. His chest tubes were initially to wall suction. He was found to have loculated pleural effusion and atelectasis throughout and subsequently had a diagnostic bronchoscopy with bronchial washings. Pleural fluid culture positive for MSSA. Patient started on Ancef. Seen and evaluated by Infectious Disease with recommendation to continue linezolid for 4 weeks in the outpatient setting. He did have Tpa and DNase infusions (Directly to CT cavity) at one point as well due to low drainage. Left-sided pneumothorax had resolved after clamping and chest tube was removed on 04/16. On 04 18 his right-sided pigtail catheter was removed without incident. He was having daily chest x-rays. Chest x-ray from 04/20 showed tiny bilateral pleural effusions with no pneumothorax suspected. Plan would be to have patient repeat a chest CT in 4 weeks and continue linezolid for 4 weeks as well. He has been encouraged to stop drinking as his alcohol use seems to have been the cause of his traumatic injury after his fall. Also his alcohol may be contributing to his hyponatremia. In regards to this he should monitor his fluid intake and stay on a fluid restriction. He was seen and evaluated by Nephrology with rec for fluid restriction on 1.8L daily. Time Spent with Patient Time attestation: Total time spent providing and/or coordinating discharge services: Discharge coordination time: Greater than 30 minutes Quality: Stroke Does the patient have a stroke diagnosis?: No Physical Exam Vital Signs: Vital Signs: Last Vital Signs Temp 97.9 F 04/20/21 07:15 Pulse 87 04/20/21 07:15 Resp 17 04/20/21 07:15 BP 119/74 04/20/21 07:15 Pulse Ox 95 04/20/21 07:15 Oxygen Flow Rate 100 04/11/21 17:49 Body Mass Index 29.5 Appearing in no acute distress head is normocephalic atraumatic eyes pupils are PERRLA sclera is anicteric mouth throat mucous membranes are intact and moist neck is supple no lymphadenopathy, no JVD noted lung sounds are clear to auscultation heart regular rate rhythm, clear S1, S2 positive bowel sounds, abdomen is soft, nontender neuro patient is alert x3, no focal deficits DS: Data Data Completed and Pending Labs on day of discharge: Laboratory Results - last 24 hr 04/20/21 04/20/21 07:58 07:58 WBC 9.3 RBC 3.05 L Hgb 10.8 L Hct 31.4 L MCV 103.0 H MCH 35.4 H MCHC 34.4 RDW 13.2 Plt Count 483 H MPV 9.1 L Absolute Nucleated RBC 0.000 Nucleated RBC % (auto) 0.0 Sodium 132 L Potassium 3.7 Chloride 94 L Carbon Dioxide 30 H Anion Gap 12 BUN 3 L D Creatinine 0.56 Estim Creat Clear Calc 160.7 Estimated GFR > 60 Random Glucose 93 Calcium 7.8 L Discharge Plan Discharge Anticipated Discharge Date/Time: 04/21/21 11:06 Patient Disposition: Home, Self-Care Discharge Diagnosis: Pneumomediastinum Bilateral pneumothorax Bilateral pleural effusion Multiple rib fractures Alcohol abuse Hyponatremia MSSA bacteremia Referrals: Holden Bailey MD [Physician] - 1 Week Discharge Medications: New linezolid 600 mg tablet 600 mg PO Q12H 28 Days Qty: 56 RF: 0 Continued citalopram 40 mg tablet 1 tab PO DAILY RF: 0 lisinopril 40 mg tablet 1 tab PO DAILY RF: 0 atenolol 50 mg tablet 1 tab PO DAILY RF: 0 oxycodone 10 mg tablet 10 mg PO Q6H PRN (Reason: pain) Qty: 20 RF: 0 albuterol sulfate [Ventolin HFA] 90 mcg/actuation HFA aerosol inhaler 2 puff inhalation Q6H PRN (Reason: shortness of breath or wheezing) Qty: 8.5 RF: 0 prednisone 10 mg tablet See Rx Instructions .ROUTE .COMPLEX Qty: 45 RF: 0 Discharge Orders: Discharge Order (Routine); Ordered 04/21/21 Ordered By: Puja Shea Diet: advance to usual diet Activity on Discharge: As tolerated Stand Alone Forms: Patient Portal Discharge page Care Plan Goals: Stop drinking alcohol Follow up with outpatient recovery teams, [facility] Concerns: Pneumomediastinum Bilateral pneumothorax Bilateral pleural effusion Multiple rib fractures Alcohol abuse Hyponatremia MSSA bacteremia Plan of Treatment: Continue antibiotics as prescribed. Follow up with PCP for repeat CT scan in 4 weeks Stay on a 1.8 liter fluid restriction Assessment: See discharge summary
--- NOTE | 2021-04-20 10:27 | P.PNIM_ITS ---
Progress Note: A&P (1) Alcohol abuse: Status: Acute (2) Pneumothorax on right: Status: Acute (3) Pneumothorax on left: Status: Acute (4) MSSA (methicillin susceptible Staphylococcus aureus): Status: Acute Assessment and Plan: 56-year-old man admitted to the ICU on April 11 with worsening shortness of breath found to have large left-sided pneumothorax and large moderate right- sided effusion.? He had a chest tube placed and patient was admitted to ICU because there had been no thoracic surgery coverage.? At the time was also noted to be hyponatremic with a history of heavy alcohol abuse.? Of note he was originally admitted on April 04 following a mechanical fall after heavily drinking.? At that time he presented with a pneumomediastinum with extensive subcutaneous emphysema, large right pneumothorax and small apical left pneumothorax.? He had 3rd and 4th rib fractures noted as well.? He had chest tube placed to the right side and subsequently was clamped and removed and patient was discharged home. Right sided loculated effusion, status post bronchoscopy Effusion fluid growing MSSA Continue Ancef 2gm Q8h, will transition to Linezolid for 4 weeks Pneumothorax. Both chest tubes removed s/p 2 doses of alteplase and dnase Some residual discomfort CXR today with no further pneumothorax Plan for home after PT evaluation Thoracic surgery following Pain management CXR daily rib fractures no surgical intervention symptomatic management Euvolemic Hyponatremia. continue fluid restriction 1.8L TSH and cortisol wnl, urine studies ok Nephrology following with re for 1gm salt tabs daily for 5 days for sodium less than 128 Alcohol abuse seen by care team encouraged alcohol cessation Continue thiamine, folic acid supplementation HTN BP controlled Atenolol, lisinopril has been on hold since admission, if BP trends up can resume Mood citalopram has been on hold since admission, will hold for hyponatremia DVT prophylaxis with SCD boots Attending Dr. Mcnulty Subjective Subjective Date of Service: 04/20/21 Review of Systems Follow? up pneumothorax Both chest tubes out Some residual pain from chest tube sites No shortness of breath but shallow breathing and coughing Physical Exam Vital Signs: Vital Signs: Last Vital Signs Temp 97.9 F 04/20/21 07:15 Pulse 87 04/20/21 07:15 Resp 17 04/20/21 07:15 BP 119/74 04/20/21 07:15 Pulse Ox 95 04/20/21 07:15 Oxygen Flow Rate 100 04/11/21 17:49 Body Mass Index 28.4 Appearing in no acute distress lung sounds are clear to auscultation heart regular rate rhythm, clear S1, S2 positive bowel sounds, abdomen is soft, nontender neuro patient is alert x3, no focal deficits Objective Data Current Medications Albuterol/Ipratropium (Albuterol/Iprat 2.5/0.5mg 3 Ml Ampul.Neb) 3 ml INHALE RQ4H PRN PRN Reason: Shortness of Breath/Wheezing Last Admin: 04/19/21 05:50 Dose: 3 ml Documented by: Calcium Carbonate (Calcium Carbonate 750 Mg Tab.Chew) 750 mg PO Q6H PRN PRN Reason: Indigestion Last Admin: 04/20/21 02:55 Dose: 750 mg Documented by: Cyclobenzaprine HCl (Cyclobenzaprine Hcl 5 Mg Tablet) 5 mg PO BEDTIME [facility] Last Admin: 04/19/21 19:59 Dose: 5 mg Documented by: Diphenhydramine HCl (Diphenhydramine Hcl 50 Mg/Ml Vial) 25 mg IVPUSH Q6H PRN PRN Reason: Hives Folic Acid (Folic Acid 1 Mg Tablet) 1 mg PO DAILY [facility] Last Admin: 04/20/21 08:28 Dose: 1 mg Documented by: Hydromorphone HCl (Hydromorphone Hcl 0.5 Mg/0.5 Ml Syringe) 1 mg IVPUSH Q4H PRN; Protocol PRN Reason: Pain, Severe (Pain Scale 7-10) Last Admin: 04/20/21 08:28 Dose: 1 mg Documented by: Cefazolin Sodium/Dextrose (Ancef) 2 gm in 50 mls @ 100 mls/hr IV Q8H [facility] Last Infusion: 04/20/21 09:51 Dose: Infused Documented by: Medication (No Benzodiazepines) 1 each MISCELLANE DAILY [facility] Melatonin (Melatonin 3 Mg Tablet) 6 mg PO BEDTIME PRN PRN Reason: Insomnia Last Admin: 04/19/21 23:17 Dose: 6 mg Documented by: Oxycodone HCl (Oxycodone Hcl Immed Release 5 Mg Tablet) 10 mg PO Q4H PRN PRN Reason: Pain, Mild (Pain Scale 1-3) Last Admin: 04/19/21 23:16 Dose: 10 mg Documented by: Pharmacy Consult (Consult Rx Vancomycin Dosing) 1 each MISCELLANE DAILY PRN PRN Reason: Consult order Senna/Docusate Sodium (Sennosides/Docusate Sodium Tablet) 1 tab PO DAILY [facility] Last Admin: 04/20/21 08:28 Dose: 1 tab Documented by: Thiamine HCl (Thiamine Hcl 100 Mg Tablet) 100 mg PO DAILY [facility] Last Admin: 04/20/21 08:28 Dose: 100 mg Documented by: Labs CBC & Chem 7: 04/20/21 07:58 04/20/21 07:58 Labs: Laboratory Results - last 24 hr 04/20/21 04/20/21 07:58 07:58 MCV 103.0 H MCH 35.4 H MCHC 34.4 RDW 13.2 Plt Count 483 H MPV 9.1 L Absolute Nucleated RBC 0.000 Nucleated RBC % (auto) 0.0 Anion Gap 12 Estim Creat Clear Calc 160.7 Estimated GFR > 60 Random Glucose 93 Calcium 7.8 L Microbiology Microbiology Results: Microbiology 04/12/21 15:19 Thoracentesis Fluid Gram Stain - Final 04/12/21 15:19 Thoracentesis Fluid Anaerobic Culture - Final 04/12/21 15:19 Thoracentesis Fluid Body Fluid Culture - Final Staphylococcus aureus 04/11/21 17:54 Blood - Venous Blood Culture - Final No growth after 5 days. 04/11/21 17:52 Blood - Venous Blood Culture - Final No growth after 5 days. 04/13/21 13:09 Bronchial Washings Gram Stain - Final 04/13/21 13:09 Bronchial Washings - Final Staphylococcus aureus Quality Stroke Does the patient have a stroke diagnosis?: No VTE Prior VTE?: No VTE Risk Level:: Medical - moderate - high VTE Device Contraindication: N/A - Device Ordered VTE Drug Contraindication: Treatment Not Tolerated
[2021-04-20] MEDS: oxyCODONE HCl Immed Release 5 MG TABLET 10 MG PO ×2 (16:34→20:40)
[2021-04-20] MEDS: Cyclobenzaprine HCl 5 MG TABLET PO (20:40)
[2021-04-20] MEDS: Melatonin 3 MG TABLET 6 MG PO (22:40)
[2021-04-21] VITALS (9 sets, daily range): BP systolic 131–158; BP diastolic 72–95; PULSE 77–81; RESP 18–20; TEMP 35.5–36.9; O2SAT 95–99; BMI 28.0
[2021-04-21] MEDS: ceFAZolin Sodium/Dextrose,Iso 2 GM/50 ML PIGGYBACK IV ×2 (02:19→09:20)
[2021-04-21] MEDS: HYDROmorphone HCl 0.5 MG/0.5 ML SYRINGE 1 MG IVPUSH (02:38)
[2021-04-21] MEDS: Calcium Carbonate 750 MG TAB.CHEW PO (02:42)
[2021-04-21] MEDS: oxyCODONE HCl Immed Release 5 MG TABLET 10 MG PO (09:19)
[2021-04-21] MEDS: Thiamine HCL 100 MG TABLET PO (09:20)
[2021-04-21] MEDS: Folic Acid 1 MG TABLET PO (09:20)
[2021-04-21] MEDS: Sennosides/Docusate Sodium TABLET 1 TAB PO (09:20)
--- NOTE | 2021-04-21 11:57 | P.PNNP_ITS ---
Subjective Subjective Date of Service: 04/21/21 Interval history: Feels better. No new issues today Physical Exam Vital Signs: Vital Signs: Last Vital Signs Temp 96 F L 04/21/21 11:04 Pulse 81 04/21/21 11:35 Resp 18 04/21/21 11:04 BP 158/95 H 04/21/21 11:35 Pulse Ox 95 04/21/21 11:35 Oxygen Flow Rate 100 04/11/21 17:49 Body Mass Index 28.0 Const: General: cooperative and alert Orientation/consciousness: oriented to person Neck: Neck: Yes supple and Yes no JVD Resp: Effort & Inspection: normal respiratory effort Auscultation: clear to auscultation bilaterally Cardio: Palpation: no palpable S3 Heart sounds: no gallops and no rubs GI: Palpation (GI): Soft to palpation Auscultation: normal bowel sounds Neuro: General: oriented to person Motor exam (neuro): no asterixis Objective Data Labs CBC & Chem 7: 04/20/21 07:58 04/20/21 07:58 Microbiology Microbiology Results: Microbiology 04/12/21 15:19 Thoracentesis Fluid Gram Stain - Final 04/12/21 15:19 Thoracentesis Fluid Anaerobic Culture - Final 04/12/21 15:19 Thoracentesis Fluid Body Fluid Culture - Final Staphylococcus aureus 04/11/21 17:54 Blood - Venous Blood Culture - Final No growth after 5 days. 04/11/21 17:52 Blood - Venous Blood Culture - Final No growth after 5 days. 04/13/21 13:09 Bronchial Washings Gram Stain - Final 04/13/21 13:09 Bronchial Washings - Final Staphylococcus aureus Procedures Date of Service Date of Service: 04/21/21 Assessment & Plan Assessment and plan (1) Hyponatremia: Status: Acute Assessment and Plan: (1) MSSA (methicillin susceptible Staphylococcus aureus): ? (2) Hyponatremia: ? ? ? Euvolemic HypoNa: suspect SIADH from pain and chest tubes and excess PO fluid intake REC: enforce po fluid restriction, will follow with team (3) Hypertension: (4) Bilateral pleural effusion: ?Status:?Acute (5) Pneumomediastinum: ?Status:?Acute (6) Multiple fractures of ribs of left side: ?Assessment and Plan: REC: recheck lytes, restrict po fluids to 1800 / 24 hrs; Watch tCO2 Time Spent With Patient Time: Total time spent is greater than 50% in coordination of care (as doc umented) at patient's floor/unit and/or counseling patient: Time with patient: less than 15 minutes Progress Note: Quality Stroke Does the patient have a stroke diagnosis?: No
--- NOTE | 2021-04-21 13:01 | MHC.CM.PN ---
Patient has been medically cleared for dc to home today/no services.
--- NOTE | 2021-04-21 14:03 | MHC.CM.PN ---
CM was unable to reach Patient's Sister/HCP/Talita at [phone]. CM spoke with Patient's Brother/Melchor @ [phone]. Per Melchor, Talita is no longer interested in a [address] and is agreeable for Patient to return to her home. Melchor will provide transportation to home for Patient around 3 PM today. RN is aware.
== END 2021-04-21 16:28 | disposition home or self-care (01) | DRG 721 ==
LOC: HO.ED 18:04 → HO.EDOVER 18:07 → HO.ICU 18:08 → HO.IMC 04-15 05:55
PROVIDERS: Internal Medicine Nephrology; Nurse Practitioner Family; Physician Assistant Medical; Registered Nurse Community Health; Admitting Provider Internal Medicine Cardiovascular Disease; Emergency Provider Emergency Medicine; Visit Provider Nurse Practitioner Acute Care
DX: T85.79XA Infection and inflammatory reaction due to other internal prosthetic devices, implants and grafts, initial encounter (principal); J96.01 Acute respiratory failure with hypoxia; J86.9 Pyothorax without fistula; J90 Pleural effusion, not elsewhere classified; S22.42XA Multiple fractures of ribs, left side, initial encounter for closed fracture; E87.1 Hypo-osmolality and hyponatremia; I10 Essential (primary) hypertension; F10.232 Alcohol dependence with withdrawal with perceptual disturbance; T17.590A Other foreign object in bronchus causing asphyxiation, initial encounter; J98.11 Atelectasis; F17.210 Nicotine dependence, cigarettes, uncomplicated; B95.61 Methicillin susceptible Staphylococcus aureus infection as the cause of diseases classified elsewhere; W19.XXXA Unspecified fall, initial encounter; Z20.822 Contact with and (suspected) exposure to COVID-19; Z71.6 Tobacco abuse counseling; Z88.0 Allergy status to penicillin; Z79.899 Other long term (current) drug therapy
CPT/HCPCS: 0241U; 36415; 71045; 71250; 76604; 80048; 80053; 80202; 82077; 82140; 82533; 82803; 83605; 83735; 83935; 84100; 84300; 84443; 84484; 85025; 85027; 85610; 87040; 87070; 87071; 87073; 87077; 87186; 87205; 93005; 93308; 96361; 96365; 96372; 96375; 96376; 97161; 99285; 99291; C1758; J0690; J0692; J1170; J2250; J2560; J2997; J3010; J3370

== ENCOUNTER 2021-05-09 15:29 | Outpatient (REF) | payer MEDICAID, SELFPAY ==
[2021-05-09 18:09] LABS: Hematocrit 40.6 % (42.0-52.0); Hemoglobin 13.5 g/dl (14.0-18.0); Mean Corpuscular HGB Conc 33.3 g/dl (31.0-36.0); Mean Corpuscular Hemoglobin 32.8 pg (27.0-33.0); Mean Corpuscular Volume 98.8 fL (80.0-98.0); Mean Platelet Volume 8.3 fL (9.4-12.4); Platelet Count 543 X10*3/uL (160-400); Red Blood Count 4.11 X10*6/uL (4.60-5.80); Red Cell Distribution Width 13.5 % (11.0-16.0); White Blood Count 11.1 X10*3/uL (4.8-10.8)
[2021-05-09 18:14] LABS: Alanine Aminotransferase 23 U/L (0-40); Alkaline Phosphatase 127 U/L (39-117); Anion Gap 14 (12-20); Aspartate Amino Transferase 22 U/L (5-37); Bilirubin Total 0.3 mg/dL (0.0-1.0); Blood Urea Nitrogen 11 mg/dL (9-16); Calcium 9.6 mg/dL (8.4-10.2); Carbon Dioxide 24 mmol/L (22-29); Chloride 100 mmol/L (96-108); Estimated Glomerular Filt Rate > 60; Glucose Random 96 mg/dL (60-115); Potassium 4.6 mmol/L (3.3-5.1); Sodium 133 mmol/L (135-145); Total Protein 7.7 g/dL (6.5-8.0)
== END 2021-05-09 15:30 | disposition home or self-care (01) ==
LOC: HO.MANLDS 15:29
PROVIDERS: PCP Internal Medicine; Visit Provider Internal Medicine
DX: I10 Essential (primary) hypertension (principal)
CPT/HCPCS: 36415; 80053; 85027

== ENCOUNTER 2021-06-12 12:53 | Outpatient (REF) | payer MEDICAID, SELFPAY ==
--- NOTE | ~2021-06-12 | CT_ITS ---
EXAMINATION: CT CHEST WITHOUT CONTRAST CLINICAL INFORMATION: Pulmonary nodule. COMPARISON: Chest x-ray 04/20/2021, CT chest 04/18/2021. TECHNIQUE: Multidetector volumetric CT imaging of the chest was done. Axial MIP volume rendering provided. Sagittal and coronal reformatted images were obtained. This CT examination was performed using dose optimization techniques as appropriate, variously including the following: *Automated exposure control *Adjustment of mA and/or kV according to patient size (this includes techniques or standardized protocols for targeted exams where dose is matched to indication/reason for exam; i.e. 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 LUNGS: The lungs are well expanded with band-like atelectasis right lower lobes superior segment. There is a 2 mm calcified nodule right lower lobe superior segment, subpleural 3 mm nodule left lower lobe axial image 258/5, focal atelectatic changes in the lingula, 2 mm nodule left superior major fissure axial image 25/8. MEDIASTINUM: The thyroid lobes are symmetric and normal. The central trachea and the bronchi are widely patent. There are small shotty lymph nodes in the aortic window. Trace coronary artery calcification seen. There is no pericardial effusion. PLEURA: There is minimal left posterior pleural thickening. There is no pleural effusion seen. Previously seen right posterior pleural thickening and bilateral small pleural effusions have improved. AXILLA: No lymphadenopathy. UPPER ABDOMEN: The visualized liver, spleen, pancreas, gallbladder, and bilateral adrenal glands are unremarkable. OSSEOUS STRUCTURES: There is no lytic or sclerotic process seen. There is an old fracture involving the left posterior 3rd rib and right lateral 7th rib, unchanged to last CT chest exam. No additional bony abnormality is visualized. CT/CT chest wo con IMPRESSION: Improved bilateral small pleural effusions with trace pleural effusion seen at this time. Minimal atelectatic changes in the lingula with 2 mm calcified nodule right lower lobe superior segment and 2 mm nodule in the left superior major fissure/lymph node are stable. There is band-like atelectasis right lower lobe which is also stable. Minimal atelectatic changes or scar seen within the lingula.
== END 2021-06-12 12:54 | disposition home or self-care (01) ==
LOC: HO.CT 12:53
PROVIDERS: PCP Internal Medicine; Visit Provider Physician Assistant
DX: R91.1 Solitary pulmonary nodule (principal)
CPT/HCPCS: 71250

== ENCOUNTER → 2022-07-14 09:03 | Outpatient (BNVA) | payer OTHER, SELFPAY | PROVIDERS: PCP Internal Medicine; Visit Provider Physician Assistant Medical | DX: S91.312A Laceration without foreign body, left foot, initial encounter (principal); W27.8XXA Contact with other nonpowered hand tool, initial encounter | CPT/HCPCS: 12001; 73590; 99203 ==

== ENCOUNTER → 2022-07-16 13:34 | Outpatient (BNVA) | payer OTHER, SELFPAY | PROVIDERS: PCP Internal Medicine; Visit Provider Physician Assistant Medical | DX: S91.312A Laceration without foreign body, left foot, initial encounter (principal); S90.32XA Contusion of left foot, initial encounter; W27.8XXA Contact with other nonpowered hand tool, initial encounter | CPT/HCPCS: 99213 ==

== ENCOUNTER 2022-08-05 11:35 | Emergency (ER) | payer OTHER, SELFPAY ==
--- NOTE | ~2022-08-05 | CT_ITS ---
Indication: Headache EXAMINATION: CT brain, CT facial bones Axial imaging with coronal and sagittal reformatted images. This CT examination was performed using dose optimization techniques as appropriate, variously including the following: *Automated exposure control *Adjustment of mA and/or kV according to patient size (this includes techniques or standardized protocols for targeted exams where dose is matched to indication/reason for exam; i.e. extremities or head) *Use of iterative reconstruction technique. Radiation dose 745 and 312. Comparison is made to previous exam dated 04/04/2021. There is no midline shift. There is no mass effect. There is no hemorrhage. The basal cisterns appear patent. The posterior fossa is grossly within normal limits. No extra-axial collection. There is white matter ischemic change here. Appears ongoing from previous study. No evidence for fracture on the bone windows. CT facial bones; Bilateral nasal bone fractures. CT/CT head/brain wo IV con IMPRESSION: Negative acute noncontrast CT of the brain. Scattered moderate white matter ischemic changes are noted.. [place] to be ongoing from 2020. Nasal bone fractures.
--- NOTE | ~2022-08-05 | CT_ITS ---
Indication: Headache EXAMINATION: CT brain, CT facial bones Axial imaging with coronal and sagittal reformatted images. This CT examination was performed using dose optimization techniques as appropriate, variously including the following: *Automated exposure control *Adjustment of mA and/or kV according to patient size (this includes techniques or standardized protocols for targeted exams where dose is matched to indication/reason for exam; i.e. extremities or head) *Use of iterative reconstruction technique. Radiation dose 745 and 312. Comparison is made to previous exam dated 04/04/2021. There is no midline shift. There is no mass effect. There is no hemorrhage. The basal cisterns appear patent. The posterior fossa is grossly within normal limits. No extra-axial collection. There is white matter ischemic change here. Appears ongoing from previous study. No evidence for fracture on the bone windows. CT facial bones; Bilateral nasal bone fractures. CT/CT facial bones wo IV con IMPRESSION: Negative acute noncontrast CT of the brain. Scattered moderate white matter ischemic changes are noted.. [place] to be ongoing from 2020. Nasal bone fractures.
[2022-08-05 11:41] VITALS: BP 199/111; PULSE 63; RESP 18; TEMP 36.6; O2SAT 97; BMI 27.3
--- NOTE | 2022-08-05 11:41 | ED_ITS ---
HPI - General Adult General Chief complaint: Epistaxis <Pam Rashid NP - Last Filed: 08/05/22 11:46> Stated complaint: Nose inj/Work related <Pam Rashid NP - Last Filed: 08/05/22 11:46> Time Seen by Provider: 08/05/22 12:20 <Pma Rashid NP - Last Filed: 08/05/22 11:46> Source: patient <MCKENNA Burkett - Last Filed: 08/05/22 15:20> Mode of arrival: ambulatory <MCKENNA Burkett - Last Filed: 08/05/22 15:20> Limitations: no limitations <MCKENNA Burkett - Last Filed: 08/05/22 15:20> History of Present Illness HPI narrative: 57 yo male w/ history of HTN present to ED with complaints of facial injury with a wooden block hitting him in the nose with subsequent nose bleed rn x ray. No LOC. +nasal pain, +BUSTOS. Did take bp meds this AM. Reports TB vaccine 7 years ago in 2018. Denies blood thinners. Denies headache, nausea, and vomiting. Reports this occurred at work. <MCKENNA Burkett - Last Filed: 08/05/22 15:20> MD complaint: Facial injury from work <MCKENNA Burkett - Last Filed: 08/05/22 15:20> Onset (ago): hour(s) <MCKENNA Burkett - Last Filed: 08/05/22 15:20> Location: face <MCKENNA Burkett - Last Filed: 08/05/22 15:20> Radiation: non-radiation <MCKENNA Burkett - Last Filed: 08/05/22 15:20> Severity: moderate <MCKENNA Burkett - Last Filed: 08/05/22 15:20> Quality: aching <MCKENNA Burkett - Last Filed: 08/05/22 15:20> Pain Consistency: constant <MCKENNA Burkett Last Filed: 08/05/22 15:20> Relieving factors: none <MCKENNA Burkett Last Filed: 08/05/22 15:20> Exacerbating factors: other (Palpation of the nasal bones) <MCKENNA Burkett Last Filed: 08/05/22 15:20> Associated symptoms: other (Resolved epistaxis) <MCKENNA Burkett Last Filed: 08/05/22 15:20> Treatments prior to arrival: none <MCKENNA Burkett Last Filed: 08/05/22 15:20> Related Data Home medications: Previous Rx's Medication Instructions Recorded albuterol sulfate 90 mcg/actuation 2 puff inhalation Q6H PRN 04/10/21 aerosol inhaler (Ventolin HFA) shortness of breath or wheezing #8.5 grams linezolid 600 mg tablet 600 mg PO Q12H 28 days #56 tabs 04/20/21 atenolol 50 mg tablet 50 mg PO DAILY #30 tabs 04/21/21 citalopram 40 mg tablet 40 mg PO DAILY #30 tabs 04/21/21 lisinopril 40 mg tablet 40 mg PO DAILY #30 tabs 04/21/21 oxycodone 5 mg tablet 5 mg PO Q8H PRN pain #12 tabs 04/21/21 acetaminophen 500 mg tablet 1,000 mg PO QID PRN fever or pain 08/05/22 (Tylenol Extra Strength) #14 tabs clindamycin HCl 300 mg capsule 300 mg PO TID nasal bone fracture 08/05/22 and nasal laceration 7 days #21 caps oxycodone 5 mg tablet 5 mg PO Q6H PRN pain #14 tabs 08/05/22 <Pam Rashid NP - Last Filed: 08/05/22 11:46> Allergies/adverse reactions: Allergies Allergy/AdvReac Type Severity Reaction Status Date / Time Penicillins Allergy Unknown Verified 04/11/21 16:08 <Pam Rashid NP - Last Filed: 08/05/22 11:46> Review of Systems Review of Systems: Constitutional : No Fever, No Chills, Cardiovascular : No Chest Pain, No SOB Respiratory : No Dyspnea Gastrointestinal : No abdominal pain Musculoskeletal : + nose pain/injury, No Joint Swelling Skin : positive skin laceration to nose, No Foreign bodies, No rash, No surrounding erythema Neuro : No Weakness, No Numbness/tingling Psych : No SI/HI/thoughts of self injury <MCKENNA Burkett Last Filed: 08/05/22 15:20> Yes all other systems are reviewed and are negative <MCKENNA Burkett - Last Filed: 08/05/22 15:20> [facility] Past Medical History Attestation statement: The following information was validated with the patient. <MCKENNA Burkett - Last Filed: 08/05/22 15:20> Source: old records reviewed and nursing notes reviewed <MCKENNA Burkett - Last Filed: 08/05/22 15:20> Medical History: Medical History Alcohol abuse Alcohol dependence Atelectasis Bilateral pneumothoraces (~04/2021) Empyema lung Hypertension Hypertension Laceration of leg not thigh (~07/14/22) Multiple fractures of ribs of left side (~04/2021) Personal history of nicotine dependence <Pam Rashid NP - Last Filed: 08/05/22 11:46> Surgical History: Surgical History H/O rhinoplasty History of chest tube placement (~04/2021) <Pam Rashid NP - Last Filed: 08/05/22 11:46> Family History Family History: Family History Father No problems noted. Mother No problems noted. <Pam Rashid NP - Last Filed: 08/05/22 11:46> Social History Social History: Social History Household Members: Other Household Members Other:: sister Housing: House Do you presently have visiting nurse or other home services: No Alcohol intake: current Alcohol intake frequency: 3 or more drinks per day Patient Tobacco Use Status: Current everyday Tobacco user Tobacco use type: Cigarette Advance Directives: Yes Advance Directives on File: Yes Advance Directives Date on File: 04/11/21 service: No Current occupational status: unemployed <Pam Rashid NP - Last Filed: 08/05/22 11:46> Physical Exam ED Vital Signs: Vital Signs - 24 hr 08/05/22 11:41 Temperature 97.8 F Pulse Rate 63 Respiratory Rate 18 Blood Pressure 199/111 H Pulse Oximetry 97 Oxygen Delivery Method Room Air BMI result Body Mass Index 27.3 <Pam Rashid NP - Last Filed: 08/05/22 11:46> Vital Signs - 24 hr 08/05/22 11:41 Temperature 97.8 F Pulse Rate 63 Respiratory Rate 18 Blood Pressure 199/111 H Pulse Oximetry 97 Oxygen Delivery Method Room Air BMI result Body Mass Index 27.3 vital signs have been reviewed as normal and appeared to be correct. Blood pressure 199/111. Heart rate normal. Respiration rate normal. Temperature normal. Oxygen saturation normal. <MCKENNA Burkett - Last Filed: 08/05/22 15:20> Appearance: Alert. Oriented X3. No acute distress. Head: Normal external exam. Normocephalic. Atraumatic. No Bronson signs noted. No raccoon eyes noted Eyes: PERRLA. EOMI. Conjunctiva and sclera normal. Eyelids normal. ENT: EAC normal. TM's Normal. No septal hematoma noted. No hemotympanum noted. Pharynx normal. Uvula midline. Moist mucous membranes. No lesions/ulcerations or masses noted on the tongue. Normal voice. No trismus noted. No drooling noted. No muffled voice noted. Neck: Normal inspection. Neck supple. FROM. No adenopathy. Thyroid Normal. No tracheal deviation noted. No crepitus is noted. No meningeal signs. No neck mass noted. No signs of trauma noted. CVS: Normal heart rate and rhythm. Heart sound normal. Pulses normal throughout. No murmurs/rales/gallops. Respiratory: No respiratory distress. Painless inspiration. Breath sounds normal. No wheezes/rales/rhonchi noted. Chest nontender. No crepitus is noted. No signs of trauma noted. No accessory muscle usage noted or decreased air movement noted. No signs of trauma. Abdomen: Soft and nontender. Bowel sounds normal in all 4 quadrants. No distention noted. No organomegaly noted. No visible injury noted. Back: No CVA tenderness. Full range of motion noted. Nontender. No signs of trauma. Patient neuro intact bilaterally and distally on all 4 extremities. Patient's reflexes intact bilaterally and distally on all 4 extremities. No rashes/lesion/induration/fluctuance or signs of infection noted. Skin: 1 cm laceration to bridge of nose. No additional lacerations abrasions or lesions noted. Extremities: No lower extremity edema. No calf tenderness is noted. Extremities exhibit normal range of motion and nontender. Neuro: Oriented X 3. No motor deficit. No sensory deficit. Reflexes normal. Normal steady gait. No focal neuro deficits noted. CN's II-XII intact bilaterally? Vascular: + radial pulses/+ 2 distal pedal pulses/+2 dorsalis pedis b/l. Normal cap refill. No cyanosis noted to upper extremity nails and lower extremity toes nails. <MCKENNA Burkett - Last Filed: 08/05/22 15:20> [facility] General nose exam: Abnormal external nose present (bridge of nose ) nasal laceration, nasal erythema, nasal abrasion and nasal swelling <MCKENNA Burkett - Last Filed: 08/05/22 15:20> Course Course Course Narrative: This is a rapid medical exam. Deferred additional HPI, ROS, PE to primary provider. 57 yo male w/ history of HTN here with complaints of wooden block hitting in the nose with subsequent nose bleed. No LOC. +nasal pain, +BUSTOS. Nose bleed under control in triage. NO AC therapy use. Will obtain CT head/ct facial bones. Tetanus UTD. +hypertensive in triage. Other VS stable. Did take bp meds this AM. <Pam Rashid NP - Last Filed: 08/05/22 11:46> 57 year old male w/ history of HTN present to ED with complaints of wooden block hitting in the nose with subsequent nose bleed. No LOC. Denies headache, nausea, and vomiting. +nasal pain, +BUSTOS. No racoon Eyes or bronson signs. No septal hematoma. No hemotympanum noted. TB vaccine 2018. Denies blood th inners. He denies prolonged down time or falling to the ground. He denies any other injuries complaints or concerns. Face CT shows bilateral nasal bone fractures. Negative non-contrast CT of the brain. Patient has a 1cm laceration to the bridge of the nose. Laceration cleaned, 2 nylon 6.0 sutures placed by PA- Student. Patient tolerated procedure well. No complications. Pain medication and antibiotics ordered. Follow-up with EENT, and PCP. Return for suture removal in 5-7 days. <MCKENNA Burkett - Last Filed: 08/05/22 15:20> Medications Administered Discontinued Medications Generic Name Dose Route Start Last Admin Trade Name Freq PRN Reason Stop Dose Admin Bacitracin 1 appl 08/05/22 13:56 08/05/22 14:19 Bacitracin Oint 14 Gm Tube TOPICAL 08/05/22 13:57 1 appl ONCE ONE Administration Protocol Lidocaine HCl 5 ml 08/05/22 12:49 08/05/22 12:52 Lidocaine Hcl 1 % Mpf 5 Ml Vial INFILTRATI 08/05/22 12:50 5 ml ONCE ONE Administration <Pam Rashid NP - Last Filed: 08/05/22 11:46> Medications Administered Discontinued Medications Generic Name Dose Route Start Last Admin Trade Name Freq PRN Reason Stop Dose Admin Bacitracin 1 appl 08/05/22 13:56 08/05/22 14:19 Bacitracin Oint 14 Gm Tube TOPICAL 08/05/22 13:57 1 appl ONCE ONE Administration Protocol Lidocaine HCl 5 ml 08/05/22 12:49 08/05/22 12:52 Lidocaine Hcl 1 % Mpf 5 Ml Vial INFILTRATI 08/05/22 12:50 5 ml ONCE ONE Administration <MCKENNA Burkett - Last Filed: 08/05/22 15:20> Procedures Laceration Laceration 1: Site: face (Nose) <MCKENNA Burkett - Last Filed: 08/05/22 15:20> Size (cm): 1 <MCKENNA Burkett - Last Filed: 08/05/22 15:20> Description: irregular <MCKENNA Burkett - Last Filed: 08/05/22 15:20> Depth: simple, single layer <MCKENNA Burkett - Last Filed: 08/05/22 15:20> Local Anesthetic: lidocaine 1% <MCKENNA Burkett Last Filed: 08/05/22 15:20> Amount of anesthesia used (mL): 5 <MCKENNA Burkett Last Filed: 08/05/22 15:20> Pre-repair: wound explored, irrigated extensively and deep structures intact <MCKENNA Burkett Last Filed: 08/05/22 15:20> Skin layer closed with: nylon <MCKENNA Burkett - Last Filed: 08/05/22 15:20> Size (cm): 6-0 <MCKENNA Burkett - Last Filed: 08/05/22 15:20> Number of sutures: 2 <MCKENNA Burkett - Last Filed: 08/05/22 15:20> Technique: simple, interrupted <MCKENNA Burkett - Last Filed: 08/05/22 15:20> Medical Decision Making Independent Interpretation I performed an independent interpretation of an: CT Scan <MCKENNA Burkett - Last Filed: 08/05/22 15:20> Interpretation: EXAMINATION: CT brain, CT facial bones Axial imaging with coronal and sagittal reformatted images. This CT examination was performed using dose optimization techniques as appropriate, variously including the following: *Automated exposure control *Adjustment of mA and/or kV according to patient size (this includes techniques or standardized protocols for targeted exams where dose is matched to indication/reason for exam; i.e. extremities or head) *Use of iterative reconstruction technique. Radiation dose 745 and 312. Comparison is made to previous exam dated 04/04/2021. There is no midline shift. There is no mass effect. There is no hemorrhage. The basal cisterns appear patent. The posterior fossa is grossly within normal limits. No extra-axial collection. There is white matter ischemic change here. Appears ongoing from previous study. No evidence for fracture on the bone windows. CT facial bones; Bilateral nasal bone fractures. CT/CT head/brain wo IV con IMPRESSION: Negative acute noncontrast CT of the brain. Scattered moderate white matter ischemic changes are noted.. [place] to be ongoing from 2020. ? Nasal bone fractures. <MCKENNA Burkett - Last Filed: 08/05/22 15:20> Radiology Impression Discussion of test interpretation with radiology: I have reviewed the radiologist's reading. <MCKENNA Burkett - Last Filed: 08/05/22 15:20> Discharge Plan Discharge Clinical Impression: Work related injury, Epistaxis, Fracture of nasal bones, Laceration of nose <Pam Rashid NP - Last Filed: 08/05/22 11:46> Patient Disposition: Home, Self-Care <Pam Rashid NP - Last Filed: 08/05/22 11:46> Prescriptions: New clindamycin HCl 300 mg capsule 300 mg PO TID 7 Days Qty: 21 0RF acetaminophen [Tylenol Extra Strength] 500 mg tablet 1,000 mg PO QID PRN (Reason: fever or pain) Qty: 14 0RF oxycodone 5 mg tablet 5 mg PO Q6H PRN (Reason: pain) Qty: 14 0RF Rx Instructions: Partial Fill upon patient request. No Action albuterol sulfate [Ventolin HFA] 90 mcg/actuation HFA aerosol inhaler 2 puff inhalation Q6H PRN (Reason: shortness of breath or wheezing) Qty: 8.5 0RF linezolid 600 mg tablet 600 mg PO Q12H 28 Days Qty: 56 0RF oxycodone 5 mg tablet 5 mg PO Q8H PRN (Reason: pain) Qty: 12 0RF citalopram 40 mg tablet 40 mg PO DAILY Qty: 30 0RF lisinopril 40 mg tablet 40 mg PO DAILY Qty: 30 0RF atenolol 50 mg tablet 50 mg PO DAILY Qty: 30 0RF <Pam Rashid NP - Last Filed: 08/05/22 11:46> Referrals: Holden Bailey MD [Primary Care Provider] - Khoa Head [Physician] - Ale Velez PA [Emergency Midlevel Provider] - 5 days (For suture removal) <Pam Rashid NP - Last Filed: 08/05/22 11:46> Stand Alone Forms: Work/School Release <Pam Rashid NP - Last Filed: 08/05/22 11:46> Interventions: ED Discharge Assessment Last Done: 08/05/22 14:19 <Pam Rashid NP - Last Filed: 08/05/22 11:46> Discharge Date/Time: 08/05/22 14:19 <Pam Rashid NP - Last Filed: 08/05/22 11:46>
[2022-08-05] MEDS: Lidocaine HCl 1 % MPF 5 ML VIAL INFILTRATI (12:52)
[2022-08-05] MEDS: Bacitracin Oint 14 GM TUBE 1 APPL TOPICAL (14:19)
== END 2022-08-05 14:19 | disposition home or self-care (01) ==
PROVIDERS: Emergency Provider Student in an Organized Health Care Education/Training Program; PCP Internal Medicine
DX: S01.21XA Laceration without foreign body of nose, initial encounter (principal); R04.0 Epistaxis; R51.9 Headache, unspecified; Y29.XXXA Contact with blunt object, undetermined intent, initial encounter; Y93.9 Activity, unspecified; Y92.9 Unspecified place or not applicable; Y99.0 Civilian activity done for income or pay; Z79.899 Other long term (current) drug therapy
CPT/HCPCS: 12051; 70450; 70486; 99282; 99284

== ENCOUNTER → 2022-08-07 12:58 | Outpatient (BNVA) | payer OTHER, SELFPAY | PROVIDERS: PCP Internal Medicine; Visit Provider Internal Medicine | DX: S02.2XXA Fracture of nasal bones, initial encounter for closed fracture (principal); Y29.XXXA Contact with blunt object, undetermined intent, initial encounter; R03.0 Elevated blood-pressure reading, without diagnosis of hypertension | CPT/HCPCS: 99202 ==

== ENCOUNTER → 2022-08-10 13:49 | Outpatient (BNVA) | payer OTHER, SELFPAY | PROVIDERS: PCP Internal Medicine; Visit Provider Internal Medicine | DX: Z48.02 Encounter for removal of sutures (principal); R03.0 Elevated blood-pressure reading, without diagnosis of hypertension | CPT/HCPCS: 99212; 99213 ==

== ENCOUNTER 2023-01-12 11:36 | Outpatient (REF) | payer OTHER, MEDICAID, SELFPAY ==
[2023-01-12 13:07] LABS: MANUAL DIFF FLAG NO
[2023-01-12 13:21] LABS: Basophils Absolute Auto 0.1 X10*3/uL (0.0-0.2); Basophils Percent Auto 1.1 % (0-2); Eosinophils Absolute Auto 0.4 X10*3/uL (0.0-0.4); Eosinophils Percent Auto 5.1 % (0-4); Hematocrit 47.2 % (42.0-52.0); Hemoglobin 16.5 g/dl (14.0-18.0); Imm Gran Abs Auto 0.06 X10*3/uL (0.00-0.03); Imm Gran Pct Auto 0.8 % (0.0-0.4); Lymphocytes Absolute Auto 1.8 X10*3/uL (1.2-4.9); Lymphocytes Percent Auto 23.4 % (20-40); Mean Corpuscular Hemoglobin 37.1 pg (27.0-33.0); Mean Corpuscular Volume 106.1 fL (80.0-98.0); Mean Platelet Volume 9.2 fL (9.4-12.4); Monocytes Absolute Auto 0.6 X10*3/uL (0.1-1.2); Monocytes Percent Auto 8.1 % (2-11); Neutrophils Absolute Auto 4.8 x10*3/uL (2.0-8.3); Neutrophils Percent Auto 61.5 % (45-73); Platelet Count 271 X10*3/uL (160-400); Red Blood Count 4.45 X10*6/uL (4.60-5.80); Red Cell Distribution Width 11.9 % (11.0-16.0); White Blood Count 7.9 X10*3/uL (4.8-10.8)
[2023-01-12 13:24] LABS: INTERNATIONAL NORM RATIO 0.8 (0.9-1.1); Prothrombin Time 9.4 SEC (10.0-13.1)
[2023-01-12 13:27] LABS: Partial Thromboplastin Time 32.4 SEC (26.0-36.4)
[2023-01-12 14:11] LABS: Alanine Aminotransferase 19 U/L (0-40); Albumin Level 4.7 g/dL (3.5-5.0); Alkaline Phosphatase 65 U/L (39-117); Anion Gap 18 (12-20); Aspartate Amino Transferase 33 U/L (5-37); Bilirubin Total 0.8 mg/dL (0.0-1.0); Blood Urea Nitrogen 23 mg/dL (9-16); Calcium 10.1 mg/dL (8.4-10.2); Carbon Dioxide 25 mmol/L (22-29); Chloride 101 mmol/L (96-108); Estimated Glomerular Filt Rate > 60; Glucose Random 91 mg/dL (60-115); Iron 134 mcg/dL (45-160); Magnesium 2.2 mg/dL (1.6-2.6); Percent Iron Saturation 41 % (15-50); Potassium 4.5 mmol/L (3.3-5.1); Sodium 139 mmol/L (135-145); Total Iron Binding Capacity 330 mcg/dL (228-428); Unsaturated Iron Binding 196 ug/dL
[2023-01-12 14:22] LABS: Gamma Glutamyl Transpeptidase 127 U/L (11-51)
[2023-01-12 14:27] LABS: Ferritin 876 ng/mL (20-250); Free T4 (Free Thyroxine) 1.03 ng/dL (0.71-1.85); Thyroid Stimulating Hormone 1.35 uIU/mL (0.32-4.0); Vitamin D 25-OH Total 38.4 ng/mL (>30)
[2023-01-12 14:29] LABS: Folate 2.8 ng/mL (> or = 4.0); Vitamin B12 292 pg/mL (200-900)
[2023-01-15 12:19] LABS: Vitamin B1 8 nmol/L (8-30)
[2023-01-19 07:28] LABS: Testosterone, Free 106.3 pg/mL (35.0-155.0); Testosterone, Total 581 ng/dL (250-1100)
== END 2023-01-12 11:37 | disposition home or self-care (01) ==
LOC: HO.MANLDS 11:36
PROVIDERS: Visit Provider Physician Assistant
DX: R23.3 Spontaneous ecchymoses (principal); F10.129 Alcohol abuse with intoxication, unspecified; R53.83 Other fatigue; R55 Syncope and collapse; Z78.9 Other specified health status
CPT/HCPCS: 36415; 80053; 82306; 82607; 82728; 82746; 82977; 83540; 83735; 84402; 84403; 84425; 84439; 84443; 85025; 85610; 85730

== ENCOUNTER → 2023-02-10 07:50 | Outpatient (REF) | payer OTHER, MEDICAID, SELFPAY ==
--- NOTE | ~2023-02-10 | XR_ITS ---
EXAMINATION: XR CHEST CLINICAL INFORMATION: SOB, history of pneumothorax. COMPARISON: Chest x-ray 04/20/[address] chest 06/12/2021. TECHNIQUE: 2 views of the chest were obtained. FINDINGS: There is elevated right hemidiaphragm. The lungs are expanded and clear. Heart size and pulmonary vascularity is normal. No gross bony abnormality seen. XR/XR chest 2V IMPRESSION: Elevated right hemidiaphragm. No acute process seen.
--- NOTE | ~2023-02-10 | US_ITS ---
EXAMINATION: US ABDOMEN LIMITED CLINICAL INFORMATION: Alcohol abuse with intoxication. COMPARISON: None available. TECHNIQUE: Real-time imaging of the right upper quadrant abdominal viscera. FINDINGS: PANCREAS: Largely obscured by overlapping bowel gas. LIVER: There is hepatomegaly, with a longitudinal span of 19.6 cm. The liver contour is normal. There is diffuse increased liver parenchymal echogenicity, with pericholecystic sparing. No focal hepatic lesion. There is no intrahepatic biliary duct dilatation seen. GALLBLADDER: Normal. The gallbladder is physiologically distended without evidence of stones, sludge, polyps, wall thickening or pericholecystic fluid. COMMON BILE DUCT: Normal in caliber measuring 0.5 cm in diameter. RIGHT KIDNEY: At the lower pole, a 2 mm nonobstructing calculus is seen, with twinkle artifact. No hydronephrosis or focal parenchymal lesions. The kidney measures 9.1 cm in maximum dimension. FREE FLUID: None. US/US abdomen limited IMPRESSION: 1. There is hepatomegaly. 2. There is generalized increase in hepatic echotexture, consistent with fatty infiltration or hepatocellular disease. Please correlate clinically. Characteristic pericholecystic sparing favors fatty infiltration. No focal hepatic mass or intrahepatic biliary dilatation is seen. 3. A 2 mm nonobstructing right renal calculus is seen.
--- NOTE | 2023-02-10 07:53 | CA_ITS ---
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 Normal LV systolic function with LVEF of 55-60% 2. Normal cardiac valvular Dopplers 3. Upper limit of normal ascending aortic size 4. Normal RV systolic pressure 4. No pericardial effusion Findings Left Ventricle Normal left ventricular size, thickness, and systolic function. The visually estimated ejection fraction is between 55-60%. Spectral Doppler is indicative of an impaired relaxation filling pattern. E/E prime ratio is <8, consistent with normal filling pressures. Evidence suggests grade I (mild) diastolic dysfunction. Peak GLS is -17.3%, borderline low. Right Ventricle Normal right ventricular cavity size and systolic function. Atria Both atria are normal in size. Interatrial shunt cannot be excluded. Aortic Valve Normal aortic valve structure and function. There is no aortic valve stenosis. There is no aortic valve regurgitation. Mitral Valve Normal mitral valve structure and function. There is trace mitral valve regurgitation. There is no mitral valve stenosis. Pulmonic Valve The pulmonic valve is likely normal. There is trace pulmonic valve regurgitation. Tricuspid Valve Normal tricuspid valve structure. There is trace tricuspid valve regurgitation. The right ventricular systolic pressure is normal. The right ventricular systolic pressure is 12 mmHg. Normal right atrial pressure. There is no evidence of pulmonary hypertension. Great Vessels The pulmonary artery was not well visualized. Venous The inferior vena cava is normal in size and collapses greater than 50% with inspiration. Pericardium/Pleural There is no evidence of pericardial effusion. Prior Study Comparison No significant change compared to prior study dated: 04/14/2021. Measurements 2D Linear Measurements IVSd: 1.15 0.6-0.9/0.6-1.0 cm LVIDd: 4.44 3.9-5.3/4.2-5.9 cm LVIDd Index: 2.39 2.4-3.2/2.2-3.1 cm/m2 LVIDs: 2.05 2.0-3.6 cm LVPWd: 1.10 0.7-1.1 cm LA Diam: 3.50 2.7-3.8/3.0-4.0 cm LAIDs Index: 1.88 1.5-2.3 cm/m2 LV Mass: 220.37 67-162/88-224 g LV Mass Index: 118.48 43-95/49-115 g/m2 LVOT Diam: 1.90 3.0+(-)1.3 cm 2D Systolic Function EF 4C: 61.40 >55% EF 2C: 55.50 >55% EF BiP: 57.60 >55% Mitral Valve MV Pk E: 0.60 MV PK A: 0.73 MV Decel Time: 334.00 E/A: 0.80 E'Lateral: 11.00 E'Medial: 6.74 E/E' Med: 8.80 E/E' Lat: 5.40 PHT: 98.00 MVA PHT: 2.24 Decel [place]: 1.78 Aortic Valve AoV Pk Binh: 1.62 AoV Mn Binh: 1.05 AoV VTI: 0.31 AoV Pk Grad: 10.00 Aov Mn Grad: 5.00 JANET Cont.VTI: 1.99 LVOT LVOT Pk Binh: 1.01 LVOT Mn Binh: 0.69 LVOT VTI: 0.22 LVOT Pk Grad: 4.00 LVOT Mn Grad: 2.00 LVOT Diam: 1.90 LVOT Area: 2.84 Diastolic Function MV Pk E: 0.60 MV Pk A: 0.73 E/A: 0.80 E'Medial: 6.74 E/E' Med: 8.80 E' Laterial: 11.00 E/E' Lat: 5.40 Right Ventricle TAPSE (mm): 18.90 TVS' Binh: 11.10 Tricuspid Valve TR Pk Binh: 1.52 TR Pk Grad: 9.00 RA Press: 3.00 RVSP: 12.00 Great Vessels Aorta Sinus of Valsalva: 3.40 2.0-3.5 cm Ao Asc: 3.60 2.1-3.4 cm Pulmonary Valve PV Pk Binh: 1.82 Peak PV Grad: 13.00 Updated in Other Vendor System with Status of Final Santo Lozdaa MD electronically signed on 02/10/2023 9:09:14 AM with status of Final
== END ==
LOC: HO.CARD 07:50
PROVIDERS: PCP Internal Medicine; Visit Provider Physician Assistant
DX: F17.210 Nicotine dependence, cigarettes, uncomplicated (principal); F10.129 Alcohol abuse with intoxication, unspecified
CPT/HCPCS: 71046; 76705; 93306; 93356

== ENCOUNTER → 2023-02-10 07:53 | Outpatient (BNV) | payer OTHER, MEDICAID, SELFPAY | PROVIDERS: PCP Internal Medicine; Visit Provider Internal Medicine Cardiovascular Disease | DX: R00.2 Palpitations (principal) | CPT/HCPCS: 93306 ==

== ENCOUNTER 2023-08-05 08:56 | Outpatient (REF) | payer OTHER, MEDICAID, SELFPAY ==
--- NOTE | ~2023-08-05 | US_ITS ---
EXAMINATION: US COMPLETE ABDOMEN WITH LIVER ELASTOGRAPHY CLINICAL INFORMATION: Alcoholic liver disease. COMPARISON: Abdominal ultrasound dated 02/10/2023. TECHNIQUE: Real-time imaging of the abdominal viscera. Noninvasive ultrasound liver fibrosis assessment is performed using Nasir ElastPQ point quantification shear wave elastography (2D-SWE) with a C5-2 MHz transducer. Multiple elastography samples are obtained. FINDINGS: PANCREAS: Largely obscured by overlapping bowel gas. ABDOMINAL AORTA: The proximal, middle, and distal aortic segments are normal in caliber. INFERIOR VENA CAVA: Visualized portions are normal. LIVER: The liver shows normal contour and increased echogenicity. No focal lesion or intrahepatic biliary duct dilatation. The right lobe measures 17.0 cm in length. The left lobe measures 7.0 cm in length. Portal flow is towards the liver (hepatopetal). Shear wave liver elastography median stiffness is 1.38 m/s (reference: normal median stiffness is 1.3 m/s or less). IQR/median stiffness to assess sampling precision is 0.07 (reference: good quality data set is IQR/median stiffness of 0.15 or less). GALLBLADDER: Normal. The gallbladder is physiologically distended without evidence of stones, sludge, polyps, wall thickening or pericholecystic fluid. COMMON BILE DUCT: Normal in caliber measuring 0.8 cm in diameter. RIGHT KIDNEY: At the lower pole, a 4 mm nonobstructing calculus is seen, with twinkle artifact. No hydronephrosis. No focal parenchymal lesions. The kidney measures 10.4 cm in maximum dimension. LEFT KIDNEY: Normal. No hydronephrosis. No renal calculi or focal parenchymal lesions. The kidney measures 10.4 cm in maximum dimension. SPLEEN: Normal. The spleen measures 10.5 cm in maximum dimension. FREE FLUID: None. US/US abdomen comp w elastography IMPRESSION: 1. There is generalized increase in hepatic echotexture, consistent with fatty infiltration or hepatocellular disease. Please correlate clinically. No focal hepatic mass or intrahepatic biliary dilatation is seen. 2. There is borderline hepatomegaly. 3. Liver elastography: In the absence of other known clinical signs, measurements rule out compensated advanced chronic liver disease. If there are known clinical signs, further testing may be needed for confirmation. 4. A 4 mm nonobstructing right renal lower pole calculus is seen. 5. Technically limited ultrasound examination of the pancreas. REFERENCE: Society of Radiologists in Ultrasound Liver Stiffness Thresholds (2020): LIVER STIFFNESS THRESHOLDS: *Liver Stiffness equal or less than 1.3 m/s: High probability of being normal. *Liver Stiffness less than 1.7 m/s: In the absence of other known clinical signs, rules out compensated advanced chronic liver disease. *Liver Stiffness 1.7-2.1 m/s: Suggestive of compensated advanced chronic liver disease but need further test for confirmation. *Liver Stiffness over 2.1 m/s: Rules in compensated advanced chronic liver disease. *Liver Stiffness over 2.4 m/s: Suggestive of clinically significant portal hypertension. QUALITY OF DATA SET: *IQR/Median value equal or less than 0.15 implies a quality data set. *IQR/Median value over 0.15 implies a poor quality data set. SIGNIFICANT CHANGE FROM PRIOR EXAM: Significant change if liver stiffness measurement is 10% or greater from prior exam. OTHER CONSIDERATIONS: The stage of liver fibrosis may be overestimated in the setting of acute hepatitis, liver inflammation, elevated liver function tests, hepatic vascular congestion, obstructive cholestasis, non-fasting state, and infiltrative diseases such as amyloidosis and lymphoma. In some patients with NAFLD, the liver stiffness thresholds for compensated advanced chronic liver disease may be lower. In causes other than viral hepatitis and NAFLD, liver stiffness thresholds are not well established.
== END 2023-08-05 08:57 | disposition home or self-care (01) ==
LOC: HO.US 08:56
PROVIDERS: PCP Internal Medicine; Visit Provider Internal Medicine
DX: K70.9 Alcoholic liver disease, unspecified (principal); E83.19 Other disorders of iron metabolism
CPT/HCPCS: 76700; 76981

== ENCOUNTER 2023-11-17 19:41 | Outpatient (REF) | payer OTHER, MEDICAID, SELFPAY | END 2023-11-17 19:42 | disposition home or self-care (01) | LOC: HO.LNP 19:41 | PROVIDERS: Visit Provider Physician Assistant | DX: L03.311 Cellulitis of abdominal wall (principal) | CPT/HCPCS: 87070; 87077; 87186; 87205 ==

== ENCOUNTER 2024-01-09 21:33 | Emergency (ER) | payer SELFPAY ==
[2024-01-09 21:41] VITALS: BP 148/92; PULSE 81; RESP 18; O2SAT 98; BMI 23.8
--- NOTE | 2024-01-09 21:53 | ED_ITS ---
HPI - Psych General Chief Complaint: Psychiatric Symptoms Stated Complaint: crisis Time Seen by Provider: 01/09/24 21:51 Source: patient Mode of arrival: ambulatory Limitations: no limitations History of Present Illness ED Provider: Dr. Ernesto Hays HPI Narrative: 58-year-old male with a history of hypertension alcohol use disorder, tobacco dependence who presents emergency department for evaluation of not feeling well and suicidal ideation x3 days. Patient told me that he has not been feeling well for many years but is very vague about this feeling. He states that over the last 3 days however he has been feeling suicidal without a plan. He states that many years ago he did cut his wrists. He can not identify a trigger for suicidal ideation but he believes it may be related to his alcohol use disorder. Patient states that he drinks a qt of vodka per day. He states his last drink was 20 minutes prior to coming to the emergency department. He states that he is never achieved any significant period of sobriety. He states he is never experienced withdrawal since he states that he is never stop drinking alcohol. The patient was here in the emergency department with his brother. He denied fever, chills, chest pain, shortness of breath, nausea, vomiting, dark stools or bloody stools. He states that he has a chronic cough which is a smoker's cough. He states that he has a chronic staph skin infection on his abdomen. Related Data Previous Rx's ?Medication ?Instructions ?Recorded albuterol sulfate 90 mcg/actuation 2 puff inhalation Q6H PRN 04/10/21 aerosol inhaler (Ventolin HFA) shortness of breath or wheezing #8.5 grams linezolid 600 mg tablet 600 mg PO Q12H 28 days #56 tabs 04/20/21 atenolol 50 mg tablet 50 mg PO DAILY #30 tabs 04/21/21 citalopram 40 mg tablet 40 mg PO DAILY #30 tabs 04/21/21 lisinopril 40 mg tablet 40 mg PO DAILY #30 tabs 04/21/21 oxycodone 5 mg tablet 5 mg PO Q8H PRN pain #12 tabs 04/21/21 acetaminophen 500 mg tablet 1,000 mg (2 x 500 mg) PO QID PRN 08/05/22 (Tylenol Extra Strength) fever or pain #14 tabs clindamycin HCl 300 mg capsule 300 mg PO TID nasal bone fracture 08/05/22 and nasal laceration 7 days #21 caps oxycodone 5 mg tablet 5 mg PO Q6H PRN pain #14 tabs 08/05/22 Allergies Allergy/AdvReac Type Severity Reaction Status Date / Time Penicillins Allergy Unknown Verified 01/09/24 22:19 Review of Systems 2 Review of Systems: Yes all other systems are reviewed and are negative [facility] Past Medical History [facility] Narrative: Social history: He does smoke 1 pack of cigarettes per day times 30 years. He drinks a qt of vodka per day. He states that he smokes marijuana 3 times a week. He denies other drug use. Medical History Alcohol abuse Alcohol dependence Atelectasis Bilateral pneumothoraces (~04/2021) Empyema lung Hypertension Hypertension Laceration of leg not thigh (~07/14/22) Multiple fractures of ribs of left side (~04/2021) Personal history of nicotine dependence Surgical History H/O rhinoplasty History of chest tube placement (~04/2021) Family History Family History Father No problems noted. Mother No problems noted. Social History Social History Household Members: Other Household Members Other:: sister Housing: House Do you presently have visiting nurse or other home services: No Alcohol intake: current Alcohol intake frequency: 3 or more drinks per day Alcohol type: hard liquor Comment: REFUSING BED ALARM Patient Tobacco Use Status: Current everyday Tobacco user Tobacco use type: Cigarette Smoked in Last 30 Days: Yes Use of substances other than those prescribed or required for medical reasons: No Advance Directives: Yes Advance Directives on File: Yes Advance Directives Date on File: 04/11/21 Do you have a plan to hurt others: No Plan service: No Current occupational status: unemployed Physical Exam 2 Vital Signs: Vital Signs: Last Vital Signs Temp 98.3 F 01/10/24 01:12 Pulse 67 01/10/24 01:12 Resp 18 01/10/24 01:12 BP 124/77 01/10/24 01:12 Pulse Ox 98 01/10/24 01:12 O2 Del Method Room Air 01/10/24 01:12 BMI result Body Mass Index 23.8 Vital signs revealed an elevated blood pressure of 149/92 otherwise unremarkable Exam: General: Awake, alert in no distress Head: Normocephalic, atraumatic EENT: PERRL, Lids normal, sclera normal, conjunctiva normal, nose normal , ears normal, throat without erythema or exudates Neck: Supple, no adenopathy Lung: breath sounds symmetric, no wheezing, rales or rhonchi Chest: symmetric movement, nontender Heart: regular rate and rhythm, normal S1, S2 no murmurs or rubs Abdomen: soft, non-tender, nondistended, normal bowel sounds Back: no vertebral tenderness, no CVAT Extremities: no deformities, moves all extremities symmetrically Neuro: Awake, alert, oriented, normal speech, cranial nerves intact, moves all extremities symmetrically Psych: Pleasant, cooperative Medications Administered Discontinued Medications Generic Name Dose Route Start Last Admin Trade Name Freq PRN Reason Stop Dose Admin Nicotine 21 mg 01/09/24 22:06 01/09/24 22:13 Nicotine 21 Mg Patch.[id number] TRANSDERMA 01/09/24 22:07 21 mg ONCE ONE Administration Medical Decision Making Medical Decision Making MDM Narrative: 58-year-old male with a history of hypertension alcohol use disorder, tobacco dependence who presents emergency department for evaluation of not feeling well and suicidal ideation x3 days. Patient drinks 1 qt of vodka per day states that he has never had any significant period of sobriety in his never experienced withdrawal since he is never stop drinking. He states that many years ago he did cut his wrist when he was feeling suicidal but does not have a plan at this time. He can not identify a trigger for his suicidal ideation but he believes that is related to his alcohol use disorder. Vital signs revealed an elevated blood pressure. Physical examination was otherwise unremarkable. Differential diagnosis: ?Includes but is not limited to suicidal ideation, depression, alcohol use disorder, acute alcohol intoxication, substance use disorder, anemia, electrolyte abnormalities Following evaluation was ordered: CBC, CMP, lipase, ethanol level, urinalysis, drug screen urine, COVID-19, influenza, RSV Patient was initially treated with the following: Nicotine patch 21 mg, CIWA scale q.4 hours with Ativan 2 mg q.12 hours PRN alcohol withdrawal symptoms Course: 23:42 My interpretation patient's laboratory evaluation as follows: CBC was normal. Potassium low 3.2. AST is elevated 55. Lipase was normal at 35. Alcohol was elevated 191. Urine tox screen was positive for marijuana. COVID-19, influenza and RSV were negative. Patient was medically cleared for psychiatric evaluation, I will consult the care team. 00:30 Start physician observation I did talk to the care team and the patient will not be able to be seen until the morning. I did discuss this with the patient the patient's brother. Therefore the patient will be placed in physician observation and watched closely for signs of withdrawal until he can be evaluated by care team. Therefore the patient will remain in the emergency department until disposition can be determined or until patient's symptoms improve over time. 02:00 Physician observation continued At the end of my shift, the patient is still waiting for care team evaluation. You was given Ativan 2 mg orally for anxiety and for alcohol withdrawal. The patient's care was turned over to my colleague, Dr. Gino Cardenas. Admission/Observation Consideration of admission/observation: Escalation of care including admission/observation considered Lab Data MDM Lab Attestation statement: I reviewed the patient's lab results. 01/09/24 22:10 01/09/24 22:10 Labs: Lab Results 01/09/24 Range/Units 22:10 WBC 10.3 (4.8-10.8) X10*3/uL RBC 4.18 L (4.60-5.80) X10*6/uL Hgb 16.2 (14.0-18.0) g/dl Hct 43.6 (42.0-52.0) % MCV 104.3 H (80.0-98.0) fL MCH 38.8 H (27.0-33.0) pg MCHC 37.2 H (31.0-36.0) g/dl RDW 12.2 (11.0-16.0) % Plt Count 215 (160-400) X10*3/uL MPV 8.5 L (9.4-12.4) fL Immature Gran % (Auto) 0.4 (0.0-0.4) % Neut % (Auto) 67.0 (45-73) % Lymph % (Auto) 21.5 (20-40) % [place] % (Auto) 9.2 (2-11) % Eos % (Auto) 1.0 (0-4) % Baso % (Auto) 0.9 (0-2) % Lymph # (Auto) 2.2 (1.2-4.9) X10*3/uL [place] # (Auto) 0.9 (0.1-1.2) X10*3/uL Eos # (Auto) 0.1 (0.0-0.4) X10*3/uL Baso # (Auto) 0.1 (0.0-0.2) X10*3/uL Abs Immat Gran (auto) 0.04 H (0.00-0.03) X10*3/uL Absolute Neuts (auto) 6.9 (2.0-8.3) x10*3/uL Absolute Nucleated RBC 0.000 (0.0-0.012) X10*3/uL Nucleated RBC % (auto) 0.0 (0.0-0.2) /100WBC Sodium 144 (135-145) mmol/L Potassium 3.2 L (3.3-5.1) mmol/L Chloride 109 H (96-108) mmol/L Carbon Dioxide 22 (22-29) mmol/L Anion Gap 16 (12-20) BUN 7 L (9-16) mg/dL Creatinine 0.79 (0.5-1.4) mg/dL Estim Creat Clear Calc 99.8 Estimated GFR > 60 Random Glucose 97 (60-115) mg/dL Calcium 9.1 D (8.4-10.2) mg/dL Total Bilirubin 0.9 (0.0-1.0) mg/dL AST 55 H (5-37) U/L ALT 21 (0-40) U/L Alkaline Phosphatase 66 (39-117) U/L Total Protein 7.4 (6.5-8.0) g/dL Albumin 4.5 (3.5-5.0) g/dL Lipase 35 (8-78) U/L Urine Color Yellow Urine Appearance Clear Urine pH 6.5 (5.0-9.0) Ur Specific [place] <= 1.005 (1.005-1.025) Urine Protein Negative (Neg-Trace) mg/dL Urine Glucose (UA) Negative (Negative) mg/dL Urine Ketones Negative (Negative) mg/dL Urine Blood Negative (Negative) Urine Nitrite Negative (Negative) Ur Leukocyte Esterase Negative (Negative) Urine Opiates Screen Not Detected (Not Detect) Ur Buprenorphine Scrn Not Detected (Not Detect) ng/mL Ur Oxycodone Screen Not Detected (Not Detect) ng/mL Urine Methadone Screen Not Detected (Not Detect) ng/mL Urine Fentanyl Screen Not Detected (Not Detect) Ur Barbiturates Screen Not Detected (Not Detect) Ur Phencyclidine Scrn Not Detected (Not Detect) Ur Amphetamines Screen Not Detected (Not Detect) U Benzodiazepines Scrn Not Detected (Not Detect) Urine Cocaine Screen Not Detected (Not Detect) U Marijuana (THC) Screen POSITIVE H (Not Detect) Ethyl Alcohol 191 mg/dL Influenza Type A (PCR) NEGATIVE (Negative) Influenza Type B (PCR) NEGATIVE (Negative) RSV RNA Qual (PCR) NEGATIVE (Negative) SARS-CoV-2 RNA (RT-PCR) NEGATIVE (Negative) Discharge Plan Discharge Clinical Impression: Alcohol use disorder, Suicidal ideation, Alcohol intoxication Patient Disposition: Still a Patient Prescriptions: No Action albuterol sulfate [Ventolin HFA] 90 mcg/actuation HFA aerosol inhaler 2 puff inhalation Q6H PRN (Reason: shortness of breath or wheezing) Qty: 8.5 0RF linezolid 600 mg tablet 600 mg PO Q12H 28 Days Qty: 56 0RF oxycodone 5 mg tablet 5 mg PO Q8H PRN (Reason: pain) Qty: 12 0RF citalopram 40 mg tablet 40 mg PO DAILY Qty: 30 0RF lisinopril 40 mg tablet 40 mg PO DAILY Qty: 30 0RF atenolol 50 mg tablet 50 mg PO DAILY Qty: 30 0RF clindamycin HCl 300 mg capsule 300 mg PO TID 7 Days Qty: 21 0RF acetaminophen [Tylenol Extra Strength] 500 mg tablet 1,000 mg PO QID PRN (Reason: fever or pain) Qty: 14 0RF oxycodone 5 mg tablet 5 mg PO Q6H PRN (Reason: pain) Qty: 14 0RF Rx Instructions: Partial Fill upon patient request. Interventions: [place]-Suicide Risk Severity Scale Last Done: 01/09/24 22:16 Print Language: Marshallese
--- NOTE | 2024-01-09 21:59 | PC.NURSE ---
belongings in laundry closet. pt changed over to hospital attire as per protocol. nerupa pct sitting. pt calm, cooperative, in nad at this time.
[2024-01-09] MEDS: Nicotine 21 MG PATCH.TD24 TRANSDERMA (22:13)
[2024-01-09 22:16] LABS: MANUAL DIFF FLAG NO
[2024-01-09 22:27] LABS: Basophils Absolute Auto 0.1 X10*3/uL (0.0-0.2); Basophils Percent Auto 0.9 % (0-2); Eosinophils Absolute Auto 0.1 X10*3/uL (0.0-0.4); Hematocrit 43.6 % (42.0-52.0); Hemoglobin 16.2 g/dl (14.0-18.0); Imm Gran Abs Auto 0.04 X10*3/uL (0.00-0.03); Imm Gran Pct Auto 0.4 % (0.0-0.4); Lymphocytes Absolute Auto 2.2 X10*3/uL (1.2-4.9); Lymphocytes Percent Auto 21.5 % (20-40); Mean Corpuscular HGB Conc 37.2 g/dl (31.0-36.0); Mean Corpuscular Hemoglobin 38.8 pg (27.0-33.0); Mean Corpuscular Volume 104.3 fL (80.0-98.0); Mean Platelet Volume 8.5 fL (9.4-12.4); Monocytes Absolute Auto 0.9 X10*3/uL (0.1-1.2); Monocytes Percent Auto 9.2 % (2-11); Neutrophils Absolute Auto 6.9 x10*3/uL (2.0-8.3); Platelet Count 215 X10*3/uL (160-400); Red Blood Count 4.18 X10*6/uL (4.60-5.80); Red Cell Distribution Width 12.2 % (11.0-16.0); White Blood Count 10.3 X10*3/uL (4.8-10.8)
[2024-01-09 22:28] LABS: Amphetamine Screen Urine Not Detected (Not Detect); Barbiturates, Urine Not Detected (Not Detect); Benzodiazepines Screen Urine Not Detected (Not Detect); Buprenorphine Scr Not Detected (Not Detect); Cannabinoid Screen Urine POSITIVE (Not Detect); Cocaine Screen Urine Not Detected (Not Detect); Fentanyl, urine Not Detected (Not Detect); Methadone Screen, Urine Not Detected (Not Detect); Opiate Screen Urine Not Detected (Not Detect); Oxycodone Screen Urine Not Detected (Not Detect); Phencyclidine Screen Urine Not Detected (Not Detect)
[2024-01-09 22:32] LABS: Alanine Aminotransferase 21 U/L (0-40); Albumin Level 4.5 g/dL (3.5-5.0); Alkaline Phosphatase 66 U/L (39-117); Anion Gap 16 (12-20); Aspartate Amino Transferase 55 U/L (5-37); Bilirubin Total 0.9 mg/dL (0.0-1.0); Blood Urea Nitrogen 7 mg/dL (9-16); Calcium 9.1 mg/dL (8.4-10.2); Carbon Dioxide 22 mmol/L (22-29); Chloride 109 mmol/L (96-108); Creatinine Clr Calc Pharmacy 99.8; Estimated Glomerular Filt Rate > 60; Ethanol 191 mg/dL; Glucose Random 97 mg/dL (60-115); Lipase 35 U/L (8-78); Potassium 3.2 mmol/L (3.3-5.1); Sodium 144 mmol/L (135-145); Total Protein 7.4 g/dL (6.5-8.0)
[2024-01-09 22:37] LABS: Appearance Urine Clear; Color Urine Yellow; Glucose Urine UA Negative (Negative); Leukocyte Esterase Urine Negative (Negative); Nitrite Urine Negative (Negative); PH 6.5 (5.0-9.0); Specific Gravity - Urine <= 1.005 (1.005-1.025); Urine Blood Negative (Negative); Urine Ketones Negative (Negative); Urine Protein Negative (Neg-Trace)
[2024-01-09 23:00] LABS: Influenza A PCR NEGATIVE (Negative); Influenza B PCR NEGATIVE (Negative); Resp Syncy Virus RNA Qual PCR NEGATIVE (Negative); SARS COV2 PCR INHOUSE NEGATIVE (Negative)
[2024-01-09 23:27] VITALS: BP 119/78; PULSE 63; RESP 16; TEMP 36.8; O2SAT 97
[2024-01-10 01:12] VITALS: BP 124/77; PULSE 67; RESP 18; TEMP 36.8; O2SAT 98
[2024-01-10] MEDS: LORazepam 1 MG TABLET 2 MG PO ×2 (01:58→10:37)
--- NOTE | 2024-01-10 01:59 | PC.NURSE ---
pt reports feeling anxious and unable to sleep. ciwa 1. md aware as prn indication for alcohol withdrawal. per MD, to administer one time dose of 2mg ativan po and prn changed for alcohol withdrawal/anxiety. pt medicated per mar tolerated PO. 1:1 sitter at bedside.
--- NOTE | 2024-01-10 14:34 | PC.NURSE ---
uTtu Mir MD prescribed Doxycycline PO for staph infection on abdomen.
--- NOTE | 2024-01-10 14:35 | MHC.RECOVRN ---
Addendum entered by Kristi Lozoya 01/10/24 14:51: [facility] has availability. Referral sent. Original Note: Met with pt in [facility] after pt cleared by CARE Team and expressed interest in [facility]. Pts brother present for conversation with pts permission. Pt reports alcohol use, 1 quart daily vodka/whiskey x 2-3 years. Pt reports longest period in recovery was when he was hospitalized with a collapsed lung, unsure when this was. Pt reports he has been to [facility] x 1 when he was in high school. Pt currently reports feeling okay, reports mild upset stomach and headache. Educated pt on [facility] and facilities available, pt is interested in [facility]. Message has been left with Marleny Macario regarding bed availability.
--- NOTE | 2024-01-10 15:50 | PC.NURSE ---
Kristi from [facility] requesting pt. to call [facility] at [phone] to complete his intake. Gayle from [facility] is now requesting [facility] to send over pt.'s medical records. Carlitos Berry is aware and states that she's sending over the pt.'s records now.
--- NOTE | 2024-01-10 16:19 | MHC.RECOVRN ---
Pt to be admitted to [facility] this evening, they will transport. Facility will call CARE Team when rock picker time is finalized. RN and CARE Team aware.
[2024-01-10] MEDS: Nicotine 21 MG PATCH.TD24 TRANSDERMA (17:59)
[2024-01-10 18:51] VITALS: BP 124/77; PULSE 67; RESP 18; TEMP 36.8; O2SAT 98
== END 2024-01-10 18:52 ==
PROVIDERS: Emergency Provider Emergency Medicine Emergency Medical Services; PCP Internal Medicine
DX: F10.129 Alcohol abuse with intoxication, unspecified (principal); Y90.6 Blood alcohol level of 120-199 mg/100 ml; R45.851 Suicidal ideations; I10 Essential (primary) hypertension; Z03.818 Encounter for observation for suspected exposure to other biological agents ruled out; Z79.899 Other long term (current) drug therapy
CPT/HCPCS: 0241U; 36415; 80053; 80307; 81003; 83690; 85025; 99285; S9485

== ENCOUNTER 2024-03-10 14:17 | Outpatient (REF) | payer BC, SELFPAY ==
[2024-03-10 14:44] LABS: MANUAL DIFF FLAG NO
[2024-03-10 15:04] LABS: Basophils Absolute Auto 0.1 X10*3/uL (0.0-0.2); Basophils Percent Auto 0.5 % (0-2); Eosinophils Absolute Auto 0.1 X10*3/uL (0.0-0.4); Eosinophils Percent Auto 0.7 % (0-4); Hematocrit 38.3 % (42.0-52.0); Hemoglobin 13.7 g/dl (14.0-18.0); Imm Gran Abs Auto 0.45 X10*3/uL (0.00-0.03); Imm Gran Pct Auto 2.3 % (0.0-0.4); Lymphocytes Absolute Auto 2.9 X10*3/uL (1.2-4.9); Mean Corpuscular HGB Conc 35.8 g/dl (31.0-36.0); Mean Corpuscular Hemoglobin 34.7 pg (27.0-33.0); Mean Platelet Volume 8.6 fL (9.4-12.4); Monocytes Absolute Auto 1.5 X10*3/uL (0.1-1.2); Monocytes Percent Auto 7.8 % (2-11); Neutrophils Absolute Auto 14.2 x10*3/uL (2.0-8.3); Neutrophils Percent Auto 73.7 % (45-73); Platelet Count 294 X10*3/uL (160-400); Red Blood Count 3.95 X10*6/uL (4.60-5.80); Red Cell Distribution Width 13.2 % (11.0-16.0); White Blood Count 19.2 X10*3/uL (4.8-10.8)
[2024-03-10 15:50] LABS: Alanine Aminotransferase 17 U/L (0-40); Albumin Level 4.2 g/dL (3.5-5.0); Alkaline Phosphatase 38 U/L (39-117); Anion Gap 11 (12-20); Aspartate Amino Transferase 14 U/L (5-37); Bilirubin Total 0.3 mg/dL (0.0-1.0); Blood Urea Nitrogen 9 mg/dL (9-16); Calcium 9.6 mg/dL (8.4-10.2); Carbon Dioxide 26 mmol/L (22-29); Chloride 106 mmol/L (96-108); Estimated Glomerular Filt Rate > 60; Glucose Random 113 mg/dL (60-115); Iron 100 mcg/dL (45-160); Percent Iron Saturation 43 % (15-50); Potassium 3.3 mmol/L (3.3-5.1); Sodium 140 mmol/L (135-145); Total Iron Binding Capacity 234 mcg/dL (228-428); Total Protein 6.8 g/dL (6.5-8.0); Unsaturated Iron Binding 134 ug/dL
[2024-03-10 15:55] LABS: Ferritin 230 ng/mL (20-250); T4 Thyroxine 6.1 ug/dL (4.5-12.0); Thyroid Stimulating Hormone 0.74 uIU/mL (0.32-4.0)
[2024-03-10 16:07] LABS: Folate 4.2 ng/mL (> or = 4.0); Vitamin B12 328 pg/mL (200-900)
[2024-03-10 16:57] LABS: Estimated Average Glucose 120 mg/dL; Hemoglobin A1c % 5.8 % (<6.0)
[2024-03-15 21:48] LABS: Testosterone, Free 62.2 pg/mL (35.0-155.0); Testosterone, Total 426 ng/dL (250-1100)
== END 2024-03-10 14:18 | disposition home or self-care (01) ==
LOC: HO.LAB 14:17
PROVIDERS: PCP Internal Medicine; Visit Provider Physician Assistant
DX: R53.83 Other fatigue (principal); Z13.1 Encounter for screening for diabetes mellitus
CPT/HCPCS: 36415; 80053; 82306; 82607; 82728; 82746; 83036; 83540; 84402; 84403; 84425; 84436; 84443; 85025

== ENCOUNTER 2024-03-18 09:43 | Outpatient (REF) | payer BC, SELFPAY ==
[2024-03-18 10:16] LABS: MANUAL DIFF FLAG NO
[2024-03-18 10:33] LABS: Basophils Absolute Auto 0.1 X10*3/uL (0.0-0.2); Eosinophils Absolute Auto 0.4 X10*3/uL (0.0-0.4); Eosinophils Percent Auto 3.7 % (0-4); Hematocrit 42.4 % (42.0-52.0); Hemoglobin 14.9 g/dl (14.0-18.0); Imm Gran Abs Auto 0.26 X10*3/uL (0.00-0.03); Imm Gran Pct Auto 2.4 % (0.0-0.4); Lymphocytes Absolute Auto 1.9 X10*3/uL (1.2-4.9); Lymphocytes Percent Auto 17.2 % (20-40); Mean Corpuscular HGB Conc 35.1 g/dl (31.0-36.0); Mean Corpuscular Hemoglobin 34.2 pg (27.0-33.0); Mean Corpuscular Volume 97.2 fL (80.0-98.0); Mean Platelet Volume 8.7 fL (9.4-12.4); Monocytes Percent Auto 9.3 % (2-11); Neutrophils Absolute Auto 7.3 x10*3/uL (2.0-8.3); Neutrophils Percent Auto 66.4 % (45-73); Platelet Count 261 X10*3/uL (160-400); Red Blood Count 4.36 X10*6/uL (4.60-5.80); Red Cell Distribution Width 13.3 % (11.0-16.0); White Blood Count 10.9 X10*3/uL (4.8-10.8)
[2024-03-18 11:13] LABS: Iron 72 mcg/dL (45-160); Percent Iron Saturation 30 % (15-50); Total Iron Binding Capacity 237 mcg/dL (228-428); Unsaturated Iron Binding 165 ug/dL
[2024-03-18 11:31] LABS: Ferritin 283 ng/mL (20-250)
[2024-03-18 11:34] LABS: Folate 7.6 ng/mL (> or = 4.0); Vitamin B12 354 pg/mL (200-900)
[2024-03-24 12:43] LABS: Testosterone, Free 88.8 pg/mL (35.0-155.0); Testosterone, Total 485 ng/dL (250-1100)
== END 2024-03-18 09:44 | disposition home or self-care (01) ==
LOC: HO.LAB 09:43
PROVIDERS: PCP Internal Medicine; Visit Provider Internal Medicine
DX: D72.9 Disorder of white blood cells, unspecified (principal); D64.9 Anemia, unspecified; R79.89 Other specified abnormal findings of blood chemistry; Z83.49 Family history of other endocrine, nutritional and metabolic diseases
CPT/HCPCS: 36415; 82607; 82728; 82746; 83540; 84402; 84403; 84443; 85025

== ENCOUNTER 2024-03-21 | Outpatient (REF) | payer BC, SELFPAY ==
[2024-03-25 07:44] LABS: OBS1 NEGATIVE (NEGATIVE); OBS2 NEGATIVE (NEGATIVE); OBS3 NEGATIVE (NEGATIVE)
[2024-03-25 07:45] LABS: OBS Int Ctl Valid YES; OBS Lot 50422
== END 2024-03-21 00:01 | disposition home or self-care (01) ==
LOC: HO.LNP
PROVIDERS: Visit Provider Physician Assistant
DX: Z83.49 Family history of other endocrine, nutritional and metabolic diseases (principal); D72.9 Disorder of white blood cells, unspecified; D64.9 Anemia, unspecified
CPT/HCPCS: 82270

== ENCOUNTER 2024-06-16 15:20 | Outpatient (REF) | payer BC, SELFPAY ==
--- NOTE | ~2024-06-16 | XR_ITS ---
EXAMINATION: XR LUMBOSACRAL SPINE CLINICAL INFORMATION: NEUROPATHY COMPARISON: None available. TECHNIQUE: Three views of the lumbosacral spine. FINDINGS: There are 5 nonrib-bearing lumbar vertebrae. Lumbar spinal alignment is anatomic in the sagittal projection. Vertebral body heights are preserved. There is moderate to severe degenerative disc disease at L5-S1 characterized by intervertebral disc space narrowing, endplate sclerosis, and marginal osteophytosis. There is moderate degenerative disc disease at L4-5. There is facet arthropathy at L3-4, L4-5, and L5-S1. There is no acute fracture. The sacroiliac joints are intact. There are vascular calcifications. XR/XR lumbar spine 2-3V IMPRESSION: No acute osseous lumbar spine abnormality. Degenerative disc disease and facet arthropathy as described. Electronically signed by: Yefri Pisano DO 06/16/2024 04:19 PM [facility]
--- NOTE | ~2024-06-16 | XR_ITS ---
EXAMINATION: XR CERVICAL SPINE CLINICAL INFORMATION: neuropathy COMPARISON: None available. TECHNIQUE: 3 views of the cervical spine were obtained. FINDINGS: The prevertebral soft tissue is normal in appearance. Cervical spinal alignment is anatomic in the sagittal projection. The vertebral bodies demonstrate preserved stature. There is mild multilevel degenerative disc disease throughout the mid and lower cervical spine. No acute fracture. The C1-C2 relationship is anatomic. The dens is intact. Visualized lung apices are clear. XR/XR cervical spine 3V IMPRESSION: No acute osseous cervical spine abnormality. Mild degenerative disease. Electronically signed by: Yefri Pisano DO 06/16/2024 04:21 PM EST
--- OUTSIDE RECORDS SUMMARY | 2024-06-16 15:24 | XMS_ITS | Patient Health Record ---
Author Organization [facility] Address [address] [place] [address] Care Team Providers Care Mine Analyst Name Role Phone Holden Bailey Primary Care Provider Agustin Ring Unavailable [phone] ALLERGIES Allergen (clinical drug ingredient) Drug/Non Drug Allergy documented on EMR Reaction Allergy Type Onset Date Status Penicillin Unknown Drug Allergy Active RESULTS Component Value Reference Range Notes US abdomen comp w elastograp hy Reviewed date:08/24/2023 03:28:32 PM Interpretation: Performing Lab: Notes/Report: [address] [address] Ultrasound Report Signed Patient: Jeff Modi MR#: [id number] : 1965 Acct:[id number] Age/Sex: 58 / M ADM Date: 08/05/23 Loc: HO.US Attending Dr: Agustin Caruso MD Ordering Physician: Agustin Caruso Date of Service: 08/05/23 Procedure(s): US abdomen comp w elastography Accession Number(s): [id number] cc: Holden Bailey MD; Agustin Caruso EXAMINATION: US COMPLETE ABDOMEN WITH LIVER ELASTOGRAPHY CLINICAL INFORMATION: Alcoholic liver disease. COMPARISON: Abdominal ultrasound dated 02/10/2023. TECHNIQUE: Real-time imaging of the abdominal viscera. Noninvasive ultrasound liver fibrosis assessment is performed using Nasir ElastPQ point quantification shear wave elastography (2D-SWE) with a C5-2 MHz transducer. Multiple elastography samples are obtained. FINDINGS: PANCREAS: Largely obscured by overlapping bowel gas. ABDOMINAL AORTA: The proximal, middle, and distal aortic segments are normal in caliber. INFERIOR VENA CAVA: Visualized portions are normal. LIVER: The liver shows normal contour and increased echogenicity. No focal lesion or intrahepatic biliary duct dilatation. The right lobe measures 17.0 cm in length. The left lobe measures 7.0 cm in length. Portal flow is towards the liver (hepatopetal). Shear wave liver elastography median stiffness is 1.38 m/s (reference: normal median stiffness is 1.3 m/s or less). IQR/median stiffness to assess sampling precision is 0.07 (reference: good quality data set is IQR/median stiffness of 0.15 or less). GALLBLADDER: Normal. The gallbladder is physiologically distended without evidence of stones, sludge, polyps, wall thickening or pericholecystic fluid. COMMON BILE DUCT: Normal in caliber measuring 0.8 cm in diameter. RIGHT KIDNEY: At the lower pole, a 4 mm nonobstructing calculus is seen, with twinkle artifact. No hydronephrosis. No focal parenchymal lesions. The kidney measures 10.4 cm in maximum dimension. LEFT KIDNEY: Normal. No hydronephrosis. No renal calculi or focal parenchymal lesions. The kidney measures 10.4 cm in maximum dimension. SPLEEN: Normal. The spleen measures 10.5 cm in maximum dimension. FREE FLUID: None. US/US abdomen comp w elastography IMPRESSION: 1. There is generalized increase in hepatic echotexture, consistent with fatty infiltration or hepatocellular disease. Please correlate clinically. No focal hepatic mass or intrahepatic biliary dilatation is seen. 2. There is borderline hepatomegaly. 3. Liver elastography: In the absence of other known clinical signs, measurements rule out compensated advanced chronic liver disease. If there are known clinical signs, further testing may be needed for confirmation. 4. A 4 mm nonobstructing right renal lower pole calculus is seen. 5. Technically limited ultrasound examination of the pancreas. REFERENCE: Society of Radiologists in Ultrasound Liver Stiffness Thresholds (2020): LIVER STIFFNESS THRESHOLDS: *Liver Stiffness equal or less than 1.3 m/s: High probability of being normal. *Liver Stiffness less than 1.7 m/s: In the absence of other known clinical signs, rules out compensated advanced chronic liver disease. *Liver Stiffness 1.7-2.1 m/s: Suggestive of compensated advanced chronic liver disease but need further test for confirmation. *Liver Stiffness over 2.1 m/s: Rules in compensated advanced chronic liver disease. *Liver Stiffness over 2.4 m/s: Suggestive of clinically significant portal hypertension. QUALITY OF DATA SET: *IQR/Median value equal or less than 0.15 implies a quality data set. *IQR/Median value over 0.15 implies a poor quality data set. SIGNIFICANT CHANGE FROM PRIOR EXAM: Significant change if liver stiffness measurement is 10% or greater from prior exam. OTHER CONSIDERATIONS: The stage of liver fibrosis may be overestimated in the setting of acute hepatitis, liver inflammation, elevated liver function tests, hepatic vascular congestion, obstructive cholestasis, non-fasting state, and infiltrative diseases such as amyloidosis and lymphoma. In some patients with NAFLD, the liver stiffness thresholds for compensated advanced chronic liver disease may be lower. In causes other than viral hepatitis and NAFLD, liver stiffness thresholds are not well established. Dictated By: Geo Morgan MD Signed By: <Electronically signed by Geo Morgan MD in OV> 08/06/23 1728 DD/ 0930 TD/TT: Weight Guesser: WAQAS REASON FOR REFERRAL No Information MEDICATIONS Medication SIG (Take, Route, Fr equency, Duration) Notes Start Date End Date Status Atenolol 50 MG TAKE 1 TABLET BY SHASHI TH EVERY DAY Oral for 90 Active Lisinopril 20 MG 1 tablet Orally Once a day for 30 day(s) 07/07/2023 Active IMMUNIZATIONS Vaccine Route Administration Date Status Comme nts Influenza Unknown 07/07/2023 Refused SOCIAL HISTORY Tobacco Use: Social History Observation Description Date Details (start date - stop date) Current Smoker NA - NA Sex Assigned At : Social History Observation Description Sex Assigned At Unknown Tobacco Use/Smoking Question Answer Notes Patient is a current smoker Alcohol Screen Question Answer Notes Did you have a drink contain ing alcohol in the past year? Yes How often did you have a dri nk containing alcohol in the past year? 4 or more times a week (4 points) How many drinks did you have on a typical day when you were drinking in the past year? 3 or 4 drinks (1 point) How often did you have 6 or more drinks on one occasion in the past year? Never (0 point) Points 5 Interpretation Positive PROBLEMS Problem Type ICD Code Onset Dates Problem Status W/U Status Risk SNOMED Code Notes Problem Alcoholic liver disease (K70.9) Active confirmed 93282748 Problem Iron excess (E83.19) Active confirmed 72215230 Problem Colon cancer screening (Z12.11) Active confirmed 827378528 Problem Folic acid deficiency (E53.8) Active confirmed 551636238 VITAL SIGNS Temperature 98.6 degrees Fahrenheit 07/07/2023 Blood pressure diastolic 00 mm Hg 07/07/2023 Height 5 ft 8 in in 07/07/2023 Blood pressure systolic 000 mm Hg 07/07/2023 Weight 171 lb 2 oz lbs 07/07/2023 BMI 26.02 kg/m2 07/07/2023 Encounters Encounter Location Date Provider Diagnosis [facility] [address] [place] [phone] 07/07/2023 Agustin Caruso Alcoholic liver disease K70.9 ; Iron excess E83.19 ; Colon cancer screening Z12.11 and Folic acid deficiency E53.8 [facility] [address] [place] [phone] 07/07/2023 Agustin Caruso [facility] [address] [place] [phone] 08/24/2023 Agustin Caruso ASSESSMENTS Encounter Date Diagnosis Assessment Notes Treatment Notes Treatment Clinical Notes 07/07/2023 Alcoholic liver disease (ICD-10 - K70.9) 07/07/2023 Iron excess (ICD-10 - E83.19) 07/07/2023 Colon cancer screening (ICD-10 - Z12.11) 07/07/2023 Folic acid deficiency (ICD-10 - E53.8) PLAN OF TREATMENT Pending Test Test Name Order Date LIVER PROFILE 07/07/2023 IRON + IBC (FE) 07/07/2023 CBC w DIFF 07/07/2023 HEMOCHROMATOSIS (C282Y) 07/07/2023 FLUOR. ANTINUCLEAR AB SCREEN (JOE) 09/2023 Prothrombin Time INR 07/07/2023 Ferritin 07/07/2023 Folate 07/07/2023 Alpha 1 Anti-trypsin 07/07/2023 Liver Fibrosis Pnl 07/07/2023 Mitochondrial Antibody 07/07/2023 Smooth Muscle Antibody 07/07/2023 Hepatitis A,B,C Profile 07/07/2023 US abdomen comp w elastography Future Test Test Name Order Date UPPER GI ENDOSCOPY 07/07/2023 COLONOSCOPY 07/07/2023 Insurance Providers Payer Name Payer Address Payer Phone Subscriber Number Group Number Insured Name Patient Relationship to Insured Coverage Start Date Coverage End Date [facility] [address] [facility] [place] [id number] JEFF MODI Self - patient is the insured MEDICAID OF [facility] [address] [place] [id number] JEFF MODI Self - patient is the insured MEDICAL (GENERAL) HISTORY Medical History History ICD Code HTN Denies IA,DM,CVA,Lung disease,renal dise ase Alcohol abuse-ultrasound in February of 2023 describe hepatomegaly and fatty liver, but there was no ascites, liver mass, nor biliary disease Depression/Anxiety Low folate level with elevat ed MCV in January of 2023--the remainder of the CBC was normal Ferritin level of 876, iron 134, and iro n saturation 41% in January of 2023 Surgical History Surgery Date(Month/Year) Nasal surgery
--- OUTSIDE RECORDS SUMMARY | 2024-06-16 15:24 | XMS_ITS ---
Author Organization [facility] Address [address] [place] [phone] Care Team Providers Care Application Specialist Name Role Phone Holden Bailey Primary Care Provider Agustin Ring [phone] Encounters Encounter Location Date Provider Diagnosis [facility] [address] [place] [phone] 07/07/2023 Agustin Caruso PLAN OF TREATMENT No Information
--- OUTSIDE RECORDS SUMMARY | 2024-06-16 15:24 | XMS_ITS ---
Author Organization [facility] Address [address] [place] [address] Care Team Providers Care Ob/Gyn Name Role Phone Holden Bailey Primary Care Provider Agustin Ring [phone] ALLERGIES Allergen (clinical drug ingredient) Drug/Non Drug Allergy documented on EMR Reaction Allergy Type Onset Date Status Penicillin Unknown Drug Allergy Active REASON FOR VISIT Patient presents today for a fatty liver MEDICATIONS Medication SIG (Take, Route, Fr equency, [...] Problem Alcoholic liver disease (K70.9) Active confirmed 58778564 Problem Iron excess (E83.19) Active confirmed 24933943 Problem Colon cancer screening (Z12.11) Active confirmed 886710125 Problem Folic acid deficiency (E53.8) Active confirmed 507502054 VITAL SIGNS BMI 26.02 kg/m2 07/07/2023 Blood pressure systolic 000 mm Hg 07/07/19 24 Blood pressure diastolic 00 mm Hg 024 Height 5 ft 8 in in 07/07/2023 Temperature 98.6 degrees Fahrenheit 07/07/19 24 Weight 171 lb 2 oz lbs 07/07/2023 Encounters Encounter Location Date Provider Diagnosis [facility] [address] [place] [address] 07/07/2023 Agustin Caruso Alcoholic liver disease K70.9 ; Iron excess E83.19 ; Colon cancer screening Z12.11 and Folic acid deficiency E53.8 ASSESSMENTS Encounter Date Diagnosis Assessment Notes Treatment [...] Date UPPER GI ENDOSCOPY 07/07/2023 COLONOSCOPY 07/07/2023 Next Appt Details Follow Up: prn, Reason: Progress Notes * Examination Category Sub-Category Detail Notes General Examination GENERAL APPEARANCE: pleasant , well nourished, well developed, in no acute distress HEAD: EYES: sclera non-icteric EARS: NOSE: THROAT: NECK/THYROID: no cervical lymphade nopathy, neck supple HEART: S1, S2 normal CHEST: LUNGS: clear to auscultatio n bilaterally ABDOMEN: normal bowel sounds, no guarding or rigidity, no guarding or rigidity, no masses palpable, soft, nontender, nondistended NEUROLOGIC: alert and oriented SKIN: nonjaundiced, no spi jam angiomata EXTREMITIES: no edema PERIPHERAL PULSES: BACK: BREASTS: MUSCULOSKELETAL: MALE GENITOURINARY: LYMPH NODES: RECTAL EXAM: FEMALE GENITOURINARY: ORAL CAVITY: mucosa moist
--- OUTSIDE RECORDS SUMMARY | 2024-06-16 15:24 | XMS_ITS ---
Author Organization [facility] Address [address] [place] [phone] Care Team Providers Care Lead Pharmacy Technician Name Role Phone Leo Holden Primary Care Provider Agustin Ring [phone] Encounters Encounter Location Date Provider Diagnosis [facility] [address] [place] [phone] 08/24/2023 Agustin Caruso PLAN OF TREATMENT No Information
[2024-06-16 17:00] LABS: Rheumatoid Factor < 13.0 IU/mL (<15.0)
[2024-06-16 17:06] LABS: Parathyroid Hormone Intact 62.4 pg/mL (8.7-77.1)
[2024-06-16 17:12] LABS: Alanine Aminotransferase 31 U/L (0-40); Albumin Level 4.6 g/dL (3.5-5.0); Alkaline Phosphatase 50 U/L (39-117); Anion Gap 12 (12-20); Aspartate Amino Transferase 37 U/L (5-37); Bilirubin Total 0.3 mg/dL (0.0-1.0); Blood Urea Nitrogen 13 mg/dL (9-16); C Reactive Protein 0.62 mg/dL (< or = 0.50); Calcium 9.8 mg/dL (8.4-10.2); Carbon Dioxide 27 mmol/L (22-29); Chloride 105 mmol/L (96-108); Estimated Glomerular Filt Rate > 60; Glucose Random 88 mg/dL (60-115); Magnesium 2.2 mg/dL (1.6-2.6); Potassium 4.2 mmol/L (3.3-5.1); Sodium 140 mmol/L (135-145); Total Protein 7.5 g/dL (6.5-8.0); Uric Acid 4.9 mg/dL (3.4-7.0)
[2024-06-16 17:56] LABS: Erythrocyte Sedimentation Rate 4 MM/HR (0-15)
[2024-06-19 14:43] LABS: Anti Nuclear Antibody Screen NEGATIVE (NEGATIVE)
[2024-06-20 09:59] LABS: Lyme Abs Screen <0.90 index
[2024-06-20 22:38] LABS: Cyclic Citrullinated Peptide <16 UNITS
[2024-06-21 00:42] LABS: Zinc 68 mcg/dL (60-130)
[2024-06-26 10:19] LABS: A. Phagocytophilum Ab IgG <1:64 (<1:64); A. Phagocytophilum Ab IgM <1:20 (<1:20); E. Chaffeensis Ab IgG <1:64 (<1:64); E. Chaffeensis Ab IgM <1:20 (<1:20)
== END 2024-06-16 15:21 | disposition home or self-care (01) ==
LOC: HO.LAB 15:20
PROVIDERS: PCP Internal Medicine; Visit Provider Physician Assistant
DX: R51.9 Headache, unspecified (principal); M79.18 Myalgia, other site; G62.9 Polyneuropathy, unspecified
CPT/HCPCS: 36415; 72040; 72100; 80053; 82306; 82550; 83735; 83970; 84550; 84630; 85652; 86038; 86140; 86200; 86431; 86617; 86618; 86666

== ENCOUNTER → 2024-12-19 10:03 | Outpatient (REF) | payer BC, SELFPAY ==
--- NOTE | ~2024-12-19 | NM_ITS ---
Lexiscan Myocardial perfusion study Indication: Dizziness Technique: The patient was brought in for a Lexiscan perfusion study on 12/19/2024 and was injected 0.4 mg of Lexiscan intravenously. Within a minute of this injection 30 mCi of sestamibi was given intravenously. Images were obtained using the SPECT gamma camera interlaced with the gating device. Images were obtained in supine position. Resting perfusion study was performed on 12/27/2024. Patient was administered 30 mCi of sestamibi intravenously at rest. Images were then obtained in supine position. Total DLP 85 mGy-cm. Images were processed with the software and compared side to side in short axis, horizontal long axis and vertical long axis views. Findings: Raw aquisition reviewed. The stress perfusion study showed no significant perfusion abnormality. Both uncorrected as well as CT attenuation corrected images were reviewed. The gated study shows normal LV systolic function with calculated LVEF of 71%. LV cavity is normal in size. The gated study shows normal wall thickening and contraction of segments. Resting study shows no significant perfusion abnormality. Gating at rest reveals normal wall motion with ejection fraction at 57%. The findings are consistent with no clear reversible or fixed perfusion abnormality. NM/NM iram perf SPECT rest & str Impression: 1. Myocardial perfusion imaging study shows normal myocardial perfusion. 2. Gated LVEF is 71% during stress and 57% during rest. 3. Transient ischemic dilatation not present. EKG component of the test reported separately. Electronically signed by: Dov Child MD 12/27/2024 02:59 PM EDT
--- NOTE | 2024-12-19 10:06 | CA_ITS ---
Acquisition Time: 2024-12-19 10:18:19 Total Exercise Time: 00:04:43 Test Indications: DIZZINESS Medications: Protocol: LYNN Max HR: 115 BPM 70% of Pred: 162 BPM Max BP: 138/90 mmHG Max Work Load: 6.6 METS Exercise stress test with exercise 4 mins 43 secs of Lynn Protocol, achieiving 62% MPHR, with reports of leg discomfort- requesting to stop. No chest pain or EKG changes at achieved workload. Test switched to Lexiscan. Pharmacological stress test with Lexiscan, with reports of SOB, without any arrythmias, with normotensive response to injection. Nondiagnostic EKG for ischemia. In recovery, breathing returned to baseline. Nuclear images pending. Test reviewed with Dr. Hall. Referred By: Leanne Lira Electronically Signed By: Frederick Aguilar
--- OUTSIDE RECORDS SUMMARY | 2024-12-19 11:23 | XMS_ITS | Clinical Summary ---
Author Organization [facility] Address [address] [address] Care Team Providers Care Ict Systems Test Engineer Name Role Phone Unavailable Primary Care Provider Unavailabl e Social History Tobacco Use Types Packs/Day Years Used Date Smoking Tobacco: Never Assessed Sex and Gender Information Value Date Recorded Sex Assigned at Not on file Legal Sex Male 8:57 AM EDT Gender Identity Not on file Sexual Orientation Not on file Plan of Treatment Health Maintenance Due Date Last Done Comments Hepatitis B Vaccine (1 of 3 - 19+ 3-dose series) 02/26 Colorectal Cancer Screening: Annual FOBT 2015 Colorectal Cancer Screening: Colonoscopy 2015 Colorectal Cancer Screening: Sigmoidoscopy 2015 Pneumococcal Vaccine: 50+ Years (1 of 1 - PCV) 016 Influenza Vaccine (Season Ended) 2025 [place]
== END ==
LOC: HO.CARD 10:03
PROVIDERS: PCP Physician Assistant; Visit Provider Physician Assistant
DX: R42 Dizziness and giddiness (principal)
CPT/HCPCS: 78452; 93017; A9500; J0280; J2785

== ENCOUNTER → 2024-12-19 10:06 | Outpatient (BNV) | payer BC, SELFPAY | PROVIDERS: PCP Physician Assistant | DX: R42 Dizziness and giddiness (principal) | CPT/HCPCS: 78452; 93016; 93018 ==

== ENCOUNTER 2025-01-19 10:56 | Inpatient (IN) | payer BC, SELFPAY ==
[2025-01-19] VITALS (15 sets, daily range): BP systolic 75–122; BP diastolic 42–70; PULSE 68–81; RESP 14–27; TEMP 36.4–36.8; O2SAT 96–99; BMI 25.5
--- NOTE | 2025-01-19 | ECG_ITS ---
Test Reason : dizzy Blood Pressure : */* mmHG Vent. Rate : 80 BPM Atrial Rate : 80 BPM P-R Int : 154 ms QRS Dur : 92 ms QT Int : 380 ms P-R-T Axes : 34 0 3 degrees QTcB Int : 438 ms Normal sinus rhythm Normal ECG When compared with ECG of 11-Apr-2021 18:25, Nonspecific T wave abnormality no longer evident in Anterior leads Referred By: Generic ED Physician Electronically Signed By: LUNA GORDON
--- NOTE | ~2025-01-19 | CT_ITS ---
EXAMINATION: CT ABDOMEN AND PELVIS WITHOUT CONTRAST CLINICAL INFORMATION: Kidney stones COMPARISON: Ultrasound February 10, 2023 TECHNIQUE: Multidetector volumetric imaging was performed from the superior aspect of the liver through the pubic symphysis. Sagittal and coronal reformatted images were obtained on the technologist's workstation. This CT examination was performed using dose optimization techniques as appropriate, variously including the following: *Automated exposure control *Adjustment of mA and/or kV according to patient size (this includes techniques or standardized protocols for targeted exams where dose is matched to indication/reason for exam; i.e. extremities or head) *Use of iterative reconstruction technique DLP: 441 mGY*cm FINDINGS: LUNG BASES: The visualized lung bases are unremarkable. LIVER, GALLBLADDER, AND BILIARY TREE: The liver is normal in size, shape, and attenuation. No focal hepatic lesion or biliary ductal dilatation is present. The gallbladder is unremarkable with no evidence of radiopaque gallstones, gallbladder wall thickening, or obvious pericholecystic inflammatory changes. PANCREAS: Unremarkable. SPLEEN: Unremarkable. ADRENAL GLANDS: Unremarkable. KIDNEYS AND URETERS: There is a 1-2 mm stone in the lower pole left kidney not resulting in obstruction. There is no hydronephrosis. No stones are present in the ureters. BLADDER: There is mild thickening of the partially empty bladder. GASTROINTESTINAL TRACT: Innumerable pseudodiverticula are present throughout the colon. The appendix is unremarkable. ABDOMINAL WALL: No significant hernia is appreciated. LYMPH NODES: Normal. VASCULAR: Multifocal vascular calcifications are present. PELVIC VISCERA: Unremarkable. OSSEOUS STRUCTURES: Moderate disc space narrowing and vacuum phenomenon is present at L4-5 and L5-S1. There is facet osteoarthritis. CT/CT abdomen pelvis wo IV con IMPRESSION: There is a nonobstructing 1 to 2 mm stone in the lower pole left kidney. There is mild bladder wall thickening raising question of cystitis. Innumerable pseudodiverticula are present throughout the colon without clear evidence of infection. Fleischner guidelines were followed. Electronically signed by: Loc Chapman MD 01/19/2025 01:26 PM EDT
--- NOTE | ~2025-01-19 | XR_ITS ---
EXAMINATION: XR CHEST CLINICAL INFORMATION: palpitations COMPARISON: February 10, 2023 TECHNIQUE: Frontal view of the chest was obtained. FINDINGS: Chronic elevation right hemidiaphragm with blunting of the costophrenic angle is again noted. There is mild volume loss in the right lung. Left lung is clear and expanded. No skeletal abnormality is evident. Heart size is within normal limits. XR/XR chest 1V IMPRESSION: Chronic volume loss and elevated right hemidiaphragm. Electronically signed by: Loc Chapman MD 01/19/2025 12:08 PM EDT
--- NOTE | 2025-01-19 11:11 | ED_ITS ---
HPI - General Adult General Chief complaint: Arrhythmia/Palpitations Stated complaint: Heart palpitation, dizziness, low energy Time Seen by Provider: 01/19/25 11:21 Source: patient Mode of arrival: ambulatory Limitations: no limitations History of Present Illness ED Provider: Martin Torres PA-C HPI narrative: 59-year-old male with medical history of alcohol use disorder, HTN, presents to the ED due to 3 days of progressively worsening lightheadedness feeling as if he was going to pass out . Patient reports this started about 3 days ago while at work where he works for [employer] outside in the heat. Patient reports he has been trying to drink plenty of liquids and eat nutritious foods while working outside, but states he has a hard time doing this. Patient states while at work this morning the lightheadedness became worse and he had to call out of his job. His boss sent him to work connection for evaluation, where he was having episodes of palpitation and were connection recommended he come to the ED for further evaluation. Patient states his lightheadedness is worse upon position change such as squatting down and standing up or sitting down and standing up. Patient does report daily alcohol use, states he drinks a ?small bottle? of whiskey that usually last him 1-2 days. Patient states he does not drink before work or during work or while out in the heat, drinks after work only. Denies chest pain, shortness of breath, nausea, vomiting, black/tarry stool, headaches, visual changes MD complaint: Lightheadedness Related Data Home Medications ?Medication ?Instructions ?Recorded ?Confirmed amlodipine 10 mg tablet 10 mg PO DAILY 01/19/2501/02 carisoprodol 350 mg tablet 350 mg PO BID PRN Pain 01/0201/19/25 venlafaxine 75 mg capsule,extended 75 mg PO DAILY 01/0201/19/25 release 24 hr Allergies Allergy/AdvReac Type Severity Reaction Status Date / Time Penicillins Allergy Unknown Verified 01/19/25 11:09 Review of Systems 2 Review of Systems: CONST: Negative for fever, body aches and chills. HENT: Negative for neck pain/stiffness, headache, congestion, sore throat, swelling. EYES: Negative for discharge/pain or vision changes. RESP: Negative for cough/hemoptysis and shortness of breath. CV: Negative chest pain, difficulty breathing. POS palpitations ABD: Negative pain, nausea, vomiting. : Negative increase frequency, dysuria, blood in urine or stool. MUSC: Negative for muscle aches, edema. SKIN: Negative rash, lesions/sores. NEURO: Negative headache,weakness. POS lightheadedness [facility] Past Medical History Attestation statement: The following information was validated with the patient. Source: old records reviewed and nursing notes reviewed Medical History Laceration of leg not thigh (~07/14/22) Alcohol abuse Empyema lung Atelectasis Hypertension Hypertension Personal history of nicotine dependence Alcohol dependence Multiple fractures of ribs of left side (~04/2021) Bilateral pneumothoraces (~04/2021) Surgical History H/O rhinoplasty History of chest tube placement (~04/2021) Family History Family History Father No problems noted. Mother No problems noted. Social History Social History Household Members: Family Household Members Other:: sister Housing: House Do you presently have visiting nurse or other home services: No Alcohol intake: current Alcohol intake frequency: holidays/special occasions only Alcohol type: hard liquor Comment: REFUSING BED ALARM Patient Tobacco Use Status: Current everyday Tobacco user Tobacco use type: Cigarette e-Cigarette/Vaping Use: Never Used Advance Directives Date on File: 04/11/21 service: No Current occupational status: unemployed Physical Exam ED Exam Exam: GENERAL APPEARANCE: ?AxOx4, generally well-appearing, no acute distress. HEENT: ?NC, AT. Dry oral MM. EOMI, clear conjunctiva, oropharynx clear. NECK: ?Supple without lymphadenopathy.? No stiffness or restricted ROM. HEART:? Normal rate and regular rhythm, normal S1/S2, no m/r/g LUNGS:? CTAB, moving air well. No crackles or wheezes are heard. ABDOMEN: ?Soft, nontender, nondistended with good bowel sounds heard. BACK: No CVAT, no obvious deformity. EXTREMITIES: ?Without cyanosis, clubbing or edema. NEUROLOGICAL: ?Grossly nonfocal. Alert and oriented, moving all 4 extremities. Skin: ?Warm and dry without any rash. Vital Signs: Vital Signs - 24 hr 01/19/25 11:08 01/19/25 11:29 01/19/25 11:32 Temperature 97.6 F Pulse Rate 79 Respiratory Rate 18 Blood Pressure 85/50 L 103/55 L 88/59 L Pulse Oximetry 97 Oxygen Delivery Method Room Air 01/19/25 11:34 01/19/25 11:45 01/19/25 11:45 Temperature Pulse Rate 72 68 Respiratory Rate 27 H Blood Pressure 95/59 L 93/61 92/42 L Pulse Oximetry 98 Oxygen Delivery Method Room Air 01/19/25 11:48 01/19/25 11:48 01/19/25 11:49 Temperature Pulse Rate 72 74 75 Respiratory Rate Blood Pressure 101/50 L 103/55 L 88/59 L Pulse Oximetry Oxygen Delivery Method 01/19/25 11:50 01/19/25 11:50 01/19/25 13:53 Temperature Pulse Rate 68 80 72 Respiratory Rate 27 H 16 Blood Pressure 92/42 L 75/47 L 106/67 Pulse Oximetry 99 96 Oxygen Delivery Method Room Air Room Air BMI result Body Mass Index 25.5 Course Course Course Narrative: RME: 59 yold male presents to the ED for dizziness, lightheadedness for couple of days. Denies any pain or neuro deficits. NIH Score 0. patient hypotensive. labs, EkG, and fluids oprdered Medications Administered Discontinued Medications Generic Name Dose Route Start Last Admin Trade Name Kika PRN Reason Stop Dose Admin Acetaminophen 650 mg 01/19/25 14:05 01/20/25 08:37 Acetaminophen 325 Mg Tablet PO 650 mg Q6H PRN Administration Pain, Mild 1-3,fever,headache Amlodipine Besylate 5 mg 01/21/25 09:15 01/21/25 09:17 Amlodipine Besylate 5 Mg Tablet PO 5 mg DAILY IESHA Administration Protocol Amlodipine Besylate 5 mg 01/21/25 09:40 01/21/25 10:24 Amlodipine Besylate 5 Mg Tablet PO 01/21/25 09:41 5 mg ONCE ONE Administration Protocol Carisoprodol 350 mg 01/20/25 09:36 01/21/25 09:21 Carisoprodol 350 Mg Tablet PO 350 mg BID PRN Administration Pain, Severe (Pain Scale 7-10) Enoxaparin Sodium 30 mg 01/19/25 14:15 01/20/25 14:26 Enoxaparin Sodium 30 Mg/0.3 Ml Syringe SUBCUT 30 mg Q24H IESHA Administration Sodium Chloride 1,000 mls @ 999 mls/hr 01/19/25 11:10 01/19/25 13:00 Ns IV 01/19/25 12:10 Infused .Q1H1M STA Infusion Sodium Chloride 1,000 mls @ 999 mls/hr 01/19/25 11:11 01/19/25 13:00 Ns IV 01/19/25 12:11 Infused .Q1H1M STA Infusion Lactated Ringer's 1,000 mls @ 125 mls/hr 01/19/25 14:15 01/21/25 04:52 Lr IVCONT 125 mls/hr .Q8H IESHA Administration Sodium Chloride 3 ml 01/19/25 16:00 01/21/25 08:18 0.9 % Sodium Chloride Flush 3 Ml Syringe IVFLUSH Not Given QSHIFT IESHA Venlafaxine HCl 75 mg 01/20/25 09:00 01/21/25 08:17 Venlafaxine Hcl Er 75 Mg Cap.Er.24h PO 75 mg DAILY IESHA Administration Zolpidem Tartrate 5 mg 01/19/25 21:15 01/20/25 21:35 Zolpidem Tartrate 5 Mg Tablet PO 5 mg BEDTIME PRN Administration Insomnia Medical Decision Making Medical Decision Making MDM Narrative: 59-year-old male with medical history of alcohol use disorder, HTN, presents to the ED due to 3 days of progressively worsening lightheadedness feeling as if he was going to pass out . Patient reports this started about 3 days ago while at work where he works for [employer] outside in the heat. Patient reports he has been trying to drink plenty of liquids and eat nutritious foods while working outside, but states he has a hard time doing this. Patient states while at work this morning the lightheadedness became worse and he had to call out of his job. His boss sent him to work connection for evaluation, where he was having episodes of palpitation and were connection recommended he come to the ED for further evaluation. Patient states his lightheadedness is worse upon position change such as squatting down and standing up or sitting down and standing up. Patient does report daily alcohol use, states he drinks a ?small bottle? of whiskey that usually last him 1-2 days. Patient states he does not drink before work or during work or while out in the heat, drinks after work only. Patient is hypotensive at 85/50, pulse rate 79 beats per minute, respiratory rate 18 breaths per minute, afebrile at 97.6 oral temperature, 97% on room air. EKG reveals normal sinus rhythm, without ST elevation/depression/T-wave abnormalities indicative of ischemia. Labs revealed leukocytosis at 14.1 BUN elevated at 33, creatinine elevated at 5.8, CPK elevated at 176- Giving 2 L IV fluids for correction, will repeat CMP to evaluate for improvement. Initial troponin 8.6, without chest pain/abd pain, SOB, EKG without ST pattern- not suspecting ACS Awaiting UA. Will obtain CT abdomen/pelvis to evaluate for obstructive pathology due to increased creatinine of 5.8. Course 13:58- CT reveals a 1 2 mm stone in the lower pole of the left kidney that is non-obstructing, no evidence of hydronephrosis or hydroureter. CXR without cardiomegaly, pulmonary edema, pulmonary effusion, reveals chronic volume loss and elevated right hemidiaphragm. Repeat CMP shows creatinine is downtrending, now at 4.79. I reached out to hospitalist Dr. Vega who agreed on admission. Discussed this with patient, patient is agreeable to admission. Differential Diagnosis Differential Diagnoses: The differential diagnosis associated with the presentation includes Electrolyte abnormality Orthostatic hypotension Rhabdomyolysis MICKEY Admission/Observation Consideration of admission/observation: Escalation of care including admission/observation considered Consult Healthcare Provider Management of the patient was discussed with: Hospitalist (Dr. Vega) Lab Data MDM Lab Attestation statement: I reviewed the patient's lab results. 01/20/25 06:50 01/21/25 05:59 Labs: Lab Results 01/19/25 01/19/25 Range/Units 11:30 13:12 WBC 14.1 H (4.8-10.8) X10*3/uL RBC 4.69 (4.60-5.80) X10*6/uL Hgb 16.6 (14.0-18.0) g/dl Hct 44.9 (42.0-52.0) % MCV 95.7 (80.0-98.0) fL MCH 35.4 H (27.0-33.0) pg MCHC 37.0 H (31.0-36.0) g/dl RDW 12.3 (11.0-16.0) % Plt Count 242 (160-400) X10*3/uL MPV 8.5 L (9.4-12.4) fL Immature Gran % (Auto) 0.8 H (0.0-0.4) % Neut % (Auto) 78.4 H (45-73) % Lymph % (Auto) 12.4 L (20-40) % [place] % (Auto) 7.1 (2-11) % Eos % (Auto) 0.7 (0-4) % Baso % (Auto) 0.6 (0-2) % Lymph # (Auto) 1.8 (1.2-4.9) X10*3/uL [place] # (Auto) 1.0 (0.1-1.2) X10*3/uL Eos # (Auto) 0.1 (0.0-0.4) X10*3/uL Baso # (Auto) 0.1 (0.0-0.2) X10*3/uL Abs Immat Gran (auto) 0.12 H (0.00-0.03) X10*3/uL Absolute Neuts (auto) 11.1 H (2.0-8.3) x10*3/uL Absolute Nucleated RBC 0.000 (0.0-0.012) X10*3/uL Nucleated RBC % (auto) 0.0 (0.0-0.2) /100WBC Sodium 137 137 (135-145) mmol/L Potassium 3.5 3.5 (3.3-5.1) mmol/L Chloride 102 105 (96-108) mmol/L Carbon Dioxide 21 L 21 L (22-29) mmol/L Anion Gap 18 15 (12-20) BUN 33 H 30 H (9-16) mg/dL Creatinine 5.88 H* 4.79 H* (0.5-1.4) mg/dL Estim Creat Clear Calc 13.2 16.2 Estimated GFR 10 13 Random Glucose 132 H 106 (60-115) mg/dL Lactic Acid 1.8 (0.5-2.0) mmol/L Calcium 9.6 8.3 L D (8.4-10.2) mg/dL Magnesium 2.2 (1.6-2.6) mg/dL Total Bilirubin 1.2 H 1.1 H (0.0-1.0) mg/dL AST 29 23 (5-37) U/L ALT 15 12 (0-40) U/L Alkaline Phosphatase 84 71 (39-117) U/L Total Creatine Kinase 176 H (38-174) U/L Troponin I High Sens 8.6 (<3.5-35.0) ng/L B-Natriuretic Peptide 12 (<100) pg/mL Total Protein 8.0 6.7 (6.5-8.0) g/dL Albumin 4.9 4.2 (3.5-5.0) g/dL TSH 0.80 (0.32-4.0) uIU/mL Independent Interpretation I performed an independent interpretation of an: EKG, Plain X-Ray and CT Scan Interpretation: I personally interpreted the EKG: Normal sinus rhythm, without ST elevation/depression Vent. Rate : 80 BPM Atrial Rate : 80 BPM P-R Int : 154 ms QRS Dur : 92 ms QT Int : 380 ms P-R-T Axes : 34 0 3 degrees QTcB Int : 438 ms Normal sinus rhythm Normal ECG When compared with ECG of 11-Apr-2021 18:25, Nonspecific T wave abnormality no longer evident in Anterior leads I personally interpreted the chest x-ray, no signs of cardiomegaly, pleural effusion, pulmonary edema, I agree with the radiologist's impression Radiology Impression Discussion of test interpretation with radiology: I have reviewed the radiologist's reading. Radiologist Impression: CXR FINDINGS: Chronic elevation right hemidiaphragm with blunting of the costophrenic angle is again noted. There is mild volume loss in the right lung. Left lung is clear and expanded. No skeletal abnormality is evident. Heart size is within normal limits. XR/XR chest 1V IMPRESSION: Chronic volume loss and elevated right hemidiaphragm. Electronically signed by: Loc Chapman MD 01/19/2025 12:08 PM EDT RP Dictated By: Loc Chapman MD Signed By: <Electronically signed by Loc Chapman MD in [place]> 01/19/[address] abdomn/pelvis W/O contrast FINDINGS: LUNG BASES: The visualized lung bases are unremarkable. LIVER, GALLBLADDER, AND BILIARY TREE: The liver is normal in size, shape, and attenuation. No focal hepatic lesion or biliary ductal dilatation is present. The gallbladder is unremarkable with no evidence of radiopaque gallstones, gallbladder wall thickening, or obvious pericholecystic inflammatory changes. PANCREAS: Unremarkable. SPLEEN: Unremarkable. ADRENAL GLANDS: Unremarkable. KIDNEYS AND URETERS: There is a 1-2 mm stone in the lower pole left kidney not resulting in obstruction. There is no hydronephrosis. No stones are present in the ureters. BLADDER: There is mild thickening of the partially empty bladder. GASTROINTESTINAL TRACT: Innumerable pseudodiverticula are present throughout the colon. The appendix is unremarkable. ABDOMINAL WALL: No significant hernia is appreciated. LYMPH NODES: Normal. VASCULAR: Multifocal vascular calcifications are present. PELVIC VISCERA: Unremarkable. OSSEOUS STRUCTURES: Moderate disc space narrowing and vacuum phenomenon is present at L4-5 and L5-S1. There is facet osteoarthritis. CT/CT abdomen pelvis wo IV con IMPRESSION: There is a nonobstructing 1 to 2 mm stone in the lower pole left kidney. There is mild bladder wall thickening raising question of cystitis. Innumerable pseudodiverticula are present throughout the colon without clear evidence of infection. Fleischner guidelines were followed. Electronically signed by: Loc Chapman MD 01/19/2025 01:26 PM EDT RP Dictated By: Loc Chapman MD Signed By: <Electronically signed by Loc Chapman MD in OV> 01/19/25 1326 External Record Review External record reviewed: Inpatient record, Office record and Outpatient record Chronic Conditions Patient?s care impacted by: Other (Alcohol use disorder, HTN) Discharge Plan Discharge Clinical Impression: MICKEY (acute kidney injury) Patient Disposition: Admitted As Inpatient Interventions: Admission Worksheet (ED) Last Done: 01/19/25 15:51 Discharge Date/Time: 01/19/25 20:00
[2025-01-19 11:39] LABS: MANUAL DIFF FLAG NO
[2025-01-19 11:42] LABS: Hematocrit 44.9 % (42.0-52.0); Hemoglobin 16.6 g/dl (14.0-18.0); Imm Gran Abs Auto 0.12 X10*3/uL (0.00-0.03); Imm Gran Pct Auto 0.8 % (0.0-0.4); Lymphocytes Absolute Auto 1.8 X10*3/uL (1.2-4.9); Mean Corpuscular HGB Conc 37.0 g/dl (31.0-36.0); Mean Corpuscular Hemoglobin 35.4 pg (27.0-33.0); Mean Corpuscular Volume 95.7 fL (80.0-98.0); NRBC Abs Auto 0.000 X10*3/uL (0.0-0.012); NRBC Pct Auto 0.0 /100WBC (0.0-0.2); Platelet Count 242 X10*3/uL (160-400); Red Blood Count 4.69 X10*6/uL (4.60-5.80); White Blood Count 14.1 X10*3/uL (4.8-10.8)
--- OUTSIDE RECORDS SUMMARY | 2025-01-19 11:48 | XMS_ITS | Clinical Summary ---
Author Organization [facility] ity Address [address] [place] [address] Care Team Providers Care Tacker Off Name Role Phone Unavailable Primary Care Provider Unavailabl e Social History Tobacco Use Types Packs/Day Years Used Date Smoking Tobacco: Never Assessed Sex and Gender Information Value Date Recorded Sex Assigned at Not on file Legal Sex Male 1:46 PM EST Gender Identity Not on file Sexual Orientation Not on file Plan of Treatment Health Maintenance Due Date Last Done Comments DTaP,Tdap,and Td Vaccines (1 - Tdap) 1985 Hepatitis B Vaccines (1 of 3 - 19+ 3-dose series) 1985 Pneumococcal Vaccine: 50+ Ye ars (1 of 1 - PCV) 02/27/2016 Zoster Vaccines (1 of 2) 02/27/2016 COVID-19 Vaccine ( - 2023-2 5 season) 2024 Influenza Vaccine (#1) 2025 HIB Vaccines Aged Out No longer eligi ble based on patient's age to complete this topic HPV Vaccines Aged Out No longer eligi ble based on patient's age to complete this topic Hepatitis A Vaccines Aged Out No long er eligible based on patient's age to complete this topic IPV Vaccines Aged Out No longer eligi ble based on patient's age to complete this topic MMR Vaccines Aged Out No longer eligi ble based on patient's age to complete this topic Meningococcal ACWY Vaccine Aged Out N o longer eligible based on patient's age to complete this topic Meningococcal B Vaccine Aged Out No l onger eligible based on patient's age to complete this topic RSV Immunization Patients Un jam 20 months Aged Out No longer eligible b ased on patient's age to complete this topic Varicella Vaccines Aged Out No longer eligible based on patient's age to complete this topic
--- OUTSIDE RECORDS SUMMARY | 2025-01-19 11:48 | XMS_ITS | Data Portability ---
Author Organization [facility], Telehealth Patient Home Address [address] [place] [address] Assessment Encounter Date Assessment Date Assessment LastModified by Organization Details LastModified Time 06/30/2024 06/30/2024 Patient agreed and verbally consents to this audio and video Telehealth appt via a secure platform [email or web address] Not available 06/30/2024 11:28:09 09/01/2024 09/01/2024 Patient presente d for medication refill. Patient tolerating medication well at current dose without adverse effects. Refilled as below. Discussed plan with patient, who expressed understanding. Follow up as noted below. 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) MDM HIGH MUST MEET 2 OUT OF 3 ELEMENTS: PROBLEMS, DATA OR RISK ELEMENT 1: PROBLEMS 1 OR MORE CHRONIC ILLNESS W/SEVERE EXACERBATION, PROGRESSION MAY REQUIRE HOSPITAL LEVEL CARE OR 1 ACUTE OR CHRONIC ILLNESS OR INJURY THAT POSES A THREAT TO LIFE OR BODILY FUNCTION ELEMENT 2: DATA: MUST MEET 2 OF 3 CATEGORIES CATEGORY 1 REVIEW OF PRIOR EXTERNAL NOTES REVIEW OF THE RESULTS ORDERING OF EACH TEST ASSESSMENT REQUIRING INDEPENDENT HISTORIAN(S) CATEGORY 2: INDEPENDENT INTERPRETATION OF TESTS BY ANOTHER PROVIDER/SPECIALI ST CATEGORY 3: DISCUSSION OF MGT OR TEST INTERPRETATION W/EXTERNAL PHYSICIAN/SPECIAL IST ELEMENT 3: RISK HIGH RISK OF MORBIDITY FROM ADDITIONAL DIAGNOSTIC TESTING OR TREATMENT PROVIDER MUST THOROUGHLY DOCUMENT EACH ELEMENT THAT IS COVERED The patient presented to their appointment today for multiple concerns requiring moderate to high-level decision making and took over 40-45 minutes for an adequate and appropriate history, exam, assessment and treatment plan. This appointment was done with an established patient. Not available 09/26/2024 16:26:43 Plan of Treatment Reminders Order Date Submit Date Provider Last Modified By Organization Details Last Modified Time Details Appointments FOLLOW UP 15 2024 04:00P M DR BLAIR Not available Not available Not available Lab None recorde d. Referral podiatr ist referra l 2024 reji Lester [facility], [address] [place], [address], 11/29/2024 08:49:38 Procedures None recorde d. Surgeries None recorde d. Imaging electro myogram + nerve conduct ion study - possibl e cerebel lar ataxia 2024 mathew Garcia MD, [address] [place] [address], [address], 10/03/2024 08:53:12 MRI, brain, w/o contras t - Not Require d Procedu re codes: 69840 Call Referen ce #: [id number] Resolut ion: Complet ed on 025 at 10:12 am. Call ref #[id number]. 2024 reji [facility], [address] [place], [address], 09/29/2024 08:34:06 electro myogram + nerve conduct ion study - bilater al lower extermi ty 2024 mathew Garcia MD, [address] [place] [address], [address], 09/08/2024 08:28:07 US, carotid artery 2024 [facility], [address] [place], [address], 09/04/2024 08:47:03 nuclear stress test - Not Require d Procedu re codes: 44047 Call Referen ce #: [id number] Resolut ion: Complet ed on at 02:21 pm. Call ref #[id number] [id number] . 2024 [facility], [address] [place] [address], [address], 09/11/2024 09:20:15 electro myogram + nerve conduct ion study - bildoug Sullivan, moderat e to severe deg disc disease L5 to S1 with symptom s of radicul opathy [facility]23 [facility], [address] [facility], [place], [address], 07/07/2024 09:36:12 US, duplex, arteria l, lower extremi ty, complet e 2023 [facility], [address] , [place], [address], 07/10/2024 09:12:01 Medication Orders nabumet one 500 mg tablet 2024 025 [id number], [address] [place], [address], 01/15/2025 15:09:22 zolpide m 10 mg tablet 2024 025 [facility] #[facility], [address] [place], [address], 09/26/2024 16:28:51 nabumet one 500 mg tablet 2024 025 [facility], [address] [place], [address], 01/15/2025 15:09:22 doxycyc line hyclate 100 mg capsule 2024 025 [facility], [address] [place], [address], 11/28/2024 13:58:27 tizanid ine 4 mg tablet 2024 025 [facility], [address] [place], [address], 01/15/2025 15:09:29 gabapen tin 600 mg tablet 2024 025 [facility], [address] [place], [address], 09/26/2024 16:14:44 venlafa xine ER 75 mg capsule ,extend ed release 24 hr 2024 025 [id number] [address] [place], [address], 08/09/2024 16:53:54 Patient TargetsNo targets recorded. 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 [facility] (Medical Records) [address] [place], [address], 06/19/2024 11:44:16 06/16/20 24 06/16/2024 XR, cervi phyllis spine , 2 or 3 view No observ ation record ed. [facility] (Medical Records) [address] [place], [address], 06/19/2024 11:44:16 09/12/19 25 09/08/2024 US, duple x, arter ial, lower extre mity, compl ete No observ ation record ed. [facility] [address], [place], [address], 09/11/2024 11:02:20 10/04/1910/01/2024 MRI, brain , w/o contr ast No observ ation record ed. [email or web address] [facility] [address] [facility], [place], [address], 10/03/2024 22:46:34 12/20/19 25 12/19/2024 nucle ar stres s test No observ ation record ed. [facility] (Medical Records) [address] [place], [address], 12/19/2024 13:32:28 12/28/19 25 12/19/2024 nucle ar stres s test No observ ation record ed. [facility] (Medical Records) [address] [place], [address], 12/28/2024 14:09:15 Result Notes None recorded. Problems Name Problem SNOMED Code Status Onset Date Resolution Date Notes Provider Name and Address Organization Details Recorded Time [facility] hyperten magno 51787414 Active 2017 Kamryn James NP, [address] [place] [address], [address], [facility] 8 14:21:12 Anxiety 00400827 Active 2017 Kamryn James NP, [address] [place] [address], [address], [facility] 8 14:21:29 Depressi ve disorder 32505967 Active 2017 Kamryn James NP, S [address] [place] [address], [address], [facility] 8 14:21:39 Tobacco dependen ce syndrome 60368177 Active 2017 Holden Blair, DO [address] [place] [address], [address], [facility] 8 11:47:05 Harmful pattern of use of alcohol 77975575 Active 2020 Holden Blair DO [address] [place] [address], [address], [facility] 1 16:20:54 Alcoholi c hepatiti s 982127827 Completed 202005/23/2021 Removal Reason: resolved Holden Blair DO [address] [place] [address], [address], [facility] 1 16:26:04 Cirrhosi s of liver 73943452 Active 2021 Holden Blair DO [address] [place] [address], [address], [facility] 2 11:50:06 Mood disorder 95454206 Active 2021 Holden Blair DO [address] [place] [address], [address], [facility] 2 11:50:11 Cervico- occipita l neuralgi a 10490931 Active 2021 MCKENNA LIVINGSTON [address] [place] [address], [address], [facility] 2 16:16:30 Insomnia 352847645 Active 2021 MCKENNA LIVINGSTON [address] [place] [address], [address], [facility] 2 16:23:35 Pneumoni a caused by methicil ronny resistan t Staphylo coccus aureus 5033863230 40647 Active 2021 MCKENNA LIVINGSTON [address] [place] [address], [address], [facility] 2 16:24:39 COVID-19 826580456 Active 2021 MCKENNA LIVINGSTON [address] [place] [address], [address], [facility] 2 11:07:40 Arthriti s 4449727 Active 2021 MCKENNA LIVINGSTON [address] [place], [place], , [facility] 2 16:25:46 Testoste poly level below referenc e range 518878550 Active 2021 MCKENNA LIVINGSTON [address] [place], [place], , [facility] 2 16:27:07 Easy bruising 162059432 Active 2021 MCKENNA LIVINGSTON [address] [place], [place], , [facility] 2 16:30:43 Eczema 64444959 Active 2021 MCKENNA LIVINGSTON [address] [place], [place], , [facility] 2 16:31:56 Heart murmur 08750064 Active 2021 MCKENNA LIVINGSTON [address] [place], [place], , [facility] 2 16:36:39 Upper respirat ory infectio n 99761145 Active 2022 MCKENNA LIVINGSTON [address] [place], [place], , [facility] 3 15:20:25 Fatigue 26903254 Active 2022 MCKENNA LIVINGSTON [address] [place], [place], , [facility] 3 11:13:53 Near syncope 684070864 Active 2022 MCKENNA LIVINGSTON [address] [place], [place], , [facility] 3 11:14:58 Continuo us dependen ce on cigarett e smoking 9124523178 25654 Active 2022 MCKENNA LIVINGSTON [address] [place], [address], [facility] 3 11:17:59 Palpitat ions 28326812 Active 2022 MCKENNA LIVINGSTON [address] [place], [address], [facility] 3 11:18:38 Weight loss 89549245 Active 2022 MCKENNA LIVINGSTON [address] [place], [address], [facility] 3 11:23:05 Alcoholi c fatty liver 34676084 Active 2022 MCKENNA LIVINGSTON [address] [place], [address], [facility] 3 13:27:13 Pain of right elbow joint 4336840142 8508050 Active 2022 MCKENNA LIVINGSTON [address] [place], [address], [facility] 3 11:17:33 Cervical radiculo anita 04629393 Active 2022 MCKENNA LIVINGSTON [address] [place], [address], [facility] 3 11:20:49 Hyperten sive urgency 058293899 Active 2022 MCKENNA LIVINGSTON [address] [place], [address], [facility] 3 11:22:03 Low back pain 435140150 Active 2022 MCKENNA LIVINGSTON [address] [place], [address], [facility] 3 11:23:15 Neck pain 92101007 Active 2022 MCKENNA LIVINGSTON [address] [place], [address], [facility] 3 09:28:55 Foot pain 38888797 Active 2023 MCKENNA LIVINGSTON [address] [place], [address], [facility] 4 13:58:05 Dizzines s 405665216 Active 2023 MCKENNA LIVINGSTON [address] [place], [address], [facility] 4 14:06:47 Alcohol dependen ce 48371282 Active 2023 MCKENNA LIVINGSTON [address] [place], [place], , [facility] 4 16:32:36 Pneumoni a 564505312 Active 2023 MCKENNA LIVINGSTON [address] [place], [address], [facility] 4 16:32:36 Cellulit is 474655405 Active 2023 MCKENNA LIVINGSTON [address] [place] [address], , [facility] 4 11:12:02 Pruritic rash 23548098 Active 2023 MCKENNA LIVINGSTON [address] [place], [place], , [facility] 4 11:14:02 Cellulit is caused by Staphylo coccus aureus 515882645 Active 2023 MCKENNA LIVINGSTON [address] [place], [place], , [facility] 4 16:04:34 Pain in lumbar spine 294922770 Active 2023 MCKENNA LIVINGSTON [address] [place], [place], , [facility] 4 14:32:48 White blood cell disorder 79420294 Active 2023 MCKENNA LIVINGSTON [address] [place], [address], [facility] 4 16:22:10 Anemia 545276972 Active 2023 MCKENNA LIVINGSTON [address] [place], [address], [facility] 4 16:22:44 Headache 70323397 Active 2023 MCKENNA LIVINGSTON [address] [place], [address], [facility] 4 16:21:48 Muscle spasm of cervical muscle of neck 6441204135 04 Active 2023 MCKENNA LIVINGSTON [address] [place], [address], [facility] 4 16:22:54 Muscle pain 21063873 Active 2023 MCKENNA LIVINGSTON [address] [place], [address], [facility] 4 16:24:28 Neuropat hy 567360383 Active 2023 MCKENNA LIVINGSTON [address] [place], [address], [facility] 4 16:27:52 Intermit tent claudica tion 47260585 Active 2023 MCKENNA LIVINGSTON [address] [place], [address], [facility] 4 11:26:55 Degenera tion of lumbar interver tebral disc 37711661 Active 2023 MCKENNA LIVINGSTON [address] [place] [address], [address], [facility] 4 11:28:43 Lumbar radiculo anita 838022674 Active 2024 MCKENNA LIVINGSTON [address] [place], [address], [facility] 5 16:20:32 Lighthea dedness 115769940 Active 2024 MCKENNA LIVINGSTON [address] [place], [address], [facility] 5 16:24:05 Weakness of bilatera l lower limb Active 2024 Holden Blair DO [address] [place] [address], [address], [facility] 5 16:18:32 Cerebell ar ataxia 17060145 Active 2024 Holden Blair DO [address] [place] [address], [address], [facility] 5 16:21:45 Cellulit is of abdomina l wall 40774203 Active 2024 Holden Blair DO [address] [place] [address], [address], [facility] 16:26:10 Bunion 650805734 Active 2024 MCKENNA LIVINGSTON [address] [place] [address], [address], [facility] 14:26:52 Lumbosac ral spondylo sis 634631584 Active 2024 MCKENNA LIVINGSTON [address] [place] [address], [address], [facility] 15:08:56 Problem Notes None recorded. Medical Equipment None Reported. Allergies Allergen ID Allergen Name Allergen Category Reaction Reaction Severity Criticality Documentation Date Start Date Code Code System Note Provider Name and Address Organization Details Recorded Time 181 Product containin g penicilli n (product) medicatio n Not available Not available Not available 01/11/2018 58779 [id number] SNOMED Kamryn James NP, S [address] [place], [address], [facility] 8 14:20:56 Medications Name Sig Start Date Stop Date Status Note LastModified by Organization Details LastModified Time carisoprodo l 350 mg tablet Take 1 tablet twice a day by oral route as needed for 30 days. 2024 active Not Available Not Available Not Avai lable celecoxib 200 mg capsule TAKE 1 CAPSULE BY MOUTH TWICE A DAY DIRECTED FOR 30 DAYS 07/31 completed Not Available Not Available Not Available cyclobenzap rine 10 mg tablet TAKE 1 TABLET BY MOUTH TWICE A DAY NEEDED FOR 14 DAYS 03/15 completed Not Available Not Available Not Available methocarbam ol 500 mg tablet TAKE 1 TABLET THREE TIMES A DAY NEEDED FOR MUSCLE SPASM 03/15 completed Not Available Not Available Not Available bupropion HCl SR 150 mg tablet,12 hr sustained-r elease TAKE 1 TABLET BY MOUTH TWICE DAILY DIRECTED 11/02 completed Not Available Not Available Not Available venlafaxine ER 37.5 mg capsule,ext ended release 24 hr TAKE 1 CAPSULE BY MOUTH EVERY DAY 08/09 completed Not Available Not Available Not Available prednisone 10 mg tablet 5 TABS X 2 DAYS 4 TABS X 2 DAYS 3 TABS X 2 DAYS 2 TABS X 2 DAYS 1 TAB X 2 DAYS 03/15 completed Not Available Not Available Not Available venlafaxine ER 75 mg capsule,ext ended release 24 hr TAKE 1 CAPSULE BY MOUTH EVERY DAY FOR 90 DAYS active Not Available Not Available No t Available gabapentin 600 mg tablet TAKE 1 TABLET BY MOUTH TWICE A DAY DIRECTED 09/26 completed Not Available Not Available Not Available doxycycline hyclate 100 mg capsule TAKE 1 CAPSULE BY MOUTH TWICE A DAY FOR 10 DAYS 11/28 completed Not Available Not Available Not Available clindamycin HCl 300 mg capsule TAKE 1 CAPSULE BY MOUTH 3 TIMES A DAY FOR NASAL BONE FRACTURE AND NASAL LACERATIO N FOR 7 DAYS 01/12 completed Not Available Not Available Not Available citalopram 40 mg tablet TAKE 1 TABLET BY MOUTH EVERY DAY 06/24 completed Not Available Not Available Not Available trazodone 50 mg tablet TAKE 1 TABLET AT BEDTIME NEEDED FOR INSOMNIA 03/15 completed Not Available Not Available Not Available triamcinolo ne acetonide 0.5 % topical cream APPLY TO AFFECTED AREA 3 TIMES A DAY active Not Available Not Available No t Available azithromyci n 250 mg tablet TAKE 2 TABLETS (500 MG) BY ORAL ROUTE ONCE DAILY FOR 1 DAY THEN 1 TABLET (250 MG) BY ORAL ROUTE ONCE DAILY FOR 4 DAYS 03/31 completed Not Available Not Available Not Available tizanidine 4 mg tablet TAKE 1 TABLET BY MOUTH EVERY 6 TO 8 HOURS NEEDED FOR 30 DAYS 01/15 completed Not Available Not Available Not Available naltrexone 50 mg tablet TAKE 1 TABLET BY MOUTH EVERYDAY AT BEDTIME active Not Available Not Available No t Available prednisone 20 mg tablet TAKE 1 TABLET BY MOUTH EVERY DAY FOR 7 DAYS 02/10 completed Not Available Not Available Not Available atenolol 25 mg tablet Take 1 tablet every day by oral route for 30 days. 07/21 completed Not Available Not Available Not Available venlafaxine ER 150 mg capsule,ext ended release 24 hr TAKE 1 CAPSULE BY MOUTH EVERY DAY 09/09 completed Not Available Not Available Not Available hydroxyzine pamoate 50 mg capsule TAKE 1 CAPSULE TWICE A DAY NEEDED FOR ANXIETY, SLEEP AID (VISTARIL ) 06/05 completed Not Available Not Available Not Available amlodipine 5 mg tablet TAKE 1 TABLET BY MOUTH EVERY DAY 03/15 completed Not Available Not Available Not Available sulfamethox azole 800 mg-trimetho prim 160 mg tablet TAKE 1 TABLET BY MOUTH EVERY 12 HOURS FOR 14 DAYS 05/09 completed Not Available Not Available Not Available sildenafil 25 mg tablet Take 1 tablet every day by oral route for 12 days. 09/23 completed Not Available Not Available Not Available tramadol 50 mg tablet TAKE 1 TABLET BY MOUTH EVERY 6 HOURS NEEDED FOR 7 DAYS active Not Available Not Available No t Available acetaminoph en 500 mg tablet TAKE 2 TABLET BY MOUTH 4 TIMES A DAY NEEDED FOR PAIN OR FEVER 09/23 completed Not Available Not Available Not Available triamcinolo ne acetonide 0.1 % topical cream APPLY TOPICALLY TO THE AFFECTED AREA TWICE DAILY 09/09 completed Not Available Not Available Not Available bupropion HCl SR 100 mg tablet,12 hr sustained-r elease TAKE 1 TABLET BY MOUTH EVERY DAY 09/09 completed Not Available Not Available Not Available oxycodone-a cetaminophe n 5 mg-325 mg tablet TK 1 T PO Q 6 H FOR 7 DAYS 07/09 completed Not Available Not Available Not Available amlodipine 10 mg tablet TAKE 1 TABLET BY MOUTH EVERY DAY active Not Available Not Available No t Available doxycycline monohydrate 100 mg capsule TAKE 1 CAPSULE BY MOUTH TWICE A DAY FOR 10 DAYS WITH FOOD 09/23 completed Not Available Not Available Not Available cephalexin 500 mg capsule Take 1 capsule every 6 hours by oral route for 10 days. 11/21 completed Not Available Not Available Not Available clotrimazol e-betametha sone 1 %-0.05 % topical cream APPLY TOPICALLY 2 (TWO) TIMES A DAY FOR 14 DAYS. TO ABDOMINAL RASH 03/15 completed Not Available Not Available Not Available diclofenac potassium 50 mg tablet 02/23 completed Not Available Not Available Not Available gabapentin 300 mg capsule Take 1 capsule twice a day by oral route for 30 days. 08/09 completed Not Available Not Available Not Available diclofenac sodium 75 mg tablet,ivette yed release TAKE 1 TABLET BY MOUTH TWICE DAILY FOR 14 DAYS NEEDED 06/21 completed Not Available Not Available Not Available hydrochloro thiazide 25 mg tablet TAKE 1 TABLET BY MOUTH EVERY DAY 04/23 completed Not Available Not Available Not Available ibuprofen 600 mg tablet 12/25 completed Not Available Not Available Not Available levofloxaci n 750 mg tablet TAKE 1 TABLET BY MOUTH EVERY DAY FOR 10 DAYS 02/10 completed Not Available Not Available Not Available zolpidem 10 mg tablet TAKE 1 TABLET BY MOUTH EVERY DAY FOR 30 DAYS active Not Available Not Available No t Available methylpredn isolone 4 mg tablets in a dose pack FOLLOW PACKAGE DIRECTION S 03/31 completed Not Available Not Available Not Available ketoconazol e 2 % topical cream APPLY TO AFFECTED AREA EVERY DAY 03/15 completed Not Available Not Available Not Available lisinopril 40 mg tablet TAKE 1 TABLET BY MOUTH EVERY DAY 2024 active Not Available Not Available Not Avai lable atenolol 50 mg tablet TAKE 1 TABLET BY MOUTH EVERY DAY active Not Available Not Available No t Available nabumetone 500 mg tablet TAKE 1 TABLET BY MOUTH FOUR TIMES A DAY NEEDED FOR 30 DAYS 01/15 completed Not Available Not Available Not Available oxycodone 5 mg tablet TAKE 1 TABLET BY MOUTH EVERY 6 HOURS NEEDED FOR PAIN 01/12 completed Not Available Not Available Not Available Neosporin (khari-mallory-po lym) 3.5 mg-400 unit-5,000 unit/gram top ointment small amt to cover area BID 09/02 completed Not Available Not Available Not Available metoprolol tartrate 25 mg tablet TAKE 1 TABLET BY MOUTH TWICE DAILY 11/02 completed Not Available Not Available Not Available mirtazapine 7.5 mg tablet TAKE 1 TABLET BY MOUTH EVERY DAY FOR 30 DAYS 03/15 completed Not Available Not Available Not Available Boostrix Tdap 2.5 Lf unit-8 mcg-5 Lf/0.5 mL intramuscul ar syringe 09/02 completed Not Available Not Available Not Available hydroxyzine HCl qd prn 12/25 completed Not Available Not Available Not Available Fioricet qd prn 12/25 completed Not Available Not Available Not Available oxycodone 10 mg tablet TAKE 1 TABLET BY MOUTH TWICE DAILY AT BEDTIME FOR 7 DAYS 05/23 completed Not Available Not Available Not Available Trintellix 10 mg tablet 11/16 completed Not Available Not Available Not Available albuterol sulf 90 mcg/actuati on breath activated powder inhaler,sen sor Inhale 2 puffs every 4 hours by inhalatio n route. 05/09 completed Not Available Not Available Not Available BinaxNOW COVID-19 Ag Self Test kit TEST DIRECTED TODAY 03/31 completed Not Available Not Available Not Available Vitals Date Recorded Body height Body mass index (BMI) Body weight Heart rate Oxygen saturation Oxygen saturation in Arterial blood by Pulse oximetry Systolic And Diastolic Provider Name and Address Organization Details Last Updated DateTime 5 170.18 cm 28.2 kg/m2 70506.6 3 g 70 /min 99 % 99 % 140/90 mm[Hg] [facility] 5 16:29:29 Date Recorded Body height Body mass index (BMI) Body weight Heart rate Oxygen saturation Oxygen saturation in Arterial blood by Pulse oximetry Systolic And Diastolic Provider Name and Address Organization Details Last Updated DateTime 5 170.18 cm 27.8 kg/m2 82437.6 5 g 67 /min 99 % 99 % 140/90 mm[Hg] Katiepatricia Haskins [facility] 5 15:59:11 Date Recorded Body height Body mass index (BMI) Body weight Heart rate Oxygen saturation Oxygen saturation in Arterial blood by Pulse oximetry Systolic And Diastolic Provider Name and Address Organization Details Last Updated DateTime 5 170.18 cm 27.5 kg/m2 92331.4 6 g 75 /min 98 % 98 % 164/94 mm[Hg] Katie Jozef [facility] 5 14:02:56 Social History Question Answer Notes LastModified by Organizat ion Details LastModified Time Tobacco Smoking Status Current Every Day [facility] 12:02:50 What Is Your Level Of Caffeine Consumption? Moderate [id number] Information not available 05/07/2020 What Was The Date Of Your Most Recent Tobacco Screening? 11/28/2024 [email or web address] Information not available 11/28/2024 How Much Tobacco Do You Smoke? 0.5 PPD [email or web address] Information not available 06/24/2021 Sex: Unknown Functional Status Question Answer Note LastModified by Organizat ion Details LastModified Time Do you or have you ever used any other forms of tobacco or nicotine? No [email or web address] Information not available 06/05/2024 What is your level of alcohol consumption? Occasional [id number] Information not available 05/07/2020 What is your exercise level? None [id number] Information not available 05/07/2020 Mental Status None recorded. Family History Nothing Reported. Medical History No medical history recorded. Immunizations Vaccine Type Date Status Note Provider Nam e and Address Organization Details Recorded Time Tdap 8 completed MCKENNA LIVINGSTON [address] [place] [address], [place], [address], [facility] 10/06/2021 16:18:15 COVID-19 vaccine, vector-nr, rS-Ad26, PF, 0.5 mL 1 completed Emilee diallo [facility] 03/31/2022 08:17:26 COVID-19, mRNA, LNP-S, PF, 30 mcg/0.3 mL dose 2 completed Emilee diallo [facility] 03/31/2022 08:17:38 Influenza, split virus, quadrivalent, preservative 3 completed Emilee diallo [facility] 03/31/2022 08:17:52 Past Encounters Encounter ID Performer Location Encounter Start Date Encounter Closed Date Diagnosis/Indication Diagnosis SNOMED-CT Code Diagnosis ICD10 Code Diagnosis Note [id number] Holden Blair [facility] Internal [address] [address] 02/23/2018 15:11:42 02/23/2018 15:55:29 Essential hypertension 90074698 I10 Pain in left knee 267355 9841 65776 M25.562 [id number] Holden Blair [address],[place] [address] 03/08/2018 11:27:17 03/08/2018 14:38:30 Adult health examination 550074532 Active or passive immunization 341540096 Z23 will be getting tdap sooon [id number] Holden Blair [facility] Internal [address],[place] [address] 05/09/2018 13:42:50 05/09/2018 14:15:22 Essential hypertension 42885087 I10 stable Sprains an d strains of joints and adjacent muscles 346142782 T14.8XXA right calf [id number] Holden Blair [facility] Internal [address],[place] [address] 08/26/2018 11:54:16 08/26/2018 12:26:43 Pruritic rash 99235849 L28.2 well circumscri bed, cleared of dried debris-to d/c use belt, apply abx, audra BID , keep covered w/gauze daily, open to air at night Essential hypertension 25112260 I10 stable [id number] Holden Blair [facility] Internal [address],[place] [address] 09/02/2018 16:00:49 09/02/2018 16:25:35 Cellulitis 358043071 L03.90 Essential hypertension 98084857 I10 take medication as prescribed daily [id number] Holden Blair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
--- OUTSIDE RECORDS SUMMARY | 2025-01-19 11:48 | XMS_ITS | Encounter Summary ---
Author Organization [facility] Address [address] [facility] [address] [place] [id number] Phone Care Team Providers Care Programmer Operator Numerical Control Name Role Phone Holden Bailey Primary Care Provider [phone] Holden Bailey DO Unavailable Reason for Referral * Physical Therapy (Routine) - Authorized Specialty Diagnoses / Procedures Referred By Georgiana izaguirre Referred To Contact Physical Therapy Diagnoses Encounter for rehabilitation Leanne Lira PA [address] [facility] [place] [address] [place] [address] Phone: tel: fax: [facility] [address] [place] [address] Phone: tel: Referral ID Status Reason Start Date Expiration Date V isits Requested Visits Authorized [id number] Authorized 01/16/2025 07/04/2025 16 16 Encounter Details Date Type Department Care Team (Latest Contact Info) Description 01/16/2025 Transcribe Orders [facility] [address] [place] [address] [email or web address] Encounter for rehabilitation (Primary Dx) Social History Tobacco Use Types Packs/Day Years Used Date Smoking Tobacco: Every Day Cigarettes Smokeless Tobacco: Never Education Answer Date Recorded Are you interested in more education? Not on venu e 09/13/2023 Are you concerned about learning? Not on file 09/13/2023 No 09/13/2023 No 09/13/2023 Digital Access Answer Date Recorded No 09/13/2023 No 09/13/2023 Reliable internet access at home? Not on file 09/13/2023 Device with a working camera? Not on file Sex and Gender Information Value Date Recorded Sex Assigned at Not on file Legal Sex Male 9:40 PM EDT Gender Identity Not on file Sexual Orientation Not on file documented as of this encounter Plan of Treatment Scheduled Referrals Name Type Priority Associated Diagnoses Orde r Schedule Ambulatory referral to [facility] Physical Therapy Outpatient Referral Routine Encounter for rehabilitation Ordered: 01/16/2025 documented as of this encounter Visit Diagnoses Diagnosis Encounter for rehabilitation- Primary documented in this encounter Care Teams Programmer Operator Numerical Control Relationship Specialty Start Date End Date Holden Bailey DO PCP - General Internal Medicine 09/13/23 Holden Bailey DO [address] [place] [address] Insurance Assigned Provider 05/13/24 documented as of this encounter Additional Source Comments The information contained in this document represents components of the legal health record. It is not the complete legal health record.[facility]
--- OUTSIDE RECORDS SUMMARY | 2025-01-19 11:48 | XMS_ITS | Clinical Summary ---
Author Organization [facility] Address [address] [address] Care Team Providers Care Administrative Accountant Name Role Phone Unavailable Primary Care Provider [...] of 1 - PCV) 016 Influenza Vaccine (#1) 2025 [place]
[2025-01-19 11:59] LABS: B Type Natriuretic Peptide 12 pg/mL (<100)
[2025-01-19 12:00] LABS: Alanine Aminotransferase 15 U/L (0-40); Albumin Level 4.9 g/dL (3.5-5.0); Alkaline Phosphatase 84 U/L (39-117); Anion Gap 18 (12-20); Aspartate Amino Transferase 29 U/L (5-37); Blood Urea Nitrogen 33 mg/dL (9-16); Calcium 9.6 mg/dL (8.4-10.2); Carbon Dioxide 21 mmol/L (22-29); Chloride 102 mmol/L (96-108); Creatinine Clr Calc Pharmacy 13.2; Estimated Glomerular Filt Rate 10; Potassium 3.5 mmol/L (3.3-5.1); Sodium 137 mmol/L (135-145); Total Protein 8.0 g/dL (6.5-8.0)
[2025-01-19 12:01] LABS: Troponin-I High Sensitivity 8.6 ng/L (<3.5-35.0)
[2025-01-19 12:20] LABS: Magnesium 2.2 mg/dL (1.6-2.6)
[2025-01-19 12:35] LABS: Thyroid Stimulating Hormone 0.80 uIU/mL (0.32-4.0)
[2025-01-19 13:36] LABS: Alanine Aminotransferase 12 U/L (0-40); Albumin Level 4.2 g/dL (3.5-5.0); Alkaline Phosphatase 71 U/L (39-117); Anion Gap 15 (12-20); Aspartate Amino Transferase 23 U/L (5-37); Blood Urea Nitrogen 30 mg/dL (9-16); Calcium 8.3 mg/dL (8.4-10.2); Carbon Dioxide 21 mmol/L (22-29); Chloride 105 mmol/L (96-108); Creatinine Clr Calc Pharmacy 16.2; Estimated Glomerular Filt Rate 13; Potassium 3.5 mmol/L (3.3-5.1); Sodium 137 mmol/L (135-145); Total Protein 6.7 g/dL (6.5-8.0)
--- NOTE | 2025-01-19 14:07 | PM.IMHP ---
History of Present Illness Date of Service: 01/19/25 Chief Complaint: weakness This has a 59-year-old male with pertinent history of hypertension, mood disorder, alcohol use disorder who presents to the emergency department for evaluation of lightheadedness and weakness. Patient states he was working out in the sun for 2 consecutive days and on the morning of presentation he felt dizzy and lightheaded which was worse upon standing. He stated that while working outside he has been trying to drink fluids as he was sweating a lot. Denies vomiting, diarrhea. He had to call out of his job because of malaise, weakness and dizziness on the day of presentation. Denies chest pain but had brief episode of palpitations when he got dizzy. Admits to daily alcohol use and states he drinks a small bottle of whiskey every day. Denies history of alcohol withdrawal. No fever, chills, shortness of breath, abdominal pain, changes in urinary or bowel habits. In the emergency department, orthostatic vital signs positive and creatinine found to be 5.88 Review of Systems Constitutional: Constitutional: Reports fatigue, Reports lethargy, Reports malaise and Reports weakness ENT: Reports dizziness Cardiovascular: Cardiovascular: Reports no additional cardiovascular complaints Respiratory: Respiratory: Reports no additional respiratory complaints Gastrointestinal: Gastrointestinal: Reports no additional gastrointestinal complaints Genitourinary: Genitourinary: Reports no additional male genitourinary complaints Neurologic: Reports dizziness and Reports weakness Endocrine: Endocrine: Reports fatigue COUNTS INCLUDE [facility] BEDS AT [facility] Medical History Laceration of leg not thigh (~07/14/22) Alcohol abuse Empyema lung Atelectasis Hypertension Hypertension Personal history of nicotine dependence Alcohol dependence Multiple fractures of ribs of left side (~04/2021) Bilateral pneumothoraces (~04/2021) Family History Father No problems noted. Mother No problems noted. Surgical History H/O rhinoplasty History of chest tube placement (~04/2021) Social History Household Members: Other Household Members Other:: sister Housing: House Do you presently have visiting nurse or other home services: No Alcohol intake: current Alcohol intake frequency: holidays/special occasions only Alcohol type: hard liquor Comment: REFUSING BED ALARM Patient Tobacco Use Status: Current everyday Tobacco user Tobacco use type: Cigarette Smoked in Last 30 Days: Yes Use of substances other than those prescribed or required for medical reasons: No Advance Directives: Yes Advance Directives on File: Yes Advance Directives Date on File: 04/11/21 Do you have a plan to hurt others: No Plan service: No Current occupational status: unemployed Meds Allergies Allergy/AdvReac Type Severity Reaction Status Date / Time Penicillins Allergy Unknown Verified 01/19/25 11:09 Physical Exam Vital Signs and Narrative: Vital Signs: Last Vital Signs Temp 97.6 F 01/19/25 11:08 Pulse 72 01/19/25 13:53 Resp 16 01/19/25 13:53 BP 106/67 01/19/25 13:53 Pulse Ox 96 01/19/25 13:53 O2 Del Method Room Air 01/19/25 13:53 BMI result Body Mass Index 25.5 Middle-aged male lying in bed in no distress Neck supple, no JVD, dry mucous membrane Regular rate and rhythm, S1-S2 heard Regular breath sounds bilaterally, no wheezing or crackles appreciated Abdomen soft nontender, no guarding, no rigidity Patient is awake, alert and oriented to self, place, time and person ; no focal motor deficit Psych: Normal mood No pedal edema Results Labs 01/19/25 11:30 01/19/25 13:12 Labs: Laboratory Results - last 24 hr 01/19/25 01/19/25 11:30 13:12 MCV 95.7 MCH 35.4 H MCHC 37.0 H RDW 12.3 Plt Count 242 MPV 8.5 L Immature Gran % (Auto) 0.8 H Neut % (Auto) 78.4 H Lymph % (Auto) 12.4 L [place] % (Auto) 7.1 Eos % (Auto) 0.7 Baso % (Auto) 0.6 Lymph # (Auto) 1.8 [place] # (Auto) 1.0 Eos # (Auto) 0.1 Baso # (Auto) 0.1 Abs Immat Gran (auto) 0.12 H Absolute Neuts (auto) 11.1 H Absolute Nucleated RBC 0.000 Nucleated RBC % (auto) 0.0 Anion Gap 18 15 Estim Creat Clear Calc 13.2 16.2 Estimated GFR 10 13 Random Glucose 132 H 106 Lactic Acid 1.8 Calcium 9.6 8.3 L D Magnesium 2.2 Total Bilirubin 1.2 H 1.1 H AST 29 23 ALT 15 12 Alkaline Phosphatase 84 71 Total Creatine Kinase 176 H B-Natriuretic Peptide 12 Total Protein 8.0 6.7 Albumin 4.9 4.2 TSH 0.80 Imaging Radiologist's Impressions: Impressions Chest X-Ray 01/19/25 11:55 IMPRESSION: Chronic volume loss and elevated right hemidiaphragm. Electronically signed by: Loc Chapman MD 01/19/2025 12:08 PM EDT RP Abdomen/Pelvis CT 01/19/25 12:35 IMPRESSION: There is a nonobstructing 1 to 2 mm stone in the lower pole left kidney. There is mild bladder wall thickening raising question of cystitis. Innumerable pseudodiverticula are present throughout the colon without clear evidence of infection. Fleischner guidelines were followed. Electronically signed by: Loc Chapman MD 01/19/2025 01:26 PM EDT RP Assessment and Plan (1) MICKEY (acute kidney injury): Status: Acute Plan This has a 59-year-old male with pertinent history of hypertension, mood disorder, alcohol use disorder who presents to the emergency department for evaluation of lightheadedness and weakness. #. Acute kidney injury stage III: Improving with crystalloid resuscitation. UA pending. Consulted Nephrology, appreciate assistance. Avoid nephrotoxins #. Orthostatic presyncope: Continue crystalloid resuscitation. Repeat orthostatics. ?Palpitations. Will monitor on tele #. Leukocytosis, reactive #. Alcohol use disorder: Monitor CIWA #. Hypertension: Hold antihypertensives in the setting of low blood pressure #. Mood disorder: Continue home mood stabilizers Med rec pending DVT prophylaxis: Lovenox Full code Admit as inpatient and will require two night minimum hospital stay for close monitoring of kidney function (as above), which is not possible in a lesser acute setting. Quality Stroke Does the patient have a stroke diagnosis?: No VTE Prior VTE?: No VTE Risk Level:: Medical - moderate - high VTE Device Contraindication: Treatment Not Indicated VTE Drug Contraindication: N/A - Med Ordered
--- NOTE | 2025-01-19 15:04 | PM.CNNEP ---
History of Present Illness Reason for Consult Consult date: 01/19/25 Chief Complaint Chief complaint: weakness History of Present Illness Narrative: Patient is a 59 y/o male with a medical history of HTN, mood disorder, daily alcohol use- reports 1 pint of whisky daily, tobacco use for many years, pt also reports has a heart murmur and ongoing gait disturbance for over a year so far workup negative through PCP. Patient's sister at bedside reports a family history of LVH, their brother. Nephrology consulted for MICKEY. presented 01/19 with dizziness, weakness and general malaise for a few days. 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 States he is urinating as usual. Denies chest pain, abdominal pain, shortness of breath, lower extremity swelling, urinary symptoms. Reports he takes lisinopril for blood pressure control. Denies excessive use of NSAIDs. Denies recent antibiotic use. Daily alcohol use (1pint whiskey), denies elicit drug use. states he has some muscle soreness in his shoulders and upper back muscles, otherwise no pain. creatinine baseline: last creatinine on file 0.98 in June 2024. today creatinine 5.88 on presentation, 4.79 about two hours later on re-check. BUN 30s. CT without obstruction. UA- pending. LFTs normal. Bilirubin mildly elevated 1.1. Patient has received 2 NS boluses and LR at 125ml/hr. He states he feels some improvement with hydration. Review of Systems Constitutional: Reports fatigue, Reports malaise and Reports weakness Cardiovascular: Denies chest pain, Denies leg edema, Denies lightheadedness and Denies dyspnea Respiratory: Denies cough and Denies dyspnea Gastrointestinal: Denies abdominal pain, Denies diarrhea, Denies nausea and Denies vomiting Genitourinary: Denies hematuria, Denies oliguria, Denies difficulty urinating, Denies dysuria and Denies flank pain Musculoskeletal: Reports abnormal gait (reports chronic for over a year, no acute changes.), Denies back pain, Denies joint swelling and Reports muscle weakness Skin/Breast: Denies rash Reports abnormal gait (reports chronic for over a year, no acute changes.) and Reports weakness Endocrine: Reports fatigue PMFSH Past Medical History Medical History Laceration of leg not thigh (~07/14/22) Alcohol abuse Empyema lung Atelectasis Hypertension Hypertension Personal history of nicotine dependence Alcohol dependence Multiple fractures of ribs of left side (~04/2021) Bilateral pneumothoraces (~04/2021) Family History Family History Father No problems noted. Mother No problems noted. Surgical History Surgical History H/O rhinoplasty History of chest tube placement (~04/2021) Social History Social History Household Members: Other Household Members Other:: sister Housing: House Do you presently have visiting nurse or other home services: No Alcohol intake: current Alcohol intake frequency: holidays/special occasions only Alcohol type: hard liquor Comment: REFUSING BED ALARM Patient Tobacco Use Status: Current everyday Tobacco user Tobacco use type: Cigarette Smoked in Last 30 Days: Yes Use of substances other than those prescribed or required for medical reasons: No Advance Directives: Yes Advance Directives on File: Yes Advance Directives Date on File: 04/11/21 Do you have a plan to hurt others: No Plan service: No Current occupational status: unemployed Meds Allergies Allergy/AdvReac Type Severity Reaction Status Date / Time Penicillins Allergy Unknown Verified 01/19/25 11:09 Active Medications: Current Medications Acetaminophen (Acetaminophen 325 Mg Tablet) 650 mg PO Q6H PRN PRN Reason: Pain, Mild 1-3,fever,headache Calcium Carbonate (Calcium Carbonate 750 Mg Tab.Chew) 750 mg PO Q4H PRN PRN Reason: Heartburn Enoxaparin Sodium (Enoxaparin Sodium 30 Mg/0.3 Ml Syringe) 30 mg SUBCUT Q24H IESHA Lactated Ringer's (Lr) 1,000 mls @ 125 mls/hr IVCONT .Q8H IESHA Magnesium Hydroxide (Milk Of Magnesia 30 Ml Oral.Susp) 30 ml PO DAILY PRN PRN Reason: Constipation Melatonin (Melatonin 3 Mg Tablet) 6 mg PO BEDTIME PRN PRN Reason: Insomnia Ondansetron HCl (Ondansetron Hcl 4 Mg/2 Ml Vial) 4 mg IVPUSH Q8H PRN PRN Reason: Nausea and Vomiting Sodium Chloride (0.9 % Sodium Chloride Flush 3 Ml Syringe) 3 [facility] Medications ?Medication ?Instructions ?Recorded ?Confirmed ?Last Taken ?Type amlodipine 10 mg tablet 10 mg PO DAILY 01/19/25 01/19/25 01/19/25 History carisoprodol 350 mg tablet 350 mg PO BID PRN Pain 01/19/25 01/19/25 Unknown History nabumetone 500 mg tablet 500 mg PO QID PRN Muscle Pain 01/19/25 01/19/25 Unknown History venlafaxine 75 mg capsule,extended 75 mg PO DAILY 01/19/25 01/19/25 01/19/25 History release 24 hr Physical Exam Vital Signs: Last Vital Signs Temp 97.6 F 01/19/25 11:08 Pulse 72 01/19/25 13:53 Resp 16 01/19/25 13:53 BP 106/67 01/19/25 13:53 Pulse Ox 96 01/19/25 13:53 O2 Del Method Room Air 01/19/25 13:53 BMI result Body Mass Index 25.5 Const General: no acute distress, alert and awake Resp Effort & Inspection: normal respiratory effort and able to speak in complete sentences Auscultation: clear to auscultation bilaterally Cardio Rate: regular rate Rhythm: regular rhythm Heart sounds: S1 normal heart sound present, S2 normal heart sound present and Murmur heart sound present GI Palpation (GI): Soft to palpation and nontender General: Yes no CVA tenderness Back/Spine/Pelvis Back: no CVA tenderness Skin Rashes: no rashes Extrem General: Yes edema Results Lab Results 01/19/25 11:30 01/19/25 13:12 Lab results: Chemistry 01/19/25 01/19/25 11:30 13:12 Sodium 137 137 Potassium 3.5 3.5 Carbon Dioxide 21 L 21 L BUN 33 H 30 H Creatinine 5.88 H* 4.79 H* Calcium 9.6 8.3 L D Hematology 01/19/25 11:30 WBC 14.1 H Hgb 16.6 Plt Count 242 Assessment and Plan (1) MICKEY (acute kidney injury): Status: Acute Plan MICKEY likely tubular injury secondary to dehydration in setting of NATALYA inhibitor use creatinine is improving in short period of time with fluid resuscitation, though creatinine remains significantly elevated. UA pending- if significant blood/protein and creatinine does not continue to improve will need consider GN, AIN. will check CK given disproportionate rise in creatinine vs BUN; rhabdomyolysis, polymyositis on differential. Bactrim and tetracycline may cause this disproportionate rise in creatinine to BUN, though pt has not had any known recent antibiotic use. recommend continuing fluid resuscitation recommend regular blood pressure checks and close I&O monitoring recommend daily electrolyte and renal function studies continue supportive care, will continue to follow Discussed with Dr Martines. Procedures Date of Service Date of Service: 01/19/25
[2025-01-19] MEDS: Lactated Ringers 1,000 ML 125 ML IVCONT ×2 (15:07→21:57)
--- NOTE | 2025-01-19 15:16 | PHA.MEDREC ---
Pharmacy Consult ? Medication Reconciliation Pharmacy has completed the medication reconciliation. Spoke to patient to confirm med list. Patient was able to name all of his medication and everything matched claims. Patient had all of his morning medication today.
[2025-01-19 15:17] LABS: Appearance Urine Clear; Glucose Urine UA Negative (Negative); PH 5.5 (5.0-9.0); Specific Gravity - Urine 1.020 (1.005-1.025); UMIC TRIGGER UACC YES
--- NOTE | 2025-01-19 16:09 | MHC.EDTECH ---
RN aware of bp.
[2025-01-20] VITALS (8 sets, daily range): BP systolic 118–152; BP diastolic 77–85; PULSE 65–72; RESP 16–18; TEMP 36.5–37; O2SAT 96–98
[2025-01-20] MEDS: Lactated Ringers 1,000 ML 125 ML IVCONT ×3 (05:41→21:41)
[2025-01-20 07:28] LABS: Hematocrit 37.7 % (42.0-52.0); Hemoglobin 13.5 g/dl (14.0-18.0); Mean Corpuscular HGB Conc 35.8 g/dl (31.0-36.0); Mean Corpuscular Hemoglobin 34.5 pg (27.0-33.0); Mean Corpuscular Volume 96.4 fL (80.0-98.0); NRBC Abs Auto 0.000 X10*3/uL (0.0-0.012); NRBC Pct Auto 0.0 /100WBC (0.0-0.2); Platelet Count 183 X10*3/uL (160-400); Red Blood Count 3.91 X10*6/uL (4.60-5.80); White Blood Count 5.6 X10*3/uL (4.8-10.8)
[2025-01-20 07:45] LABS: Anion Gap 13 (12-20); Calcium 8.8 mg/dL (8.4-10.2); Carbon Dioxide 24 mmol/L (22-29); Chloride 106 mmol/L (96-108); Potassium 3.8 mmol/L (3.3-5.1); Sodium 139 mmol/L (135-145)
[2025-01-20 07:53] LABS: Blood Urea Nitrogen 23 mg/dL (9-16); Creatinine Clr Calc Pharmacy 54.8; Estimated Glomerular Filt Rate 51
[2025-01-20] MEDS: Venlafaxine HCl ER 75 MG CAP.ER.24H PO (08:32)
--- NOTE | 2025-01-20 10:45 | HO.PM.IMPN ---
Subjective Subjective Date of Service: 01/20/25 Interval History: Improvement in energy. Denies any new complaints. No significant nursing events overnight Constitutional Constitutional: Reports fatigue, Reports lethargy, Reports malaise and Reports weakness ENT Ears, Nose, Mouth, and Throat: Reports dizziness Cardiovascular Cardiovascular: Reports no additional cardiovascular complaints Respiratory Respiratory: Reports no additional respiratory complaints Gastrointestinal Gastrointestinal: Reports no additional gastrointestinal complaints Genitourinary Genitourinary: Reports no additional male genitourinary complaints Neurologic Neurologic: Reports dizziness and Reports weakness Endocrine Endocrine: Reports fatigue Physical Exam Exam: Exam: Middle-aged male lying in bed in no distress Neck supple, no JVD Regular rate and rhythm, S1-S2 heard Regular breath sounds bilaterally, no wheezing or crackles appreciated Abdomen soft nontender, no guarding, no rigidity Patient is awake, alert and oriented to self, place, time and person ; no focal motor deficit Psych: Normal mood No pedal edema Vital Signs: Vital Signs: Last Vital Signs Temp 97.9 F 01/20/25 08:00 Pulse 72 01/20/25 08:13 Resp 18 01/20/25 08:00 BP 118/77 01/20/25 08:13 Pulse Ox 98 01/20/25 08:00 O2 Del Method Room Air 01/20/25 08:00 BMI result Body Mass Index 25.5 Objective Data Active Medications Acetaminophen (Acetaminophen 325 Mg Tablet) 650 mg PO Q6H PRN PRN Reason: Pain, Mild 1-3,fever,headache Last Admin: 01/20/25 08:37 Dose: 650 mg Documented By: NOHEMY Calcium Carbonate (Calcium Carbonate 750 Mg Tab.Chew) 750 mg PO Q4H PRN PRN Reason: Heartburn Carisoprodol (Carisoprodol 350 Mg Tablet) 350 mg PO BID PRN PRN Reason: Pain, Severe (Pain Scale 7-10) Last Admin: 01/20/25 10:12 Dose: 350 mg Documented By: NOHEMY Enoxaparin Sodium (Enoxaparin Sodium 30 Mg/0.3 Ml Syringe) 30 mg SUBCUT Q24H [facility] Last Admin: 01/19/25 15:05 Dose: 30 mg Documented By: JUD Lactated Ringer's (Lr) 1,000 mls @ 125 mls/hr IVCONT .Q8H [facility] Last Admin: 01/20/25 05:41 Dose: 125 mls/hr Documented By: ED Magnesium Hydroxide (Milk Of Magnesia 30 Ml Oral.Susp) 30 ml PO DAILY PRN PRN Reason: Constipation Melatonin (Melatonin 3 Mg Tablet) 6 mg PO BEDTIME PRN PRN Reason: Insomnia Non-Formulary Medication (Nabumetone) 500 mg PO QID PRN PRN Reason: Muscle Pain Ondansetron HCl (Ondansetron Hcl 4 Mg/2 Ml Vial) 4 mg IVPUSH Q8H PRN PRN Reason: Nausea and Vomiting Sodium Chloride (0.9 % Sodium Chloride Flush 3 Ml Syringe) 3 ml IVFLUSH QSHIFT [facility] Last Admin: 01/20/25 08:05 Dose: Not Given Documented By: NOHEMY Non-Admin Reason: IV Running Venlafaxine HCl (Venlafaxine Hcl Er 75 Mg Cap.Er.24h) 75 mg PO DAILY [facility] Last Admin: 01/20/25 08:32 Dose: 75 mg Documented By: NOHEMY Zolpidem Tartrate (Zolpidem Tartrate 5 Mg Tablet) 5 mg PO BEDTIME PRN PRN Reason: Insomnia Last Admin: 01/19/25 21:56 Dose: 5 mg Documented By: ED Labs 01/20/25 06:50 01/20/25 06:51 Labs: Laboratory Results - last 24 hr 01/19/25 01/19/25 01/19/25 11:30 13:12 14:47 MCV 95.7 MCH 35.4 H MCHC 37.0 H RDW 12.3 Plt Count 242 MPV 8.5 L Immature Gran % (Auto) 0.8 H Neut % (Auto) 78.4 H Lymph % (Auto) 12.4 L Grainger % (Auto) 7.1 Eos % (Auto) 0.7 Baso % (Auto) 0.6 Lymph # (Auto) 1.8 Grainger # (Auto) 1.0 Eos # (Auto) 0.1 Baso # (Auto) 0.1 Abs Immat Gran (auto) 0.12 H Absolute Neuts (auto) 11.1 H Absolute Nucleated RBC 0.000 Nucleated RBC % (auto) 0.0 Anion Gap 18 15 Estim Creat Clear Calc 13.2 16.2 Estimated GFR 10 13 Random Glucose 132 H 106 Lactic Acid 1.8 Calcium 9.6 8.3 L D Magnesium 2.2 Total Bilirubin 1.2 H 1.1 H AST 29 23 ALT 15 12 Alkaline Phosphatase 84 71 Total Creatine Kinase 176 H B-Natriuretic Peptide 12 Total Protein 8.0 6.7 Albumin 4.9 4.2 TSH 0.80 Hold Yellow Top Urine Color Yellow Urine Appearance Clear Urine pH 5.5 Ur Specific [place] 1.020 Urine Protein 100 (2+) H Urine Glucose (UA) Negative Urine Ketones Trace Urine Blood Trace H Urine Nitrite Negative Ur Leukocyte Esterase Trace H Urine RBC 0-2 Urine WBC 0-5 Ur Squamous Epith Cells 6-10 Calcium Oxalate Crystal Present Urine Bacteria None Seen Hyaline Casts >20 01/19/25 01/20/25 01/20/25 16:07 06:50 06:51 MCV 96.4 MCH 34.5 H MCHC 35.8 RDW 12.2 Plt Count 183 MPV 8.9 L Immature Gran % (Auto) Neut % (Auto) Lymph % (Auto) [place] % (Auto) Eos % (Auto) Baso % (Auto) Lymph # (Auto) Grainger # (Auto) Eos # (Auto) Baso # (Auto) Abs Immat Gran (auto) Absolute Neuts (auto) Absolute Nucleated RBC 0.000 Nucleated RBC % (auto) 0.0 Anion Gap 13 Estim Creat Clear Calc 54.8 Estimated GFR 51 Random Glucose 101 Lactic Acid Calcium 8.8 D Magnesium Total Bilirubin AST ALT Alkaline Phosphatase Total Creatine Kinase 152 B-Natriuretic Peptide Total Protein Albumin TSH Hold Yellow Top See Note Urine Color Urine Appearance Urine pH Ur Specific [place] Urine Protein Urine Glucose (UA) Urine Ketones Urine Blood Urine Nitrite Ur Leukocyte Esterase Urine RBC Urine WBC Ur Squamous Epith Cells Calcium Oxalate Crystal Urine Bacteria Hyaline Casts Assessment and Plan (1) MICKEY (acute kidney injury): Status: Acute Plan This has a 59-year-old male with pertinent history of hypertension, mood disorder, alcohol use disorder who presents to the emergency department for evaluation of lightheadedness and weakness. #. Acute kidney injury stage III: Improved significantly with crystalloid resuscitation. UA with +2 protein, trace blood. Appreciate nephrology #. Orthostatic presyncope: Continue crystalloid resuscitation. Repeat orthostatics. ?Palpitations. Will monitor on tele #. Leukocytosis, reactive: Resolved #. Alcohol use disorder: Monitor CIWA #. Hypertension: Hold lisinopril in the setting of MICKEY #. Mood disorder: Continue home mood stabilizers DVT prophylaxis: Lovenox Full code Reason for continued hospitalization: Monitoring of kidney function Quality Stroke Does the patient have a stroke diagnosis?: No VTE Prior VTE?: No VTE Risk Level:: Medical - moderate - high VTE Device Contraindication: Treatment Not Indicated VTE Drug Contraindication: N/A - Med Ordered
--- NOTE | 2025-01-20 13:33 | MHC.CM.PN ---
IMM 01/20. Pt self-care, lives at home with his sister/HCP Talita who will transport him home at discharge. PCP: Dr. Holden Bailey
--- NOTE | 2025-01-20 13:35 | MHC.CM.PN ---
Pt self-care, lives at home with his sister/HCP Talita who will transport him home at discharge. PCP: Dr. Holden Bailey
[2025-01-21 03:39] VITALS: BP 141/83; PULSE 63; RESP 16; TEMP 36.3; O2SAT 98
[2025-01-21] MEDS: Lactated Ringers 1,000 ML 125 ML IVCONT (04:52)
[2025-01-21 06:57] LABS: Anion Gap 11 (12-20); Blood Urea Nitrogen 14 mg/dL (9-16); Calcium 8.3 mg/dL (8.4-10.2); Carbon Dioxide 25 mmol/L (22-29); Chloride 108 mmol/L (96-108); Creatinine Clr Calc Pharmacy 91.6; Estimated Glomerular Filt Rate > 60; Potassium 3.8 mmol/L (3.3-5.1); Sodium 140 mmol/L (135-145)
[2025-01-21 07:47] VITALS: BP 150/86; PULSE 74; RESP 20; TEMP 36.8; O2SAT 99
[2025-01-21 08:06] VITALS: BP 154/85; PULSE 70
[2025-01-21 08:12] VITALS: BP 162/96; PULSE 71
[2025-01-21 08:16] VITALS: BP 153/93; PULSE 70
[2025-01-21] MEDS: Venlafaxine HCl ER 75 MG CAP.ER.24H PO (08:17)
--- NOTE | 2025-01-21 09:02 | P.PNIM_ITS ---
Subjective Subjective Date of Service: 01/21/25 Interval History: follow up on dizzines, JUANCARLOS, low BP. He works outside and worked during the heatwave and was feeling dizziness and was noted to have low BP and renal failure. Juancarlos now resolved Physical Exam 2 Exam: Exam: General: AO X 3, no acute distress Resp: CTA bilateral CVS: S1,S2,RRR GI: +BS, NT, no distention Skin: No rash Neuro: motor grossly intact Psych: appropriate affect Vital Signs: Vital Signs: Last Vital Signs Temp 98.3 F 01/21/25 07:47 Pulse 70 01/21/25 08:16 Resp 20 01/21/25 07:47 BP 153/93 H 01/21/25 08:16 Pulse Ox 99 01/21/25 07:47 O2 Del Method Room Air 01/21/25 07:47 BMI result Body Mass Index 25.5 Objective Data Active Medications Acetaminophen (Acetaminophen 325 Mg Tablet) 650 mg PO Q6H PRN PRN Reason: Pain, Mild 1-3,fever,headache Last Admin: 01/20/25 08:37 Dose: 650 mg Documented By: NOHEMY Calcium Carbonate (Calcium Carbonate 750 Mg Tab.Chew) 750 mg PO Q4H PRN PRN Reason: Heartburn Carisoprodol (Carisoprodol 350 Mg Tablet) 350 mg PO BID PRN PRN Reason: Pain, Severe (Pain Scale 7-10) Last Admin: 01/20/25 21:35 Dose: 350 mg Documented By: COSME Enoxaparin Sodium (Enoxaparin Sodium 30 Mg/0.3 Ml Syringe) 30 mg SUBCUT Q24H [facility] Last Admin: 01/20/25 14:26 Dose: 30 mg Documented By: NOHEMY Lactated Ringer's (Lr) 1,000 mls @ 125 mls/hr IVCONT .Q8H [facility] Last Admin: 01/21/25 04:52 Dose: 125 mls/hr Documented By: COSME Magnesium Hydroxide (Milk Of Magnesia 30 Ml Oral.Susp) 30 ml PO DAILY PRN PRN Reason: Constipation Melatonin (Melatonin 3 Mg Tablet) 6 mg PO BEDTIME PRN PRN Reason: Insomnia Non-Formulary Medication (Nabumetone) 500 mg PO QID PRN PRN Reason: Muscle Pain Ondansetron HCl (Ondansetron Hcl 4 Mg/2 Ml Vial) 4 mg IVPUSH Q8H PRN PRN Reason: Nausea and Vomiting Sodium Chloride (0.9 % Sodium Chloride Flush 3 Ml Syringe) 3 ml IVFLUSH QSHIFT [facility] Last Admin: 01/21/25 08:18 Dose: Not Given Documented By: NOHEMY Non-Admin Reason: IV Running Venlafaxine HCl (Venlafaxine Hcl Er 75 Mg Cap.Er.24h) 75 mg PO DAILY [facility] Last Admin: 01/21/25 08:17 Dose: 75 mg Documented By: NOHEMY Zolpidem Tartrate (Zolpidem Tartrate 5 Mg Tablet) 5 mg PO BEDTIME PRN PRN Reason: Insomnia Last Admin: 01/20/25 21:35 Dose: 5 mg Documented By: COSME Labs 01/20/25 06:50 01/21/25 05:59 Labs: Laboratory Results - last 24 hr 01/21/25 05:59 Anion Gap 11 L Estim Creat Clear Calc 91.6 Estimated GFR > 60 Random Glucose 114 Calcium 8.3 L Microbiology Microbiology Results: Microbiology 01/19/25 11:41 Blood Culture - Preliminary Blood - Venous No growth after 24 hours. 01/19/25 11:30 Blood Culture - Preliminary Blood - Venous No growth after 24 hours. Assessment and Plan (1) JUANCARLOS (acute kidney injury): Status: Acute Plan 59-year-old male with pertinent history of hypertension, mood disorder, alcohol use disorder who presents to the emergency department for evaluation of lightheadedness and weakness. Acute kidney injury stage III: Improved significantly with crystalloid resuscitation. UA with +2 protein, trace blood. Appreciate nephrology Orthostatic presyncope: likely from dehydration and BP meds, resolved. JUANCARLOS, pre renal. Resolved with IvF Cr 4--> 0.85 Leukocytosis, reactive: Resolved Alcohol use disorder: Monitor CIWA Hypertension hold Lisinopril start Norvasc Mood disorder: Continue home mood stabilizers DVT prophylaxis: Lovenox Full code Reason for continued hospitalization: Monitoring of kidney function Quality Stroke Does the patient have a stroke diagnosis?: No VTE Prior VTE?: No VTE Risk Level:: Medical - moderate - high VTE Device Contraindication: Treatment Not Indicated VTE Drug Contraindication: N/A - Med Ordered
--- NOTE | 2025-01-21 09:42 | P.DS_ITS ---
DS: Providers Provider Date of Service: 01/21/25 Date of admission: 01/19/25 14:06 Date of discharge: 01/21/25 Primary care physician: Holden Bailey MD Consults: 01/19/25 14:08 Consult to Nephrology Routine Consulting Provider: [facility] Reason for consultation: MICKEY DS: Diagnosis Discharge Diagnosis (1) MICKEY (acute kidney injury): Status: Acute DS: Summary Hospital Course Hospital Course: Chief Complaint: weakness This has a 59-year-old male with pertinent history of hypertension, mood disorder, alcohol use disorder who presents to the emergency department for evaluation of lightheadedness and weakness. Patient states he was working out in the sun for 2 consecutive days and on the morning of presentation he felt dizzy and lightheaded which was worse upon standing. He stated that while working outside he has been trying to drink fluids as he was sweating a lot. Denies vomiting, diarrhea. He had to call out of his job because of malaise, weakness and dizziness on the day of presentation. Denies chest pain but had brief episode of palpitations when he got dizzy. Admits to daily alcohol use and states he drinks a small bottle of whiskey every day. Denies history of alcohol withdrawal. No fever, chills, shortness of breath, abdominal pain, changes in urinary or bowel habits. In the emergency department, orthostatic vital signs positive and creatinine found to be 5.88 Hospital course: Patient was admitted for management of MICKEY, hypotension and dizziness related to dehdyration having been working outside in high heat for days. Initial creatine of 5.88 has returned to normal at 0.85 now after after IVF, Dizziness due to orthostatic hypotension and low blood pressure has resolved, BP was as low as 75/47, BP meds including Lisinopril 40 mg and norvasc 10 mg have been on hold. Additionally , Nabumetone an NSAID was stopped. Blood is on higher side now at 153/93 and I'm restarting Norvasc 10 mg daily and holding Lisinopril until he is reevaluated by his PCP Time Attestation Discharge Coordination Time (in mins): 45 Quality: Safe Use of Opioids Does Pt have an Active Cancer Diagnosis on the Problem List?: No Quality: Stroke Does the patient have a stroke diagnosis?: No Physical Exam Vital Signs: Vital Signs: Last Vital Signs Temp 98.3 F 01/21/25 07:47 Pulse 70 01/21/25 08:16 Resp 20 01/21/25 07:47 BP 153/93 H 01/21/25 08:16 Pulse Ox 99 01/21/25 07:47 O2 Del Method Room Air 01/21/25 07:47 BMI result Body Mass Index 25.5 DS: Data Data Completed and Pending Completed studies during hospitalization [Text1]: Procedures Detoxification Services for Substance Abuse Treatment (04/11/21) Drainage of Right Pleural Cavity with Drainage Device, Open Approach (04/04/21) Drainage of Right Pleural Cavity with Drainage Device, Percutaneous Approach (04/11/21) Extirpation of Matter from Right Lower Lobe Bronchus, Via Natural or Artificial Opening Endoscopic (04/11/21) Introduction of Other Therapeutic Substance into Pleural Cavity, Percutaneous Approach (04/11/21) Labs on day of discharge: Laboratory Results - last 24 hr 01/21/25 05:59 Sodium 140 Potassium 3.8 Chloride 108 Carbon Dioxide 25 Anion Gap 11 L BUN 14 Creatinine 0.85 Estim Creat Clear Calc 91.6 Estimated GFR > 60 Random Glucose 114 Calcium 8.3 L Preliminary micro results at discharge 01/19/25 11:41 Blood Culture - Preliminary Blood - Venous No growth after 24 hours. 01/19/25 11:30 Blood Culture - Preliminary Blood - Venous No growth after 24 hours. Discharge Plan Discharge Anticipated Discharge Date/Time: 01/21/25 09:38 Patient Disposition: Home, Self-Care Discharge Diagnosis: MICKEY, dehydration, orthostatic hypotension Referrals: Holden Bailey MD [Primary Care Provider, Internal Medicine] - 1 Week Discharge Medications: Continued carisoprodol 350 mg tablet 350 mg PO BID PRN (Reason: Pain) venlafaxine 75 mg capsule,extended release 24hr 75 mg PO DAILY amlodipine 10 mg tablet 10 mg PO DAILY Discontinued lisinopril 40 mg tablet 40 mg PO DAILY Qty: 30 0RF nabumetone 500 mg tablet 500 mg PO QID PRN (Reason: Muscle Pain) Discharge Orders: Discharge Order (Routine); Ordered 01/21/25 Ordered By: Eren Mcnulty Diet: Advance to usual diet Activity on Discharge: As tolerated Stand Alone Forms: Patient Portal Discharge page Print Language: Armenian Care Plan Goals: recovery from kidney failure Health Concerns: acute kidney injury Plan of Treatment: hold off taking Lisinopril until you see your doctor Stop taking Nabumetone it can cause kidney injury drink plenty of fluid follow up with your Doctor as previously planned tomorrow continue taking Norvasc for blood prssure Assessment: see above
--- NOTE | 2025-01-21 10:42 | MHC.CM.PN ---
PATIENT DISCHARGED TO HOME SELF CARE. HE HAS ARRANGED FOR HIS SISTER TO PROVIDE TRANSPORTATION HOME.
== END 2025-01-21 10:58 | disposition home or self-care (01) | DRG 204 ==
LOC: HO.ED 14:09 → HO.EDOVER 14:15 → HO.IMC 19:17
PROVIDERS: Nurse Practitioner Family; Physician Assistant; Admitting Provider Student in an Organized Health Care Education/Training Program; Emergency Provider Emergency Medicine; PCP Internal Medicine; Visit Provider Internal Medicine
DX: I95.1 Orthostatic hypotension (principal); N17.9 Acute kidney failure, unspecified; E86.0 Dehydration; F17.210 Nicotine dependence, cigarettes, uncomplicated; Z71.6 Tobacco abuse counseling; I10 Essential (primary) hypertension; F39 Unspecified mood [affective] disorder; Z79.899 Other long term (current) drug therapy
CPT/HCPCS: 36415; 71045; 74176; 80048; 80053; 81001; 82550; 83605; 83735; 83880; 84443; 84484; 85025; 85027; 87040; 93005; 99285; J1650; J7120

== ENCOUNTER → 2025-01-19 11:01 | Outpatient (BNV) | payer BC, SELFPAY | PROVIDERS: Admitting Provider Student in an Organized Health Care Education/Training Program; Emergency Provider Emergency Medicine; PCP Internal Medicine; Visit Provider Internal Medicine | DX: R42 Dizziness and giddiness (principal) | CPT/HCPCS: 93010 ==

== ENCOUNTER → 2025-01-19 11:34 | Outpatient (BNV) | payer BC, SELFPAY | PROVIDERS: Emergency Provider Emergency Medicine; PCP Internal Medicine; Visit Provider Radiology Diagnostic Radiology | DX: N20.0 Calculus of kidney (principal); J98.6 Disorders of diaphragm; E86.9 Volume depletion, unspecified | CPT/HCPCS: 71045; 74176 ==

== ENCOUNTER → 2025-01-19 14:06 | Outpatient (BNV) | payer BC, SELFPAY | PROVIDERS: Admitting Provider Student in an Organized Health Care Education/Training Program; Emergency Provider Emergency Medicine; PCP Internal Medicine; Visit Provider Student in an Organized Health Care Education/Training Program | DX: N17.9 Acute kidney failure, unspecified (principal) | CPT/HCPCS: 99223; 99232 ==

== ENCOUNTER → 2025-01-19 14:06 | Outpatient (BNV) | payer BC, SELFPAY | PROVIDERS: Admitting Provider Student in an Organized Health Care Education/Training Program; Emergency Provider Emergency Medicine; PCP Internal Medicine; Visit Provider Nurse Practitioner Family | DX: N17.9 Acute kidney failure, unspecified (principal) | CPT/HCPCS: 99254 ==

== ENCOUNTER 2025-01-23 13:35 | Outpatient (REF) | payer BC, SELFPAY ==
--- OUTSIDE RECORDS SUMMARY | 2025-01-23 14:44 | XMS_ITS | Clinical Summary ---
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
--- OUTSIDE RECORDS SUMMARY | 2025-01-23 14:44 | XMS_ITS | Clinical Summary ---
Author Organization [facility] ity Address [address] [place] [address] Care Team Providers Care Freight Checker Name Role Phone Unavailable Primary Care Provider [...] Vaccine ( - 2023-2 5 season) 2024 Depression Screening 07/05/2024 Influenza Vaccine (#1) 2025 HIB Vaccines Aged [...]
--- OUTSIDE RECORDS SUMMARY | 2025-01-23 14:44 | XMS_ITS | Clinical Summary ---
Author Organization [facility] Address [address] [address] Phone Care Team Providers Care Skein Inspector Name Role Phone Holden Bailey DO Primary Care Provider [phone] Holden Bailey DO Unavailable Allergies Active Allergy Reactions Criticality Noted Date Comments Penicillin 09/13/2023 Allergy from childhood Penicillins 01/05/2024 Other Reaction(s): Not available Medications amLODIPine (NORVASC) 5 MG tablet Take 1 tablet by mouth every morning. 4 Active lisinopril (PRINIVIL,ZESTR IL) 40 MG tablet Take 1 tablet by mouth every morning. 4 Active sildenafiL (VIAGRA) 25 mg tablet Take 1 tablet every day by oral route for 12 days. 2 Active atenolol (TENORMIN) 50 mg tablet Take 1 tablet every day by oral route for 30 days. 3 Active acetaminophen (TYLENOL) 500 MG tablet TAKE 2 TABLET BY MOUTH 4 TIMES A DAY NEEDED FOR PAIN OR FEVER Active amLODIPine (NORVASC) 10 MG tablet Take 1 tablet by mouth every morning. 4 Active venlafaxine (EFFEXOR-XR) 75 MG 24 hr capsule Take 1 capsule every day by oral route for 90 days. Active zolpidem (AMBIEN) 10 mg tablet PRN 5 Active nabumetone (RELAFEN) 500 MG tablet TAKE 1 TABLET BY MOUTH TWICE A DAY NEEDED FOR 14 DAYS Active triamcinolone acetonide 0.5 % cream Apply topically 3 (three) times a day. 30 g 1 5 Active Active Problems No known active problems Encounters Date Type Department Care Team Description 01/16/2025 Transcribe Orders [facility] [address] [place] [address] Lay Hernandez Encounter for rehabilitation (Primary Dx) 11/16/2024 11:50 AM EDT Office Visit [facility] at [address] [address] Kusum Oneill, HEAD BAKER Eczema, unspecified type (Primary Dx) from Last 3 Months Social History Tobacco Use Types Packs/Day Years [...] on file Sexual Orientation Not on file Last Filed Vital Signs Vital Sign Reading Time Taken Comments Blood Pressure 143/76 11/16/2024 11:50 AM EDT Pulse 76 11/16/2024 11:50 AM EDT Temperature 36.9 C (98.5 F) 11/16/2024 11:50 AM EDT Respiratory Rate 12 11/16/2024 11:50 AM EDT Oxygen Saturation 98% 11/16/2024 11:50 AM EDT Inhaled Oxygen Concentration - - Weight 81.6 kg (180 lb) 11/16/2024 11:50 AM EDT Height 172.7 cm (5' 8 ) 11/16/2024 11:50 AM EDT Body Mass Index 27.37 11/16/2024 11:50 AM EDT Plan of Treatment Health Maintenance Due Date Last Done Comments CREATININE LEVEL 1966 LIPID PANEL 1966 POTASSIUM LEVEL 1966 DEPRESSION SCREENING 1978 SMOKING Hx and SMOKELESS TOBACCO SCREENING 1979 HEPATITIS C SCREENING 02/27/1984 HIV ONE-TIME SCREENING (18-6 5 YEARS) 02/27/1984 PNEUMOCOCCAL VACCINES (50+ years) (1 of 2 - PCV) 1985 SCREENING FOR DIABETES 2001 COLOGUARD 2011 COLONOSCOPY 2011 COLORECTAL CANCER SCREENING 2011 FIT TEST 2011 FOBT 2011 SIGMOIDOSCOPY 2011 VIRTUAL COLONOSCOPY 2011 ZOSTER VACCINES (1 of 2) 02/27/2016 COVID-19 VACCINE (3 - 2023-2 5 season) 2024 01/25/2022, 02/27/2021 Adult Td,Tdap Booster 06/19/2028 06/19/2018 HEPATITIS A VACCINES Aged Out No long er eligible based on patient's age to complete this topic HIB VACCINES Aged Out No longer eligi ble based on patient's age to complete this topic MENINGOCOCCAL VACCINES (ACWY) Aged Out No longer eligible based on patient's age to complete this topic MENINGOCOCCAL VACCINES (B) Aged Out N o longer eligible based on patient's age to complete this topic Medical Devices Not on file [place] [address] [place] [address] [place], [place] [id number] [facility] Member Subscriber Plan / Payer (Ef fective 2023-Present) Name:Jeff Andersen Relation to Subscriber:Self Name:Jeff Andersen Payer ID:Not on file Type:PPO Address: [address] Member Subscriber Plan / Payer (Ef fective 2023-) Name:Jeff Andersen Relation to Subscriber:Self Name:Jeff Andersen Payer ID:Not on file Type:PPO Address: [address] [facility] Care Teams Skein Inspector Relationship Specialty Start Date End Date Holden Bailey DO [email or web address] PCP - General Internal Medicine 09/13/23 Holden Bailey DO [address] [place] [address] [email or web address] Insurance Assigned Provider 05/13/24 Additional Source Comments The information contained in this document represents components of the legal health record. It is not the complete legal health record.[facility]
--- OUTSIDE RECORDS SUMMARY | 2025-01-23 14:44 | XMS_ITS | Data Portability ---
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 F32.1 doing much better with the trintellix 10 mgwill submit to pharmacy Cirrhosis of liver 20772 007 K70.30 stable Alcohol dependence 98877 003 F10.20 stable Pneumonia 110453766 J15. 212 resolved [id number] Holden Bailey [facility] Internal Medicine [address] [facility] [address],[place] [address] 11/05/2023 13:38:16 11/05/2023 16:08:04 Depression screening 045788626 Z13.31 working on correct treatment plan Alcohol dependence 49750 003 F10.20 stable Essential hypertension 49099582 I10 will start back on lisinopril for BP control Renewal of prescription 871782787 Z76.0 will start on 75 mg Depressive disorder 3548 9007 F32.1 seems like it is covered now on arguelles estimate, will resubmit script again [id number] Holden Bailey DO [facility] [address] [facility],[place] [address] 11/17/2023 10:51:28 11/17/2023 11:34:14 Depressive disorder 32758558 F32.1 will trial mirtazapin e Cellulitis 693077516 L03 .311 will start on combo therapy for fungal, infectious or allergic rash Pruritic rash 50723232 L 28.2 agreed to derm referralST AT referral sent to [place] [id number] Holden Bailey [facility] Internal Medicine [address] [facility],[place] [address] 11/22/2023 15:45:09 11/22/2023 16:16:09 Cellulitis caused by Staphylococcus aureus 961476510 L03.313 will set up with [id number] Holden Bailey [facility] Internal Medicine [address] [facility], [place] [address] 02/11/2024 14:13:19 02/11/2024 16:03:58 Pain in lumbar spine 884425424 M54.51 start on treatment plan prescribed Anxiety 70078901 F41.1 restart the venlafaxin e [id number] Holden Bailey [facility] Internal Medicine [address] [facility],[place] [address] 02/16/2024 15:26:51 02/16/2024 15:51:55 Fatigue 63401355 R53.83 agreed to full testing and sleep study Low back pain 659209666 M54.51 resolved Depressive disorder 3548 9007 F32.1 continue on venlafaxin e, restarted [id number] Holden Bailey [facility] Internal Medicine [address] [facility],[place] [address] 03/15/2024 15:58:24 03/15/2024 16:45:06 Insomnia 053394212 G47.09 will start back on the ambien 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 agreed to recheckdis cussed colonoscop y, would like to hold it and do bw and stool sample first Anemia 133283697 D64.9 Testostero ne level below reference range 787581930 R79.89 will check levels and other blood work levels Family his tory of Thyroid disorder 478821535 Z83.49 will set up with TSH + T4 Anxiety 81931438 F41.1 restart the venlafaxin e [id number] Holden Bailey [facility] Internal Medicine [address] [place] [address] 06/05/2024 16:02:28 06/05/2024 16:43:06 Headache 66761030 R51.9 will set up [facility] lab-work Muscle spa sm of cervical muscle of neck 3059044253 04 M62.838 Muscle pain 37912242 M79 .18 will set up with additional lab work Neuropathy 720688748 G62 .9 will set up with [id number] [facility] [address] [place] [address] 06/30/2024 08:43:36 06/30/2024 11:57:16 Intermittent claudication 50185736 I73.9 r/o arterial plaque build up causing patient symptoms Degenerati on of lumbar intervertebral disc 65644550 M51.369 most likely to do the deg changes in his back [id number] Holden Bailey [facility] Internal Medicine [address] [place] [address] 08/09/2024 16:18:22 08/11/2024 12:46:48 Intermittent claudication 32751051 I73.9 r/o arterial plaque build up causing patient symptoms, has the arterial scheduled Degenerati on of lumbar intervertebral disc 25817359 M51.361 most likely to do the deg changes in his back Anxiety 82305859 F41.1 restart the venlafaxin e [id number] Holden Bailey [facility] Internal Medicine [address] [place] [address] 09/01/2024 16:07:45 09/01/2024 16:41:52 Fatigue 81715640 R53.83 lab work has been normal, no abnormalit iesdoes have the degenerati ve changesno effect with mediations Lumbar radiculopathy 128 979976 M54.16 will resubmit for the EMG Lightheadedness 28870720 8 R42 will set up with the lab workstop meds could be causing side effects [id number] Holden Bailey [facility] Internal Medicine [address] [facility], ite [facility] [place] [address] 09/26/2024 15:49:03 09/26/2024 16:42:10 Fatigue 50450182 R53.83 here for chk up still ongoing Lumbar radiculopathy 128 695511 M54.16 Essential hypertension 32663351 I10 his bp is up again and his stress level is also up Depression screening 171 330928 Z13.31 Pain in lumbar spine 267 136300 M54.51 start on treatment plan prescribed Weakness o f bilateral lower limb 7595518318 35105 M62.81 ? 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 Cellulitis of abdominal wall 61286133 L03.311 Insomnia 606621397 G47.0 0 [id number] Holden Bailey [facility] Internal Medicine [address] [facility] [place] [address] 11/28/2024 13:54:19 11/28/2024 14:41:41 Depression screening 520833186 Z13.31 working on correct treatment plan Pain in lumbar spine 267 210476 M54.51 start on treatment plan prescribed Bunion 422613503 M21.61 9 will set up with pod againrecom mended following up with patient [id number] Holden Bailey [facility] Internal Medicine [address] [facility],[place] [address] 01/22/2025 16:00:56 01/22/2025 16:32:40 Depression screening 527058030 Z13.31 neg Anxiety 01968050 F41.1 has been stable with current dose Essential hypertension 75764175 I10 his bp is up again and his stress level is also up Acute nont raumatic kidney injury 6435866178 16830 N17.9 we will make sure that he gets this double checked befor he starts the lisinopril will call after lab done Health Concerns Section Related Observation LastModified by Organization Detai ls LastModified Time None Recorded Concern Status LastModified by Organization Details LastModified Time None Recorded Advance Directives Directive None Recorded Payers Insurance Date Sequence Insurance Name Policy Number Policy Anthony Covered Member ID Anthony Member ID Guarantor Name 02/11/2024 1 [facility] [id number] Jeff Andersen [id number] Jeff Andersen 01/12/2023 1 [facility] [facility] [employer] [place] ([facility] [id number] Jeff Andersen [id number] Jeff Andersen 04/11/2021 SLIDING FEE SCHEDULE - DISCOUNT Jeff Andersen 01/12/2023 1 [place] [facility] [employer] [place] ([facility]) [id number] Jeff Araizaey [id number] Jeffneymar Araizaey 02/23/2018 [employer] Jeff Andersen 03/08/2019 SLIDING FEE SCHEDULE - DISCOUNT Jeff Andersen 11/03/2019 SLIDING FEE SCHEDULE - DISCOUNT Jeff Araizaey 02/21/2019 SLIDING FEE SCHEDULE - DISCOUNT Jeff Araizaey 01/12/2023 1 [place] PRIOR [place] 2022 - [facility] (MEDICAID) Jeff Araizaey [id number] Jeffneymar Andersen 10/24/2023 PAYMENT PLAN Jeffneymar Andersen 01/12/2023 2 [place]IOR [place] 2022 - [facility] (MEDICAID) Jeff Andersen [id number] Jeff Andersen 10/12/2023 2 [place] [facility] Jeffneymar Araizaey [id number] Jeff Andersen 01/20/2025 1 [place] [facility] [employer] [place] ([facility]) [id number] Jeffneymar Araizaey [id number] Jeff Andersen Notes Date Note Type Note Provider Name and Address Organization Details Recorded Time 08/09/19 25 text/htm l f/u back pain [...] when we get the results for the [place] Arterial MCKENNA LIVINGSTON [address] [place], [address], [facility] Internal Medicine 08/09/2024 17:04:09 09/01/19 25 text/htm l c/o [...] with a specialist MCKENNA LIVINGSTON [address] [place], [address], [facility] Internal Medicine 09/01/2024 16:39:46 09/27/19 25 text/htm l Back PainReported bypatient.Location:pain is not [...] yeargabapentin cut down to once daily Holden Bailey DO [address] [place] [address], [address], [facility] Internal Medicine 09/26/2024 16:29:15 11/29/19 25 text/htm l c/o back pain the patient [...] of the nabumetone changed dosages MCKENNA LIVINGSTON [address] [place] [address], [address], [facility] Internal Medicine 11/28/2024 14:32:22 01/23/20 text/htm l Anxiety/DepressionReported bypatient.Severity:denies suicidal ideations; able to maintain relationships; does not interfere with activities of daily living Context:no major life stressors Associated Symptoms:denies homicidal ideations; no significant weight gain; no significant weight loss; no visual/auditory hallucinations; no delusions; no shortness of breath; mood good; no anxiety; no crying spells; no panic; no isolation; sleeping well; appetite good; energy good; no apathy; maintaining functionality here for hospitaliztion for an MICKEY from dehydrationworking in the 100 degree heat long discussion re how he got severely dehydrated was hospitalized for 3 days getting ivftold lab was better when he left he is holding the lisinopril and nabumetone for now also reviewed cardiac perfusion results priorc/o back pain the patient reports that he needs to reschedule his EMG since he missed ithis MRI of his brain was negativethe patient reports that back pain and the leg pain that continueshas seen MB for this for f/u consult the patient [...] a refill of the nabumetone changed dosages Holden Bailey, DO [address] [facility], [place], [address], [facility] Internal Medicine 01/22/2025 16:32:19
[2025-01-23 18:29] LABS: Anion Gap 13 (12-20); Blood Urea Nitrogen 10 mg/dL (9-16); Calcium 8.7 mg/dL (8.4-10.2); Carbon Dioxide 23 mmol/L (22-29); Chloride 108 mmol/L (96-108); Estimated Glomerular Filt Rate > 60; Potassium 3.4 mmol/L (3.3-5.1); Sodium 141 mmol/L (135-145)
== END 2025-01-23 13:36 | disposition home or self-care (01) ==
LOC: HO.MANLDS 13:35
PROVIDERS: Visit Provider Internal Medicine
DX: N17.9 Acute kidney failure, unspecified (principal)
CPT/HCPCS: 36415; 80048

== ENCOUNTER 2025-03-07 19:37 | Outpatient (REF) | payer BC, SELFPAY ==
--- NOTE | ~2025-03-07 | MR_ITS ---
EXAMINATION: MR LUMBAR SPINE WITHOUT CONTRAST CLINICAL INFORMATION: DISCOGENIC BP LE PAIN COMPARISON: CT of abdomen/pelvis on January 19, 2025. Radiographs of the lumbar spine on June 16, 2024. TECHNIQUE: MRI of the lumbar spine was obtained using routine sequences without contrast. FINDINGS: Alignment and vertebrae: Mild dextrocurvature of the spine. Lumbar lordosis is maintained. Minimal grade 1 anterolisthesis of L3 on L4. Endplate degenerative changes at L4-L5 and L5-S1. Intervertebral discs: Disc desiccation changes of all included discs. Mild loss of height of L4-L5 and L5-S1 discs. Conus: Conus terminates at lower L1 level. Soft tissues: Posterior paraspinal soft tissues are unremarkable. Other findings: No suspicious findings in the included retroperitoneum. Findings by level: T12-L1: No spinal canal or neuroforaminal stenosis. L1-L2: No spinal canal or neuroforaminal stenosis. L2-L3: Combination of mild bulging disc with superimposed right central disc protrusion associated with annular fissure, and epidural fat contributes to mild narrowing of the spinal canal, narrowing of the right lateral recess and mild bilateral neuroforaminal stenosis, right greater than left. L3-L4: Combination of bulging disc, superimposed left central and foraminal disc protrusion, hypertrophy of posterior elements and epidural fat results in moderate/severe left and mild right neuroforaminal stenosis and moderate/severe spinal canal stenosis. L4-L5: Combination of bulging disc, facet arthropathy and epidural fat results in moderate/severe left and mild right neuroforaminal stenosis. No spinal canal stenosis. L5-S1: Combination of bulging disc, left central disc protrusion, posterior marginal osteophytes and facet arthropathy results in moderate/severe right and mild left neuroforaminal stenosis. No spinal canal stenosis. MR/MR lumbar spine wo con IMPRESSION: Moderate multilevel degenerative changes. Moderate/severe neuroforaminal stenosis on the left at L3-L4, on the left at L4-L5 and on the right at L5-S1. Moderate/severe spinal canal stenosis at L3-L4. Electronically signed by: Ankur Ballard MD 03/08/2025 07:29 AM EDT
--- OUTSIDE RECORDS SUMMARY | 2025-03-07 19:48 | XMS_ITS | Clinical Summary ---
Author Organization [facility] Facility Address [address] [address] Care Team Providers Care Technical Implementation Lead Name Role Phone Unavailable Primary Care Provider [...]
--- OUTSIDE RECORDS SUMMARY | 2025-03-07 19:49 | XMS_ITS | Clinical Summary ---
Author Organization [facility] ity Address [address] [place] [address] Care Team Providers Care Belly Dump Driver Name Role Phone Unavailable Primary Care Provider [...] Depression Screening 07/05/2024 Influenza Vaccine (#1) 2025 RSV Immunization Adult Patie nts (1 - 1-dose 75+ series) 2041 HIB Vaccines Aged Out No longer eligi [...]
--- OUTSIDE RECORDS SUMMARY | 2025-03-07 19:49 | XMS_ITS | Encounter Summary ---
Author Organization [facility] Address [address] [facility] [address] [place] [address] Phone Care Team Providers Care Construction Crew Member Name Role Phone Holden Bailey DO Primary Care Provider [phone] Holden Bailey DO Unavailable Reason for Referral * - New Request Specialty Diagnoses / Procedures Referred By Georgiana izaguirre Referred To Contact Radiology Diagnoses PVD (peripheral vascular disease) Procedures US Lower Extremity Arteries (GENARO) Physio Complete Bilat Leanne Lira PA [address] [facility] [place] [address] [place] [address] Phone: tel: fax: Referral ID Status Reason Start Date Expiration Date V isits Requested Visits Authorized [id number] New Request 09/08/2024 1 1 Encounter Details Date Type Department Care Team (Late st Contact Info) Description 09/08/2024 Ancillary Orders [facility] [address] [place] [address] Leanne Lira PA [address] [facility] [place] [address] [place] [address] PVD (peripheral vascular disease) (Primary Dx) Social History Tobacco Use Types [...] as of this encounter Plan of Treatment Upcoming Encounters Date Type Department Care Team (Late st Contact Info) Description 03/12/2025 4:45 PM EDT Office Visit [address] [address] Leanne Lira PA 6 [place] [address] Nima Oscar, PT [address] [place] [address] 03/19/2025 4:45 PM EDT Office Visit [address] [address] Leanne Lira PA 6 [place] [address] Nima Oscar, PT 10 [place] [address] 03/26/2025 4:45 PM EDT Office Visit [address] [address] Leanne Lira PA 6 [place] [address] Nima Oscar, PT 10 [place] [address] 04/02/2025 4:45 PM EDT Office Visit [address] [address] Leanne Lira PA 6 [place] [address] Nima Oscar, PT 10 [place] [address] 04/09/2025 4:45 PM EDT Office Visit [address] [address] Leanne Lira PA 6 [place] [address] Nima Oscar, PT [address] [place] [address] 04/23/2025 4:45 PM EDT Office Visit [address] [address] Leanne Lira PA 6 [place] [address] Nima Oscar, PT 10 [place] [address] 04/30/2025 4:45 PM EDT Office Visit [address] [address] Leanne Lira PA 6 [place] [address] Nima Oscar, PT 10 [place] [address] 05/07/2025 4:45 PM EST Office Visit [address] [address] Leanne Lira PA 6 [place] [address] Nima Oscar, PT [address] [place] [address] [email or web address] documented as of this encounter Results * US Lower Extremity Arteries (GENARO) Physio Complete Bilat (09/08/2024 3:44 PM EST) Arm 132 mmHg Posterior Tibial 152 mmHg Posterior Tibial Index 1.15 Dorsalis Pedis 158 mmHg Dorsalis Pedis Index 1.20 Posterior Tibial 158 mmHg Posterior Tibial Index 1.20 Dorsalis Pedis 160 mmHg Dorsalis Pedis Index 1.21 Anatomical Region Laterality Modality Ultrasound Narrative 09/11/2024 10:22 AM EDT Right Side: Ankle/Brachial index on the right side is 1.2, with a triphasic Doppler waveform. Left Side: Ankle/Brachial index on the left side is 1.2, with a triphasic Doppler waveform. No prior exam for comparison. Conclusion: Normal ABIs bilaterally. No significant obstructive peripheral arterial disease is seen. Leanne ANDRES CV US VASCULAR Final Resul t documented in this encounter Visit Diagnoses Diagnosis Intermittent claudication Unspecified peripheral vascular disease PVD (peripheral vascular disease) Unspecified peripheral vascular disease PVD (peripheral vascular disease)- Primary Unspecified peripheral vascular disease documented in this encounter Care Teams Construction Crew Member Relationship Specialty Start Date End Date Holden Bailey DO [email or web address] PCP - General Internal Medicine 09/13/23 Holden Bailey DO [address] [place] [address] [email or web address] Insurance Assigned Provider 05/13/24 documented as of this encounter Additional Source Comments The information contained in this document represents components of the legal health record. It is not the complete legal health record.[facility]
--- OUTSIDE RECORDS SUMMARY | 2025-03-07 19:49 | XMS_ITS | Encounter Summary ---
Author Organization [facility] Address [address] [address] Phone Care Team Providers Care Aerospace Engineer Name Role Phone Holden Bailey DO Primary Care Provider [phone] Holden Bailey DO Unavailable Encounter Details Date Type Department Care Team (Late st Contact Info) Description 09/27/2024 Procedure Pass [facility], [address] [address] Social History Tobacco Use Types Packs/Day Years [...] on file documented as of this encounter Last Filed Vital Signs Vital Sign Reading Time Taken Comments Blood Pressure - - Pulse - - Temperature - - Respiratory Rate - - Oxygen Saturation - - Inhaled Oxygen Concentration - - Weight 80.3 kg (177 lb) 09/27/2024 4:16 PM EDT Height 172.7 cm (5' 8 ) 09/27/2024 4:16 PM EDT Body Mass Index 26.91 09/27/2024 4:16 PM EDT documented in this encounter Plan of Treatment Upcoming Encounters Date Type Department Care Team (Late st Contact Info) Description 03/12/2025 4:45 PM EDT Office Visit [address] [address] Leanne Lira PA 6 [place] [address] Nima Oscar, PT [address] [place] [address] 03/19/2025 4:45 PM EDT Office Visit [address] [address] Leanne Lira PA 6 [place] [address] Nima Oscar, PT [address] [place] [address] 03/26/2025 4:45 PM EDT Office Visit [address] [address] Leanne Lira PA 6 [place] [address] Nima Oscar, PT 10 [place] [address] 04/02/2025 4:45 PM EDT Office Visit [address] [address] Leanne Lira PA 6 [place] [address] Nima Oscar, PT 10 [place] [address] 04/09/2025 4:45 PM EDT Office Visit [address] [address] Leanne Lira PA 6 [place] [address] Nima Oscar, PT 10 [place] [address] 04/23/2025 4:45 PM EDT Office Visit [address] [address] Leanne Lira PA 6 [place] [address] Nima Oscar, PT 10 [place] [address] 04/30/2025 4:45 PM EDT Office Visit [address] [address] Leanne Lira PA 6 [place] [address] Nima Oscar, PT 10 [place] [address] 05/07/2025 4:45 PM EST Office Visit [address] [address] Leanne Lira PA 6 [place] [address] Nima Oscar, PT 10 [place] [address] documented as of this encounter Visit Diagnoses Not on filedocumented in this encounter Care Teams Aerospace Engineer Relationship Specialty Start Date End Date Holden Bailey DO PCP - General Internal Medicine 09/13/23 Holden Bailey DO [address] [place] [address] [email or web address] Insurance Assigned Provider 05/13/24 documented as of this encounter Additional Source Comments The information contained in this document represents components of the legal health record. It is not the complete legal health record.[facility]
--- OUTSIDE RECORDS SUMMARY | 2025-03-07 19:49 | XMS_ITS | Clinical Summary ---
Author Organization [facility] Address [address] [address] Phone Care Team Providers Care Technical Education Teacher Name Role Phone Holden Bailey DO Primary Care Provider [phone] Holden Bailey DO Unavailable Allergies Active Allergy [...] Department Care Team Description 01/16/2025 Transcribe Orders [facility] [address] [place] [address] Lay Hernandez Encounter for rehabilitation (Primary Dx) from Last 3 Months Social [...] 11/16/2024 11:50 AM EDT Plan of Treatment Upcoming Encounters Date Type Department Care Team (Late st Contact Info) Description 03/12/2025 4:45 PM EDT Office Visit [facility] [address] [place] [address] Leanne Lira PA 6 [facility] [place] [address] Nima Oscar, PT 10 [place] [address] 03/19/2025 4:45 PM EDT Office Visit [address] [address] Leanne Lira PA 6 [place] [address] Nima Oscar, PT 10 [place] [address] 03/26/2025 4:45 PM EDT Office Visit [address] [address] Leanne Lira PA 6 [place] [address] Nima Oscar, PT 10 [place] [address] 04/02/2025 4:45 PM EDT Office Visit [address] [address] Leanne Lira PA 6 [place] [address] Nima Oscar, PT 10 [place] [address] 04/09/2025 4:45 PM EDT Office Visit [address] [address] Leanne Lira PA 6 [place] [address] Nima Oscar, PT 10 [place] [address] 04/23/2025 4:45 PM EDT Office Visit [address] [address] Leanne Lira PA 6 [place] [address] Nima Oscar, PT 10 [place] [address] 04/30/2025 4:45 PM EDT Office Visit [address] [address] Leanne Lira PA 6 [place] [address] Nima Oscar, PT 10 [place] [address] 05/07/2025 4:45 PM EST Office Visit [address] [address] Leanne Lira PA 6 [place] [address] Nima Oscar, PT 10 [place] [address] [email or web address] Health Maintenance Due Date Last Done Comments [...] 2011 ZOSTER VACCINES (1 of 2) 02/27/2016 INFLUENZA VACCINE (#1) 2025 07/19/2012 COVID-19 VACCINE (3 - 2024-2 6 season) 2025 01/25/2022, 02/27/2021 Adult Td,Tdap Booster 06/19/2028 06/19/2018 [...] topic Medical Devices Not on file Insurance S Member Subscriber Plan / Payer (Ef fective 2023-Present) Name:Jeff Andersen Relation to Subscriber:Self Name:Jeff Andersen Payer ID:Not on file Type:[facility] Address: [address] Member Subscriber Plan / Payer (Ef fective 2023-Present) Name:Jeff Andersen Relation to Subscriber:Self Name:Jeff Andersen Payer ID:Not on file Type:PPO Address: [address] [place] [address]S Member Subscriber Plan / Payer (Ef fective 2023-) Name:Jeff Andersen Relation to Subscriber:Self Name:Jeff Andersen Payer ID:Not on file Type:PPO Address: [address] [place], [place] [address]S Member Subscriber Plan / Payer (Ef fective 2023-) Name:Jeff Andersen Relation to Subscriber:Self Name:Jeff Andersen Payer ID:Not on file Type:PPO Address: [address] [address] Member Subscriber Plan / Payer ( fective 2023-Present) Name:Jeff Andersen Relation to Subscriber:Self Name:Jeff Andersen Payer ID:Not on file Type:PPO Address: [address] [employer] P[employer] Care Teams Technical Education Teacher Relationship Specialty Start Date End Date Holden Bailey DO [email or web address] PCP - General Internal Medicine 09/13/23 Holden Bailey DO [address] [place] [address] [email or web address] Insurance Assigned Provider 05/13/24 Additional Source Comments The information contained in this document represents components of the legal health record. It is not the complete legal health record.[facility]
--- OUTSIDE RECORDS SUMMARY | 2025-03-07 19:49 | XMS_ITS | Encounter Summary ---
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 Procedures MRI Brain Holden Bailey DO [address] [place] [address] Phone: tel: fax: [email or web address] Referral ID Status Reason Start Date Expiration Date Visits Re quested Visits Authorized [id number] Closed 09/27/2024 09/27/2025 1 1 Encounter Details Date Type Department Care Team ([facility] st Contact Info) Description 09/27/2024 Transcribe Orders Virtual Department [address] [place] [address] Holden Bailey DO [address] [place] [address] [email or web address] 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) Social History Tobacco Use Types [...] Description 03/12/2025 4:45 PM EDT Office Visit [address] [address] Leanne Lira PA 6 [place] [address] Nima Oscar, PT 10 [place] [address] [email or web address] 03/19/2025 4:45 PM EDT Office Visit [address] [address] Leanne Lira PA 6 [place] [address] Nima Oscar, PT 10 [place] [address] [email or web address] 03/26/2025 4:45 PM EDT Office Visit [address] [address] Leanne Lira PA 6 [place] [address] Nima Oscar, PT 10 [place] [address] [email or web address] 04/02/2025 4:45 PM EDT Office Visit [address] [address] Leanne Lira PA 6 [place] [address] Nima Oscar, PT 10 [place] [address] [email or web address] 04/09/2025 4:45 PM EDT Office Visit [address] [address] Leanne Lira PA 6 [place] [address] Nima Oscar, PT 10 [place] [address] [email or web address] 04/23/2025 4:45 PM EDT Office Visit [address] [address] Leanne Lira PA 6 [place] [address] Nima Oscar, PT 10 [place] [address] [email or web address] 04/30/2025 4:45 PM EDT Office Visit [address] [address] Leanne Lira PA 6 [place] [address] Nima Oscar, PT 10 [place] [address] [email or web address] 05/07/2025 4:45 PM EST Office Visit [address] [address] Leanne Lira PA 6 [place] [address] Nima Oscar, PT 10 [place] [address] documented as of this encounter Results * MRI BRAIN (MS) WITHOUT CONTRAST (10/01/2024 10:39 AM EDT) Anatomical Region Laterality Modality Head Magnetic Resonan ce 10/03/2024 10:0 6 AM EDT Impressions 10/03/2024 10:18 AM EDT 1. Probable moderate chronic small vessel disease. No intracranial mass lesion. Narrative 10/03/2024 10:18 AM EDT MRI BRAIN (MS) WITHOUT CONTRAST Referring clinician's provided indication for this examination in [facility]: Outside Radiology Order; cerebellar ataxia TECHNIQUE: MRI BRAIN (MS) WITHOUT CONTRAST Multi-sequence, multi-planar MRI of the brain was performed without intravenous contrast. COMPARISON: FINDINGS: Brain Parenchyma: No cortical or large lacunar infarct. No intracranial mass lesion. There are scattered foci of T2 hyperintensity in the white matter and serge, likely a manifestation of chronic small vessel disease. Brain Volume: Normal. Ventricular System and Extra-Axial Spaces: Normal. No evidence of midline shift or hydrocephalus. Extracranial Structures: Expected arterial flow signal is observed at the skull base. Procedure Note Antwan Rodriguez DO - 10/03/2024 MRI BRAIN (MS) WITHOUT CONTRAST Referring clinician's provided indication for this examination in [facility]:Outside Radiology Order; cerebellar ataxia TECHNIQUE: MRI BRAIN (MS) WITHOUT CONTRAST Multi-sequence, multi-planar MRI of the brain was performed withoutintravenous contrast. COMPARISON: FINDINGS: Brain Parenchyma: No cortical or large lacunar infarct. No intracranialmass lesion. There are scattered foci of T2 hyperintensity in the whitematter and serge, likely a manifestation of chronic small vessel disease. Brain Volume: Normal. Ventricular System and Extra-Axial Spaces: Normal. No evidence of midlineshift or hydrocephalus. Extracranial Structures: Expected arterial flow signal is observed at theskull base. IMPRESSION: 1. Probable moderate chronic small vessel disease. No intracranial masslesion. 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 It is not the complete legal health record.[facility]
== END 2025-03-07 19:38 | disposition home or self-care (01) ==
LOC: HO.MRI 19:37
PROVIDERS: PCP Internal Medicine; Visit Provider Internal Medicine
DX: M51.362 Other intervertebral disc degeneration, lumbar region with discogenic back pain and lower extremity pain (principal); M48.061 Spinal stenosis, lumbar region without neurogenic claudication
CPT/HCPCS: 72148

== ENCOUNTER → 2025-03-07 19:53 | Outpatient (BNV) | payer BC, SELFPAY | PROVIDERS: PCP Internal Medicine; Visit Provider Radiology Body Imaging | DX: M51.360 Other intervertebral disc degeneration, lumbar region with discogenic back pain only (principal) | CPT/HCPCS: 72148 ==

== ENCOUNTER 2025-05-17 13:17 | Outpatient (AMB) | payer BC, SELFPAY ==
--- NOTE | 2025-05-17 13:21 | HO.SPINEOV ---
Vital Signs 05/17/25 13:27 Height 5 ft 8 in Weight 180 lb BMI 27.4 Intake Visit Reasons: lumbar radiculopathy Intake Note: Mr. Andersen is here today c/o Low back pain. MRI done at [facility]. Entry Level Electrician Required: No Allergies Penicillins Allergy (Verified 01/19/25 11:09) Unknown Physical Exam Vital Signs: BMI result Body Mass Index 27.4 Assessment & Plan Assessment & Plan (1) Lumbar stenosis: Code(s): M48.061 - Spinal stenosis, lumbar region without neurogenic claudication Category: Medical Plan Dear Leanne, Thank you for referring Mr andersen to our office today. He is a very nice 60-year-old gentleman, recovering alcoholic, 2 months sober, lifelong smoker, presents for evaluation of low back pain and bilateral lower extremity pain radiating into his anterior thighs with standing and walking. He has had the pain for a year or more. He tells me that when he stands and walks he has pain that will radiate from his back down into his anterior thighs. It is a fatigue feeling that comes on with activity. He also has a component of right buttock pain as well that occasionally will make his foot tingling on the bottom. He did undergo physical therapy and is currently still doing it but it is not helping much at all. He has been taking muscle relaxers and nabumetone. He has had no injections, has not seen a chiropractor or acupuncture. He had a lumbar MRI done at [facility] showing moderate to severe stenosis at L3-4 amongst other degenerative changes. PMH: History of hypertension, sleep apnea, anxiety, NAFLD the, heart murmur which he tells me his stable, no shortness of breath. He gets monitored for it occasionally. History of deviated septum surgery. Denies any history of cardiovascular disease, strokes, major pulmonary problems. No history of chronic kidney disease but did have an episode of MICKEY earlier this year in January secondary to extreme heat exhaustion. The patient does have a history of alcoholism, he has been fairly consistent drinker, quit 2 months ago, is in a rehabilitation program currently. He had liver elastography done last year with no signs of cirrhosis, but did show signs of fatty infiltration. His lab work done here at [facility] was reviewed, showed no thrombocytopenia or coagulopathies on his studies. His LFTs were normal. He is a lifelong smoker but denies any pulmonary issues. No history of diabetes, major abdominal surgeries, cancer, bleeding disorders, blood clots or unusual infections. Social hx: Sober for 2 months from alcohol, does not use any recreational drugs, does smoke 1 pack of cigarettes a day Medications: Lisinopril, quetiapine, mirtazapine, zolpidem, baclofen, naltrexone, amlodipine, venlafaxine, BuSpar, nabumetone, tramadol Allergies: Penicillin Physical exam: Awake alert oriented no acute distress, able to stand and walk in the hallway, he has an antalgic gait. Strength in the upper and lower extremities is full, reflexes diminished throughout. Imaging review: Lumbar MRI done at [facility] shows degenerative disc disease moderate to severe at L4-5 and L5-S1. At L3-4 he has moderate to severe stenosis. Plain x-rays do not show any evidence of spondylolisthesis although there some subtle signs of it on his MRI. CT scan of the abdomen also does not show any evidence of spondylolisthesis. There is an x-ray report the patient had with him from [facility] which did not show any evidence of instability on standing flexion-extension views. Impression: 60-year-old male, recovering alcoholic, 2 months sober, presents to the office today for evaluation of 2 separate issues. He has back pain and bilateral lower extremity anterior thigh pain with standing and walking. He has moderate to severe stenosis at L3-4 which could explain the leg pain. He also has moderate to severe degenerative disc disease at L4-5 and L5-S1. These things can be found in asymptomatic patients, but also can be the source of some patient's pain and discomfort. To treat the back pain would require a multilevel fusion from L3-S1. This would be a significant undertaking as an initial step to treat his issues. Therefore Dr. Monae would like to do a simple decompression right side approach for bilateral L3-4 decompression as a minimally invasive option to see if we can just get him walking better and this may help him enough that he can avoid doing an extensive fusion. If the simple decompression does not work well enough, then the patient understands he will require an L3-S1 oblique lumbar interbody fusion. We spent an extensive amount of time going over the reasoning for why we are choosing the surgical approaches in his stepwise fashion. All pertinent risks and benefits were discussed. He understands that if he has resumed drinking again, there is a good chance his surgery will be canceled and will not be offered to him again. The patient was given risk and benefits of surgery including but not limited to infection, hematoma, nerve injury, durotomy, weakness, bowel/bladder injury, persistent pain,[ ]. We also discussed the option to continue with conservative treatment and patient wishes to proceed with surgery. They are aware they should stop NSAIDs 7 days prior to surgery. All questions were answered to the best of our ability. If there is anything about this patients medical history that we have overlooked or concerns you have about us proceeding with surgery we would appreciate any input you can offer. Thank you for allowing us to care for your patient. The total time spent with this visit with this patient was 45 minutes reviewing history, physical exam, lumbar imaging review, and implementation of treatment plan or further diagnostic testing Ricco Monae MD,PhD [facility] Coding Level of Care Code New Pt Level 4 (28962) Diagnoses Lumbar stenosis M48.061
[2025-05-17 13:27] VITALS: BMI 27.4
--- OUTSIDE RECORDS SUMMARY | 2025-05-17 16:36 | XMS_ITS | Clinical Summary ---
Author Organization [facility] Address [address] [address] Care Team Providers Care Market Research Assistant Name Role Phone Unavailable Primary Care Provider [...]
--- OUTSIDE RECORDS SUMMARY | 2025-05-17 16:36 | XMS_ITS | Encounter Summary ---
Author Organization [facility] Address 399 [facility] [address] [place] [address] Phone Care Team Providers Care Head Rose Grower Name Role Phone Holden Bailey DO Primary Care Provider [phone] Holden Bailey DO Unavailable Reason for Referral * - New Request Specialty Diagnoses / Procedures Referred By Georgiana izaguirre Referred To Contact Radiology Diagnoses PVD (peripheral vascular disease) Procedures US Lower Extremity Arteries (GENARO) Physio Complete Bilat Leanne Lira PA 6 [place] [address] Phone: tel: fax: Referral ID Status Reason Start Date Expiration Date V isits Requested Visits Authorized [id number] New Request 09/08/2024 1 1 Encounter Details Date Type Department Care Team (Late st Contact Info) Description 09/08/2024 Ancillary Orders [facility] [place] [address] [facility] 3[address] [place] [address] Leanne Lira PA [address] [place] [address] [place] [address] PVD (peripheral vascular disease) (Primary Dx) Social [...] Care Team (Late st Contact Info) Description 05/23/2025 4:45 PM EST Office Visit [address] [address] Leanne Lira PA 6 [place] [address] Iris Moraes, PT 10 [place] [address] 05/29/2025 4:00 PM EST Office Visit [address] [address] Leanne Lira PA 6 [place] [address] Iris Moraes, PT 10 [place] [address] 06/06/2025 4:45 PM EST Office Visit [address] [address] Leanne Lira PA 6 [place] [address] Iris Moraes, PT 10 [place], [place] [phone] documented as of this encounter Results * [...] significant obstructive peripheral arterial disease is seen. us Leanne ANDRES CV US VASCULAR Final Resul t documented in this encounter Visit Diagnoses Diagnosis Intermittent claudication Unspecified peripheral vascular disease PVD (peripheral vascular disease) Unspecified peripheral vascular disease PVD (peripheral vascular disease)- Primary Unspecified peripheral vascular disease documented in this encounter Care Teams Head Rose Grower Relationship Specialty Start Date End Date Holden Bailey DO PCP - General Internal Medicine 09/13/23 Holden Bailey DO [address] [place] [address] Insurance Assigned Provider 05/13/24 documented as of this encounter Additional Source Comments The information contained in this document represents components of the legal health record. It is not the complete legal health record.[facility]
--- OUTSIDE RECORDS SUMMARY | 2025-05-17 16:36 | XMS_ITS | Clinical Summary ---
Author Organization [facility] Address [address] [address] Phone Care Team Providers Care Knit Goods Cutter Hand Name Role Phone Holden Bailey DO Primary Care Provider [phone] Holden Bailey DO Unavailable Allergies Active Allergy [...] Encounters Date Type Department Care Team Description 05/02/2025 4:45 PM EDT Office Visit [address] [address] Leanne Lira PA Robbins, Rebecca, PT Neurogenic claudication due to lumbar spinal stenosis (Primary Dx); Radiculopathy due to disorder of intervertebral disc of lumbosacral spine; Lower extremity numbness; Impaired range of motion of both hips; Impaired strength of lower extremity 04/25/2025 4:45 PM EDT Office Visit [facility] [address] [place] [address] Leanne Lira PA Robbins, Rebecca, PT Neurogenic claudication due to lumbar spinal stenosis (Primary Dx); Radiculopathy due to disorder of intervertebral disc of lumbosacral spine; Lower extremity numbness; Impaired range of motion of both hips; Impaired strength of lower extremity 04/06/2025 Transcribe Orders [facility] [address] [place] [address] Lay Hernandez Encounter for rehabilitation (Primary Dx) [...] Description 05/23/2025 4:45 PM EST Office Visit [address] [address] Leanne Lira PA 6 [place] [address] Iris Moraes, PT 10 [place] [address] [email or web address] 05/29/2025 4:00 PM EST Office Visit [address] [address] Leanne Lira PA 6 [place] [address] Iris Moraes, PT 10 [place] [address] [email or web address] 06/06/2025 4:45 PM EST Office Visit [address] [address] Leanne Lira PA 6 [place] [address] Iris Moraes, PT 10 [place], [place] [phone] [email or web address] Health Maintenance Due Date Last Done Comments [...] 01/25/2022, 02/27/2021 Adult Td,Tdap Booster 06/19/2028 06/19/2018 RSV VACCINE (1 - 1-dose 75+ series) 2041 HEPATITIS A VACCINES Aged Out No long er eligible based on patient's age to complete this topic HIB VACCINES Aged Out No longer eligi ble based on patient's age to complete this topic IPV VACCINES Aged Out No longer eligi ble based on patient's age to complete this topic MENINGOCOCCAL VACCINES (ACWY) Aged Out No longer eligible based on patient's age to complete this topic MENINGOCOCCAL VACCINES (B) Aged Out N o longer eligible based on patient's age to complete this topic Medical Devices Not on file Insurance PPO [facility] S Member Subscriber Plan / Payer (Ef fective 2023-Present) Name:Jeff Andersen Relation to Subscriber:Self Name:Jeff Andersen Payer ID:Not on file Type:PPO Address: [address] [place], [place] [address] Member Subscriber Plan / Payer (Ef fective 2023-Present) Name:Jeff Andersen Relation to Subscriber:Self Name:Andersen Jeff Payer ID:Not on file Type:PPO Address: [address] [facility] Member Subscriber Plan / Payer (Ef fective 2023-) Name:Jeff Andersen Relation to Subscriber:Self Name:Jeff Andersen Payer ID:Not on file Type:PPO Address: [address] [facility] Member Subscriber Plan / Payer (Ef fective 2023-) Name:Andersen, Jeff Relation to Subscriber:Self Name:Jeff Andersen Payer ID:Not on file Type:PPO Address: [address] [facility] Care Teams Knit Goods Cutter Hand Relationship Specialty Start Date End Date Holden Bailey DO [email or web address] PCP - General Internal Medicine 09/13/23 Holden Bailey DO [address] [place] [phone] [email or web address] Insurance Assigned Provider 05/13/24 Additional Source Comments The information contained in this document represents components of the legal health record. It is not the complete legal health record.[facility]
--- OUTSIDE RECORDS SUMMARY | 2025-05-17 16:36 | XMS_ITS | Encounter Summary ---
Author Organization Formerly [facility] Address [address] [facility] [address] [place] [id number] Phone Care Team Providers Care Journalism Intern Name Role Phone Holden Bailey DO Primary Care Provider [phone] Holden Bailey DO Unavailable Encounter Details Date Type Department Care Team (Late st Contact Info) Description 09/27/2024 Procedure Pass [facility], [address] [address] Social History Tobacco Use Types Packs/Day Years [...] Description 05/23/2025 4:45 PM EST Office Visit [address] [address] Leanne Lira PA [address] [place] [address] Iris Moraes, PT [address] [place] [address] 05/29/2025 4:00 PM EST Office Visit [address] [address] Leanne Lira PA [address] [place] [address] Iris Moraes, PT 10 [place] [address] 06/06/2025 4:45 PM EST Office Visit [address] [address] Leanne Lira PA [address] [place] [address] Iris Moraes, PT [address] [place] [address] documented as of this encounter Visit Diagnoses Not on filedocumented in this encounter Care Teams Journalism Intern Relationship Specialty Start Date End Date Holden Bailey DO PCP - General Internal Medicine 09/13/23 Holden Bailey DO [address] [place] [phone] Insurance Assigned Provider 05/13/24 documented as of this encounter Additional Source Comments The information contained in this document represents components of the legal health record. It is not the complete legal health record.[facility]
--- OUTSIDE RECORDS SUMMARY | 2025-05-17 16:36 | XMS_ITS | Clinical Summary ---
Author Organization [facility] Address [address] [place] [address] Care Team Providers Care Burrer Marker Axle Name Role Phone Unavailable Primary Care Provider [...] 02/27/2016 Zoster Vaccines (1 of 2) 02/27/2016 Depression Screening 07/05/2024 COVID-19 Vaccine (1 - 2024-2 6 season) 2025 Influenza Vaccine (#1) 2025 RSV Immunization Adult [...]
--- OUTSIDE RECORDS SUMMARY | 2025-05-17 16:36 | XMS_ITS | Encounter Summary ---
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 Procedures MRI Brain Holden Bailey DO [address] [facility] [place] [address] Phone: tel: fax: [email or web address] Referral ID Status Reason Start Date Expiration Date Visits Re quested Visits Authorized [id number] Closed 09/27/2024 09/27/2025 1 1 Encounter Details Date Type Department Care Team ([facility] st Contact Info) Description 09/27/2024 Transcribe Orders Virtual Department [address] [place] [address] Holden Bailey DO [address] [facility] [place] [address] [email or web address] 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 (Primary [...] Description 05/23/2025 4:45 PM EST Office Visit [address] [address] Leanne Lira PA [address] [place] [address] Iris Moraes, PT 10 [place] [address] [email or web address] 05/29/2025 4:00 PM EST Office Visit [address] [address] Leanne Lira PA [address] [place] [address] Iris Moraes, PT 10 [place] [address] [email or web address] 06/06/2025 4:45 PM EST Office Visit [address] [address] Leanne Lira PA [address] [place] [address] Iris Moraes, PT 10 [place], [place] [phone] documented as of this encounter Results * MRI BRAIN (MS) WITHOUT CONTRAST (10/01/2024 10:39 AM EDT) Anatomical Region Laterality Modality Head Magnetic Resonan ce 10/03/2024 10:0 6 AM EDT Impressions 10/03/2024 10:18 AM EDT 1. Probable moderate chronic small vessel disease. No intracranial mass lesion. Narrative 10/03/2024 10:18 AM EDT MRI BRAIN (MS) WITHOUT CONTRAST Referring clinician's provided indication for this examination in [facility]: Outside Radiology Order; cerebellar ataxia TECHNIQUE: MRI [...] clinician's provided indication for this examination in [facility]:Outside Radiology Order; cerebellar ataxia TECHNIQUE: MRI BRAIN [...] chronic small vessel disease. No intracranial masslesion. 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 It is not the complete legal health record.[facility]
--- OUTSIDE RECORDS SUMMARY | 2025-05-17 16:36 | XMS_ITS | Data Portability ---
Author Organization [facility], Telehealth Patient Home Address [address] [place] [address] Assessment Encounter Date Assessment Date Assessment LastModified by Organization Details LastModified Time 09/01/2024 09/01/2024 Patient presente d for medication refill. Patient tolerating medication well at current dose without adverse effects. Refilled as below. Discussed plan with patient, who expressed understanding. Follow up as noted below. 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 Surgeries None recorded. Imaging electromy ogram + nerve conductio n study - possible cerebella r ataxia 2024 025 mathew Garcia MD, [address] [place] [address], [address], 10/03/2024 08:53:12 MRI, brain, w/o contrast - Not Required Procedure codes: 40808 Call Reference #: [id number] Resolutio n: Completed on at 10:12 am. Call ref #[id number] 419. 2024 025 [facility], [address] [place], [address], 09/29/2024 08:34:06 electromy ogram + nerve conductio n study - bilateral lower extermity 2024 025 mathew Garcia MD, [address] [place] [address], [address], 09/08/2024 08:28:07 US, carotid artery 2024 025 [facility], [address] [place], [address], 09/04/2024 08:47:03 nuclear stress test - Not Required Procedure codes: 09291 Call Reference #: Rahmatjanene [id number] 25 Resolutfloresita n: Completed on at 02:21 pm. Call ref #Rahmatul [id number] 025. 2024 025 [facility], [address] [place] [address], [address], 09/11/2024 09:20:15 Medication Orders carisopro dol 250 mg tablet 2024 025 [facility]037[facility], [address] [place], [address], 04/23/2025 05:01:05 nabumeton e 500 mg tablet 2024 025 [facility] #0373, [address] [place], [address], 01/15/2025 15:09:22 zolpidem 10 mg tablet 2024 025 [facility], [address] [place], [address], 09/26/2024 16:28:51 nabumeton e 500 mg tablet 2024 025 [facility] #037[facility], [address] [place], [address], 01/15/2025 15:09:22 doxycycli ne hyclate 100 mg capsule 2024 025 [facility] #037[facility], [address] [place], [address], 11/28/2024 13:58:27 Patient TargetsNo targets recorded. Patient Instructions Encounter Date Encounter Id Patient Instructions Last Modified By Organization Details Last Modified Time 09/26/2024 [id number] insomnia: care instructions Not available 09/26/2024 16:28:47 Reason for Referral Slope Hoist Operator Referral for Buni on Referring Physician: Leanne Lira, Internal Medicine, Encounter Date: 11/28/2024 Neurological Surgeon Referra l for Spinal stenosis of lumbosacral region spinal stenosis w/ new (appt on 04/02) bowel changes w/ fecal incontinence changed to STAT Referring Physician: Leanne Lira, Internal Medicine, Encounter Date: 04/02/2025 Results Created Date Observation Date Name Description Value Unit Range Abnormal Flag Note LastModifiedBy Organization Detail LastModifiedTime 09/12/1909/08/2024 US, duple x, arter ial, lower extre mity, compl ete No observ ation record ed. [facility] [address] , [place], [address], 09/11/2024 11:02:20 10/04/19 25 10/01/2024 MRI, brain , w/o contr ast No observ ation record ed. [email or web address] [place] [address], [place], [address], 10/03/2024 22:46:34 12/20/19 25 12/19/2024 nucle ar stres s test No observ ation record ed. [facility] (Medical Records) [address] [place], [address], 12/19/2024 13:32:28 12/28/19 25 12/19/2024 nucle ar stres s test No observ ation record ed. [facility] (Medical Records) [address] [place], [address], 12/28/2024 14:09:15 01/20/20 25 01/19/2025 XR, chest , 2 view No observ ation [facility] [address] [place], [address], 01/19/2025 13:27:47 01/20/20 25 01/19/2025 CT, abdom en + pelvi s, w/o contr ast No observ ation record ed. [email or web address] (Medical Records) [address] [place], [address], 01/19/2025 13:33:45 03/08/20 25 03/07/2025 MRI, lumba r spine , w/o contr ast No observ ation record ed. [email or web address] [facility] (Medical Records) [address] [place], [address], 03/13/2025 16:13:42 Result Notes None recorded. Problems Name Problem SNOMED Code Status Onset Date Resolution Date Notes Provider Name and Address Organization Details Recorded Time Afshan kiran 98474604 Active 2017 Kamryn James NP, [address] [place] [address], [address], [facility] 8 14:21:12 Anxiety 44412681 Active 2017 Kamryn James NP, S [address] [place] [address], [address], [facility] 8 14:21:29 Depressi ve disorder 28350003 Active 2017 Kamryn James NP, S [address] [place] [address], [address], [facility] 8 14:21:39 Tobacco dependen ce syndrome 77873701 Active 2017 Holden Blair DO [address] [place] [address], [address], [facility] 8 11:47:05 Harmful pattern of use of alcohol 94288997 Active 2020 Holden Blair DO [address] [place] [address], [address], [facility] 1 16:20:54 Alcoholi c hepatiti s 717305341 Completed 202005/23/2021 Removal Reason: resolved Holden Blair DO [address] [place], [address], [facility] 1 16:26:04 Cirrhosi s of liver 92095468 Active 2021 Holden Blair, DO [address] [place] [address], [address], [facility] 2 11:50:06 Mood disorder 07334290 Active 2021 Holden Blair, DO [address] [place] [address], [address], [facility] 2 11:50:11 Cervico- occipita l neuralgi a 62137104 Active 2021 MCKENNA LIVINGSTON [address] [place] [address], [address], [facility] 2 16:16:30 Insomnia 613426810 Active 2021 MCKENNA LIVINGSTON [address] [place] [address], [address], [facility] 2 16:23:35 Pneumoni a caused by methicil ronny resistan t Staphylo coccus aureus 6874850355 70587 Active 2021 MCKENNA LIVINGSTON [address] [place] [address], [address], [facility] 2 16:24:39 COVID-19 425234893 Active 2021 MCKENNA LIVINGSTON [address] [place] [address], [address], [facility] 2 11:07:40 Arthriti s 5358754 Active 2021 MCKENNA LIVINGSTON [address] [place] [address], [address], [facility] 2 16:25:46 Testoste poly level below referenc e range 861948866 Active 2021 MCKENNA LIVINGSTON [address] [place], [address], [facility] 2 16:27:07 Easy bruising 071491744 Active 2021 MCKENNA LIVINGSTON [address] [place], [address], [facility] 2 16:30:43 Eczema 58296105 Active 2021 MCKENNA LIVINGSTON [address] [place], [address], [facility] 2 16:31:56 Heart murmur 66477850 Active 2021 MCKENNA LIVINGSTON [address] [place] [address], [address], [facility] 2 16:36:39 Upper respirat ory infectio n 15941611 Active 2022 MCKENNA LIVINGSTON [address] [place] [address], [address], [facility] 3 15:20:25 Fatigue 50018740 Active 2022 MCKENNA LIVINGSTON [address] [place] [address], , [facility] 3 11:13:53 Near syncope 979981106 Active 2022 MCKENNA LIVINGSTON [address] [place] [address], , [facility] 3 11:14:58 Continuo us dependen ce on cigarett e smoking 3276106776 05020 Active 2022 MCKENNA LIVINGSTON [address] [place] [address], , [facility] 3 11:17:59 Palpitat ions 19548361 Active 2022 MCKENNA LIVINGSTON [address] [place] [address], , [facility] 3 11:18:38 Weight loss 29212895 Active 2022 MCKENNA LIVINGSTON [address] [place], [address], [facility] 3 11:23:05 Alcoholi c fatty liver 17355725 Active 2022 MCKENNA LIVINGSTON [address] [place], [address], [facility] 3 13:27:13 Pain of right elbow joint 3024982113 5288106 Active 2022 MCKENNA LIVINGSTON [address] [place], [address], [facility] 3 11:17:33 Cervical radiculo anita 29144264 Active 2022 MCKENNA LIVINGSTON [address] [place], [address], [facility] 3 11:20:49 Hyperten sive urgency 403494622 Active 2022 MCKENNA LIVINGSTON [address] [place], [address], [facility] 3 11:22:03 Low back pain 450262411 Active 2022 MCKENNA LIVINGSTON [address] [place], [address], [facility] 3 11:23:15 Neck pain 50198712 Active 2022 MCKENNA LIVINGSTON [address] [place], [address], [facility] 3 09:28:55 Foot pain 06112237 Active 2023 MCKENNA LIVINGSTON [address] [place], [address], [facility] 4 13:58:05 Dizzines s 873892478 Active 2023 MCKENNA LIVINGSTON [address] [place], [address], [facility] 4 14:06:47 Alcohol dependen ce 70860393 Active 2023 MCKENNA LIVINGSTON [address] [place], [address], [facility] 4 16:32:36 Pneumoni a 356955292 Active 2023 MCKENNA LIVINGSTON [address] [place], [address], [facility] 4 16:32:36 Cellulit is 748287524 Active 2023 MCKENNA LIVINGSTON [address] [place] [address], [address], [facility] 4 11:12:02 Pruritic rash 88077035 Active 2023 MCKENNA LIVINGSTON [address] [place] [address], [address], [facility] 4 11:14:02 Cellulit is caused by Staphylo coccus aureus 204519710 Active 2023 MCKENNA LIVINGSTON [address] [place] [address], [address], [facility] 4 16:04:34 Pain in lumbar spine 531854190 Active 2023 MCKENNA LIVINGSTON [address] [place] [address], [address], [facility] 4 14:32:48 White blood cell disorder 25132941 Active 2023 MCKENNA LIVINGSTON [address] [place] [address], [address], [facility] 4 16:22:10 Anemia 028153866 Active 2023 MCKENNA LIVINGSTON [address] [place], [address], [facility] 4 16:22:44 Headache 78781389 Active 2023 MCKENNA LIVINGSTON [address] [place], [address], [facility] 4 16:21:48 Muscle spasm of cervical muscle of neck 2388502800 04 Active 2023 MCKENNA LIVINGSTON [address] [place], [address], [facility] 4 16:22:54 Muscle pain 07500212 Active 2023 MCKENNA LIVINGSTON [address] [place], [address], [facility] 4 16:24:28 Neuropat hy 556062515 Active 2023 MCKENNA LIVINGSTON [address] [place], [address], [facility] 4 16:27:52 Intermit tent claudica tion 62855611 Active 2023 MCKENNA LIVINGSTON [address] [place], [address], [facility] 4 11:26:55 Degenera tion of lumbar interver tebral disc 94681673 Active 2023 MCKENNA LIVINGSTON [address] [place], [address], [facility] 4 11:28:43 Lumbar radiculo anita 001526367 Active 2024 MCKENNA LIVINGSTON [address] [place], [address], [facility] 5 15:10:07 Lighthea dedness 786975095 Active 2024 MCKENNA LIVINGSTON [address] [place], [address], [facility] 5 16:24:05 Weakness of bilatera l lower limb Active 2024 Holden Blair DO [address] [place], [address], [facility] 16:18:32 Cerebell ar ataxia 14157971 Active 2024 Holden Blair, DO [address] [place], [address], [facility] 5 16:21:45 Cellulit is of abdomina l wall 55943110 Active 2024 Holden Blair, DO [address] [place], [address], [facility] 16:26:10 Bunion 386792455 Active 2024 MCKENNA LIVINGSTON [address] [place], [address], [facility] 5 14:26:52 Lumbosac ral spondylo sis 266049034 Active 2024 MCKENNA LIVINGSTON [address] [place], [address], [facility] 15:08:56 Acute nontraum atic kidney injury 3918702564 17659 Active 2024 Holden Blair, DO [address] [place] [address], [address], [facility] 5 16:25:29 Spinal stenosis of lumbosac ral region 107793955 Active 2024 MCKENNA LIVINGSTON [address] [place], [address], [facility] 5 12:43:21 Spasm of muscle of lower back 3247052098 4038154 Active 2024 MCKENNA LIVINGSTON [address] [place], [address], [facility] 5 12:59:19 Alcohol use disorder Active 2024 MCKENNA LIVINGSTON [address] [place], [address], [facility] 5 19:38:11 Acute low back pain 556300499 Active 2024 MCKENNA LIVINGSTON [address] [place], [address], [facility] 5 14:01:08 Problem Notes None recorded. Medical Equipment None Reported. Allergies Allergen ID Allergen Name Allergen Category Reaction Reaction Severity Criticality Documentation Date Start Date Code Code System Note Provider Name and Address Organization Details Recorded Time 1815 Product containin g penicilli n (product) medicatio n Not available Not available Not available 01/11/2018 40653 8001 SNOMED Kamryn James NP, S [address] [place], [address], [facility] 8 14:20:56 Medications Name Sig [...] ol 500 mg tablet TAKE 1 TABLET BY MOUTH THREE TIMES A DAY active Not Available Not Available No t Available buspirone 5 mg tablet TAKE 1 TABLET BY MOUTH EVERY DAY active Not Available Not Available No t Available bupropion HCl SR 150 mg tablet,12 [...] 1 TABLET BY MOUTH EVERY DAY FOR CRAVINGS active Not Available Not Available No t [...] EVERY 6 HOURS NEEDED FOR 7 DAYS 2024 active Not Available Not Available Not Avai lable acetaminoph en 500 mg tablet TAKE 2 [...] Not Available Not Available Not Available mirtazapine 15 mg tablet TAKE 1 TABLET BY MOUTH EVERYDAY AT BEDTIME active Not Available Not Available No t Available ibuprofen 600 mg tablet 12/25 completed Not Available Not Available Not Available levofloxaci n 750 mg tablet TAKE 1 TABLET BY MOUTH EVERY DAY FOR 10 DAYS 02/10 completed Not Available Not Available Not Available zolpidem 10 mg tablet TAKE 1 TABLET BY MOUTH EVERY DAY 2024 active Not Available Not Available Not Avai lable methylpredn isolone 4 mg tablets in a dose pack FOLLOW PACKAGE DIRECTION S 03/31 completed Not Available Not Available Not Available ketoconazol e 2 % topical cream APPLY TO AFFECTED AREA EVERY DAY 03/15 completed Not Available Not Available Not Available lisinopril 40 mg tablet TAKE 1 TABLET BY MOUTH EVERY DAY active Not Available Not Available No t Available atenolol 50 mg tablet TAKE 1 TABLET BY MOUTH EVERY DAY active Not Available Not Available No t Available nabumetone 500 mg tablet TAKE 1 TABLET BY MOUTH FOUR TIMES A DAY NEEDED active Not Available Not Available No t Available oxycodone 5 mg tablet TAKE 1 [...] Available mirtazapine 7.5 mg tablet TAKE 1 TAB(S) ORALLY AT EVERY BEDTIME 04/02 completed Not Available Not Available Not Available Boostrix Tdap 2.5 Lf unit-8 mcg-5 Lf/0.5 mL intramuscul ar syringe 09/02 completed Not Available Not Available Not Available hydroxyzine HCl qd prn 12/25 completed Not Available Not Available Not Available Fioricet qd prn 12/25 completed Not Available Not Available Not Available quetiapine 50 mg tablet TAKE 1 TABLET BY MOUTH TWICE A DAY active Not Available Not Available No t Available carisoprodo l 250 mg tablet TAKE 1 TABLET BY MOUTH THREE TIMES A DAY NEEDED FOR 14 DAYS 2024 active Not Available Not Available Not Avai lable oxycodone 10 mg tablet TAKE 1 TABLET BY MOUTH TWICE DAILY AT BEDTIME FOR 7 DAYS 05/23 completed Not Available Not Available Not Available Trintellix 10 mg tablet 11/16 completed Not Available Not Available Not Available baclofen 5 mg tablet TAKE 1 TO 2 TABLETS BY MOUTH DAILY NEEDED FOR WITHDRAWA L SYMPTOMS active Not Available Not Available No t Available albuterol sulf 90 mcg/actuati on breath [...] Updated DateTime 5 170.18 cm 27.8 kg/m2 39912.6 5 g 67 /min 99 % 99 % 140/90 mm[Hg] Katie Haskins [facility] 5 15:59:11 Date Recorded Body height Body mass index (BMI) Body weight Heart rate Oxygen saturation Oxygen saturation in Arterial blood by Pulse oximetry Systolic And Diastolic Provider Name and Address Organization Details Last Updated DateTime 5 170.18 cm 27.5 kg/m2 88645.4 6 g 75 /min 98 % 98 % 164/94 mm[Hg] Katie Haskins [facility] 5 14:02:56 Date Recorded Body height Body mass index (BMI) Body weight Oxygen saturation Oxygen saturation in Arterial blood by Pulse oximetry Heart rate Systolic And Diastolic Provider Name and Address Organization Details Last Updated DateTime 5 170.18 cm 27.8 kg/m2 48645.5 7 g 99 % 99 % 75 /min 160/94 mm[Hg] Ro Orozco [facility] 5 16:07:43 Date Recorded Body height Body mass index (BMI) Body weight Heart rate Oxygen saturation Oxygen saturation in Arterial blood by Pulse oximetry Systolic And Diastolic Provider Name and Address Organization Details Last Updated DateTime 5 170.18 cm 27.7 kg/m2 16260.8 5 g 66 /min 98 % 98 % 108/60 mm[Hg] Chante Hernándezmond [facility] 5 12:18:22 Social History Question Answer Notes LastModified by [employer] Details LastModified Time Tobacco Smoking Status Current Every Day Smoker Katty Mahamed diallo [facility] 06/24/2021 12:02:50 What Is Your Level Of Caffeine Consumption? Moderate [id number] Information not available 05/07/2020 What Was The Date Of Your Most Recent Tobacco Screening? 04/02/2025 Information not available 04/02/2025 How Much Tobacco Do You Smoke? 0.5 PPD [email or web address] Information not available 06/24/2021 Sex: Unknown Functional Status Question Answer Note LastModified by [employer] Details LastModified Time Do you or have you ever used any other forms of tobacco or nicotine? No [email or web address] Information not available 06/05/2024 What is your level of alcohol consumption? Occasional [id number] Information not available 05/07/2020 What is your exercise level? None [id number] Information not available 05/07/2020 Mental Status None recorded. Family History Nothing Reported. Medical History No medical history recorded. Immunizations Vaccine Type Date Status Note Provider Nam e and Address Organization Details Recorded Time Tdap 8 completed MCKENNA LIVINGSTON [address] [place] [address], [address], [facility] 10/06/2021 16:18:15 COVID-19 vaccine, vector-nr, rS-Ad26, PF, 0.5 mL 1 completed Emilee diallo [facility] 03/31/2022 08:17:26 COVID-19, mRNA, LNP-S, PF, 30 mcg/0.3 mL dose 2 completed Emilee diallo [facility] 03/31/2022 08:17:38 Influenza, split virus, quadrivalent, preservative 3 completed Emilee diallo [facility] 03/31/2022 08:17:52 Past Encounters Encounter ID Performer Location Encounter Start Date Encounter Closed Date Diagnosis/Indication Diagnosis SNOMED-CT Code Diagnosis ICD10 Code Diagnosis IMO Codes Diagnosis Note [id number] Holden Blair [address], [place] [address] 02/23/2018 15:11:42 02/23/2018 15:55:29 Essential hypertension 25619971 I10 Pain in left knee 376082 7172 95858 M25.562 [id number] Holden Blair [address], [place] [address] 03/08/2018 11:27:17 03/08/2018 14:38:30 Adult health examination 464774214 Active or passive immunization 794631034 Z23 will be getting tdap sooon [id number] Holden Blair [address], [place] [address] 05/09/2018 13:42:50 05/09/2018 14:15:22 Essential hypertension 46430098 I10 stable Sprains an d strains of joints and adjacent muscles 781956010 T14.8XXA right calf [id number] Holden Blair [address], [place] [address] 08/26/2018 11:54:16 08/26/2018 12:26:43 Pruritic rash 93572544 L28.2 well circumscri bed, cleared of dried debris-to d/c use belt, apply abx, audra BID , keep covered w/gauze daily, open to air at night Essential hypertension 44143507 I10 stable [id number] Holden Blair [address], [place] [address] 09/02/2018 16:00:49 09/02/2018 16:25:35 Cellulitis 062296540 L03.90 Essential hypertension 69911194 I10 take medication as prescribed daily [id number] Holden Blair [address],[place] [address] 02/21/2019 16:00:21 02/21/2019 16:46:09 Essential hypertension 89941897 I10 not well controlled misses night dose of metoprolol 25 mg bid metoprolol succinate was too expensive will switch to atenolol 50 mg qd recommend getting cuff for at home to continue monitoring bp slightly improved after recheck though still quite out of range Anxiety 07241919 F41.9 will consider adjusting doses of meds Acute stress disorder 67 915815 F43.0 daughter going through traumatic brain injury, causing significan t stress for the pt. Headache 55792200 R51 [id number] Holden Blair [facility] [address] [facility],[place] [address] 11/03/2019 14:49:36 11/03/2019 15:33:28 Essential hypertension 20061040 I10 doing ok but not always compliant will hold off on lab due to cost Tobacco de pendence syndrome 53362339 F17.200 not ready to quit yet Anxiety 87726982 F41.9 has been stable with current dose Depressive disorder 3548 9007 F32.9 stopped the wellbutrin relates too expensive Eczema 64761323 L30.9 Renewal of prescription 906384958 Z76.0 [id number] Holden Blair [facility] [address] [facility],[place] [address] 12/26/2019 10:45:45 12/26/2019 12:44:44 Injury of ribs 757626659 S29.9XXA the patient has a contusion to the ribs caused by a trauma to the the right side of his body after tripping and falling on a table [id number] Holden Blair [facility] [address] [facility], [place] [address] 07/09/2020 15:48:04 07/10/2020 11:51:21 Altered bowel function 04624631 R19.4 please refer to margaret pak [id number] Holden Blair [facility] [address] [facility], [place] [address] 04/11/2021 14:48:57 04/11/2021 15:28:04 Pneumothorax 96457705 J93.11 sent back to the ER for worsened breathing Harmful pa ttern of use of alcohol 36055466 F10.129 still drinking, was given info at hospital for [facility] Fracture o f multiple ribs 3417228 S22.42XA per XR, [place] [id number] Holden Blair [facility] [address] [facility],[place] [address] 04/30/2021 14:59:15 04/30/2021 16:12:53 Fracture of multiple ribs 6831408 S22.41XA S22.42XB we will cont oxycodone at night Right pneumothorax 48165 3001 J93.9 healin Left pneumothorax 925318 007 J93.9 healing Pneumonia caused by methicillin resistant Staphylococcus aureus 9849978514 90027 J15.212 he will finish the bactrim Alcohol dependence 17998 003 F10.20 long discvusiio n and we will work on this he has been abstintnt for a month Cirrhosis of liver 007 K74.60 will con to be abstinent and this should improve and we discussed this at length [id number] Holden Blair [facility] [address] [facility],[place] [address] 05/09/2021 14:41:45 05/09/2021 15:45:38 Anxiety 69422764 F41.9 has been stable with current dose Depressive disorder 3548 9007 F32.9 on 40 citalopram so we will have him add wellbutrin Essential hypertension 97718339 I10 doing ok off the lisinopril Alcoholism 7013720 F10.2 0 will plan on gettting him some naltrexone as teagan n as he is off the oxycodone [id number] Holden [facility] [address] [facility],[place], [place] 7 05/23/2021 15:40:14 05/23/2021 16:43:55 Alcoholic hepatitis 680193230 F10.188 Essential hypertension 94178286 I10 doing ok off the lisinopril Fracture o f multiple ribs 2929548 S22.41XA S22.42XB done with oxycodone will use cyclobenz Pneumothorax 71332375 J9 3.9 bilateral will be using advil for the rib fx remnant pain [id number] [facility] [address] [facility],[place] [address] 06/24/2021 11:58:20 06/24/2021 13:38:28 Mood disorder 46705728 F39 still having the severe anxiety stress level high will have him change the citalopram to venlafaxin e Harmful pa ttern of use of alcohol 98991964 F10.129 is still abstinent we will refill the naltrexone Essential hypertension 46230448 I10 his bp is up again and his stress level is also up Muscle pain 61041892 M79 .10 [id number] [facility] [address] [facility],[place] [address] 10/06/2021 15:59:46 10/07/2021 13:49:14 Essential hypertension 68752175 I10 will start back on lisinopril for BP control Cervico-oc cipital neuralgia 95133993 M54.81 will treat with for occipital migraine due to cervico-oc cipital neuralgia Depressive disorder 3548 9007 F32.1 will bump up his effexor dosage and fu next weekmay need bupropion increased as well Insomnia 431877711 G47.0 9 will start back on the ambien Cirrhosis of liver 85466 007 K70.30 stable Harmful pa ttern of use of alcohol 64290773 F10.129 still drinking, was given info at [facility] Pneumonia caused by methicillin resistant Staphylococcus aureus 9314681089 93292 J15.212 resolved [id number] [facility] [address] [facility],[place] [address] 01/28/2022 10:00:47 01/28/2022 14:07:49 COVID-19 737390447 U07.1 will start with prevenativ e measures for worsened complicati ons due to COVID 19 virus [id number] Holden [facility] [address] [facility] [place] [address] 03/31/2022 16:15:08 04/01/2022 08:45:29 Essential hypertension 46533041 I10 will start back on lisinopril for BP control Arthritis 6801882 M15.0 will refill the patient prescripti on Testostero ne level below reference range 229172814 R79.89 will check levels and other blood work levels Harmful pa ttern of use of alcohol 79116538 F10.129 still drinking, was given info at [facility] Cirrhosis of liver K70.30 will need to recheck his labs for his easy bleeding Easy bruising 018307642 Z78.9 will fu with blood work for the easy bleeding and bruising Eczema 71114476 L20.82 works really well on the triamcinol one Heart murmur 76651408 R0 1.1 will set up with fu echo to check his heart and murmur [id number] Holden [facility] [address] [facility], [place] [address] 07/10/2022 13:50:34 07/10/2022 15:29:14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
== END 2025-05-17 14:20 | disposition home or self-care (01) ==
LOC: HO.HNS 13:18
PROVIDERS: PCP Internal Medicine; Referring Provider Internal Medicine; Visit Provider Physician Assistant
DX: M48.061 Spinal stenosis, lumbar region without neurogenic claudication (principal)
CPT/HCPCS: 99204